=== PATIENT | female | born 1945 | race Caucasian/White ===

== ENCOUNTER → 2017-09-16 09:38 | Outpatient (CLI) | payer MEDICARE, SELFPAY ==
--- NOTE | 2017-09-16 09:40 | NM_ITS ---
CLINICAL: 72-year-old female with reported history of early satiety. SEMI-SOLID PHASE 99m Tc SULFUR COLLOID GASTRIC EMPTYING STUDY COMPARISON: None available FINDINGS: The patient was administered 1.1 mCi of 99m Tc sulfur colloid mixed with oatmeal and consumed per os. Image acquisitions in the anterior-posterior projections for a total of 60 minutes. There is prompt visualization of the stomach. There is no gastroesophageal reflux identified. The T1/2 linear fit was calculated to be 43.71 minutes, (Normal: 12-56 minutes). NM/Gastric Emptying Study IMPRESSION: 1. NORMAL 99m Tc sulfur colloid semi-solid phase (oatmeal) gastric emptying imaging examination. A. There is normal and preserved semi-solid phase gastric emptying compared to normal controls with maintained first order kinetics throughout all components of the examination. (Oscar et al, J Nucl Med Tech 38: 186, 2010). Electronically Signed: Will Patel DO at 10:19 EST Tel , Service support ,
== END ==
PROVIDERS: Family Provider Family Medicine; PCP Family Medicine; Visit Provider Family Medicine
DX: R68.81 Early satiety (principal)
CPT/HCPCS: 78264; A9541

== ENCOUNTER → 2017-10-07 08:56 | Outpatient (CLI) | payer MEDICARE, SELFPAY ==
--- NOTE | 2017-10-07 08:59 | RAD_ITS ---
STUDY: X-RAY - LUMBAR SPINE REASON FOR EXAM: Female, 72 years old. Chronic low back pain. TECHNIQUE: 5 view(s) of the lumbar spine were obtained including oblique views. COMPARISON: None FINDINGS: Normal lumbar lordosis. There is no substantial scoliosis. Minimal degree of anterior listhesis of L4 on L5 most likely secondary to facet joint osteoarthritis and hypertrophy. There is mild degree of endplate spondylosis of the lumbar vertebrae. There is multi-level degenerative disc disease with multi-level disc space narrowing. There is atherosclerotic calcification of the abdominal aorta without a demonstrated aneurysm. Dilatation of the aorta in the AP diameter. RAD/L/S Spine Min 4 Views IMPRESSION: Degenerative changes of the spine, as detailed above. Electronically Signed: Ugo Shearer MD at 20:00 EST Tel [phone], Service support ,
--- NOTE | 2017-10-07 09:02 | HPBD_ITS ---
STUDY: DUAL ENERGY X-RAY ABSORPTIOMETRY / DXA REASON FOR EXAM: Female, 72 years old. The patient is postmenopausal. Loss of height. TECHNIQUE: Bone Mineral Density (BMD) measurements of lumbar spine and bilateral hips were obtained. COMPARISON: None. FINDINGS: Lumbar Spine (L1-L4): g/cm2 (0.819) / T-score (-3.0) / Z-score (-1.3) Findings are suggestive of osteoporosis with a high fracture risk. Left Femur Total: g/cm2 (0.602) / T-score (-3.2) / Z-score (-1.8) Left Femoral Neck: g/cm2 (0.636) / T-score (-2.9) / Z-score (-1.2) Right Femur Total: g/cm2 (0.595) / T-score (-3.3) / Z-score (-1.8) Right Femoral Neck: g/cm2 (0.635) / T-score (-2.9) / Z-score (-1.2) HPBD/Dexa Bone Density Study (HP) IMPRESSION: The patient is considered osteoporotic as outlined below according to World Bart Organization (WHO) criteria with a high fracture risk. Reference Information: The T-score is the number of standard deviations above or below the standard which is normal for young adults at their peak bone mineral density. The World Health Organization (WHO) interprets the T-scores as follows: Above -1 Normal bone density Between -1 and -2.5 Osteopenia Equal to / or below -2.5 Osteoporosis As a practical clinical guideline, osteopenia may be graded as follows: Mild -1 through -1.5 Moderate -1.6 through -2.0 Severe -2.1 through -2.4 The Z-score is the number of standard deviations above or below age-matched controls. A Z-score of less than -1.5 would be considered abnormal. References: 1. NIH Osteoporosis and Related Bone Diseases http://www.osteo.org 2. International Society for Clinical Densitometry http://www.iscd.org 3. National Osteoporosis Foundation http://www.nof.org Electronically Signed: Ugo Shearer MD at 11:12 EST Tel [phone], Service support ,
== END ==
PROVIDERS: Family Provider Family Medicine; PCP Family Medicine; Visit Provider Family Medicine
DX: M81.0 Age-related osteoporosis without current pathological fracture (principal); M47.896 Other spondylosis, lumbar region; M51.36 Other intervertebral disc degeneration, lumbar region; M48.061 Spinal stenosis, lumbar region without neurogenic claudication
CPT/HCPCS: 72110; 77080

== ENCOUNTER → 2017-10-15 11:53 | Outpatient (CLI) | payer MEDICARE, SELFPAY ==
[2017-10-15 14:24] LABS: Anion Gap 10 (5-15); BUN 22 mg/dL (7-18); BUN/Creat Ratio 17.6 RATIO (10-20); Calcium,Total 9.3 mg/dL (8.5-10.1); Chloride 106 mmol/L (98-107); Creatinine, Serum 1.25 mg/dL (0.55-1.02); EST Glomerular Filtration Rate 45 mL/min (>60); Est Glom Filt Rate - Afr Amer 55 mL/min (>60); Glucose 136 mg/dL (74-106); Potassium 4.5 mmol/L (3.5-5.1); Sodium Level 141 mmol/L (136-145)
== END ==
PROVIDERS: Family Provider Family Medicine; PCP Family Medicine; Visit Provider Family Medicine
DX: N18.3 Chronic kidney disease, stage 3 (moderate) (principal)
CPT/HCPCS: 36415; 80048

== ENCOUNTER → 2017-10-17 10:53 | Outpatient (CLI) | payer MEDICARE, SELFPAY ==
--- NOTE | 2017-10-17 10:57 | RAD_ITS ---
STUDY: X-RAY - LEFT HAND REASON FOR EXAM: Female, 72 years old. Hand pain. TECHNIQUE: 3 view(s) of the hand. COMPARISON: None. FINDINGS: There is diffuse mineralization. There is no acute abnormality seen. Normal radiocarpal articulation. Normal distal radioulnar joint. Normal visualized carpal bones. Normal carpal articulations Normal carpometacarpal articulation of the thumb. Normal second through fifth carpometacarpal joints. Normal metacarpi. Normal metacarpophalangeal joint of the thumb. Normal interphalangeal joint of the thumb. Normal proximal and distal phalanges of the thumb. Normal metacarpophalangeal joints of the second through fifth fingers. Normal proximal and distal interphalangeal joints of the second through fifth fingers. Normal phalanges of the second through fifth fingers. The soft tissue structures are unremarkable. RAD/Hand Min 3 Views IMPRESSION: No acute fracture or dislocation. Electronically Signed: Adama Nicholson MD at 22:46 EST , Service support ,
--- NOTE | 2017-10-17 10:57 | RAD_ITS ---
STUDY: X-RAY - RIGHT HAND REASON FOR EXAM: Female, 72 years old. Hand pain. TECHNIQUE: 3 view(s) of the hand. COMPARISON: None. FINDINGS: There is diffuse demineralization. No acute fracture or dislocation is seen. Normal radiocarpal articulation. Normal distal radioulnar joint. Normal visualized carpal bones. Normal carpal articulations Normal carpometacarpal articulation of the thumb. Normal second through fifth carpometacarpal joints. Normal metacarpi. Normal metacarpophalangeal joint of the thumb. Normal interphalangeal joint of the thumb. Normal proximal and distal phalanges of the thumb. Normal metacarpophalangeal joints of the second through fifth fingers. Normal proximal and distal interphalangeal joints of the second through fifth fingers. Normal phalanges of the second through fifth fingers. The soft tissue structures are unremarkable. RAD/Hand Min 3 Views IMPRESSION: No acute fracture or dislocation. Electronically Signed: Adama Nicholson MD at 22:25 EST , Service support ,
== END ==
PROVIDERS: Family Provider Family Medicine; PCP Family Medicine; Visit Provider Family Medicine
DX: M79.642 Pain in left hand (principal); M79.641 Pain in right hand
CPT/HCPCS: 73130

== ENCOUNTER → 2017-11-19 10:26 | Outpatient (CLI) | payer MEDICARE, SELFPAY ==
[2017-11-19 10:41] LABS: Mucous, Urine 0 SEEN /hpf (<or=2+); Red Blood Cells-Urine 0 SEEN /hpf (0-5); Squamous Epithelial Cells - UA 0 SEEN /hpf (5-10)
[2017-11-19 12:00] LABS: Color, Urine Yellow (Yellow); Glucose, Dipstick Normal (Normal); Ketone-Dipstick Negative (Negative); Leukocyte Esterase-Dipstick Negative /ul (Negative); Nitrite-Dipstick Negative (Negative); Occult Blood-Urine Negative /ul (Negative); Protein-Dipstick Negative (Negative); Urine Bilirubin Dipstick Negative (Negative); Urine Clarity Clear (Clear); Urine Urobilinogen Normal (Normal)
[2017-11-19 12:17] LABS: Absolute Lymphocyte Count 2.95 X10^3/ul (0.83-4.51); Absolute Neutrophil Count 5.2 X10^3/uL (2.0-7.7); Basophil# 0.03 X10^3/uL; Basophil% 0.3 % (0-1); Eosinophil# 0.17 X10^3/uL; Eosinophils% 1.9 % (0-5); Hematocrit 38.7 % (37-47); Hemoglobin 12.6 g/dl (12.0-15.0); Lymphocyte # 2.95 X10^3/ul (4.0); Lymphocyte % 33.2 % (19-41); Mean Corp Hgb Conc 32.6 g/gl (32-36); Mean Corpuscular Hgb 30.7 pg (27.0-32.0); Mean Corpuscular Volume 94.2 fL (81-99); Mean Platelet Vol. 9.5 fl (6.2-12.0); Monocyte% 5.6 % (0-10); Neutrophil # 5.22 X10^3/uL (2.7-7.7); Neutrophil % 58.8 % (47-70); Platelet Count 237 K/mm3 (150-450); RBC Distribution Width CV 13.1 % (11.6-14.6); RBC Distribution Width SD 44.9 fl (35.1-43.9); Red Blood Count 4.11 M/mm3 (4.2-5.4); White Blood Count 8.9 K/mm3 (4.4-11.0)
[2017-11-19 12:18] LABS: Bacteria RARE /hpf (None Seen); White Blood Cells 0-5 SEEN /hpf (0-5)
[2017-11-19 12:19] LABS: POSITIVE COUNT NO; POSITIVE DIFFERENTIAL NO; POSITIVE MORPHOLOGY NO
[2017-11-19 12:23] LABS: Microalbumin,Random Urine 22.1 mg/L (NO RANGE EST.); Microalbumin:Creatinine Ratio 41.4 mg/g CRE (<30 mg/g CRE)
[2017-11-19 12:45] LABS: ALB/GLOB Ratio 1.1 RATIO (0.9-2.4); AST(SGOT) 14 U/L (15-37); Alanine Aminotransfer ALT/SGPT 33 U/L (13-56); Albumin, Serum 3.7 g/dL (3.2-5.0); Alkaline Phosphatase 107 U/L (45-117); Anion Gap 10 (5-15); BUN 39 mg/dL (7-18); Calcium,Total 8.3 mg/dL (8.5-10.1); Chloride 109 mmol/L (98-107); Cholesterol 220 mg/dL (200); Creatinine, Serum 1.22 mg/dL (0.55-1.02); EST Glomerular Filtration Rate 46 mL/min (>60); Est Glom Filt Rate - Afr Amer 56 mL/min (>60); Globulin 3.3 g/dL (2.2-4.2); Glucose 134 mg/dL (74-106); High Density Lipoprotein 38 mg/dL; Potassium 4.1 mmol/L (3.5-5.1); Sodium Level 142 mmol/L (136-145); Triglycerides 322 mg/dL; Very Low Density Lipoprotein 64 mg/dL (5-40)
[2017-11-19 12:46] LABS: Hemoglobin A1c 7.7 % (4.2-6.3)
[2017-11-19 12:51] LABS: Vitamin D,25 Hydroxy 46.1 ng/mL (29.95-100.01)
== END ==
PROVIDERS: Family Provider Family Medicine; PCP Family Medicine; Visit Provider Family Medicine
DX: E11.9 Type 2 diabetes mellitus without complications (principal)
CPT/HCPCS: 36415; 80053; 80061; 81001; 82043; 82306; 82570; 83036; 84100; 85025

== ENCOUNTER → 2017-12-31 13:48 | Outpatient (CLI) | payer MEDICARE, SELFPAY ==
--- NOTE | 2017-12-31 14:15 | RAD_ITS ---
STUDY: X-RAY - LEFT KNEE REASON FOR EXAM: Knee pain, rheumatoid arthritis, no specific injury. TECHNIQUE: 4 view(s) of the knee. COMPARISON: None. FINDINGS: Normal visualized distal femur. Normal visualized proximal tibia and fibula. Normal proximal tibiofibular articulation. There is mild deformity of the patella on the lateral view suggesting a chronic healed fracture. There is joint space narrowing of the medial femorotibial compartment. Normal lateral femorotibial compartment. There is mild joint space narrowing of the medial aspect of the patellofemoral articulation. There are surgical clips at the medial posterior aspect of the knee. RAD/Knee 4 or More Views IMPRESSION: Arthrosis of the medial femorotibial and patellofemoral compartments. Mild chronic healed fracture deformity of the patella. Electronically Signed: Regan Clemens MD at 9:02 EDT Tel , Service support ,
--- NOTE | 2017-12-31 14:15 | RAD_ITS ---
STUDY: X-RAY - RIGHT KNEE REASON FOR EXAM: Knee pain, no specific injury, rheumatoid arthritis. TECHNIQUE: 4 view(s) of the knee. COMPARISON: None. FINDINGS: Normal visualized distal femur. Normal visualized proximal tibia and fibula. Normal proximal tibiofibular articulation. There is joint space narrowing of the medial femorotibial compartment. Normal lateral femorotibial compartment. Normal patellofemoral articulation. The soft tissue structures are unremarkable. RAD/Knee 4 or More Views IMPRESSION: Arthrosis of the medial femorotibial compartment. Electronically Signed: Regan Clemens MD at 16:30 EDT Tel , Service support ,
--- NOTE | 2017-12-31 14:15 | RAD_ITS ---
STUDY: X-RAY - LEFT SHOULDER REASON FOR EXAM: Shoulder pain, no specific injury, rheumatoid arthritis. TECHNIQUE: 4 view(s) of the shoulder. COMPARISON: None. FINDINGS: Normal glenohumeral articulation. Normal acromioclavicular joint. Normal acromion. Normal humeral head and visualized proximal humerus. The soft tissue structures are unremarkable. Status post median sternotomy. RAD/Shoulder min 2 Views IMPRESSION: Unremarkable x-ray examination of the left shoulder. Electronically Signed: Regan Clemens MD at 16:16 EDT Tel , Service support ,
--- NOTE | 2017-12-31 14:15 | RAD_ITS ---
STUDY: X-RAY - RIGHT SHOULDER REASON FOR EXAM: Female, 72 years old. Shoulder pain. No known injury. History of rheumatoid arthritis. TECHNIQUE: 4 view(s) of the shoulder. COMPARISON: None. FINDINGS: Normal glenohumeral articulation. There is degenerative arthrosis of the acromioclavicular joint without inferior osseous spur formation. Normal acromion. There is no acute fracture, dislocation or destructive osseous pathology. There is demineralization of the humerus and visualized osseous structures. The soft tissue structures are unremarkable. There is evidence of median sternotomy. Normal visualized pulmonary apex. RAD/Shoulder min 2 Views IMPRESSION: Mild degenerative changes of the acromioclavicular joint. Electronically Signed: Santana Lambert DO at 15:28 EDT Tel [phone], Service support ,
[2017-12-31 16:53] LABS: Erythrocyte Sedimentation Rate 15 mm/hr (0-30)
[2017-12-31 16:55] LABS: CRP < 2.90 mg/L (0.0-3.0); Rheumatoid Factor < 10.0 IU/mL (<15); Uric Acid 7.9 mg/dL (2.6-6.0)
[2018-01-03 10:46] LABS: ANTINUCLEAR ANTIBODIES DIRECT Negative (Negative)
[2018-01-03 10:56] LABS: CCP IgG Antibodies 4 units (0-19)
== END ==
LOC: MFPLAB 13:48 → MTRAD 13:56
PROVIDERS: Family Provider Family Medicine; PCP Family Medicine; Visit Provider Family Medicine
DX: M19.011 Primary osteoarthritis, right shoulder (principal); M17.0 Bilateral primary osteoarthritis of knee; M06.00 Rheumatoid arthritis without rheumatoid factor, unspecified site
CPT/HCPCS: 36415; 73030; 73564; 84550; 85652; 86038; 86140; 86200; 86431

== ENCOUNTER → 2018-02-04 10:49 | Outpatient (CLI) | payer MEDICARE, SELFPAY ==
[2018-02-04 12:23] LABS: Uric Acid 7.2 mg/dL (2.6-6.0)
== END ==
PROVIDERS: Family Provider Family Medicine; PCP Family Medicine; Visit Provider Family Medicine
DX: E79.0 Hyperuricemia without signs of inflammatory arthritis and tophaceous disease (principal)
CPT/HCPCS: 36415; 84550

== ENCOUNTER → 2018-03-03 12:09 | Outpatient (CLI) | payer MEDICARE, SELFPAY ==
--- NOTE | 2018-03-03 12:27 | VDLE_ITS ---
Reason For Study: LEG SWELLING RIGHT LEFT CFV is compressible, spontaneous, phasic, GSV is normal. competent and demonstrates normal CFV is compressible, spontaneous, phasic, augmentation. competent, and demonstrates normal Procedure augmentation. Exam performed in department. FV is compressible, spontaneous, phasic, A preliminary report was called and/or faxed competent and demonstrates normal to Dr. Rahman. augmentation. POP V is compressible, spontaneous, phasic, competent and demonstrates normal augmentation. T/P Trunk is compressible. PTV is compressible. LT PerV is compressible. Interpretation Summary Deep veins of the left lower extremity are patent and compressible segmentally. There is no evidence of left lower extremity deep vein thrombosis. Valvular competence appears intact within the proximal deep venous system on the left . The left greater saphenous vein appears patent and compressible segmentally. Ordering Physician: Ben Rahman Referring Physician: Ben Rahman Performed By: Teena Sharp RVT
== END ==
PROVIDERS: Family Provider Family Medicine; PCP Family Medicine; Visit Provider Family Medicine
DX: M79.89 Other specified soft tissue disorders (principal)
CPT/HCPCS: 93971

== ENCOUNTER → 2018-03-06 11:09 | Outpatient (CLI) | payer MEDICARE, SELFPAY ==
[2018-03-06 11:13] LABS: Mucous, Urine 0 SEEN /hpf (<or=2+)
[2018-03-06 14:09] LABS: Absolute Lymphocyte Count 2.42 X10^3/ul (0.83-4.51); Absolute Neutrophil Count 8.8 X10^3/uL (2.0-7.7); Basophil# 0.05 X10^3/uL; Basophil% 0.4 % (0-1); Eosinophil# 0.22 X10^3/uL; Eosinophils% 1.8 % (0-5); Hematocrit 38.9 % (37-47); Hemoglobin 12.8 g/dl (12.0-15.0); Lymphocyte # 2.42 X10^3/ul (4.0); Lymphocyte % 19.3 % (19-41); Mean Corp Hgb Conc 32.9 g/gl (32-36); Mean Corpuscular Hgb 31.3 pg (27.0-32.0); Mean Corpuscular Volume 95.1 fL (81-99); Monocyte# 1.05 X10^3/uL; Monocyte% 8.4 % (0-10); Neutrophil # 8.77 X10^3/uL (2.7-7.7); Neutrophil % 69.6 % (47-70); Platelet Count 395 K/mm3 (150-450); RBC Distribution Width CV 14.9 % (11.6-14.6); RBC Distribution Width SD 49.3 fl (35.1-43.9); Red Blood Count 4.09 M/mm3 (4.2-5.4); White Blood Count 12.6 K/mm3 (4.4-11.0)
[2018-03-06 14:10] LABS: POSITIVE COUNT NO; POSITIVE DIFFERENTIAL NO; POSITIVE MORPHOLOGY NO
[2018-03-06 14:20] LABS: Color, Urine Yellow (Yellow); Glucose, Dipstick Normal (Normal); Ketone-Dipstick Negative (Negative); Leukocyte Esterase-Dipstick 25 /ul (Negative); Nitrite-Dipstick Negative (Negative); Occult Blood-Urine Negative /ul (Negative); Protein-Dipstick 15 mg/dl (Negative); Specific Gravity, Urine 1.015 (1.002-1.030); Urine Bilirubin Dipstick Negative (Negative); Urine Clarity Clear (Clear); Urine Urobilinogen Normal (Normal)
[2018-03-06 14:24] LABS: AST(SGOT) 19 U/L (15-37); Alanine Aminotransfer ALT/SGPT 27 U/L (13-56); Albumin, Serum 3.8 g/dL (3.2-5.0); Alkaline Phosphatase 87 U/L (45-117); Anion Gap 9 (5-15); BUN 20 mg/dL (7-18); BUN/Creat Ratio 16.1 RATIO (10-20); Calcium,Total 8.8 mg/dL (8.5-10.1); Chloride 103 mmol/L (98-107); Cholesterol 282 mg/dL (200); Creatinine, Serum 1.24 mg/dL (0.55-1.02); EST Glomerular Filtration Rate 45 mL/min (>60); Est Glom Filt Rate - Afr Amer 55 mL/min (>60); Globulin 3.8 g/dL (2.2-4.2); Glucose 219 mg/dL (74-106); High Density Lipoprotein 31 mg/dL; Potassium 4.4 mmol/L (3.5-5.1); Protein, Total 7.6 g/dL (6.4-8.2); Sodium Level 136 mmol/L (136-145); Thyroid Stim Hormone (TSH) 1.28 uIU/mL (0.358-3.74); Triglycerides 828 mg/dL
[2018-03-06 14:26] LABS: Hemoglobin A1c 9.5 % (4.2-6.3)
[2018-03-06 14:35] LABS: Bacteria RARE /hpf (None Seen); Red Blood Cells-Urine 0-5 SEEN /hpf (0-5); Squamous Epithelial Cells - UA 0-5 SEEN /hpf (5-10); White Blood Cells 0-5 SEEN /hpf (0-5)
[2018-03-06 14:42] LABS: Vitamin D,25 Hydroxy 11.2 ng/mL (29.95-100.01)
[2018-03-06 14:43] LABS: Microalbumin,Random Urine 47.8 mg/L (NO RANGE EST.)
== END ==
PROVIDERS: Family Provider Family Medicine; PCP Family Medicine; Visit Provider Family Medicine
DX: I10 Essential (primary) hypertension (principal); E11.9 Type 2 diabetes mellitus without complications; E55.9 Vitamin D deficiency, unspecified
CPT/HCPCS: 36415; 80053; 80061; 81001; 82043; 82306; 82570; 83036; 84443; 85025

== ENCOUNTER → 2018-04-03 15:35 | Outpatient (CLI) | payer MEDICARE, SELFPAY | PROVIDERS: Family Provider Family Medicine; PCP Family Medicine; Visit Provider Family Medicine | DX: M79.89 Other specified soft tissue disorders (principal) | CPT/HCPCS: 74177; Q9967 ==

== ENCOUNTER → 2018-04-14 11:33 | Outpatient (CLI) | payer MEDICARE, SELFPAY | PROVIDERS: Family Provider Family Medicine; PCP Family Medicine; Visit Provider Family Medicine | DX: M25.511 Pain in right shoulder (principal) | CPT/HCPCS: 73030 ==

== ENCOUNTER → 2018-06-16 10:18 | Outpatient (CLI) | payer MEDICARE, SELFPAY ==
[2018-06-16 11:50] LABS: Erythrocyte Sedimentation Rate 34 mm/hr (0-30)
[2018-06-16 11:55] LABS: Absolute Lymphocyte Count 2.91 X10^3/ul (0.83-4.51); Absolute Neutrophil Count 10.4 X10^3/uL (2.0-7.7); Basophil# 0.07 X10^3/uL; Basophil% 0.5 % (0-1); Eosinophil# 0.22 X10^3/uL; Eosinophils% 1.5 % (0-5); Hematocrit 38.2 % (37-47); Hemoglobin 12.5 g/dl (12.0-15.0); Lymphocyte # 2.91 X10^3/ul (4.0); Lymphocyte % 19.6 % (19-41); Mean Corp Hgb Conc 32.7 g/gl (32-36); Mean Corpuscular Volume 94.8 fL (81-99); Mean Platelet Vol. 10.1 fl (6.2-12.0); Monocyte# 1.04 X10^3/uL; Neutrophil # 10.42 X10^3/uL (2.7-7.7); Neutrophil % 70.4 % (47-70); POSITIVE COUNT NO; POSITIVE DIFFERENTIAL NO; POSITIVE MORPHOLOGY NO; Platelet Count 310 K/mm3 (150-450); RBC Distribution Width CV 13.9 % (11.6-14.6); RBC Distribution Width SD 46.3 fl (35.1-43.9); Red Blood Count 4.03 M/mm3 (4.2-5.4); White Blood Count 14.8 K/mm3 (4.4-11.0)
[2018-06-16 12:13] LABS: ALB/GLOB Ratio 0.9 RATIO (0.9-2.4); AST(SGOT) 11 U/L (15-37); Alanine Aminotransfer ALT/SGPT 33 U/L (13-56); Albumin, Serum 3.7 g/dL (3.2-5.0); Alkaline Phosphatase 81 U/L (45-117); Anion Gap 13 (5-15); BUN 32 mg/dL (7-18); BUN/Creat Ratio 23.4 RATIO (10-20); CRP 4.26 mg/L (0.0-3.0); Calcium,Total 8.2 mg/dL (8.5-10.1); Chloride 110 mmol/L (98-107); Creatinine, Serum 1.37 mg/dL (0.55-1.02); EST Glomerular Filtration Rate 40 mL/min (>60); Est Glom Filt Rate - Afr Amer 49 mL/min (>60); Globulin 3.9 g/dL (2.2-4.2); Glucose 230 mg/dL (74-106); Potassium 4.5 mmol/L (3.5-5.1); Protein, Total 7.6 g/dL (6.4-8.2); Rheumatoid Factor < 10.0 IU/mL (<15); Sodium Level 139 mmol/L (136-145); Uric Acid 6.9 mg/dL (2.6-6.0)
[2018-06-19 11:32] LABS: CCP IgG Antibodies 5 units (0-19)
== END ==
PROVIDERS: Family Provider Family Medicine; PCP Family Medicine; Visit Provider Internal Medicine Rheumatology
DX: M06.4 Inflammatory polyarthropathy (principal); M10.9 Gout, unspecified
CPT/HCPCS: 36415; 80053; 84550; 85025; 85652; 86140; 86200; 86431

== ENCOUNTER → 2018-07-08 10:42 | Outpatient (CLI) | payer MEDICARE, SELFPAY ==
[2018-07-08 12:29] LABS: Absolute Lymphocyte Count 3.58 X10^3/ul (0.83-4.51); Absolute Neutrophil Count 11.4 X10^3/uL (2.0-7.7); Basophil# 0.05 X10^3/uL; Basophil% 0.3 % (0-1); Eosinophil# 0.13 X10^3/uL; Eosinophils% 0.7 % (0-5); Hematocrit 40.3 % (37-47); Hemoglobin 13.2 g/dl (12.0-15.0); Lymphocyte # 3.58 X10^3/ul (4.0); Lymphocyte % 20.6 % (19-41); Mean Corp Hgb Conc 32.8 g/gl (32-36); Mean Corpuscular Hgb 31.4 pg (27.0-32.0); Mean Platelet Vol. 10.1 fl (6.2-12.0); Monocyte# 2.08 X10^3/uL; Neutrophil # 11.38 X10^3/uL (2.7-7.7); Neutrophil % 65.4 % (47-70); Platelet Count 311 K/mm3 (150-450); RBC Distribution Width CV 13.7 % (11.6-14.6); RBC Distribution Width SD 46.9 fl (35.1-43.9); White Blood Count 17.4 K/mm3 (4.4-11.0)
[2018-07-08 12:37] LABS: ALB/GLOB Ratio 0.9 RATIO (0.9-2.4); AST(SGOT) 33 U/L (15-37); Alanine Aminotransfer ALT/SGPT 40 U/L (13-56); Albumin, Serum 3.7 g/dL (3.2-5.0); Alkaline Phosphatase 77 U/L (45-117); Anion Gap 8 (5-15); BUN 37 mg/dL (7-18); BUN/Creat Ratio 26.8 RATIO (10-20); Calcium,Total 8.8 mg/dL (8.5-10.1); Chloride 104 mmol/L (98-107); Cholesterol 258 mg/dL (200); Creatinine, Serum 1.38 mg/dL (0.55-1.02); EST Glomerular Filtration Rate 40 mL/min (>60); Est Glom Filt Rate - Afr Amer 49 mL/min (>60); Globulin 4.2 g/dL (2.2-4.2); Glucose 51 mg/dL (74-106); High Density Lipoprotein 47 mg/dL; Potassium 3.9 mmol/L (3.5-5.1); Protein, Total 7.9 g/dL (6.4-8.2); Sodium Level 135 mmol/L (136-145); Triglycerides 430 mg/dL
[2018-07-08 12:40] LABS: Differential Indicated SCAN CRITERIA MET; POSITIVE COUNT NO; POSITIVE DIFFERENTIAL YES; POSITIVE MORPHOLOGY NO; Vitamin D,25 Hydroxy 14.2 ng/mL (29.95-100.01)
[2018-07-08 12:53] LABS: Hemoglobin A1c 8.8 % (4.2-6.3)
[2018-07-10 10:27] LABS: Pathologist Review Reviewed
== END ==
PROVIDERS: Family Provider Family Medicine; PCP Family Medicine; Visit Provider Family Medicine
DX: I10 Essential (primary) hypertension (principal); E55.9 Vitamin D deficiency, unspecified; E11.9 Type 2 diabetes mellitus without complications
CPT/HCPCS: 36415; 80053; 80061; 82043; 82306; 82570; 83036; 85025

== ENCOUNTER → 2018-07-10 09:55 | Outpatient (CLI) | payer MEDICARE, SELFPAY ==
[2018-07-10 12:16] LABS: Microalbumin,Random Urine 45.5 mg/L (NO RANGE EST.); Microalbumin:Creatinine Ratio 65.3 mg/g CRE (<30 mg/g CRE)
== END ==
LOC: LAB.FUTURE 09:55 → LABSPEC 09:57
PROVIDERS: Family Provider Family Medicine; PCP Family Medicine; Visit Provider Family Medicine
DX: I10 Essential (primary) hypertension (principal)
CPT/HCPCS: 82043; 82570

== ENCOUNTER → 2018-11-11 12:53 | Outpatient (CLI) | payer MEDICARE, SELFPAY | PROVIDERS: Family Provider Family Medicine; PCP Family Medicine; Referring Provider Family Medicine; Visit Provider Family Medicine | DX: N39.0 Urinary tract infection, site not specified (principal) | CPT/HCPCS: 87086 ==

== ENCOUNTER 2018-11-12 00:58 | Inpatient (IN) | payer MEDICARE, SELFPAY ==
[2018-11-12] VITALS (36 sets, daily range): BP systolic 84–142; BP diastolic 38–119; PULSE 51–90; RESP 13–28; TEMP 30.3–37.6; O2SAT 88–100; BMI 23.2; BMI 24.0; BMI 24.1
--- NOTE | 2018-11-12 01:05 | RAD_ITS ---
STUDY: X-RAY CHEST REASON FOR EXAM: Female, 73 years old. Shortness of breath TECHNIQUE: 1 view COMPARISON: None. FINDINGS: The lungs are clear and expanded. There is no demonstrated pleural abnormality. Normal size heart. Normal mediastinum and anita. Normal visualized pulmonary arteries. Normal visualized aortic arch and descending thoracic aorta. Median sternotomy wires are in place. Normal visualized thoracic spine. Normal visualized ribs, clavicles, and shoulders. There is no demonstrated abnormality of the visualized soft tissue structures of the upper abdomen. RAD/Chest 1 View (Portable) IMPRESSION: Normal x-ray examination of the chest. No acute findings in the lungs Electronically Signed: Garry Call MD at 3:10 EDT Tel , Service support ,
--- NOTE | 2018-11-12 01:05 | EKG12_ITS ---
Test Reason : GENERAL ILLNESS Blood Pressure : / mmHG Vent. Rate : 058 BPM Atrial Rate : 058 BPM P-R Int : 188 ms QRS Dur : 102 ms QT Int : 504 ms P-R-T Axes : -88 -20 127 degrees QTc Int : 494 ms Possible ectopic atrial bradycardia ST & T wave abnormality, consider anterolateral ischemia Prolonged QT Abnormal ECG Confirmed by DONATO CLEMENTS, ONEAL ([id number]), state editor NASIR WILD ([id number]) on 11/12/2018 1:16:20 PM Referred By: Ben Rahman Confirmed By:ONEAL SEWELL MD
--- NOTE | 2018-11-12 01:05 | ED.RN ---
UNABLE TO OBTAIN QUALITY PULSE OX
[2018-11-12 01:30] LABS: Absolute Neutrophil Count 23.8 X10^3/uL (2.0-7.7); Basophil# 0.03 X10^3/uL; Basophil% 0.1 % (0-1); Differential Indicated SCAN CRITERIA MET; Eosinophil# 0.03 X10^3/uL; Eosinophils% 0.1 % (0-5); Lymphocyte % 10.8 % (19-41); Mean Corp Hgb Conc 28.6 g/gl (32-36); Mean Corpuscular Hgb 30.3 pg (27.0-32.0); Mean Corpuscular Volume 106.1 fL (81-99); Mean Platelet Vol. 10.4 fl (6.2-12.0); Monocyte# 0.67 X10^3/uL; Monocyte% 2.4 % (0-10); Neutrophil % 85.7 % (47-70); POSITIVE COUNT NO; POSITIVE DIFFERENTIAL YES; POSITIVE MORPHOLOGY YES; Platelet Count 558 K/mm3 (150-450); RBC Distribution Width CV 14.2 % (11.6-14.6); RBC Distribution Width SD 55.2 fl (35.1-43.9); Red Blood Count 3.96 M/mm3 (4.2-5.4); White Blood Count 27.8 K/mm3 (4.4-11.0)
[2018-11-12 01:33] LABS: International Normalized Ratio 1.5; Partial Thromboplast Time 28.1 Seconds (24.1-36.2)
[2018-11-12 01:40] LABS: Bacteria 0 SEEN /hpf (None Seen); Mucous, Urine 0 SEEN /hpf (<or=2+); Red Blood Cells-Urine 0 SEEN /hpf (0-5); Squamous Epithelial Cells - UA 0 SEEN /hpf (5-10)
[2018-11-12 01:41] LABS: Color, Urine Yellow (Yellow); Glucose, Dipstick 1000 mg/dl (Normal); Ketone-Dipstick Negative (Negative); Leukocyte Esterase-Dipstick 500 /ul (Negative); Nitrite-Dipstick Negative (Negative); Occult Blood-Urine 50 /ul (Negative); Protein-Dipstick 30 mg/dl (Negative); Urine Bilirubin Dipstick Negative (Negative); Urine Clarity Cloudy (Clear); Urine Urobilinogen Normal (Normal)
[2018-11-12] MEDS: 0.9% Normal Saline 1,000 ML 999 ML IV ×2 (01:41→02:36)
[2018-11-12] MEDS: 0.9% Normal Saline 1,000 ML 250 ML IV ×2 (01:41→04:15)
--- NOTE | 2018-11-12 01:46 | CPS ---
Critical Results of ABG given to
[2018-11-12 01:58] LABS: White Blood Cells 10-25 SEEN /hpf (0-5)
[2018-11-12 01:59] LABS: Yeast-Urine 3+ /hpf (None Seen)
[2018-11-12 02:02] LABS: ALB/GLOB Ratio 0.9 RATIO (0.9-2.4); AST(SGOT) 40 U/L (15-37); Alanine Aminotransfer ALT/SGPT 31 U/L (13-56); Albumin, Serum 3.5 g/dL (3.2-5.0); Alkaline Phosphatase 164 U/L (45-117); Anion Gap 24 (5-15); BUN 66 mg/dL (7-18); BUN/Creat Ratio 24.8 RATIO (10-20); Calcium,Total 9.7 mg/dL (8.5-10.1); Chloride 73 mmol/L (98-107); Creatinine, Serum 2.66 mg/dL (0.55-1.02); EST Glomerular Filtration Rate 19 mL/min (>60); Est Glom Filt Rate - Afr Amer 23 mL/min (>60); Estimated Creatinine Clearance 16.05 ml/min; Globulin 3.7 g/dL (2.2-4.2); Glucose 1626 mg/dL (74-106); Protein, Total 7.2 g/dL (6.4-8.2); Sodium Level 105 mmol/L (136-145)
[2018-11-12 02:05] LABS: Lactic Acid 13.1 mmol/L (0.4-2.0)
--- NOTE | 2018-11-12 03:11 | RAD_ITS ---
STUDY: X-RAY CHEST REASON FOR EXAM: Female, 73 years old. PICC line placement TECHNIQUE: 1 view COMPARISON: November 12, 2018 at 1:57 AM FINDINGS: There is interval introduction of a central line through the right internal jugular vein with the tip at the cavoatrial junction. The lungs remain clear. The heart is normal in size. Median sternotomy wires are in place. Normal visualized thoracic spine. Normal visualized ribs, clavicles, and shoulders. There is no demonstrated abnormality of the visualized soft tissue structures of the upper abdomen. RAD/Chest 1 View (Portable) IMPRESSION: Interval introduction of a central line through the right internal jugular vein with the tip at the caval atrial junction. No acute findings in the lungs Electronically Signed: Garry Call MD at 3:51 EDT Tel , Service support ,
--- NOTE | 2018-11-12 03:16 | ED.RN ---
pt will not keep blankets on even after education about temperature. IG central line placed right. Pending bed assignment.
--- NOTE | 2018-11-12 03:23 | ED.DCSUM_ITS ---
- ER Visit Summary Date of Service: 11/12/18 Chief Complaint: Weakness History of Present Illness: The patient is a 73 F who family brings her in tonight with a chief complaint that she is weak and unable to walk. They tell me that 10 days ago she was started on antibiotic for urinary tract infection. From online resources I see that this was probably Bactrim. She was not getting any better still complaining of urinary frequency and went to primary care today. She was started on ciprofloxacin and Zofran. Family states that about a week ago she had nausea vomiting is been unable to keep much fluids or food in her. states that she complains of being hot and goes outside with very little clothing on. Family and patient poor historians. They note a history of type 2 diabetes on insulin coronary artery disease having had a CABG. Patient denies chest pain Physical Examination: Temperature 92.8. Heart rate of 51 respirations are 24 pulse ox is 94% on room air blood pressure 121/68 Gen: Well-nourished well-developed patient is ill-appearing Head: Normocephalic atraumatic Eyes: Perrl EOMI ENT: TMs clear no rhinorrhea moist mucous membranes Neck: Supple no lymphadenopathy no JVD nontender CVS: Regular rate and cardiac rhythm no murmurs normal S1-S2 Respiratory: It is tachypneic no distress clear to auscultation bilaterally chest nontender Abdomen: Soft mild diffuse tenderness without guarding or rebound nondistended normal bowel sounds no masses Back: Nontender Extremity: Nontender no edema Skin: Normal color no rash Neuro: Lethargic but orientated ?3 CN II-XII intact normal strength sensation Psych: Blunted Test Results: EKG demonstrates a sinus rhythm with deep inverted T waves anteriorly and laterally. 1 box of elevation in V2 and V3 patient has had inverted T waves on prior EKG from the year 1999.. White count is 27.8. Glucose 1626. BUN is 66 creatinine 2.66. ABG with pH of 7.05 bicarb 3.9 PCO2 13.8 PaO2 172. Lactic acid 13.1. Troponin V 0.39. Chest x-ray shows no acute findings and repeat chest x-ray shows adequate placement of a central line. Ketones are negative. Urinalysis 10-25 white cells negative nitrates no bacteria positive yeast Emergency Department Course and Treatment: She is not complaining of chest pain I suspect that the changes we see on the EKG are most likely due to the severe metabolic derangements. IV was established and the patient received 2 L of IV fluids. An insulin drip was started. Patient also received 2 g of meropenem. The patient does not want warm blankets or bear hugger. She pushes this type of warming away. The patient had a couple hypotensive readings. The decision was made given the above lab findings to place a central line. Informed consent was provided by family. A right internal jugular central line was placed under ultrasound guidance using the modified Seldinger technique. This was obtained on the first attempt. Dark nonpulsatile blood obtained. It was sutured in place flushed and chest x-ray confirmed placement. Patient was admitted to the intensive care unit. At this time family wishes the patient to be a full code. Impression: 1. Hyperosmolar hyperglycemic nonketotic syndrome 2. NSTEMI 3. Metabolic acidosis 4. Hypothermia 5. Central line by physician 6. Critical care time 35 minutes This note was generated with [employer] dictation software. It may contain incorrect words, spelling, and punctuation that were not noted in review of the chart prior to signing ED Disposition - Plan for ED Patient: Disposition: Acute Care Hospital [facility]
--- NOTE | 2018-11-12 03:31 | ED.RN ---
Report given to Viviane in ICU.
[2018-11-12 03:40] LABS: Blood Gas Specimen Type ART
[2018-11-12 03:41] LABS: Allen Test POS; O2 Delivery Device RA; SITE R Radial
[2018-11-12 03:42] LABS: Time Given 132
[2018-11-12 03:43] LABS: PO2 172 mmHG (75-100); pCO2 13.8 mmHg (35-45); pH 7.06 (7.35-7.45)
[2018-11-12 03:44] LABS: Base Excess -26 mmol/L (-2 to +2); Bicarbonate 3.9 mmol/L (22-26); SO2 99 % (95-99); Total Carbon Dioxide < 5 mmol/L
--- NOTE | 2018-11-12 03:52 | PCM.HP.STD ---
Problem List (1) Generalized weakness Status: Acute (2) Confusion Status: Acute History of Present Illness Date of Admission: 11/12/18 Chief Complaint: Generalized weakness, confusion The patient is a 73 year old F who was seen in the emergency room at [facility] after being brought in with complaints of severe weakness and confusion. Patient's family was present in the emergency room and were able to give information-an adequate review of systems was unable to be obtained from the patient due to severe weakness and confusion. Patient did answer some questions appropriately however. Patient has no complaints of any chest pain or shortness of breath, she does complain of some nausea. Patient's family states that the patient had a urinary tract infection approximately a week to 10 days ago and was treated with antibiotic, she continued to feel unwell and weak and went to her family physician's office on 11/11/18, she was given a prescription for Cipro, Mycelex troches, and Zofran but no lab was obtained. Patient's and son state that the patient is noncompliant with her type 2 diabetes. Workup in the emergency room included labs which were abnormal for the following results: White blood cell count was elevated at 27.8, sodium was 105 (corrected for the patient's hyperglycemia-approximately 140), potassium was elevated at 7, chloride was low at 73, bicarb was 8, glucose was 1626, lactic acid was 13.1, troponin was elevated at 5.39, AST was elevated at 40, and alkaline phosphatase was elevated at 164. Patient's urinalysis was positive for protein, urine glucose was high at 1000, urine WBCs were 15-25, 0 bacteria were seen however +3 yeast was noted to be present. Patient's acetone level was negative. EKG showed a normal sinus rhythm with T wave inversions across the anterior wall leads which appear to be chronic in nature, in leads V2 and V3, there was a slight ST elevation of 1 mm noted-this examiner did not feel the patient had a STEMI. Arterial blood gas was drawn on 3 L nasal cannula: PH 7.06, PCO2 of 13.8, PO2 of 172. Patient was given IV fluid in the emergency room, she was given 1 dose of meropenem 2 g, patient was started on an insulin drip, patient also had a central line inserted. Patient will be admitted to ICU for septic shock, hyperosmolar nonketotic hyperglycemia, and non-STEMI. Past Medical History Allergies metformin Allergy (Verified 11/12/18 01:07) Itching Home Medications: Ambulatory Orders Medication Instructions Recorded Ciprofloxacin [Cipro] 500 mg PO BID 11/12/18 Clotrimazole [Mycelex] 10 mg MUCOUS MEM 5X/DAY 11/12/18 Insulin Lispro [Humalog KwikPen] 11/12/18 Lisinopril [Zestril] 10 mg PO DAILY 11/12/18 Sulfamethoxazole/Trimethoprim 1 tab PO BID 11/12/18 [Sulfamethoxazole-Tmp Ds Tablet] Surgical History: cholecystectomy, coronary bypass surgery, hysterectomy, - - Knee surgery Psychiatric History: No pertinent psych hx [employer] History: No pertinent [employer] history Lives: Spouse/ Significant Other Smoking Status: Current every day smoker Tobacco Use: Cigarettes Alcohol: None Drugs: None - *Family History Maternal History Items: Unknown Paternal History Items: Unknown Review of Systems Comment: Review of systems was unable to be obtained from the patient due to her critical medical condition and mild confusion, medical information was obtained from the patient's family who were in the room during my examination VTE Information - Inpt Only VTE Present on Admission: No VTE Mechan Device Prophylaxis: None VTE Pharm Prophylaxis ordered?: Yes Patient Problems: Active and Suspected Problems Generalized weakness (Acute) Confusion (Acute) - Physical Exam General: Alert, Cooperative, No apparent distress, Well developed, Confused - Patient has mild confusion, she answers some questions appropriately HEENT: Atraumatic, PERRLA, EOMI, Normocephalic Oral: Dry Mucosa Neck: Supple, No JVD, Negative Carotid Bruits, No Nuchal Rigidity, Trachea Midline, Thyroid Normal Size and Texture Lungs: Clear to auscultation, Normal air movement, No rhonchi, No wheeze, No rales Cardiovascular: Regular rate, Regular Rhythm, Normal S1, Normal S2, No murmurs, No Ectopic Activity, PMI Normal, No rub noted, No Gallop Abdomen: Bowel Sounds Present, Soft, Non Tender, Non-Distended, No hernias noted Extremities: No clubbing, No cyanosis, No edema, Capillary Refill Less than 3 Seconds, - - Extremities are cool to the touch Skin: No rashes, No breakdown Musculoskeletal: No Tenderness to Palpation of Joints or Extremities Neurological: Cranial nerves II-XII grossly intact, Neuro grossly intact, Sensory exam intact to light touch and pain Psych/Mental Status: Flat Affect, - - Patient is mildly confused, she answers some questions appropriately, she is alert Vital Signs Temp Pulse Resp BP Pulse Ox 92.9 F L 60 28 H 104/77 99 11/12/18 03:18 11/12/18 03:18 11/12/18 03:18 11/12/18 03:18 11/12/18 03:18 Oxygen Flow Rate (L/min) 3 Oxygen Delivery Method Room Air Weight: 59.5 kg Body Mass Index (BMI) 23.2 Laboratory Tests Past 24 Hrs 11/12/18 11/12/18 11/12/18 01:17 01:17 01:17 WBC 27.8 H RBC 3.96 L Hgb 12.0 Hct 42.0 MCV 106.1 H MCH 30.3 MCHC 28.6 L RDW 14.2 RDW Differential 55.2 H Plt Count 558 H MPV 10.4 Immature Gran % (Auto) 0.900 Neut % (Auto) 85.7 H Lymph % (Auto) 10.8 L [place] % (Auto) 2.4 Eos % (Auto) 0.1 Baso % (Auto) 0.1 Absolute Neuts (auto) 23.8 H Absolute Lymphs (auto) 3.00 Total Counted Not Reportable PT 18.0 H INR 1.5 APTT 28.1 Specimen Type Sample Site pH Bicarbonate Actual POC Total CO2 Base Excess O2 Saturation ABG pCO2 ABG pO2 Jose Test O2 Delivery Device Blood Gas Notified Whom Blood Gas Notified Time Sodium 105 L* Potassium 7.0 H* Chloride 73 L* Carbon Dioxide 8.0 L* Anion Gap 24 H BUN 66 H Creatinine 2.66 H Estim Creat Clear Calc 16.05 Est GFR (MDRD) Af Amer 23 L Est GFR (MDRD) Non-Af 19 L BUN/Creatinine Ratio 24.8 H Glucose 1626 H* Lactic Acid Calcium 9.7 Total Bilirubin 0.50 AST 40 H ALT 31 Alkaline Phosphatase 164 H Troponin I 5.390 H* Total Protein 7.2 Albumin 3.5 Globulin 3.7 Albumin/Globulin Ratio 0.9 Urine Color Urine Clarity Urine pH Ur Specific Forrest Urine Protein Urine Glucose (UA) Urine Ketones Urine Occult Blood Urine Nitrite Urine Bilirubin Urine Urobilinogen Ur Leukocyte Esterase Urine RBC Urine WBC Ur Squamous Epith Cells Urine Bacteria Urine Mucus Urine Yeast Acetone Level 11/12/18 11/12/18 11/12/18 01:17 01:17 01:32 WBC RBC Hgb Hct MCV MCH MCHC RDW RDW Differential Plt Count MPV Immature Gran % (Auto) Neut % (Auto) Lymph % (Auto) [place] % (Auto) Eos % (Auto) Baso % (Auto) Absolute Neuts (auto) Absolute Lymphs (auto) Total Counted PT INR APTT Specimen Type ART Sample Site R Radial pH 7.06 L* Bicarbonate Actual 3.9 L POC Total CO2 < 5 Base Excess -26 L O2 Saturation 99 ABG pCO2 13.8 L* ABG pO2 172 H Jose Test POS O2 Delivery Device RA Blood Gas Notified Whom ED Blood Gas Notified Time 132 Sodium Potassium Chloride Carbon Dioxide Anion Gap BUN Creatinine Estim Creat Clear Calc Est GFR (MDRD) Af Amer Est GFR (MDRD) Non-Af BUN/Creatinine Ratio Glucose Lactic Acid 13.1 H* Calcium Total Bilirubin AST ALT Alkaline Phosphatase Troponin I Total Protein Albumin Globulin Albumin/Globulin Ratio Urine Color Urine Clarity Urine pH Ur Specific Forrest Urine Protein Urine Glucose (UA) Urine Ketones Urine Occult Blood Urine Nitrite Urine Bilirubin Urine Urobilinogen Ur Leukocyte Esterase Urine RBC Urine WBC Ur Squamous Epith Cells Urine Bacteria Urine Mucus Urine Yeast Acetone Level NEGATIVE 11/12/18 01:35 WBC RBC Hgb Hct MCV MCH MCHC RDW RDW Differential Plt Count MPV Immature Gran % (Auto) Neut % (Auto) Lymph % (Auto) [place] % (Auto) Eos % (Auto) Baso % (Auto) Absolute Neuts (auto) Absolute Lymphs (auto) Total Counted PT INR APTT Specimen Type Sample Site pH Bicarbonate Actual POC Total CO2 Base Excess O2 Saturation ABG pCO2 ABG pO2 Jose Test O2 Delivery Device Blood Gas Notified Whom Blood Gas Notified Time Sodium Potassium Chloride Carbon Dioxide Anion Gap BUN Creatinine Estim Creat Clear Calc Est GFR (MDRD) Af Amer Est GFR (MDRD) Non-Af BUN/Creatinine Ratio Glucose Lactic Acid Calcium Total Bilirubin AST ALT Alkaline Phosphatase Troponin I Total Protein Albumin Globulin Albumin/Globulin Ratio Urine Color Yellow Urine Clarity Cloudy Urine pH 6.0 Ur Specific Forrest 1.010 Urine Protein 30 H Urine Glucose (UA) 1000 H Urine Ketones Negative Urine Occult Blood 50 H Urine Nitrite Negative Urine Bilirubin Negative Urine Urobilinogen Normal Ur Leukocyte Esterase 500 H Urine RBC 0 SEEN Urine WBC 10-25 SEEN Ur Squamous Epith Cells 0 SEEN Urine Bacteria 0 SEEN Urine Mucus 0 SEEN Urine Yeast 3+ Acetone Level Assessment/Plan All Active Problems Generalized weakness (Acute) Confusion (Acute) #1 hyperosmolar nonketotic hyperglycemia in a patient with uncontrolled type 2 diabetes due to noncompliance-patient will be admitted to ICU, insulin drip will be continued, blood sugars and BMPs will be monitored, patient will receive aggressive IV fluid resuscitation. Critical care will participate in the patient's care. #2 septic shock-patient has an elevated lactic acid at 13.1 and she is suspected to have cystitis-patient will remain on meropenem and I have added Diflucan due to yeast in her urine. Blood cultures were obtained in the emergency room #3 non-STEMI in a patient with a history of coronary artery disease-I believe patient has a type II non-STEMI, she will have an echocardiogram performed, she will need to be seen by cardiology during her hospital stay, again I do not feel the patient had a STEMI #4 probable cystitis-again patient will continue on meropenem, I gave the patient 1 dose of Diflucan #5 hyperkalemia-repeat labs will be drawn #6 acute kidney injury secondary to #1-aggressive fluid resuscitation will be carried out #7 metabolic encephalopathy #8 metabolic acidosis-ABG will be repeated I discussed CODE STATUS with the patient's and her son who was in the room, patient is a full code Code Visit Inpatient E&M: 54191 Init Hosp L3
--- NOTE | 2018-11-12 04:04 | ECHOCS_ITS ---
Reason For Study: CAD/ASHD Procedure This was a 2D Doppler, Color Flow transthoracic echocardiogram. Contrast injection was performed. Exam performed portable in ICU/CCU. Left Ventricle Normal LV size. Mild concentric left ventricular hypertrophy. The estimated ejection fraction is 30 %. Moderately severe segmental systolic dysfunction (see wall motion). Stage 2 diastolic dysfunction. [place] : Akinetic. Infero-Basal: Akinetic. Basal inferoseptal: Akinetic. Mid- anteroseptal : Akinetic. Lateral-Basal: Normal. Anterio-Basal: Normal. Mid-Lateral : Normal. The rest of the wall segments are hypokinetic. Right Ventricle Normal RV size. Normal systolic function. Atria Normal left atrium. Normal right atrium. Mitral Valve Normal mitral valve. Mild (1+) eccentric mitral valve insufficiency. Tricuspid Valve Normal tricuspid valve. Mild (1+) tricuspid valve insufficiency. Pulmonary artery systolic pressure is 27 mmHg. Aortic Valve Trisinus/trileaflet aortic valve. Mild (1+) aortic valve insufficiency. Pulmonic Valve Normal pulmonic valve. Great Vessels Normal aortic root. The pulmonary artery is normal size. Normal inferior vena cava. Pericardium/Pleural No pericardial effusion. Medication Diluted definity 5ml given slow IV push to enhance endocardial definition. MMode/2D Measurements & Calculations LVIDd: 4.5 cm IVSd: 1.3 cm Ao root diam: 2.8 cm LVIDs: 3.3 cm LVPWd: 1.2 cm LA dimension: 3.5 cm RVDd: 2.9 cm FS: 25.8 % LAV(MOD-bp): 37.3 ml LVAd ap4: 29.0 cm2 SV(MOD-sp4): 18.6 ml LAV(MOD-bp) Indexed: 23.4 ml/m2 EDV(MOD-sp4): 100.8 ml LAV(MOD-sp2): 41.4 ml EDV(sp4-el): 101.5 ml LAV(MOD-sp4): 30.5 ml LVAs ap4: 25.0 cm2 ESV(MOD-sp4): 82.2 ml ESV(sp4-el): 82.4 ml EF(MOD-sp4): 18.5 % EF(sp4-el): 18.8 % SV(sp4-el): 19.1 ml LA A4 area: 13.9 cm2 RA A4 area: 10.4 cm2 Time Measurements MV dec time: 0.24 sec Doppler Measurements & Calculations MV E max brannon: 83.0 cm/sec Lat Peak E' Brannon: 6.1 cm/sec Med Peak E' Brannon: 3.9 cm/sec MV A max brannon: 114.9 cm/sec E/E' lat: 13.7 E/E' med: 21.1 MV E/A: 0.72 MV V2 max: 121.3 cm/sec MV P1/2t max brannon: 79.9 cm/sec Ao V2 max: 110.0 cm/sec MV max P.9 mmHg MV P1/2t: 104.0 msec Ao max P.8 mmHg MV V2 mean: 54.7 cm/sec Ao V2 mean: 64.4 cm/sec MV mean P.5 mmHg MV dec slope: 225.2 cm/sec2 Ao mean P.0 mmHg MV V2 VTI: 33.4 cm MVA(P1/2t): 2.1 cm2 Ao V2 VTI: 18.8 cm AI max brannon: 256.7 cm/sec LV V1 max: 101.1 cm/sec MR max brannon: 466.7 cm/sec AI max P.4 mmHg LV V1 max P.1 mmHg MR max P.1 mmHg LV V1 mean P.5 mmHg MR mean brannon: 352.6 cm/sec AI dec slope: 92.4 cm/sec2 LV V1 mean: 54.9 cm/sec MR mean P.3 mmHg AI P1/2t: 813.3 msec LV V1 VTI: 16.6 cm MR VTI: 172.7 cm PA V2 max: 83.8 cm/sec TR max brannon: 239.0 cm/sec TR max P.9 mmHg Interpretation Summary Normal LV size. Mild concentric left ventricular hypertrophy. The estimated ejection fraction is 30 %. Moderately severe segmental systolic dysfunction (see wall motion). Stage 2 diastolic dysfunction. Mild (1+) eccentric mitral valve insufficiency. Ordering Physician: Romario Cervantes Referring Physician: Ben Rahman Performed By: Ramy Hancock RCS
[2018-11-12 04:25] LABS: Bedside Glucose > 500 mg/dL (70-110)
[2018-11-12 05:01] LABS: Anion Gap 21 (5-15); BUN 60 mg/dL (7-18); BUN/Creat Ratio 27.5 RATIO (10-20); Calcium,Total 8.5 mg/dL (8.5-10.1); Chloride 87 mmol/L (98-107); Creatinine, Serum 2.18 mg/dL (0.55-1.02); EST Glomerular Filtration Rate 24 mL/min (>60); Est Glom Filt Rate - Afr Amer 29 mL/min (>60); Estimated Creatinine Clearance 17.86 ml/min; Glucose 1361 mg/dL (74-106); Potassium 6.1 mmol/L (3.5-5.1); Sodium Level 118 mmol/L (136-145)
[2018-11-12 05:03] LABS: Lactic Acid 6.4 mmol/L (0.4-2.0)
[2018-11-12 05:23] LABS: Reflex Lactate? Y
[2018-11-12] MEDS: Heparin Injection (Vial) 5,000 UNIT/ML VIAL 5000 UNIT SC ×2 (05:58→21:49)
--- NOTE | 2018-11-12 06:15 | NURSING ---
Pt. removed all rings and placed in a cup. Locked cup in bottom med clinical support manager pt. room.
[2018-11-12 06:21] LABS: Allen Test POS; Base Excess -21 mmol/L (-2 to +2); Bicarbonate 7.8 mmol/L (22-26); Blood Gas Specimen Type ART; O2 Delivery Device Room Air; PO2 84 mmHG (75-100); SITE R Radial; SO2 93 % (95-99); Time Given 600; Total Carbon Dioxide 9 mmol/L; pH 7.14 (7.35-7.45)
--- NOTE | 2018-11-12 06:32 | CPS ---
Critical results read to Dr. Cervantes
[2018-11-12 06:39] LABS: Anion Gap 16 (5-15); BUN 58 mg/dL (7-18); BUN/Creat Ratio 28.7 RATIO (10-20); Calcium,Total 8.2 mg/dL (8.5-10.1); Chloride 92 mmol/L (98-107); Creatinine, Serum 2.02 mg/dL (0.55-1.02); EST Glomerular Filtration Rate 26 mL/min (>60); Est Glom Filt Rate - Afr Amer 31 mL/min (>60); Estimated Creatinine Clearance 19.28 ml/min; Glucose 1232 mg/dL (74-106); Potassium 5.8 mmol/L (3.5-5.1); Sodium Level 120 mmol/L (136-145)
--- NOTE | 2018-11-12 06:52 | PCM.CON.CC ---
Reason for Consult Date of Consultation: 11/12/18 Reason for Consultation: Hyperosmolar nonketotic hyperglycemia History of Present Illness: The patient is a 73-year-old female, with a history as outlined below, who presented to the emergency department on November 12 with complaints of generalized weakness, dizziness and lightheadedness. The patient is a relatively poor historian. She reports that she lives with her . She is an insulin-dependent diabetic, but reports that she has been noncompliant with her insulin regimen recently due to being sick. She denies any abdominal discomfort, nausea or vomiting. She additionally denies the presence of chest pain or shortness of breath. On presentation to the emergency department, the patient was noted to be hypothermic and bradycardic with heart rates in the 50s. She was, nevertheless, hemodynamically stable. Initial laboratory evaluation revealed elevated white blood cell count to 28,000. Coagulation profile was within normal limits. Chemistry profile was notable for a sodium of 105, potassium of 7.0, chloride of 73, bicarbonate of 8.0 and evidence of acute on chronic kidney disease with a creatinine of 2.6. The patient's blood glucose was significantly elevated to 1626. Serum lactate was increased to 13. Troponin was also increased to 5.4. Serum acetone level was negative. Plain film chest x-ray revealed no acute cardiopulmonary process. EKG revealed T wave inversions in the precordial leads. A right-sided central venous catheter was placed in the emergency department. Supplemental IV fluids were administered. The patient was placed on an insulin drip and did receive antibiotics as well. She was subsequently admitted to the medical intensive care unit for ongoing management. The patient is currently on a Natalie hugger due to her hypothermia. She also did have a questionable bloody bowel movement this morning, reported by nursing staff. Past Medical History Allergies metformin Allergy (Verified 11/12/18 01:07) Itching Home Medications: Ambulatory Orders Medication Instructions Recorded Alendronate Sodium [Fosamax] 70 mg PO Q7D@0700 11/12/18 Aspirin [Aspirin, Baby] 81 mg PO DAILY@0800 11/12/18 Ciprofloxacin [Cipro] 500 mg PO BID 11/12/18 Clotrimazole [Mycelex] 10 mg MUCOUS MEM 5X/DAY 11/12/18 Ergocalciferol [Vitamin D] 50,000 unit PO Q7D 11/12/18 Fluticasone 0.05% [Flonase Nasal 1 spray NASAL DAILY 11/12/18 Imperial] Insulin Detemir [Levemir Flextouch] 75 unit SQ DAILY 11/12/18 Insulin Lispro [Humalog KwikPen] 25 units SQ TIDCM 11/12/18 Lisinopril [Zestril] 10 mg PO DAILY 11/12/18 [place]-3 Fatty Acids/Fish Oil [Fish 2 each PO BID 11/12/18 Oil 1,000 mg Capsule] Ondansetron [Zofran Odt] 4 mg PO Q8H PRN PRN 11/12/18 Pantoprazole Sodium [Protonix] 20 mg PO DAILY 11/12/18 Rosuvastatin Calcium [Crestor] 10 mg PO Q7D 11/12/18 Sertraline HCl [Zoloft] 50 mg PO DAILY 11/12/18 Surgical History: cholecystectomy, coronary bypass surgery, hysterectomy, - - Knee surgery Psychiatric History: No pertinent psych hx FOLD SKIVER History: No pertinent FOLD SKIVER history Lives: Spouse/ Significant Other Smoking Status: Current every day smoker Tobacco Use: Cigarettes Alcohol: None Drugs: None - *Family History Maternal History Items: Unknown Paternal History Items: Unknown Review of Systems Constitutional: Reports: Malaise, Weakness, Fatigue Eyes: Denies: Blurred vision, Double vision HEENT: Denies: Head Aches, Sinus Congestion, Sinus Drainage Cardiovascular: Reports: Light Headedness Respiratory: Denies: Shortness of Breath Gastrointestinal: Denies: Abdominal Pain, Diarrhea, Nausea Genitourinary: Denies: Dysuria Musculoskeletal: Denies: Joint Pain, Joint Tenderness Skin: Denies: Rash, Wounds Neurological: Reports: Balance problems Psychiatric: Denies: Anxiety, Depression, Homicidal Ideations, Suicidal Ideations Hematologic/ Lymphatic: Reports: Anemia Patient Problems: Active and Suspected Problems Generalized weakness (Acute) Confusion (Acute) Objective: The patient's most recent lab work, culture data and imaging studies have all been personally reviewed. Blood and urine cultures are pending. - Physical Exam General: Alert, Cooperative, No apparent distress, - - Currently sitting upright in bed. HEENT: Atraumatic, PERRLA, Normocephalic Oral: Dry Mucosa Neck: Supple, No Nodes, Trachea Midline Lungs: - - Relatively diminished air movement secondary to poor inspiratory effort. No appreciable wheezes, rales or rhonchi. Cardiovascular: Regular rate, Regular Rhythm, Normal S1, Normal S2, No murmurs Abdomen: Bowel Sounds Present, Soft, Non Tender Extremities: No clubbing, No cyanosis, No edema Skin: No breakdown Musculoskeletal: No Tenderness to Palpation of Joints or Extremities Lymphatic: No Cervical, Supraclavicular, or Inguinal Adenopathy Neurological: Neuro grossly intact Psych/Mental Status: Flat Affect Vital Signs Temp Pulse Resp BP Pulse Ox 34.6 C L 64 15 112/90 H 98 11/12/18 06:00 11/12/18 06:30 11/12/18 06:30 11/12/18 06:30 11/12/18 06:30 Oxygen Flow Rate (L/min) 3 Oxygen Delivery Method Room Air Weight: 127 lb 6.835 oz Body Mass Index (BMI) 24.0 Finger Stick Blood Glucose 1,232 Intake and Output for Last 24 Hours 11/10/18 11/11/18 11/12/18 23:59 23:59 23:59 Intake Total 2859.7 / 2859.7 Output Total 600 / 600 Balance 2259.7 / 2259.7 Laboratory Tests Past 24 Hrs 11/12/18 11/12/18 11/12/18 01:17 01:17 01:17 WBC 27.8 H RBC 3.96 L Hgb 12.0 Hct 42.0 MCV 106.1 H MCH 30.3 MCHC 28.6 L RDW 14.2 RDW Differential 55.2 H Plt Count 558 H MPV 10.4 Immature Gran % (Auto) 0.900 Neut % (Auto) 85.7 H Lymph % (Auto) 10.8 L [place] % (Auto) 2.4 Eos % (Auto) 0.1 Baso % (Auto) 0.1 Absolute Neuts (auto) 23.8 H Absolute Lymphs (auto) 3.00 Total Counted Not Reportable PT 18.0 H INR 1.5 APTT 28.1 Specimen Type Sample Site pH Bicarbonate Actual POC Total CO2 Base Excess O2 Saturation ABG pCO2 ABG pO2 Jose Test O2 Delivery Device Blood Gas Notified Whom Blood Gas Notified Time Sodium 105 L* Potassium 7.0 H* Chloride 73 L* Carbon Dioxide 8.0 L* Anion Gap 24 H BUN 66 H Creatinine 2.66 H Estim Creat Clear Calc 16.05 Est GFR (MDRD) Af Amer 23 L Est GFR (MDRD) Non-Af 19 L BUN/Creatinine Ratio 24.8 H Glucose 1626 H* Lactic Acid Calcium 9.7 Total Bilirubin 0.50 AST 40 H ALT 31 Alkaline Phosphatase 164 H Troponin I 5.390 H* Total Protein 7.2 Albumin 3.5 Globulin 3.7 Albumin/Globulin Ratio 0.9 Urine Color Urine Clarity Urine pH Ur Specific Starke Urine Protein Urine Glucose (UA) Urine Ketones Urine Occult Blood Urine Nitrite Urine Bilirubin Urine Urobilinogen Ur Leukocyte Esterase Urine RBC Urine WBC Ur Squamous Epith Cells Urine Bacteria Urine Mucus Urine Yeast Acetone Level 11/12/18 11/12/18 11/12/18 01:17 01:17 01:32 WBC RBC Hgb Hct MCV MCH MCHC RDW RDW Differential Plt Count MPV Immature Gran % (Auto) Neut % (Auto) Lymph % (Auto) [place] % (Auto) Eos % (Auto) Baso % (Auto) Absolute Neuts (auto) Absolute Lymphs (auto) Total Counted PT INR APTT Specimen Type ART Sample Site R Radial pH 7.06 L* Bicarbonate Actual 3.9 L POC Total CO2 < 5 Base Excess -26 L O2 Saturation 99 ABG pCO2 13.8 L* ABG pO2 172 H Jose Test POS O2 Delivery Device RA Blood Gas Notified Whom ED Blood Gas Notified Time 132 Sodium Potassium Chloride Carbon Dioxide Anion Gap BUN Creatinine Estim Creat Clear Calc Est GFR (MDRD) Af Amer Est GFR (MDRD) Non-Af BUN/Creatinine Ratio Glucose Lactic Acid 13.1 H* Calcium Total Bilirubin AST ALT Alkaline Phosphatase Troponin I Total Protein Albumin Globulin Albumin/Globulin Ratio Urine Color Urine Clarity Urine pH Ur Specific Starke Urine Protein Urine Glucose (UA) Urine Ketones Urine Occult Blood Urine Nitrite Urine Bilirubin Urine Urobilinogen Ur Leukocyte Esterase Urine RBC Urine WBC Ur Squamous Epith Cells Urine Bacteria Urine Mucus Urine Yeast Acetone Level NEGATIVE 11/12/18 11/12/18 11/12/18 01:35 04:05 04:05 WBC RBC Hgb Hct MCV MCH MCHC RDW RDW Differential Plt Count MPV Immature Gran % (Auto) Neut % (Auto) Lymph % (Auto) [place] % (Auto) Eos % (Auto) Baso % (Auto) Absolute Neuts (auto) Absolute Lymphs (auto) Total Counted PT INR APTT Specimen Type Sample Site pH Bicarbonate Actual POC Total CO2 Base Excess O2 Saturation ABG pCO2 ABG pO2 Jose Test O2 Delivery Device Blood Gas Notified Whom Blood Gas Notified Time Sodium 118 L* Potassium 6.1 H* Chloride 87 L Carbon Dioxide 10.0 L Anion Gap 21 H BUN 60 H Creatinine 2.18 H Estim Creat Clear Calc 17.86 Est GFR (MDRD) Af Amer 29 L Est GFR (MDRD) Non-Af 24 L BUN/Creatinine Ratio 27.5 H Glucose 1361 H* Lactic Acid Calcium 8.5 Total Bilirubin AST ALT Alkaline Phosphatase Troponin I Cancelled 5.680 H* Total Protein Albumin Globulin Albumin/Globulin Ratio Urine Color Yellow Urine Clarity Cloudy Urine pH 6.0 Ur Specific Starke 1.010 Urine Protein 30 H Urine Glucose (UA) 1000 H Urine Ketones Negative Urine Occult Blood 50 H Urine Nitrite Negative Urine Bilirubin Negative Urine Urobilinogen Normal Ur Leukocyte Esterase 500 H Urine RBC 0 SEEN Urine WBC 10-25 SEEN Ur Squamous Epith Cells 0 SEEN Urine Bacteria 0 SEEN Urine Mucus 0 SEEN Urine Yeast 3+ Acetone Level 11/12/18 11/12/18 11/12/18 04:05 06:00 06:11 WBC RBC Hgb Hct MCV MCH MCHC RDW RDW Differential Plt Count MPV Immature Gran % (Auto) Neut % (Auto) Lymph % (Auto) [place] % (Auto) Eos % (Auto) Baso % (Auto) Absolute Neuts (auto) Absolute Lymphs (auto) Total Counted PT INR APTT Specimen Type ART Sample Site R Radial pH 7.14 L* Bicarbonate Actual 7.8 L POC Total CO2 9 Base Excess -21 L O2 Saturation 93 L ABG pCO2 23.0 L ABG pO2 84 Jose Test POS O2 Delivery Device Room Air Blood Gas Notified Whom [facility] Blood Gas Notified Time 600 Sodium 120 L Potassium 5.8 H Chloride 92 L Carbon Dioxide 12.0 L Anion Gap 16 H BUN 58 H Creatinine 2.02 H Estim Creat Clear Calc 19.28 Est GFR (MDRD) Af Amer 31 L Est GFR (MDRD) Non-Af 26 L BUN/Creatinine Ratio 28.7 H Glucose 1232 H* Lactic Acid 6.4 H* Calcium 8.2 L Total Bilirubin AST ALT Alkaline Phosphatase Troponin I Total Protein Albumin Globulin Albumin/Globulin Ratio Urine Color Urine Clarity Urine pH Ur Specific Starke Urine Protein Urine Glucose (UA) Urine Ketones Urine Occult Blood Urine Nitrite Urine Bilirubin Urine Urobilinogen Ur Leukocyte Esterase Urine RBC Urine WBC Ur Squamous Epith Cells Urine Bacteria Urine Mucus Urine Yeast Acetone Level POC Glucose 11/12/18 03:58 POC Glucose > 500 H* Clinical Impression(s) from Imaging Studies Chest X-Ray 11/12/18 01:05 IMPRESSION: Normal x-ray examination of the chest. No acute findings in the lungs Electronically Signed: Garry Call MD at 3:10 EDT Tel , Service support , Chest X-Ray 11/12/18 03:11 IMPRESSION: Interval introduction of a central line through the right internal jugular vein with the tip at the caval atrial junction. No acute findings in the lungs Electronically Signed: Garry Call MD at 3:51 EDT Tel , Service support , Assessment/Plan Active and Suspected Problems Generalized weakness (Acute) Confusion (Acute) RECOMMENDATIONS: 1. Change from normal saline continuous infusion to half-normal saline X 1 more liter. 2. Continue insulin infusion. 3. Continue serial monitoring of BMP/glucose levels 4. Obtain echocardiogram 5. Continue to trend troponins until they have plateaued and/or downtrending. 6. Obtain cardiology consultation. 7. Check TSH and hemoglobin A1c level. 8. Recheck CBC, prior to starting aspirin or Plavix, given stool for occult blood positive IMPRESSIONS: 1. Hyperosmolar nonketotic hyperglycemia While the patient does report recently being treated for a urinary tract infection, she did admit to me that she has been noncompliant with the use of her home insulin regimen recently. She will be continued on supplemental IV fluid hydration, given significant intravascular volume depletion. Given that the patient's corrected serum sodium level is rising, she is going to be transitioned to a half normal saline. A continuous insulin infusion will be continued for now, pending improvement in her hyperglycemia. 2. Pseudohyponatremia/hyperkalemia/anion gap metabolic acidosis secondary to lactic acidemia Continue supplemental IV fluid hydration as ordered. Sodium and potassium levels are improving. 3. Acute on chronic kidney disease Likely prerenal in etiology. Anticipate improvement with volume expansion. Continue to monitor urine output accordingly. There is no indication for renal replacement therapy at the current time. 4. Troponin elevation/NSTEMI/history of coronary artery disease The patient did presents with an elevated troponin level and evidence of T wave inversions on EKG. Given that she does have a history of coronary artery disease, will obtain echocardiogram and cardiology consultation. Continue to trend troponins until they have plateaued and/or downtrending. This note was generated with [employer] dictation software. It may contain incorrect words, spelling, and punctuation that were not noted in checking the note before signing. Code Visit Inpatient E&M: 47866 Init Hosp L3
--- NOTE | 2018-11-12 06:57 | CON.PCM_ITS ---
Reason for Consult Date of Consultation: 11/12/18 Reason for Consultation: Hyperosmolar nonketotic hyperglycemia History of Present Illness: The patient is a 73-year-old female, with a history as outlined below, who presented to the emergency department on November 12 with complaints of generalized weakness, dizziness and lightheadedness. The patient is a relatively poor historian. She reports that she lives with her . She is an insulin- dependent diabetic, but reports that she has been noncompliant with her insulin regimen recently due to being sick. She denies any abdominal discomfort, nausea or vomiting. She additionally denies the presence of chest pain or shortness of breath. On presentation to the emergency department, the patient was noted to be hypothermic and bradycardic with heart rates in the 50s. She was, nevertheless, hemodynamically stable. Initial laboratory evaluation revealed elevated white blood cell count to 28,000. Coagulation profile was within normal limits. Chemistry profile was notable for a sodium of 105, potassium of 7.0, chloride of 73, bicarbonate of 8.0 and evidence of acute on chronic kidney disease with a creatinine of 2.6. The patient's blood glucose was significantly elevated to 1626. Serum lactate was increased to 13. Troponin was also increased to 5.4. Serum acetone level was negative. Plain film chest x-ray revealed no acute cardiopulmonary process. EKG revealed T wave inversions in the precordial leads. A right-sided central venous catheter was placed in the emergency department. Supplemental IV fluids were administered. The patient was placed on an insulin drip and did receive antibiotics as well. She was subsequently admitted to the medical intensive care unit for ongoing management. The patient is currently on a Natalie hugger due to her hypothermia. She also did have a questionable bloody bowel movement this morning, reported by nursing staff. Past Medical History Allergies metformin Allergy (Verified 11/12/18 01:07) Itching Home Medications: Ambulatory Orders Medication Instructions Recorded Alendronate Sodium [Fosamax] 70 mg PO Q7D@0700 11/12/18 Aspirin [Aspirin, Baby] 81 mg PO DAILY@0800 11/12/18 Ciprofloxacin [Cipro] 500 mg PO BID 11/12/18 Clotrimazole [Mycelex] 10 mg MUCOUS MEM 5X/DAY 11/12/18 Ergocalciferol [Vitamin D] 50,000 unit PO Q7D 11/12/18 Fluticasone 0.05% [Flonase Nasal 1 spray NASAL DAILY 11/12/18 [place]] Insulin Detemir [Levemir Flextouch] 75 unit SQ DAILY 11/12/18 Insulin Lispro [Humalog KwikPen] 25 units SQ TIDCM 11/12/18 Lisinopril [Zestril] 10 mg PO DAILY 11/12/18 [place]-3 Fatty Acids/Fish Oil [Fish 2 each PO BID 11/12/18 Oil 1,000 mg Capsule] Ondansetron [Zofran Odt] 4 mg PO Q8H PRN PRN 11/12/18 Pantoprazole Sodium [Protonix] 20 mg PO DAILY 11/12/18 Rosuvastatin Calcium [Crestor] 10 mg PO Q7D 11/12/18 Sertraline HCl [Zoloft] 50 mg PO DAILY 11/12/18 Surgical History: cholecystectomy, coronary bypass surgery, hysterectomy, - - Knee surgery Psychiatric History: No pertinent psych hx [employer] History: No pertinent [employer] history Lives: Spouse/ Significant Other Smoking Status: Current every day smoker Tobacco Use: Cigarettes Alcohol: None Drugs: None - *Family History Maternal History Items: Unknown Paternal History Items: Unknown Review of Systems Constitutional: Reports: Malaise, Weakness, Fatigue Eyes: Denies: Blurred vision, Double vision HEENT: Denies: Head Aches, Sinus Congestion, Sinus Drainage Cardiovascular: Reports: Light Headedness Respiratory: Denies: Shortness of Breath Gastrointestinal: Denies: Abdominal Pain, Diarrhea, Nausea Genitourinary: Denies: Dysuria Musculoskeletal: Denies: Joint Pain, Joint Tenderness Skin: Denies: Rash, Wounds Neurological: Reports: Balance problems Psychiatric: Denies: Anxiety, Depression, Homicidal Ideations, Suicidal Ideations Hematologic/ Lymphatic: Reports: Anemia Patient Problems: Active and Suspected Problems Generalized weakness (Acute) Confusion (Acute) Objective: The patient's most recent lab work, culture data and imaging studies have all been personally reviewed. Blood and urine cultures are pending. - Physical Exam General: Alert, Cooperative, No apparent distress, - - Currently sitting upright in bed. HEENT: Atraumatic, PERRLA, Normocephalic Oral: Dry Mucosa Neck: Supple, No Nodes, Trachea Midline Lungs: - - Relatively diminished air movement secondary to poor inspiratory effort. No appreciable wheezes, rales or rhonchi. Cardiovascular: Regular rate, Regular Rhythm, Normal S1, Normal S2, No murmurs Abdomen: Bowel Sounds Present, Soft, Non Tender Extremities: No clubbing, No cyanosis, No edema Skin: No breakdown Musculoskeletal: No Tenderness to Palpation of Joints or Extremities Lymphatic: No Cervical, Supraclavicular, or Inguinal Adenopathy Neurological: Neuro grossly intact Psych/Mental Status: Flat Affect Vital Signs Temp Pulse Resp BP Pulse Ox 34.6 C L 64 15 112/90 H 98 11/12/18 06:00 11/12/18 06:30 11/12/18 06:30 11/12/18 06:30 11/12/18 06:30 Oxygen Flow Rate (L/min) 3 Oxygen Delivery Method Room Air Weight: 127 lb 6.835 oz Body Mass Index (BMI) 24.0 Finger Stick Blood Glucose 1,232 Intake and Output for Last 24 Hours 11/10/18 11/11/18 11/12/18 23:59 23:59 23:59 Intake Total 2859.7 / 2859.7 Output Total 600 / 600 Balance 2259.7 / 2259.7 Laboratory Tests Past 24 Hrs 11/12/18 11/12/18 11/12/18 01:17 01:17 01:17 WBC 27.8 H RBC 3.96 L Hgb 12.0 Hct 42.0 MCV 106.1 H MCH 30.3 MCHC 28.6 L RDW 14.2 RDW Differential 55.2 H Plt Count 558 H MPV 10.4 Immature Gran % (Auto) 0.900 Neut % (Auto) 85.7 H Lymph % (Auto) 10.8 L [place] % (Auto) 2.4 Eos % (Auto) 0.1 Baso % (Auto) 0.1 Absolute Neuts (auto) 23.8 H Absolute Lymphs (auto) 3.00 Total Counted Not Reportable PT 18.0 H INR 1.5 APTT 28.1 Specimen Type Sample Site pH Bicarbonate Actual POC Total CO2 Base Excess O2 Saturation ABG pCO2 ABG pO2 Jose Test O2 Delivery Device Blood Gas Notified Whom Blood Gas Notified Time Sodium 105 L* Potassium 7.0 H* Chloride 73 L* Carbon Dioxide 8.0 L* Anion Gap 24 H BUN 66 H Creatinine 2.66 H Estim Creat Clear Calc 16.05 Est GFR (MDRD) Af Amer 23 L Est GFR (MDRD) Non-Af 19 L BUN/Creatinine Ratio 24.8 H Glucose 1626 H* Lactic Acid Calcium 9.7 Total Bilirubin 0.50 AST 40 H ALT 31 Alkaline Phosphatase 164 H Troponin I 5.390 H* Total Protein 7.2 Albumin 3.5 Globulin 3.7 Albumin/Globulin Ratio 0.9 Urine Color Urine Clarity Urine pH Ur Specific [place] Urine Protein Urine Glucose (UA) Urine Ketones Urine Occult Blood Urine Nitrite Urine Bilirubin Urine Urobilinogen Ur Leukocyte Esterase Urine RBC Urine WBC Ur Squamous Epith Cells Urine Bacteria Urine Mucus Urine Yeast Acetone Level 11/12/18 11/12/18 11/12/18 01:17 01:17 01:32 WBC RBC Hgb Hct MCV MCH MCHC RDW RDW Differential Plt Count MPV Immature Gran % (Auto) Neut % (Auto) Lymph % (Auto) [place] % (Auto) Eos % (Auto) Baso % (Auto) Absolute Neuts (auto) Absolute Lymphs (auto) Total Counted PT INR APTT Specimen Type ART Sample Site R Radial pH 7.06 L* Bicarbonate Actual 3.9 L POC Total CO2 < 5 Base Excess -26 L O2 Saturation 99 ABG pCO2 13.8 L* ABG pO2 172 H Jose Test POS O2 Delivery Device RA Blood Gas Notified Whom ED Blood Gas Notified Time 132 Sodium Potassium Chloride Carbon Dioxide Anion Gap BUN Creatinine Estim Creat Clear Calc Est GFR (MDRD) Af Amer Est GFR (MDRD) Non-Af BUN/Creatinine Ratio Glucose Lactic Acid 13.1 H* Calcium Total Bilirubin AST ALT Alkaline Phosphatase Troponin I Total Protein Albumin Globulin Albumin/Globulin Ratio Urine Color Urine Clarity Urine pH Ur Specific [place] Urine Protein Urine Glucose (UA) Urine Ketones Urine Occult Blood Urine Nitrite Urine Bilirubin Urine Urobilinogen Ur Leukocyte Esterase Urine RBC Urine WBC Ur Squamous Epith Cells Urine Bacteria Urine Mucus Urine Yeast Acetone Level NEGATIVE 11/12/18 11/12/18 11/12/18 01:35 04:05 04:05 WBC RBC Hgb Hct MCV MCH MCHC RDW RDW Differential Plt Count MPV Immature Gran % (Auto) Neut % (Auto) Lymph % (Auto) [place] % (Auto) Eos % (Auto) Baso % (Auto) Absolute Neuts (auto) Absolute Lymphs (auto) Total Counted PT INR APTT Specimen Type Sample Site pH Bicarbonate Actual POC Total CO2 Base Excess O2 Saturation ABG pCO2 ABG pO2 Jose Test O2 Delivery Device Blood Gas Notified Whom Blood Gas Notified Time Sodium 118 L* Potassium 6.1 H* Chloride 87 L Carbon Dioxide 10.0 L Anion Gap 21 H BUN 60 H Creatinine 2.18 H Estim Creat Clear Calc 17.86 Est GFR (MDRD) Af Amer 29 L Est GFR (MDRD) Non-Af 24 L BUN/Creatinine Ratio 27.5 H Glucose 1361 H* Lactic Acid Calcium 8.5 Total Bilirubin AST ALT Alkaline Phosphatase Troponin I Cancelled 5.680 H* Total Protein Albumin Globulin Albumin/Globulin Ratio Urine Color Yellow Urine Clarity Cloudy Urine pH 6.0 Ur Specific [place] 1.010 Urine Protein 30 H Urine Glucose (UA) 1000 H Urine Ketones Negative Urine Occult Blood 50 H Urine Nitrite Negative Urine Bilirubin Negative Urine Urobilinogen Normal Ur Leukocyte Esterase 500 H Urine RBC 0 SEEN Urine WBC 10-25 SEEN Ur Squamous Epith Cells 0 SEEN Urine Bacteria 0 SEEN Urine Mucus 0 SEEN Urine Yeast 3+ Acetone Level 11/12/18 11/12/18 11/12/18 04:05 06:00 06:11 WBC RBC Hgb Hct MCV MCH MCHC RDW RDW Differential Plt Count MPV Immature Gran % (Auto) Neut % (Auto) Lymph % (Auto) [place] % (Auto) Eos % (Auto) Baso % (Auto) Absolute Neuts (auto) Absolute Lymphs (auto) Total Counted PT INR APTT Specimen Type ART Sample Site R Radial pH 7.14 L* Bicarbonate Actual 7.8 L POC Total CO2 9 Base Excess -21 L O2 Saturation 93 L ABG pCO2 23.0 L ABG pO2 84 Jose Test POS O2 Delivery Device Room Air Blood Gas Notified Whom [facility] Blood Gas Notified Time 600 Sodium 120 L Potassium 5.8 H Chloride 92 L Carbon Dioxide 12.0 L Anion Gap 16 H BUN 58 H Creatinine 2.02 H Estim Creat Clear Calc 19.28 Est GFR (MDRD) Af Amer 31 L Est GFR (MDRD) Non-Af 26 L BUN/Creatinine Ratio 28.7 H Glucose 1232 H* Lactic Acid 6.4 H* Calcium 8.2 L Total Bilirubin AST ALT Alkaline Phosphatase Troponin I Total Protein Albumin Globulin Albumin/Globulin Ratio Urine Color Urine Clarity Urine pH Ur Specific [place] Urine Protein Urine Glucose (UA) Urine Ketones Urine Occult Blood Urine Nitrite Urine Bilirubin Urine Urobilinogen Ur Leukocyte Esterase Urine RBC Urine WBC Ur Squamous Epith Cells Urine Bacteria Urine Mucus Urine Yeast Acetone Level POC Glucose 11/12/18 03:58 POC Glucose > 500 H* Clinical Impression(s) from Imaging Studies Chest X-Ray 11/12/18 01:05 IMPRESSION: Normal x-ray examination of the chest. No acute findings in the lungs Electronically Signed: Garry Call MD at 3:10 EDT Tel , Service support , Chest X-Ray 11/12/18 03:11 IMPRESSION: Interval introduction of a central line through the right internal jugular vein with the tip at the caval atrial junction. No acute findings in the lungs Electronically Signed: Garry Call MD at 3:51 EDT Tel , Service support , Assessment/Plan Active and Suspected Problems Generalized weakness (Acute) Confusion (Acute) RECOMMENDATIONS: 1. Change from normal saline continuous infusion to half-normal saline X 1 more liter. 2. Continue insulin infusion. 3. Continue serial monitoring of BMP/glucose levels 4. Obtain echocardiogram 5. Continue to trend troponins until they have plateaued and/or downtrending. 6. Obtain cardiology consultation. 7. Check TSH and hemoglobin A1c level. 8. Recheck CBC, prior to starting aspirin or Plavix, given stool for occult blood positive IMPRESSIONS: 1. Hyperosmolar nonketotic hyperglycemia While the patient does report recently being treated for a urinary tract infection, she did admit to me that she has been noncompliant with the use of her home insulin regimen recently. She will be continued on supplemental IV fluid hydration, given significant intravascular volume depletion. Given that the patient's corrected serum sodium level is rising, she is going to be transitioned to a half normal saline. A continuous insulin infusion will be continued for now, pending improvement in her hyperglycemia. 2. Pseudohyponatremia/hyperkalemia/anion gap metabolic acidosis secondary to lactic acidemia Continue supplemental IV fluid hydration as ordered. Sodium and potassium levels are improving. 3. Acute on chronic kidney disease Likely prerenal in etiology. Anticipate improvement with volume expansion. Continue to monitor urine output accordingly. There is no indication for renal replacement therapy at the current time. 4. Troponin elevation/NSTEMI/history of coronary artery disease The patient did presents with an elevated troponin level and evidence of T wave inversions on EKG. Given that she does have a history of coronary artery disease, will obtain echocardiogram and cardiology consultation. Continue to trend troponins until they have plateaued and/or downtrending. This note was generated with [employer] dictation software. It may contain incorrect words, spelling, and punctuation that were not noted in checking the note before signing. Code Visit Inpatient E&M: 26430 Init Hosp L3
--- NOTE | 2018-11-12 07:06 | PCM.PROGNOTE ---
Patient Problems: Active and Suspected Problems Generalized weakness (Acute) Confusion (Acute) Subjective: The patient is a 73-year-old female with a past medical history of coronary artery disease(S/P CABG), diabetes mellitus type 2, multiple bilateral renal cysts, osteoporosis, intra-abdominal aortic aneurysm measuring 3.5 cm in August 2017 and tobacco dependence who presented to the emergency department at [facility] on 11/12/2018 complaints of extreme weakness and confusion. The family stated the patient had a urinary tract infection approximately 7-10 days prior to presentation to the emergency room and she was treated with an antibiotic. Continued to deteriorate after the antibiotic was seen in her primary care doctor's office on 11/11/2018. She was given a prescription for Cipro, Mycelex atrocious and Zofran. No lab was ordered. Vital signs in the emergency department were temp of 86.5, pulse rate 51, blood pressure 121/68, respiratory rate 24 and she was 88% saturated on room air. White blood cell count was 27.8 with 86% neutrophils. Hemoglobin was 12 and the platelet count was 558,000. MCV was increased at 106.1 and the RDW was normal. An ABG on room air showed a pH of 7.06, PCO2 of 13.8 and a PO2 of 172. Sodium was 105, potassium was 7.0, chloride was 73 and the serum bicarb was 8. The sodium corrected for hyperglycemia is 129. The anion gap was increased at 24. BUN was 66 with a creatinine of 2.66 and the glucose was 1626. Lactic acid was elevated at 13.1. Troponin was elevated at 5.39. LFTs were unremarkable. UA showed 10-25 WBCs per high-power field and was nitrite negative. There were no ketones. Serum acetone was negative. Chest x-ray showed no pulmonary vascular congestion, pleural effusions or infiltrates. EKG showed normal sinus rhythm with T wave inversions and no ST elevation. She was given 2 g of meropenem in the emergency room and started on an insulin drip. A central line was inserted and the postprocedure chest x-ray showed no pneumothorax. she was admitted to the ICU with a diagnosis of Septic shock, ARF, hyponatremia, dehydration, UTI and NSTEMI. all events of the past 24 hours have been reviewed. Temp is now up to 94.3 ?F with warming. Pulse currently 61 and the blood pressure is 112/90. Respiratory rate is now 15 and she is 98% saturated on room air. All lab was personally reviewed. Repeat ABG shows pH of 7.14, PCO2 of 23 and a PO2 of 84. The sodium is now 120 and the sodium corrected for hyperglycemia is 138. Potassium is 5.8 and serum bicarb is up to 12 with an anion gap of 16. BUN is 58 and the creatinine is 2.02, down from 2.66 at admission. The second troponin is 5.68. She has been seen by Dr. Montilla and was started on ASA and was loaded with Plavix. Will need a cath when metabolic abnormalities have been corrected. ECHO is done but, not reported. She has no complaints. Denies abd pain, dysuria, nausea, sore throat, cough She tells me she feels sick - Physical Exam General: Cooperative, - - Drowsy but approriate when I awaken her. She appears very fatigued and keeps falling back to sleep. HEENT: Atraumatic, PERRLA, Normocephalic Oral: Dry Mucosa, - - tonguse is smooth, dry with falttened papillae Neck: Supple, No JVD, No Nodes, Trachea Midline Lungs: Clear to auscultation, Normal air movement, No rhonchi, No wheeze, No rales Cardiovascular: Regular rate, Regular Rhythm, Normal S1, Normal S2, No murmurs, No rub noted, No Gallop Abdomen: Bowel Sounds Present, Soft, Non Tender, Non-Distended, - - No guarding with palpation, no masses Extremities: No clubbing, No cyanosis, No edema, No Calf Tenderness Skin: No rashes, No breakdown Neurological: Cranial nerves II-XII grossly intact, Neuro grossly intact, - - Moving all extremities, no focal neurologic deficits Psych/Mental Status: Appropriate, Flat Affect Vital Signs Temp Pulse Resp BP Pulse Ox 94.3 F L 64 15 112/90 H 98 11/12/18 06:00 11/12/18 06:30 11/12/18 06:30 11/12/18 06:30 11/12/18 06:30 Oxygen Flow Rate (L/min) 3 Oxygen Delivery Method Room Air Weight: 127 lb 6.835 oz Body Mass Index (BMI) 24.0 Finger Stick Blood Glucose 1,232 Intake and Output for Last 24 Hours 11/10/18 11/11/18 11/12/18 23:59 23:59 23:59 Intake Total 2859.7 / 2859.7 Output Total 600 / 600 Balance 2259.7 / 2259.7 Laboratory Tests Past 24 Hrs 11/12/18 11/12/18 11/12/18 01:17 01:17 01:17 WBC 27.8 H RBC 3.96 L Hgb 12.0 Hct 42.0 MCV 106.1 H MCH 30.3 MCHC 28.6 L RDW 14.2 RDW Differential 55.2 H Plt Count 558 H MPV 10.4 Immature Gran % (Auto) 0.900 Neut % (Auto) 85.7 H Lymph % (Auto) 10.8 L [place] % (Auto) 2.4 Eos % (Auto) 0.1 Baso % (Auto) 0.1 Absolute Neuts (auto) 23.8 H Absolute Lymphs (auto) 3.00 Total Counted Not Reportable PT 18.0 H INR 1.5 APTT 28.1 Specimen Type Sample Site pH Bicarbonate Actual POC Total CO2 Base Excess O2 Saturation ABG pCO2 ABG pO2 Jose Test O2 Delivery Device Blood Gas Notified Whom Blood Gas Notified Time Sodium 105 L* Potassium 7.0 H* Chloride 73 L* Carbon Dioxide 8.0 L* Anion Gap 24 H BUN 66 H Creatinine 2.66 H Estim Creat Clear Calc 16.05 Est GFR (MDRD) Af Amer 23 L Est GFR (MDRD) Non-Af 19 L BUN/Creatinine Ratio 24.8 H Glucose 1626 H* Hemoglobin A1c Lactic Acid Calcium 9.7 Total Bilirubin 0.50 AST 40 H ALT 31 Alkaline Phosphatase 164 H Troponin I 5.390 H* Total Protein 7.2 Albumin 3.5 Globulin 3.7 Albumin/Globulin Ratio 0.9 TSH Urine Color Urine Clarity Urine pH Ur Specific [place] Urine Protein Urine Glucose (UA) Urine Ketones Urine Occult Blood Urine Nitrite Urine Bilirubin Urine Urobilinogen Ur Leukocyte Esterase Urine RBC Urine WBC Ur Squamous Epith Cells Urine Bacteria Urine Mucus Urine Yeast Acetone Level 11/12/18 11/12/18 11/12/18 01:17 01:17 01:32 WBC RBC Hgb Hct MCV MCH MCHC RDW RDW Differential Plt Count MPV Immature Gran % (Auto) Neut % (Auto) Lymph % (Auto) [place] % (Auto) Eos % (Auto) Baso % (Auto) Absolute Neuts (auto) Absolute Lymphs (auto) Total Counted PT INR APTT Specimen Type ART Sample Site R Radial pH 7.06 L* Bicarbonate Actual 3.9 L POC Total CO2 < 5 Base Excess -26 L O2 Saturation 99 ABG pCO2 13.8 L* ABG pO2 172 H Jose Test POS O2 Delivery Device RA Blood Gas Notified Whom ED Blood Gas Notified Time 132 Sodium Potassium Chloride Carbon Dioxide Anion Gap BUN Creatinine Estim Creat Clear Calc Est GFR (MDRD) Af Amer Est GFR (MDRD) Non-Af BUN/Creatinine Ratio Glucose Hemoglobin A1c Lactic Acid 13.1 H* Calcium Total Bilirubin AST ALT Alkaline Phosphatase Troponin I Total Protein Albumin Globulin Albumin/Globulin Ratio TSH Urine Color Urine Clarity Urine pH Ur Specific [place] Urine Protein Urine Glucose (UA) Urine Ketones Urine Occult Blood Urine Nitrite Urine Bilirubin Urine Urobilinogen Ur Leukocyte Esterase Urine RBC Urine WBC Ur Squamous Epith Cells Urine Bacteria Urine Mucus Urine Yeast Acetone Level NEGATIVE 11/12/18 11/12/18 11/12/18 01:35 04:05 04:05 WBC RBC Hgb Hct MCV MCH MCHC RDW RDW Differential Plt Count MPV Immature Gran % (Auto) Neut % (Auto) Lymph % (Auto) [place] % (Auto) Eos % (Auto) Baso % (Auto) Absolute Neuts (auto) Absolute Lymphs (auto) Total Counted PT INR APTT Specimen Type Sample Site pH Bicarbonate Actual POC Total CO2 Base Excess O2 Saturation ABG pCO2 ABG pO2 Jose Test O2 Delivery Device Blood Gas Notified Whom Blood Gas Notified Time Sodium 118 L* Potassium 6.1 H* Chloride 87 L Carbon Dioxide 10.0 L Anion Gap 21 H BUN 60 H Creatinine 2.18 H Estim Creat Clear Calc 17.86 Est GFR (MDRD) Af Amer 29 L Est GFR (MDRD) Non-Af 24 L BUN/Creatinine Ratio 27.5 H Glucose 1361 H* Hemoglobin A1c Lactic Acid Calcium 8.5 Total Bilirubin AST ALT Alkaline Phosphatase Troponin I Cancelled 5.680 H* Total Protein Albumin Globulin Albumin/Globulin Ratio TSH Urine Color Yellow Urine Clarity Cloudy Urine pH 6.0 Ur Specific [place] 1.010 Urine Protein 30 H Urine Glucose (UA) 1000 H Urine Ketones Negative Urine Occult Blood 50 H Urine Nitrite Negative Urine Bilirubin Negative Urine Urobilinogen Normal Ur Leukocyte Esterase 500 H Urine RBC 0 SEEN Urine WBC 10-25 SEEN Ur Squamous Epith Cells 0 SEEN Urine Bacteria 0 SEEN Urine Mucus 0 SEEN Urine Yeast 3+ Acetone Level 11/12/18 11/12/18 11/12/18 04:05 06:00 06:00 WBC RBC Hgb Hct MCV MCH MCHC RDW RDW Differential Plt Count MPV Immature Gran % (Auto) Neut % (Auto) Lymph % (Auto) [place] % (Auto) Eos % (Auto) Baso % (Auto) Absolute Neuts (auto) Absolute Lymphs (auto) Total Counted PT INR APTT Specimen Type Sample Site pH Bicarbonate Actual POC Total CO2 Base Excess O2 Saturation ABG pCO2 ABG pO2 Jose Test O2 Delivery Device Blood Gas Notified Whom Blood Gas Notified Time Sodium 120 L Potassium 5.8 H Chloride 92 L Carbon Dioxide 12.0 L Anion Gap 16 H BUN 58 H Creatinine 2.02 H Estim Creat Clear Calc 19.28 Est GFR (MDRD) Af Amer 31 L Est GFR (MDRD) Non-Af 26 L BUN/Creatinine Ratio 28.7 H Glucose 1232 H* Hemoglobin A1c Lactic Acid 6.4 H* Calcium 8.2 L Total Bilirubin AST ALT Alkaline Phosphatase Troponin I Total Protein Albumin Globulin Albumin/Globulin Ratio TSH Pending Urine Color Urine Clarity Urine pH Ur Specific [place] Urine Protein Urine Glucose (UA) Urine Ketones Urine Occult Blood Urine Nitrite Urine Bilirubin Urine Urobilinogen Ur Leukocyte Esterase Urine RBC Urine WBC Ur Squamous Epith Cells Urine Bacteria Urine Mucus Urine Yeast Acetone Level 11/12/18 11/12/18 06:00 06:11 WBC RBC Hgb Hct MCV MCH MCHC RDW RDW Differential Plt Count MPV Immature Gran % (Auto) Neut % (Auto) Lymph % (Auto) [place] % (Auto) Eos % (Auto) Baso % (Auto) Absolute Neuts (auto) Absolute Lymphs (auto) Total Counted PT INR APTT Specimen Type ART Sample Site R Radial pH 7.14 L* Bicarbonate Actual 7.8 L POC Total CO2 9 Base Excess -21 L O2 Saturation 93 L ABG pCO2 23.0 L ABG pO2 84 Jose Test POS O2 Delivery Device Room Air Blood Gas Notified Whom [facility] Blood Gas Notified Time 600 Sodium Potassium Chloride Carbon Dioxide Anion Gap BUN Creatinine Estim Creat Clear Calc Est GFR (MDRD) Af Amer Est GFR (MDRD) Non-Af BUN/Creatinine Ratio Glucose Hemoglobin A1c Pending Lactic Acid Calcium Total Bilirubin AST ALT Alkaline Phosphatase Troponin I Total Protein Albumin Globulin Albumin/Globulin Ratio TSH Urine Color Urine Clarity Urine pH Ur Specific [place] Urine Protein Urine Glucose (UA) Urine Ketones Urine Occult Blood Urine Nitrite Urine Bilirubin Urine Urobilinogen Ur Leukocyte Esterase Urine RBC Urine WBC Ur Squamous Epith Cells Urine Bacteria Urine Mucus Urine Yeast Acetone Level POC Glucose 11/12/18 03:58 POC Glucose > 500 H* Medical Necessity - Tobacco Use Smoking Status: Current every day smoker Tobacco Use: Cigarettes Assessment/Plan All Active Problems Generalized weakness (Acute) Confusion (Acute) Meropenem day #1 Impressions 1. Hyperosmolar non-ketotic state with encephalopathy 2. septic shock due to UTI? this is based on the acidosis/lactic acid and I feel that the acidosis is due to extreme dehydration and ARF and NOT due to sepsis 3. ARF 4. Dehydration 5. Hyperkalemia and severe metabolic acidosis 6. Hypothermia 7. NSTEMI 8. hx of CAD with CABG 9. DM II - uncontrolled. Hemoglobin A1c is 13.1 10. tobacco dependence 11. Pseudohyponatremia secondary to extreme hyperglycemia 12. 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 status Recheck lab at 1 PM Continue heparin for DVT prophylaxis along with SCDs and ALYSSA hose Continue aspirin, high intensity statin and Plavix..... Will need cardiac catheterization after medically stabilized P T/OT Enteric pathogen panel Continue meropenem pending the results of blood and urine culture Continue Protonix for ulcer prophylaxis Probably needs endoscopy after more stable especially if the hemoglobin drops significantly Recheck lab in the a.m. Prolonged Care Time: Additional care time for treatment, evaluation, stabilization, discussion with patient as well as family and consultants above initial 70 min progress note evaluation: 60 minutes Code Visit Procedures: 13824 Prolonged InPt Service; first hour - 60 minutes above initial evaluation 70 min progress evaluation.
[2018-11-12 07:23] LABS: Thyroid Stim Hormone (TSH) 0.82 uIU/mL (0.358-3.74)
[2018-11-12 07:34] LABS: Phosphorus 6.8 mg/dL (2.5-4.9)
[2018-11-12 07:40] LABS: T4 Free Direct 0.88 ng/dL (0.76-1.46)
[2018-11-12] MEDS: 0.45% Normal Saline 1,000 ML 200 ML IV (08:11)
--- NOTE | 2018-11-12 08:23 | PCM.CONS.C ---
Reason for Consult Date of Consultation: 11/12/18 Reason for Consultation: Abnormal cardiac enzymes History of Present Illness: The patient is a 73-year-old female, who presented to the emergency department on November 12 with complaints of generalized weakness, dizziness and lightheadedness. The patient is a relatively poor historian. She reports that she lives with her . She is an insulin-dependent diabetic, but reports that she has been noncompliant with her insulin regimen recently due to being sick. She denies any abdominal discomfort, nausea or vomiting. She additionally denies the presence of chest pain or shortness of breath. On presentation to the emergency department, the patient was noted to be hypothermic and bradycardic with heart rates in the 50s. She was, nevertheless, hemodynamically stable. Initial laboratory evaluation revealed elevated white blood cell count to 28,000. Coagulation profile was within normal limits. Chemistry profile was notable for a sodium of 105, potassium of 7.0, chloride of 73, bicarbonate of 8.0 and evidence of acute on chronic kidney disease with a creatinine of 2.6. The patient's blood glucose was significantly elevated to 1626. Serum lactate was increased to 13. Troponin was also increased to 5.4. Serum acetone level was negative. Plain film chest x-ray revealed no acute cardiopulmonary process. EKG revealed T wave inversions in the precordial leads. A right-sided central venous catheter was placed in the emergency department. Supplemental IV fluids were administered. The patient was placed on an insulin drip and did receive antibiotics as well. She was subsequently admitted to the medical intensive care unit for ongoing management. Cardiology was called for further evaluation and management. She has had a previous coronary bypass surgery remotely. 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 Objective: Vital Signs Temp Pulse Resp BP Pulse Ox 96.3 F L 68 20 H 84/74 L 96 11/12/18 08:00 11/12/18 08:00 11/12/18 08:00 11/12/18 08:00 11/12/18 08:00 Oxygen Flow Rate (L/min) 3 Oxygen Delivery Method Room Air Weight: 127 lb 6.835 oz Body Mass Index (BMI) 24.0 Finger Stick Blood Glucose 1,232 Intake and Output for Last 24 Hours 11/10/18 11/11/18 11/12/18 23:59 23:59 23:59 Intake Total 2859.7 / 2859.7 Output Total 600 / 600 Balance 2259.7 / 2259.7 General: Awake, Alert, Oriented x 3 HEENT: PERRL, EOMI, Sclera Non Icteric Neck: Supple, Good ROM, No Lymph Node Enlargement Lungs: Clear to auscultation Cardiovascular: Regular Rhythm, Normal S1, Normal S2, No Murmurs, No Rubs, No Gallops Vascular: No Carotid Bruits, Normal Femoral Pulses, Normal Radial Pulses, Normal Dorsalis Pedal Pulse, Normal Posterior Tibial Pulses Abdomen: Bowel Sounds Present, Soft, Non Tender, No HSM, No Organomegaly Extremities: No Cyanosis, No Clubbing, No edema Musculoskeletal: No Erythema Skin: No Rashes Lymphatic: No Lymph Node Enlargement Neurological: No Focal Motor or Sensory Deficit Psych/Mental Status: Appropriate 11/12/18 01:17: WBC 27.8 H, RBC 3.96 L, Hgb 12.0, Hct 42.0, MCV 106.1 H, MCH 30.3, MCHC 28.6 L, RDW 14.2, RDW Differential 55.2 H, Plt Count 558 H, MPV 10.4, Immature Gran % (Auto) 0.900, Neut % (Auto) 85.7 H, Lymph % (Auto) 10.8 L, [place] % (Auto) 2.4, Eos % (Auto) 0.1, Baso % (Auto) 0.1, Absolute Neuts (auto) 23.8 H, Total Counted Not Reportable 11/12/18 01:17: PT 18.0 H, INR 1.5, APTT 28.1 11/12/18 01:17: Sodium 105 L*, Potassium 7.0 H*, Chloride 73 L*, Carbon Dioxide 8.0 L*, Anion Gap 24 H, BUN 66 H, Creatinine 2.66 H, Est GFR (MDRD) Af Amer 23 L, Est GFR (MDRD) Non-Af 19 L, BUN/Creatinine Ratio 24.8 H, Glucose 1626 H*, Calcium 9.7, Total Bilirubin 0.50, Troponin I 5.390 H* 11/12/18 01:17: Lactic Acid 13.1 H* 11/12/18 01:32: pH 7.06 L*, Bicarbonate Actual 3.9 L, POC Total CO2 < 5, Base Excess -26 L, O2 Saturation 99, ABG pCO2 13.8 L*, ABG pO2 172 H, Jose Test POS 11/12/18 01:35: Urine Color Yellow, Urine Clarity Cloudy, Urine pH 6.0, Ur Specific [place] 1.010, Urine Protein 30 H, Urine Glucose (UA) 1000 H, Urine Ketones Negative, Urine Occult Blood 50 H, Urine Nitrite Negative, Urine Bilirubin Negative, Urine Urobilinogen Normal, Ur Leukocyte Esterase 500 H, Urine RBC 0 SEEN, Urine WBC 10-25 SEEN 11/12/18 04:05: Sodium 118 L*, Potassium 6.1 H*, Chloride 87 L, Carbon Dioxide 10.0 L, Anion Gap 21 H, BUN 60 H, Creatinine 2.18 H, Est GFR (MDRD) Af Amer 29 L, Est GFR (MDRD) Non-Af 24 L, BUN/Creatinine Ratio 27.5 H, Glucose 1361 H*, Calcium 8.5, Troponin I Cancelled 11/12/18 04:05: Troponin I 5.680 H* 11/12/18 04:05: Lactic Acid 6.4 H* 11/12/18 06:00: Sodium 120 L, Potassium 5.8 H, Chloride 92 L, Carbon Dioxide 12.0 L, Anion Gap 16 H, BUN 58 H, Creatinine 2.02 H, Est GFR (MDRD) Af Amer 31 L, Est GFR (MDRD) Non-Af 26 L, BUN/Creatinine Ratio 28.7 H, Glucose 1232 H*, Calcium 8.2 L 11/12/18 06:00: Hemoglobin A1c 13.0 H 11/12/18 06:00: Phosphorus 6.8 H, Magnesium 2.0 11/12/18 06:11: pH 7.14 L*, Bicarbonate Actual 7.8 L, POC Total CO2 9, Base Excess -21 L, O2 Saturation 93 L, ABG pCO2 23.0 L, ABG pO2 84, Jose Test POS Rhythm: EKG: Normal sinus rhythm with a rate of 58 bpm and T wave inversions noted in leads V2 through V4 ECHO:Pending Stress Test: Cardiac Cath: PCI: CT Surgery: Holter monitor: EPS: PPM: CXR: Chest CT Scan: Assessment/Plan 1. Non-ST elevation myocardial infarction Patient presents with diabetic ketoacidosis and is noted to have a non-ST elevation myocardial infarction. The plan at this particular time will be to correct her underlying diabetes metabolic perturbations and obtain her previous bypass reports. An echocardiogram should be performed to assess her left ventricular function She will eventually need to have her coronary anatomy reevaluated and further recommendations made after that. Was started in the meantime on aspirin Loaded with clopidogrel Further recommendations will depend on her clinical course. 2. Coronary artery disease Patient is status post coronary bypass surgery remotely. She cannot give me the exact dates of the bypass reports. We will attempt to obtain this and then make recommendations. Will reinstitute high intensity statins. Thank you for allowing me to participate in the care of your patient. Please don't hesitate to call if any issues arise
--- NOTE | 2018-11-12 08:28 | CON.PCM_ITS ---
Reason for Consult Date of Consultation: 11/12/18 Reason for Consultation: Abnormal cardiac enzymes History of Present Illness: The patient is a 73-year-old female, who presented to the emergency department on November 12 with complaints of generalized weakness, dizziness and lightheadedness. The patient is a relatively poor historian. She reports that she lives with her . She is an insulin-dependent diabetic, but reports that she has been noncompliant with her insulin regimen recently due to being sick. She denies any abdominal discomfort, nausea or vomiting. She additionally denies the presence of chest pain or shortness of breath. On presentation to the emergency department, the patient was noted to be hypothermic and bradycardic with heart rates in the 50s. She was, nevertheless, hemodynamically stable. Initial laboratory evaluation revealed elevated white blood cell count to 28,000. Coagulation profile was within normal limits. Chemistry profile was notable for a sodium of 105, potassium of 7.0, chloride of 73, bicarbonate of 8.0 and evidence of acute on chronic kidney disease with a creatinine of 2.6. The patient's blood glucose was significantly elevated to 1626. Serum lactate was increased to 13. Troponin was also increased to 5.4. Serum acetone level was negative. Plain film chest x-ray revealed no acute cardiopulmonary process. EKG revealed T wave inversions in the precordial leads. A right-sided central venous catheter was placed in the emergency department. Supplemental IV fluids were administered. The patient was placed on an insulin drip and did receive antibiotics as well. She was subsequently admitted to the medical intensive care unit for ongoing management. Cardiology was called for further evaluation and management. She has had a previous coronary bypass surgery remotely. Past Medical History Allergies/Adverse Reactions: Allergies metformin Allergy (Verified 11/12/18 01:07) Itching Home Medications: Ambulatory Orders Medication Instructions Recorded Ciprofloxacin [Cipro] 500 mg PO BID 11/12/18 Clotrimazole [Mycelex] 10 mg MUCOUS MEM 5X/DAY 11/12/18 Insulin Lispro [Humalog KwikPen] 11/12/18 Lisinopril [Zestril] 10 mg PO DAILY 11/12/18 Sulfamethoxazole/Trimethoprim 1 tab PO BID 11/12/18 [Sulfamethoxazole-Tmp Ds Tablet] Surgical History: cholecystectomy, coronary bypass surgery, hysterectomy, - - Knee surgery Psychiatric History: No pertinent psych hx POLITICAL ADVISOR History: No pertinent POLITICAL ADVISOR history - *Family History Maternal History Items: Unknown Paternal History Items: Unknown Lives: Spouse/ Significant Other Smoking Status: Current every day smoker Tobacco Use: Cigarettes Alcohol: None Drugs: None Subjectve: Elderly lady in no distress appears to be pleasantly confused. Objective: Vital Signs Temp Pulse Resp BP Pulse Ox 96.3 F L 68 20 H 84/74 L 96 11/12/18 08:00 11/12/18 08:00 11/12/18 08:00 11/12/18 08:00 11/12/18 08:00 Oxygen Flow Rate (L/min) 3 Oxygen Delivery Method Room Air Weight: 127 lb 6.835 oz Body Mass Index (BMI) 24.0 Finger Stick Blood Glucose 1,232 Intake and Output for Last 24 Hours 11/10/18 11/11/18 11/12/18 23:59 23:59 23:59 Intake Total 2859.7 / 2859.7 Output Total 600 / 600 Balance 2259.7 / 2259.7 General: Awake, Alert, Oriented x 3 HEENT: PERRL, EOMI, Sclera Non Icteric Neck: Supple, Good ROM, No Lymph Node Enlargement Lungs: Clear to auscultation Cardiovascular: Regular Rhythm, Normal S1, Normal S2, No Murmurs, No Rubs, No Gallops Vascular: No Carotid Bruits, Normal Femoral Pulses, Normal Radial Pulses, Normal Dorsalis Pedal Pulse, Normal Posterior Tibial Pulses Abdomen: Bowel Sounds Present, Soft, Non Tender, No HSM, No Organomegaly Extremities: No Cyanosis, No Clubbing, No edema Musculoskeletal: No Erythema Skin: No Rashes Lymphatic: No Lymph Node Enlargement Neurological: No Focal Motor or Sensory Deficit Psych/Mental Status: Appropriate 11/12/18 01:17: WBC 27.8 H, RBC 3.96 L, Hgb 12.0, Hct 42.0, MCV 106.1 H, MCH 30.3, MCHC 28.6 L, RDW 14.2, RDW Differential 55.2 H, Plt Count 558 H, MPV 10.4, Immature Gran % (Auto) 0.900, Neut % (Auto) 85.7 H, Lymph % (Auto) 10.8 L, [place] % (Auto) 2.4, Eos % (Auto) 0.1, Baso % (Auto) 0.1, Absolute Neuts (auto) 23.8 H, Total Counted Not Reportable 11/12/18 01:17: PT 18.0 H, INR 1.5, APTT 28.1 11/12/18 01:17: Sodium 105 L*, Potassium 7.0 H*, Chloride 73 L*, Carbon Dioxide 8.0 L*, Anion Gap 24 H, BUN 66 H, Creatinine 2.66 H, Est GFR (MDRD) Af Amer 23 L , Est GFR (MDRD) Non-Af 19 L, BUN/Creatinine Ratio 24.8 H, Glucose 1626 H*, Calcium 9.7, Total Bilirubin 0.50, Troponin I 5.390 H* 11/12/18 01:17: Lactic Acid 13.1 H* 11/12/18 01:32: pH 7.06 L*, Bicarbonate Actual 3.9 L, POC Total CO2 < 5, Base Excess -26 L, O2 Saturation 99, ABG pCO2 13.8 L*, ABG pO2 172 H, Jose Test POS 11/12/18 01:35: Urine Color Yellow, Urine Clarity Cloudy, Urine pH 6.0, Ur Specific [place] 1.010, Urine Protein 30 H, Urine Glucose (UA) 1000 H, Urine Ketones Negative, Urine Occult Blood 50 H, Urine Nitrite Negative, Urine Bilirubin Negative, Urine Urobilinogen Normal, Ur Leukocyte Esterase 500 H, Urine RBC 0 SEEN, Urine WBC 10-25 SEEN 11/12/18 04:05: Sodium 118 L*, Potassium 6.1 H*, Chloride 87 L, Carbon Dioxide 10.0 L, Anion Gap 21 H, BUN 60 H, Creatinine 2.18 H, Est GFR (MDRD) Af Amer 29 L , Est GFR (MDRD) Non-Af 24 L, BUN/Creatinine Ratio 27.5 H, Glucose 1361 H*, Calcium 8.5, Troponin I Cancelled 11/12/18 04:05: Troponin I 5.680 H* 11/12/18 04:05: Lactic Acid 6.4 H* 11/12/18 06:00: Sodium 120 L, Potassium 5.8 H, Chloride 92 L, Carbon Dioxide 12.0 L, Anion Gap 16 H, BUN 58 H, Creatinine 2.02 H, Est GFR (MDRD) Af Amer 31 L , Est GFR (MDRD) Non-Af 26 L, BUN/Creatinine Ratio 28.7 H, Glucose 1232 H*, Calcium 8.2 L 11/12/18 06:00: Hemoglobin A1c 13.0 H 11/12/18 06:00: Phosphorus 6.8 H, Magnesium 2.0 11/12/18 06:11: pH 7.14 L*, Bicarbonate Actual 7.8 L, POC Total CO2 9, Base Excess -21 L, O2 Saturation 93 L, ABG pCO2 23.0 L, ABG pO2 84, Jose Test POS Rhythm: EKG: Normal sinus rhythm with a rate of 58 bpm and T wave inversions noted in leads V2 through V4 ECHO:Pending Stress Test: Cardiac Cath: PCI: CT Surgery: Holter monitor: EPS: PPM: CXR: Chest CT Scan: Assessment/Plan 1. Non-ST elevation myocardial infarction * Patient presents with diabetic ketoacidosis and is noted to have a non-ST elevation myocardial infarction. * The plan at this particular time will be to correct her underlying diabetes metabolic perturbations and obtain her previous bypass reports. An echocardiogram should be performed to assess her left ventricular function * She will eventually need to have her coronary anatomy reevaluated and further recommendations made after that. * Was started in the meantime on aspirin * Loaded with clopidogrel * Further recommendations will depend on her clinical course. * 2. Coronary artery disease * Patient is status post coronary bypass surgery remotely. She cannot give me the exact dates of the bypass reports. * We will attempt to obtain this and then make recommendations. * Will reinstitute high intensity statins. * * Thank you for allowing me to participate in the care of your patient. Please don't hesitate to call if any issues arise
--- NOTE | 2018-11-12 08:35 | NURSING ---
Echo in progress
[2018-11-12 08:39] LABS: Anion Gap 16 (5-15); BUN 58 mg/dL (7-18); BUN/Creat Ratio 28.7 RATIO (10-20); Calcium,Total 8.2 mg/dL (8.5-10.1); Chloride 95 mmol/L (98-107); Creatinine, Serum 2.02 mg/dL (0.55-1.02); EST Glomerular Filtration Rate 26 mL/min (>60); Est Glom Filt Rate - Afr Amer 31 mL/min (>60); Estimated Creatinine Clearance 19.28 ml/min; Glucose 1124 mg/dL (74-106); Potassium 5.1 mmol/L (3.5-5.1); Sodium Level 124 mmol/L (136-145)
[2018-11-12 08:42] LABS: Reflex Lactate? Y
[2018-11-12 10:26] LABS: Absolute Lymphocyte Count 2.12 X10^3/ul (0.83-4.51); Absolute Neutrophil Count 22.8 X10^3/uL (2.0-7.7); Basophil# 0.01 X10^3/uL; Hematocrit 30.7 % (37-47); Hemoglobin 10.3 g/dl (12.0-15.0); Lymphocyte # 2.12 X10^3/ul (4.0); Lymphocyte % 7.9 % (19-41); Mean Corp Hgb Conc 33.6 g/gl (32-36); Mean Corpuscular Hgb 30.5 pg (27.0-32.0); Mean Corpuscular Volume 90.8 fL (81-99); Mean Platelet Vol. 9.7 fl (6.2-12.0); Monocyte# 1.79 X10^3/uL; Monocyte% 6.6 % (0-10); Neutrophil # 22.81 X10^3/uL (2.7-7.7); Neutrophil % 84.8 % (47-70); Platelet Count 345 K/mm3 (150-450); Red Blood Count 3.38 M/mm3 (4.2-5.4); White Blood Count 26.9 K/mm3 (4.4-11.0)
[2018-11-12 10:27] LABS: Differential Indicated SCAN CRITERIA MET; POSITIVE COUNT NO; POSITIVE DIFFERENTIAL YES; POSITIVE MORPHOLOGY NO
[2018-11-12 10:37] LABS: Anion Gap 14 (5-15); BUN 58 mg/dL (7-18); BUN/Creat Ratio 29.3 RATIO (10-20); Chloride 95 mmol/L (98-107); Creatinine, Serum 1.98 mg/dL (0.55-1.02); EST Glomerular Filtration Rate 26 mL/min (>60); Est Glom Filt Rate - Afr Amer 32 mL/min (>60); Estimated Creatinine Clearance 19.67 ml/min; Glucose 1061 mg/dL (74-106); Potassium 5.3 mmol/L (3.5-5.1); Sodium Level 122 mmol/L (136-145)
[2018-11-12] MEDS: Clopidogrel Bisulfate 300 MG Tablet PO (10:53)
[2018-11-12] MEDS: Aspirin 81 MG TAB.CHEW PO (10:53)
--- NOTE | 2018-11-12 12:25 | CASEMGMT ---
Addendum entered by Hector Lamb 11/12/18 13:59: and son to room. Intro role of CM to patient's family. RN CM assessment completed. very concerned with pt's condition. Conversation with and son. Was able to verbalize concerns and RN CM gave emotional support. Living arrangements: Lives in mobile home with . Ramp to front door. Per , until 4 days ago pt had been alert, oriented and independent in caring for self. DME: walker, cane available, but pt did not use. Blood glucose monitor, per family, pt checked BS once a day. (no oxygen, cpap, nebulizer). Home Health: none in recent past DC Goal: home DC PLAN: undetermined. Awaiting PT/OT evaluations. Original Note: RN CM Assessment Presentation: HHNS Generalized weakness, confusion. PH 7.06, CO2 13.8 Attempted to speak with patient, however she is unable to participate in RN CM Assessment due to confusion. Attempted call to , no answer and no family in room @ this time. Chart reviewed. PCP: Dr. Rahmna Preferred [facility]acy: [facility] Insurance: [employer] [facility] YesGraph Prescription Benefit: yes LNOK: Living arrangements: Lives with her , Raj. DC PLAN: undetermined. PT/OT evaluations pending. Josse COOK RN ACM
[2018-11-12 12:44] LABS: BUN 55 mg/dL (7-18); Creatinine, Serum 1.96 mg/dL (0.55-1.02); Estimated Creatinine Clearance 19.87 ml/min; Glucose 985 mg/dL (74-106)
[2018-11-12 12:45] LABS: Anion Gap 14 (5-15); BUN/Creat Ratio 28.1 RATIO (10-20); Calcium,Total 8.2 mg/dL (8.5-10.1); Chloride 97 mmol/L (98-107); EST Glomerular Filtration Rate 27 mL/min (>60); Est Glom Filt Rate - Afr Amer 32 mL/min (>60); Potassium 5.3 mmol/L (3.5-5.1); Sodium Level 125 mmol/L (136-145)
[2018-11-12] MEDS: 0.45% Normal Saline 1,000 ML 75 ML IV (14:09)
[2018-11-12 14:37] LABS: Anion Gap 12 (5-15); BUN 56 mg/dL (7-18); BUN/Creat Ratio 30.3 RATIO (10-20); Calcium,Total 8.2 mg/dL (8.5-10.1); Chloride 97 mmol/L (98-107); Creatinine, Serum 1.85 mg/dL (0.55-1.02); EST Glomerular Filtration Rate 29 mL/min (>60); Est Glom Filt Rate - Afr Amer 35 mL/min (>60); Estimated Creatinine Clearance 21.05 ml/min; Glucose 872 mg/dL (74-106); Potassium 4.9 mmol/L (3.5-5.1); Sodium Level 123 mmol/L (136-145)
[2018-11-12] MEDS: QUEtiapine 25 MG Tablet PO (15:36)
[2018-11-12 16:56] LABS: Anion Gap 10 (5-15); BUN 54 mg/dL (7-18); BUN/Creat Ratio 30.5 RATIO (10-20); Calcium,Total 8.1 mg/dL (8.5-10.1); Chloride 98 mmol/L (98-107); Creatinine, Serum 1.77 mg/dL (0.55-1.02); EST Glomerular Filtration Rate 30 mL/min (>60); Est Glom Filt Rate - Afr Amer 36 mL/min (>60); Glucose 755 mg/dL (74-106); Potassium 4.6 mmol/L (3.5-5.1); Sodium Level 123 mmol/L (136-145)
[2018-11-12 18:27] LABS: Hematocrit 28.8 % (37-47); Hemoglobin 10.1 g/dl (12.0-15.0)
[2018-11-12 18:36] LABS: Anion Gap 11 (5-15); BUN 54 mg/dL (7-18); BUN/Creat Ratio 30.5 RATIO (10-20); Chloride 100 mmol/L (98-107); Creatinine, Serum 1.77 mg/dL (0.55-1.02); EST Glomerular Filtration Rate 30 mL/min (>60); Est Glom Filt Rate - Afr Amer 36 mL/min (>60); Glucose 722 mg/dL (74-106); Potassium 4.4 mmol/L (3.5-5.1); Sodium Level 126 mmol/L (136-145)
[2018-11-12 20:27] LABS: Anion Gap 11 (5-15); BUN 52 mg/dL (7-18); BUN/Creat Ratio 29.4 RATIO (10-20); Chloride 101 mmol/L (98-107); Creatinine, Serum 1.77 mg/dL (0.55-1.02); EST Glomerular Filtration Rate 30 mL/min (>60); Est Glom Filt Rate - Afr Amer 36 mL/min (>60); Glucose 652 mg/dL (74-106); Potassium 4.4 mmol/L (3.5-5.1); Sodium Level 127 mmol/L (136-145)
[2018-11-12 22:28] LABS: Anion Gap 10 (5-15); BUN 51 mg/dL (7-18); BUN/Creat Ratio 29.3 RATIO (10-20); Calcium,Total 8.1 mg/dL (8.5-10.1); Chloride 101 mmol/L (98-107); Creatinine, Serum 1.74 mg/dL (0.55-1.02); EST Glomerular Filtration Rate 31 mL/min (>60); Est Glom Filt Rate - Afr Amer 37 mL/min (>60); Estimated Creatinine Clearance 22.38 ml/min; Glucose 588 mg/dL (74-106); Potassium 4.2 mmol/L (3.5-5.1); Sodium Level 127 mmol/L (136-145)
[2018-11-12 23:56] LABS: Bedside Glucose > 500 mg/dL (70-110)
[2018-11-13] VITALS (28 sets, daily range): BP systolic 88–158; BP diastolic 53–85; PULSE 77–92; RESP 12–99; TEMP 36.5–38; O2SAT 86–100
[2018-11-13 00:22] LABS: Anion Gap 10 (5-15); BUN 49 mg/dL (7-18); BUN/Creat Ratio 29.9 RATIO (10-20); Calcium,Total 8.1 mg/dL (8.5-10.1); Chloride 103 mmol/L (98-107); Creatinine, Serum 1.64 mg/dL (0.55-1.02); EST Glomerular Filtration Rate 33 mL/min (>60); Est Glom Filt Rate - Afr Amer 40 mL/min (>60); Estimated Creatinine Clearance 23.74 ml/min; Glucose 542 mg/dL (74-106); Potassium 4.1 mmol/L (3.5-5.1); Sodium Level 129 mmol/L (136-145)
[2018-11-13 02:11] LABS: Bedside Glucose 470 mg/dL (70-110)
[2018-11-13 02:22] LABS: Anion Gap 9 (5-15); BUN 48 mg/dL (7-18); BUN/Creat Ratio 28.9 RATIO (10-20); Chloride 105 mmol/L (98-107); Creatinine, Serum 1.66 mg/dL (0.55-1.02); EST Glomerular Filtration Rate 32 mL/min (>60); Est Glom Filt Rate - Afr Amer 39 mL/min (>60); Estimated Creatinine Clearance 23.46 ml/min; Glucose 511 mg/dL (74-106); Potassium 4.1 mmol/L (3.5-5.1); Sodium Level 130 mmol/L (136-145)
[2018-11-13] MEDS: 0.45% Normal Saline 1,000 ML 75 ML IV ×2 (03:26→18:39)
[2018-11-13] MEDS: CHLORHEXIDINE GLUC 2% CLOTH 1 EACH TOWELETTE TOPICAL (04:10)
[2018-11-13 04:21] LABS: Bedside Glucose 458 mg/dL (70-110)
[2018-11-13 04:42] LABS: Absolute Lymphocyte Count 1.58 X10^3/ul (0.83-4.51); Absolute Neutrophil Count 11.3 X10^3/uL (2.0-7.7); Basophil# 0.01 X10^3/uL; Basophil% 0.1 % (0-1); Eosinophil# 0.03 X10^3/uL; Eosinophils% 0.2 % (0-5); Hematocrit 27.1 % (37-47); Hemoglobin 9.6 g/dl (12.0-15.0); Lymphocyte # 1.58 X10^3/ul (4.0); Lymphocyte % 11.4 % (19-41); Mean Corp Hgb Conc 35.4 g/gl (32-36); Mean Corpuscular Hgb 30.7 pg (27.0-32.0); Mean Corpuscular Volume 86.6 fL (81-99); Mean Platelet Vol. 9.9 fl (6.2-12.0); Monocyte# 0.89 X10^3/uL; Monocyte% 6.4 % (0-10); Neutrophil # 11.27 X10^3/uL (2.7-7.7); Neutrophil % 81.5 % (47-70); Platelet Count 237 K/mm3 (150-450); RBC Distribution Width SD 39.8 fl (35.1-43.9); Red Blood Count 3.13 M/mm3 (4.2-5.4); White Blood Count 13.8 K/mm3 (4.4-11.0)
[2018-11-13 04:43] LABS: POSITIVE COUNT NO; POSITIVE DIFFERENTIAL NO; POSITIVE MORPHOLOGY NO
[2018-11-13 04:55] LABS: Anion Gap 9 (5-15); BUN 47 mg/dL (7-18); BUN/Creat Ratio 28.5 RATIO (10-20); Chloride 105 mmol/L (98-107); Creatinine, Serum 1.65 mg/dL (0.55-1.02); EST Glomerular Filtration Rate 33 mL/min (>60); Est Glom Filt Rate - Afr Amer 39 mL/min (>60); Glucose 475 mg/dL (74-106); Potassium 3.9 mmol/L (3.5-5.1); Sodium Level 132 mmol/L (136-145)
[2018-11-13 06:00] LABS: Bedside Glucose 426 mg/dL (70-110)
--- NOTE | 2018-11-13 06:22 | PCM.PN.INT ---
Subjective: The patient was seen and examined at the bedside this morning. Events from the last 24 hours have been reviewed. The patient has had some low-grade fevers overnight. She remains hemodynamically stable on room air. Blood sugars have improved. Nevertheless, the patient was continued on a insulin infusion overnight. She did receive a one-time dose of Seroquel last evening. She rested comfortably overnight. The patient is currently documented to be overall net +3 L for the admission. The patient remains confused this morning. Objective: The patient's most recent lab work, culture data and imaging studies have all been personally reviewed. Blood and urine cultures are pending. Fecal leukocytes were positive. C. difficile was negative and enteric bacterial panel was negative. Stool for occult blood was positive. Surface echocardiogram revealed mild concentric LVH with an ejection fraction of 30%. There was evidence of moderately severe segmental systolic dysfunction along with stage II diastolic dysfunction. Pulmonary artery systolic pressure was estimated to be 27 mmHg. General: Alert, Cooperative, Confused HEENT: Atraumatic, PERRLA, Normocephalic Oral: Moist Mucosa Neck: Supple, No Nodes, Trachea Midline Lungs: No rhonchi, No wheeze, No rales, Diminished Cardiovascular: Regular rate, Regular Rhythm, Normal S1, Normal S2, No murmurs Abdomen: Bowel Sounds Present, Soft, Non Tender Extremities: No clubbing, No cyanosis, No edema Skin: No breakdown Musculoskeletal: No Tenderness to Palpation of Joints or Extremities Lymphatic: No Cervical, Supraclavicular, or Inguinal Adenopathy Neurological: Neuro grossly intact Psych/Mental Status: Restless Vital Signs Temp Pulse Resp BP Pulse Ox 37.6 C H 89 18 134/79 H 98 11/13/18 06:00 11/13/18 06:00 11/13/18 06:00 11/13/18 06:00 11/13/18 06:00 Oxygen Flow Rate (L/min) 3 Oxygen Delivery Method Room Air Weight: 130 lb 1.164 oz Body Mass Index (BMI) 24.0 Finger Stick Blood Glucose 427 Intake and Output for Last 24 Hours 11/11/18 11/12/18 11/13/18 23:59 23:59 23:59 Intake Total 5376.8 / 5376.8 320.1 / 320.1 Output Total 2350 / 2350 300 / 300 Balance 3026.8 / 3026.8 20.1 / 20.1 Labs (Last 48 Hours) 11/12/18 11/12/18 11/12/18 01:17 01:17 01:17 WBC 27.8 H RBC 3.96 L Hgb 12.0 Hct 42.0 MCV 106.1 H MCH 30.3 MCHC 28.6 L RDW 14.2 RDW Differential 55.2 H Plt Count 558 H MPV 10.4 Immature Gran % (Auto) 0.900 Neut % (Auto) 85.7 H Lymph % (Auto) 10.8 L [place] % (Auto) 2.4 Eos % (Auto) 0.1 Baso % (Auto) 0.1 Absolute Neuts (auto) 23.8 H Absolute Lymphs (auto) 3.00 Total Counted Not Reportable Differential Comment Diff Path Review PT 18.0 H INR 1.5 APTT 28.1 Specimen Type Sample Site pH Bicarbonate Actual POC Total CO2 Base Excess O2 Saturation ABG pCO2 ABG pO2 Jose Test O2 Delivery Device Blood Gas Notified Whom Blood Gas Notified Time Sodium 105 L* Potassium 7.0 H* Chloride 73 L* Carbon Dioxide 8.0 L* Anion Gap 24 H BUN 66 H Creatinine 2.66 H Estim Creat Clear Calc 16.05 Est GFR (MDRD) Af Amer 23 L Est GFR (MDRD) Non-Af 19 L BUN/Creatinine Ratio 24.8 H Glucose 1626 H* Hemoglobin A1c Lactic Acid Calcium 9.7 Phosphorus Magnesium Total Bilirubin 0.50 AST 40 H ALT 31 Alkaline Phosphatase 164 H Troponin I 5.390 H* Total Protein 7.2 Albumin 3.5 Globulin 3.7 Albumin/Globulin Ratio 0.9 TSH Free T4 Urine Color Urine Clarity Urine pH Ur Specific [place] Urine Protein Urine Glucose (UA) Urine Ketones Urine Occult Blood Urine Nitrite Urine Bilirubin Urine Urobilinogen Ur Leukocyte Esterase Urine RBC Urine WBC Ur Squamous Epith Cells Urine Bacteria Urine Mucus Urine Yeast Acetone Level POC Glucose 11/12/18 11/12/18 11/12/18 01:17 01:17 01:32 WBC RBC Hgb Hct MCV MCH MCHC RDW RDW Differential Plt Count MPV Immature Gran % (Auto) Neut % (Auto) Lymph % (Auto) [place] % (Auto) Eos % (Auto) Baso % (Auto) Absolute Neuts (auto) Absolute Lymphs (auto) Total Counted Differential Comment Diff Path Review PT INR APTT Specimen Type ART Sample Site R Radial pH 7.06 L* Bicarbonate Actual 3.9 L POC Total CO2 < 5 Base Excess -26 L O2 Saturation 99 ABG pCO2 13.8 L* ABG pO2 172 H Jose Test POS O2 Delivery Device RA Blood Gas Notified Whom ED MD Blood Gas Notified Time 132 Sodium Potassium Chloride Carbon Dioxide Anion Gap BUN Creatinine Estim Creat Clear Calc Est GFR (MDRD) Af Amer Est GFR (MDRD) Non-Af BUN/Creatinine Ratio Glucose Hemoglobin A1c Lactic Acid 13.1 H* Calcium Phosphorus Magnesium Total Bilirubin AST ALT Alkaline Phosphatase Troponin I Total Protein Albumin Globulin Albumin/Globulin Ratio TSH Free T4 Urine Color Urine Clarity Urine pH Ur Specific [place] Urine Protein Urine Glucose (UA) Urine Ketones Urine Occult Blood Urine Nitrite Urine Bilirubin Urine Urobilinogen Ur Leukocyte Esterase Urine RBC Urine WBC Ur Squamous Epith Cells Urine Bacteria Urine Mucus Urine Yeast Acetone Level NEGATIVE POC Glucose 11/12/18 11/12/18 11/12/18 01:35 03:58 04:05 WBC RBC Hgb Hct MCV MCH MCHC RDW RDW Differential Plt Count MPV Immature Gran % (Auto) Neut % (Auto) Lymph % (Auto) [place] % (Auto) Eos % (Auto) Baso % (Auto) Absolute Neuts (auto) Absolute Lymphs (auto) Total Counted Differential Comment Diff Path Review PT INR APTT Specimen Type Sample Site pH Bicarbonate Actual POC Total CO2 Base Excess O2 Saturation ABG pCO2 ABG pO2 Jose Test O2 Delivery Device Blood Gas Notified Whom Blood Gas Notified Time Sodium 118 L* Potassium 6.1 H* Chloride 87 L Carbon Dioxide 10.0 L Anion Gap 21 H BUN 60 H Creatinine 2.18 H Estim Creat Clear Calc 17.86 Est GFR (MDRD) Af Amer 29 L Est GFR (MDRD) Non-Af 24 L BUN/Creatinine Ratio 27.5 H Glucose 1361 H* Hemoglobin A1c Lactic Acid Calcium 8.5 Phosphorus Magnesium Total Bilirubin AST ALT Alkaline Phosphatase Troponin I Cancelled Total Protein Albumin Globulin Albumin/Globulin Ratio TSH Free T4 Urine Color Yellow Urine Clarity Cloudy Urine pH 6.0 Ur Specific [place] 1.010 Urine Protein 30 H Urine Glucose (UA) 1000 H Urine Ketones Negative Urine Occult Blood 50 H Urine Nitrite Negative Urine Bilirubin Negative Urine Urobilinogen Normal Ur Leukocyte Esterase 500 H Urine RBC 0 SEEN Urine WBC 10-25 SEEN Ur Squamous Epith Cells 0 SEEN Urine Bacteria 0 SEEN Urine Mucus 0 SEEN Urine Yeast 3+ Acetone Level POC Glucose > 500 H* 11/12/18 11/12/18 11/12/18 04:05 04:05 06:00 WBC RBC Hgb Hct MCV MCH MCHC RDW RDW Differential Plt Count MPV Immature Gran % (Auto) Neut % (Auto) Lymph % (Auto) [place] % (Auto) Eos % (Auto) Baso % (Auto) Absolute Neuts (auto) Absolute Lymphs (auto) Total Counted Differential Comment Diff Path Review PT INR APTT Specimen Type Sample Site pH Bicarbonate Actual POC Total CO2 Base Excess O2 Saturation ABG pCO2 ABG pO2 Jose Test O2 Delivery Device Blood Gas Notified Whom Blood Gas Notified Time Sodium 120 L Potassium 5.8 H Chloride 92 L Carbon Dioxide 12.0 L Anion Gap 16 H BUN 58 H Creatinine 2.02 H Estim Creat Clear Calc 19.28 Est GFR (MDRD) Af Amer 31 L Est GFR (MDRD) Non-Af 26 L BUN/Creatinine Ratio 28.7 H Glucose 1232 H* Hemoglobin A1c Lactic Acid 6.4 H* Calcium 8.2 L Phosphorus Magnesium Total Bilirubin AST ALT Alkaline Phosphatase Troponin I 5.680 H* Total Protein Albumin Globulin Albumin/Globulin Ratio TSH Free T4 Urine Color Urine Clarity Urine pH Ur Specific [place] Urine Protein Urine Glucose (UA) Urine Ketones Urine Occult Blood Urine Nitrite Urine Bilirubin Urine Urobilinogen Ur Leukocyte Esterase Urine RBC Urine WBC Ur Squamous Epith Cells Urine Bacteria Urine Mucus Urine Yeast Acetone Level POC Glucose 11/12/18 11/12/18 11/12/18 06:00 06:00 06:00 WBC RBC Hgb Hct MCV MCH MCHC RDW RDW Differential Plt Count MPV Immature Gran % (Auto) Neut % (Auto) Lymph % (Auto) [place] % (Auto) Eos % (Auto) Baso % (Auto) Absolute Neuts (auto) Absolute Lymphs (auto) Total Counted Differential Comment Diff Path Review PT INR APTT Specimen Type Sample Site pH Bicarbonate Actual POC Total CO2 Base Excess O2 Saturation ABG pCO2 ABG pO2 Jose Test O2 Delivery Device Blood Gas Notified Whom Blood Gas Notified Time Sodium Potassium Chloride Carbon Dioxide Anion Gap BUN Creatinine Estim Creat Clear Calc Est GFR (MDRD) Af Amer Est GFR (MDRD) Non-Af BUN/Creatinine Ratio Glucose Hemoglobin A1c 13.0 H Lactic Acid Calcium Phosphorus Magnesium Total Bilirubin AST ALT Alkaline Phosphatase Troponin I Total Protein Albumin Globulin Albumin/Globulin Ratio TSH 0.82 Free T4 0.88 Urine Color Urine Clarity Urine pH Ur Specific [place] Urine Protein Urine Glucose (UA) Urine Ketones Urine Occult Blood Urine Nitrite Urine Bilirubin Urine Urobilinogen Ur Leukocyte Esterase Urine RBC Urine WBC Ur Squamous Epith Cells Urine Bacteria Urine Mucus Urine Yeast Acetone Level POC Glucose 11/12/18 11/12/18 11/12/18 06:00 06:11 08:05 WBC RBC Hgb Hct MCV MCH MCHC RDW RDW Differential Plt Count MPV Immature Gran % (Auto) Neut % (Auto) Lymph % (Auto) [place] % (Auto) Eos % (Auto) Baso % (Auto) Absolute Neuts (auto) Absolute Lymphs (auto) Total Counted Differential Comment Diff Path Review PT INR APTT Specimen Type ART Sample Site R Radial pH 7.14 L* Bicarbonate Actual 7.8 L POC Total CO2 9 Base Excess -21 L O2 Saturation 93 L ABG pCO2 23.0 L ABG pO2 84 Jose Test POS O2 Delivery Device Room Air Blood Gas Notified Whom HOSP Blood Gas Notified Time 600 Sodium 124 L Potassium 5.1 Chloride 95 L Carbon Dioxide 13.0 L Anion Gap 16 H BUN 58 H Creatinine 2.02 H Estim Creat Clear Calc 19.28 Est GFR (MDRD) Af Amer 31 L Est GFR (MDRD) Non-Af 26 L BUN/Creatinine Ratio 28.7 H Glucose 1124 H* Hemoglobin A1c Lactic Acid Calcium 8.2 L Phosphorus 6.8 H Magnesium 2.0 Total Bilirubin AST ALT Alkaline Phosphatase Troponin I Total Protein Albumin Globulin Albumin/Globulin Ratio TSH Free T4 Urine Color Urine Clarity Urine pH Ur Specific [place] Urine Protein Urine Glucose (UA) Urine Ketones Urine Occult Blood Urine Nitrite Urine Bilirubin Urine Urobilinogen Ur Leukocyte Esterase Urine RBC Urine WBC Ur Squamous Epith Cells Urine Bacteria Urine Mucus Urine Yeast Acetone Level POC Glucose 11/12/18 11/12/18 11/12/18 08:05 10:00 10:00 WBC 26.9 H RBC 3.38 L Hgb 10.3 L Hct 30.7 L MCV 90.8 MCH 30.5 MCHC 33.6 RDW 14.0 RDW Differential 46.0 H Plt Count 345 MPV 9.7 Immature Gran % (Auto) 0.700 Neut % (Auto) 84.8 H Lymph % (Auto) 7.9 L [place] % (Auto) 6.6 Eos % (Auto) 0.0 Baso % (Auto) 0.0 Absolute Neuts (auto) 22.8 H Absolute Lymphs (auto) 2.12 Total Counted Not Reportable Differential Comment COMMENT Diff Path Review May foll PT INR APTT Specimen Type Sample Site pH Bicarbonate Actual POC Total CO2 Base Excess O2 Saturation ABG pCO2 ABG pO2 Jose Test O2 Delivery Device Blood Gas Notified Whom Blood Gas Notified Time Sodium 122 L Potassium 5.3 H Chloride 95 L Carbon Dioxide 13.0 L Anion Gap 14 BUN 58 H Creatinine 1.98 H Estim Creat Clear Calc 19.67 Est GFR (MDRD) Af Amer 32 L Est GFR (MDRD) Non-Af 26 L BUN/Creatinine Ratio 29.3 H Glucose 1061 H* Hemoglobin A1c Lactic Acid Calcium 8.0 L Phosphorus Magnesium Total Bilirubin AST ALT Alkaline Phosphatase Troponin I 5.100 H* Total Protein Albumin Globulin Albumin/Globulin Ratio TSH Free T4 Urine Color Urine Clarity Urine pH Ur Specific [place] Urine Protein Urine Glucose (UA) Urine Ketones Urine Occult Blood Urine Nitrite Urine Bilirubin Urine Urobilinogen Ur Leukocyte Esterase Urine RBC Urine WBC Ur Squamous Epith Cells Urine Bacteria Urine Mucus Urine Yeast Acetone Level POC Glucose 11/12/18 11/12/18 11/12/18 12:10 14:10 16:05 WBC RBC Hgb Hct MCV MCH MCHC RDW RDW Differential Plt Count MPV Immature Gran % (Auto) Neut % (Auto) Lymph % (Auto) [place] % (Auto) Eos % (Auto) Baso % (Auto) Absolute Neuts (auto) Absolute Lymphs (auto) Total Counted Differential Comment Diff Path Review PT INR APTT Specimen Type Sample Site pH Bicarbonate Actual POC Total CO2 Base Excess O2 Saturation ABG pCO2 ABG pO2 Jose Test O2 Delivery Device Blood Gas Notified Whom Blood Gas Notified Time Sodium 125 L 123 L 123 L Potassium 5.3 H 4.9 4.6 Chloride 97 L 97 L 98 Carbon Dioxide 14.0 L 14.0 L 15.0 L Anion Gap 14 12 10 BUN 55 H 56 H 54 H Creatinine 1.96 H 1.85 H 1.77 H Estim Creat Clear Calc 19.87 21.05 22.00 Est GFR (MDRD) Af Amer 32 L 35 L 36 L Est GFR (MDRD) Non-Af 27 L 29 L 30 L BUN/Creatinine Ratio 28.1 H 30.3 H 30.5 H Glucose 985 H* 872 H* 755 H* Hemoglobin A1c Lactic Acid Calcium 8.2 L 8.2 L 8.1 L Phosphorus Magnesium Total Bilirubin AST ALT Alkaline Phosphatase Troponin I Total Protein Albumin Globulin Albumin/Globulin Ratio TSH Free T4 Urine Color Urine Clarity Urine pH Ur Specific [place] Urine Protein Urine Glucose (UA) Urine Ketones Urine Occult Blood Urine Nitrite Urine Bilirubin Urine Urobilinogen Ur Leukocyte Esterase Urine RBC Urine WBC Ur Squamous Epith Cells Urine Bacteria Urine Mucus Urine Yeast Acetone Level POC Glucose 11/12/18 11/12/18 11/12/18 18:10 18:10 20:00 WBC RBC Hgb 10.1 L Hct 28.8 L MCV MCH MCHC RDW RDW Differential Plt Count MPV Immature Gran % (Auto) Neut % (Auto) Lymph % (Auto) [place] % (Auto) Eos % (Auto) Baso % (Auto) Absolute Neuts (auto) Absolute Lymphs (auto) Total Counted Differential Comment Diff Path Review PT INR APTT Specimen Type Sample Site pH Bicarbonate Actual POC Total CO2 Base Excess O2 Saturation ABG pCO2 ABG pO2 Ojse Test O2 Delivery Device Blood Gas Notified Whom Blood Gas Notified Time Sodium 126 L 127 L Potassium 4.4 4.4 Chloride 100 101 Carbon Dioxide 15.0 L 15.0 L Anion Gap 11 11 BUN 54 H 52 H Creatinine 1.77 H 1.77 H Estim Creat Clear Calc 22.00 22.00 Est GFR (MDRD) Af Amer 36 L 36 L Est GFR (MDRD) Non-Af 30 L 30 L BUN/Creatinine Ratio 30.5 H 29.4 H Glucose 722 H* 652 H* Hemoglobin A1c Lactic Acid Calcium 8.0 L 8.0 L Phosphorus Magnesium Total Bilirubin AST ALT Alkaline Phosphatase Troponin I Total Protein Albumin Globulin Albumin/Globulin Ratio TSH Free T4 Urine Color Urine Clarity Urine pH Ur Specific [place] Urine Protein Urine Glucose (UA) Urine Ketones Urine Occult Blood Urine Nitrite Urine Bilirubin Urine Urobilinogen Ur Leukocyte Esterase Urine RBC Urine WBC Ur Squamous Epith Cells Urine Bacteria Urine Mucus Urine Yeast Acetone Level POC Glucose 11/12/18 11/12/18 11/12/18 21:55 23:47 23:50 WBC RBC Hgb Hct MCV MCH MCHC RDW RDW Differential Plt Count MPV Immature Gran % (Auto) Neut % (Auto) Lymph % (Auto) [place] % (Auto) Eos % (Auto) Baso % (Auto) Absolute Neuts (auto) Absolute Lymphs (auto) Total Counted Differential Comment Diff Path Review PT INR APTT Specimen Type Sample Site pH Bicarbonate Actual POC Total CO2 Base Excess O2 Saturation ABG pCO2 ABG pO2 Jose Test O2 Delivery Device Blood Gas Notified Whom Blood Gas Notified Time Sodium 127 L 129 L Potassium 4.2 4.1 Chloride 101 103 Carbon Dioxide 16.0 L 16.0 L Anion Gap 10 10 BUN 51 H 49 H Creatinine 1.74 H 1.64 H Estim Creat Clear Calc 22.38 23.74 Est GFR (MDRD) Af Amer 37 L 40 L Est GFR (MDRD) Non-Af 31 L 33 L BUN/Creatinine Ratio 29.3 H 29.9 H Glucose 588 H* 542 H* Hemoglobin A1c Lactic Acid Calcium 8.1 L 8.1 L Phosphorus Magnesium Total Bilirubin AST ALT Alkaline Phosphatase Troponin I Total Protein Albumin Globulin Albumin/Globulin Ratio TSH Free T4 Urine Color Urine Clarity Urine pH Ur Specific [place] Urine Protein Urine Glucose (UA) Urine Ketones Urine Occult Blood Urine Nitrite Urine Bilirubin Urine Urobilinogen Ur Leukocyte Esterase Urine RBC Urine WBC Ur Squamous Epith Cells Urine Bacteria Urine Mucus Urine Yeast Acetone Level POC Glucose > 500 H* 11/13/18 11/13/18 11/13/18 02:00 02:05 04:09 WBC RBC Hgb Hct MCV MCH MCHC RDW RDW Differential Plt Count MPV Immature Gran % (Auto) Neut % (Auto) Lymph % (Auto) [place] % (Auto) Eos % (Auto) Baso % (Auto) Absolute Neuts (auto) Absolute Lymphs (auto) Total Counted Differential Comment Diff Path Review PT INR APTT Specimen Type Sample Site pH Bicarbonate Actual POC Total CO2 Base Excess O2 Saturation ABG pCO2 ABG pO2 Jose Test O2 Delivery Device Blood Gas Notified Whom Blood Gas Notified Time Sodium 130 L Potassium 4.1 Chloride 105 Carbon Dioxide 16.0 L Anion Gap 9 BUN 48 H Creatinine 1.66 H Estim Creat Clear Calc 23.46 Est GFR (MDRD) Af Amer 39 L Est GFR (MDRD) Non-Af 32 L BUN/Creatinine Ratio 28.9 H Glucose 511 H* Hemoglobin A1c Lactic Acid Calcium 8.0 L Phosphorus Magnesium Total Bilirubin AST ALT Alkaline Phosphatase Troponin I Total Protein Albumin Globulin Albumin/Globulin Ratio TSH Free T4 Urine Color Urine Clarity Urine pH Ur Specific [place] Urine Protein Urine Glucose (UA) Urine Ketones Urine Occult Blood Urine Nitrite Urine Bilirubin Urine Urobilinogen Ur Leukocyte Esterase Urine RBC Urine WBC Ur Squamous Epith Cells Urine Bacteria Urine Mucus Urine Yeast Acetone Level POC Glucose 470 H* 458 H* 11/13/18 11/13/18 11/13/18 04:15 04:15 05:55 WBC 13.8 H RBC 3.13 L Hgb 9.6 L Hct 27.1 L MCV 86.6 MCH 30.7 MCHC 35.4 RDW 13.0 RDW Differential 39.8 Plt Count 237 MPV 9.9 Immature Gran % (Auto) 0.400 Neut % (Auto) 81.5 H Lymph % (Auto) 11.4 L [place] % (Auto) 6.4 Eos % (Auto) 0.2 Baso % (Auto) 0.1 Absolute Neuts (auto) 11.3 H Absolute Lymphs (auto) 1.58 Total Counted Not Reportable Differential Comment Diff Path Review PT INR APTT Specimen Type Sample Site pH Bicarbonate Actual POC Total CO2 Base Excess O2 Saturation ABG pCO2 ABG pO2 Jose Test O2 Delivery Device Blood Gas Notified Whom Blood Gas Notified Time Sodium 132 L Potassium 3.9 Chloride 105 Carbon Dioxide 18.0 L Anion Gap 9 BUN 47 H Creatinine 1.65 H Estim Creat Clear Calc 23.60 Est GFR (MDRD) Af Amer 39 L Est GFR (MDRD) Non-Af 33 L BUN/Creatinine Ratio 28.5 H Glucose 475 H* Hemoglobin A1c Lactic Acid Calcium 8.0 L Phosphorus Magnesium Total Bilirubin AST ALT Alkaline Phosphatase Troponin I Total Protein Albumin Globulin Albumin/Globulin Ratio TSH Free T4 Urine Color Urine Clarity Urine pH Ur Specific [place] Urine Protein Urine Glucose (UA) Urine Ketones Urine Occult Blood Urine Nitrite Urine Bilirubin Urine Urobilinogen Ur Leukocyte Esterase Urine RBC Urine WBC Ur Squamous Epith Cells Urine Bacteria Urine Mucus Urine Yeast Acetone Level POC Glucose 426 H Microbiology 11/12/18 07:30 Stool Enteric Bacteriology - Final 11/12/18 12:15 Stool C. difficile DNA Amplification - Final 11/12/18 07:30 Stool Stool Lactoferrin - Final 11/12/18 07:30 Stool Stool Occult Blood (LACHELLE) - Final Occult Blood Positive Clinical Impression(s) from Imaging Studies Chest X-Ray 11/12/18 01:05 IMPRESSION: Normal x-ray examination of the chest. No acute findings in the lungs Electronically Signed: Garry Call MD at 3:10 EDT Tel , Service support , Chest X-Ray 11/12/18 03:11 IMPRESSION: Interval introduction of a central line through the right internal jugular vein with the tip at the caval atrial junction. No acute findings in the lungs Electronically Signed: Garry Call MD at 3:51 EDT Tel , Service support , Medical Necessity - Tobacco Use Smoking Status: Current every day smoker Tobacco Use: Cigarettes Assessment/Plan All Active Problems Generalized weakness (Acute) Confusion (Acute) RECOMMENDATIONS: 1. Stop monitoring serial BMPs. 2. Continue to monitor Accu-Cheks every 4 hours. 3. Will initiate basal insulin regimen. Continue sliding scale coverage. 4. Tentative plans for cardiac catheterization next week. 5. Continue empiric antimicrobials IMPRESSIONS: 1. Hyperosmolar nonketotic hyperglycemia While the patient does report recently being treated for a urinary tract infection, she did admit to me that she has been noncompliant with the use of her home insulin regimen recently. Supplemental IV fluids will be continued until the patient's diet is able to be advanced. Will obtain speech therapy evaluation. Serial BMPs can be discontinued. Recommend continuing Accu-Cheks every 4 hours. We will plan to start basal insulin regimen. Continue sliding scale coverage as well. 2. Pseudohyponatremia/hyperkalemia/anion gap metabolic acidosis secondary to lactic acidemia Resolved. Continue supplemental IV fluid hydration until diet is able to be advanced. 3. Acute on chronic kidney disease Improving. Likely prerenal in etiology. Continue to monitor urine output accordingly. There is no indication for renal replacement therapy at the current time. 4. Troponin elevation/NSTEMI/history of coronary artery disease The patient did presents with an elevated troponin level and evidence of T wave inversions on EKG. cardiology is following with tentative plans for cardiac catheterization. This note was generated with [facility] software. It may contain incorrect words, spelling, and punctuation that were not noted in checking the note before signing. Code Visit Inpatient E&M: 74549 Subs Hosp L3
--- NOTE | 2018-11-13 07:40 | PCM.PN.CARD ---
Subjectve: Patient seen and evaluated. Appears to be doing better today. Objective: Vital Signs Temp Pulse Resp BP Pulse Ox 99.8 F H 88 22 H 114/68 99 11/13/18 07:00 11/13/18 07:00 11/13/18 07:00 11/13/18 07:00 11/13/18 07:00 Oxygen Flow Rate (L/min) 3 Oxygen Delivery Method Room Air Weight: 130 lb 1.164 oz Body Mass Index (BMI) 24.0 Finger Stick Blood Glucose 427 Intake and Output for Last 24 Hours 11/11/18 11/12/18 11/13/18 23:59 23:59 23:59 Intake Total 5376.8 / 5376.8 320.1 / 320.1 Output Total 2350 / 2350 300 / 300 Balance 3026.8 / 3026.8 20.1 / 20.1 General: Awake, Alert, Oriented x 3 HEENT: PERRL, EOMI, Sclera Non Icteric Neck: Supple, Good ROM, No Lymph Node Enlargement Lungs: Clear to auscultation Cardiovascular: Regular Rhythm, Normal S1, Normal S2, No Murmurs, No Rubs, No Gallops Vascular: No Carotid Bruits, Normal Femoral Pulses, Normal Radial Pulses, Normal Dorsalis Pedal Pulse, Normal Posterior Tibial Pulses Abdomen: Bowel Sounds Present, Soft, Non Tender, No HSM, No Organomegaly Extremities: No Cyanosis, No Clubbing, No edema Musculoskeletal: No Erythema Skin: No Rashes Lymphatic: No Lymph Node Enlargement Neurological: No Focal Motor or Sensory Deficit Psych/Mental Status: Appropriate 11/12/18 06:00: Hemoglobin A1c 13.0 H 11/12/18 08:05: Sodium 124 L, Potassium 5.1, Chloride 95 L, Carbon Dioxide 13.0 L, Anion Gap 16 H, BUN 58 H, Creatinine 2.02 H, Est GFR (MDRD) Af Amer 31 L, Est GFR (MDRD) Non-Af 26 L, BUN/Creatinine Ratio 28.7 H, Glucose 1124 H*, Calcium 8.2 L 11/12/18 08:05: Troponin I 5.100 H* 11/12/18 10:00: Sodium 122 L, Potassium 5.3 H, Chloride 95 L, Carbon Dioxide 13.0 L, Anion Gap 14, BUN 58 H, Creatinine 1.98 H, Est GFR (MDRD) Af Amer 32 L, Est GFR (MDRD) Non-Af 26 L, BUN/Creatinine Ratio 29.3 H, Glucose 1061 H*, Calcium 8.0 L 11/12/18 10:00: WBC 26.9 H, RBC 3.38 L, Hgb 10.3 L, Hct 30.7 L, MCV 90.8, MCH 30.5, MCHC 33.6, RDW 14.0, RDW Differential 46.0 H, Plt Count 345, MPV 9.7, Immature Gran % (Auto) 0.700, Neut % (Auto) 84.8 H, Lymph % (Auto) 7.9 L, Randolph % (Auto) 6.6, Eos % (Auto) 0.0, Baso % (Auto) 0.0, Absolute Neuts (auto) 22.8 H, Total Counted Not Reportable 11/12/18 12:10: Sodium 125 L, Potassium 5.3 H, Chloride 97 L, Carbon Dioxide 14.0 L, Anion Gap 14, BUN 55 H, Creatinine 1.96 H, Est GFR (MDRD) Af Amer 32 L, Est GFR (MDRD) Non-Af 27 L, BUN/Creatinine Ratio 28.1 H, Glucose 985 H*, Calcium 8.2 L 11/12/18 14:10: Sodium 123 L, Potassium 4.9, Chloride 97 L, Carbon Dioxide 14.0 L, Anion Gap 12, BUN 56 H, Creatinine 1.85 H, Est GFR (MDRD) Af Amer 35 L, Est GFR (MDRD) Non-Af 29 L, BUN/Creatinine Ratio 30.3 H, Glucose 872 H*, Calcium 8.2 L 11/12/18 16:05: Sodium 123 L, Potassium 4.6, Chloride 98, Carbon Dioxide 15.0 L, Anion Gap 10, BUN 54 H, Creatinine 1.77 H, Est GFR (MDRD) Af Amer 36 L, Est GFR (MDRD) Non-Af 30 L, BUN/Creatinine Ratio 30.5 H, Glucose 755 H*, Calcium 8.1 L 11/12/18 18:10: Sodium 126 L, Potassium 4.4, Chloride 100, Carbon Dioxide 15.0 L, Anion Gap 11, BUN 54 H, Creatinine 1.77 H, Est GFR (MDRD) Af Amer 36 L, Est GFR (MDRD) Non-Af 30 L, BUN/Creatinine Ratio 30.5 H, Glucose 722 H*, Calcium 8.0 L 11/12/18 18:10: Hgb 10.1 L, Hct 28.8 L 11/12/18 20:00: Sodium 127 L, Potassium 4.4, Chloride 101, Carbon Dioxide 15.0 L, Anion Gap 11, BUN 52 H, Creatinine 1.77 H, Est GFR (MDRD) Af Amer 36 L, Est GFR (MDRD) Non-Af 30 L, BUN/Creatinine Ratio 29.4 H, Glucose 652 H*, Calcium 8.0 L 11/12/18 21:55: Sodium 127 L, Potassium 4.2, Chloride 101, Carbon Dioxide 16.0 L, Anion Gap 10, BUN 51 H, Creatinine 1.74 H, Est GFR (MDRD) Af Amer 37 L, Est GFR (MDRD) Non-Af 31 L, BUN/Creatinine Ratio 29.3 H, Glucose 588 H*, Calcium 8.1 L 11/12/18 23:50: Sodium 129 L, Potassium 4.1, Chloride 103, Carbon Dioxide 16.0 L, Anion Gap 10, BUN 49 H, Creatinine 1.64 H, Est GFR (MDRD) Af Amer 40 L, Est GFR (MDRD) Non-Af 33 L, BUN/Creatinine Ratio 29.9 H, Glucose 542 H*, Calcium 8.1 L 11/13/18 02:00: Sodium 130 L, Potassium 4.1, Chloride 105, Carbon Dioxide 16.0 L, Anion Gap 9, BUN 48 H, Creatinine 1.66 H, Est GFR (MDRD) Af Amer 39 L, Est GFR (MDRD) Non-Af 32 L, BUN/Creatinine Ratio 28.9 H, Glucose 511 H*, Calcium 8.0 L 11/13/18 04:15: WBC 13.8 H, RBC 3.13 L, Hgb 9.6 L, Hct 27.1 L, MCV 86.6, MCH 30.7, MCHC 35.4, RDW 13.0, RDW Differential 39.8, Plt Count 237, MPV 9.9, Immature Gran % (Auto) 0.400, Neut % (Auto) 81.5 H, Lymph % (Auto) 11.4 L, Randolph % (Auto) 6.4, Eos % (Auto) 0.2, Baso % (Auto) 0.1, Absolute Neuts (auto) 11.3 H, Total Counted Not Reportable 11/13/18 04:15: Sodium 132 L, Potassium 3.9, Chloride 105, Carbon Dioxide 18.0 L, Anion Gap 9, BUN 47 H, Creatinine 1.65 H, Est GFR (MDRD) Af Amer 39 L, Est GFR (MDRD) Non-Af 33 L, BUN/Creatinine Ratio 28.5 H, Glucose 475 H*, Calcium 8.0 L Rhythm: EKG: ECHO: Stress Test: Cardiac Cath: PCI: CT Surgery: Holter monitor: EPS: PPM: CXR: Chest CT Scan: Medical Necessity - Tobacco Use Smoking Status: Current every day smoker Tobacco Use: Cigarettes Assessment/Plan 1. Non-ST elevation myocardial infarction Patient presents with diabetic ketoacidosis and is noted to have a non-ST elevation myocardial infarction. The plan at this particular time will be to correct her underlying diabetes metabolic perturbations and obtain her previous bypass reports. Her echocardiogram demonstrated severe left ventricular systolic dysfunction with segmental wall motion abnormalities noted. She will eventually need to have her coronary anatomy reevaluated and further recommendations made after that. Was started in the meantime on aspirin Loaded with clopidogrel Further recommendations will depend on her clinical course. Will consider and ready for cardiac catheterization on Friday 2. Coronary artery disease Patient is status post coronary bypass surgery remotely. She cannot give me the exact dates of the bypass reports. We will attempt to obtain this and then make recommendations. Will reinstitute high intensity statins. Thank you for allowing me to participate in the care of your patient. Please don't hesitate to call if any issues arise
--- NOTE | 2018-11-13 07:43 | PN.CARD_ITS ---
Subjectve: Patient seen and evaluated. Appears to be doing better today. Objective: Vital Signs Temp Pulse Resp BP Pulse Ox 99.8 F H 88 22 H 114/68 99 11/13/18 07:00 11/13/18 07:00 11/13/18 07:00 11/13/18 07:00 11/13/18 07:00 Oxygen Flow Rate (L/min) 3 Oxygen Delivery Method Room Air Weight: 130 lb 1.164 oz Body Mass Index (BMI) 24.0 Finger Stick Blood Glucose 427 Intake and Output for Last 24 Hours 11/11/18 11/12/18 11/13/18 23:59 23:59 23:59 Intake Total 5376.8 / 5376.8 320.1 / 320.1 Output Total 2350 / 2350 300 / 300 Balance 3026.8 / 3026.8 20.1 / 20.1 General: Awake, Alert, Oriented x 3 HEENT: PERRL, EOMI, Sclera Non Icteric Neck: Supple, Good ROM, No Lymph Node Enlargement Lungs: Clear to auscultation Cardiovascular: Regular Rhythm, Normal S1, Normal S2, No Murmurs, No Rubs, No Gallops Vascular: No Carotid Bruits, Normal Femoral Pulses, Normal Radial Pulses, Normal Dorsalis Pedal Pulse, Normal Posterior Tibial Pulses Abdomen: Bowel Sounds Present, Soft, Non Tender, No HSM, No Organomegaly Extremities: No Cyanosis, No Clubbing, No edema Musculoskeletal: No Erythema Skin: No Rashes Lymphatic: No Lymph Node Enlargement Neurological: No Focal Motor or Sensory Deficit Psych/Mental Status: Appropriate 11/12/18 06:00: Hemoglobin A1c 13.0 H 11/12/18 08:05: Sodium 124 L, Potassium 5.1, Chloride 95 L, Carbon Dioxide 13.0 L, Anion Gap 16 H, BUN 58 H, Creatinine 2.02 H, Est GFR (MDRD) Af Amer 31 L, Est GFR (MDRD) Non-Af 26 L, BUN/Creatinine Ratio 28.7 H, Glucose 1124 H*, Calcium 8.2 L 11/12/18 08:05: Troponin I 5.100 H* 11/12/18 10:00: Sodium 122 L, Potassium 5.3 H, Chloride 95 L, Carbon Dioxide 13.0 L, Anion Gap 14, BUN 58 H, Creatinine 1.98 H, Est GFR (MDRD) Af Amer 32 L, Est GFR (MDRD) Non-Af 26 L, BUN/Creatinine Ratio 29.3 H, Glucose 1061 H*, Calcium 8.0 L 11/12/18 10:00: WBC 26.9 H, RBC 3.38 L, Hgb 10.3 L, Hct 30.7 L, MCV 90.8, MCH 30.5, MCHC 33.6, RDW 14.0, RDW Differential 46.0 H, Plt Count 345, MPV 9.7, Immature Gran % (Auto) 0.700, Neut % (Auto) 84.8 H, Lymph % (Auto) 7.9 L, Noble % (Auto) 6.6, Eos % (Auto) 0.0, Baso % (Auto) 0.0, Absolute Neuts (auto) 22.8 H, Total Counted Not Reportable 11/12/18 12:10: Sodium 125 L, Potassium 5.3 H, Chloride 97 L, Carbon Dioxide 14.0 L, Anion Gap 14, BUN 55 H, Creatinine 1.96 H, Est GFR (MDRD) Af Amer 32 L, Est GFR (MDRD) Non-Af 27 L, BUN/Creatinine Ratio 28.1 H, Glucose 985 H*, Calcium 8.2 L 11/12/18 14:10: Sodium 123 L, Potassium 4.9, Chloride 97 L, Carbon Dioxide 14.0 L, Anion Gap 12, BUN 56 H, Creatinine 1.85 H, Est GFR (MDRD) Af Amer 35 L, Est GFR (MDRD) Non-Af 29 L, BUN/Creatinine Ratio 30.3 H, Glucose 872 H*, Calcium 8.2 L 11/12/18 16:05: Sodium 123 L, Potassium 4.6, Chloride 98, Carbon Dioxide 15.0 L, Anion Gap 10, BUN 54 H, Creatinine 1.77 H, Est GFR (MDRD) Af Amer 36 L, Est GFR (MDRD) Non-Af 30 L, BUN/Creatinine Ratio 30.5 H, Glucose 755 H*, Calcium 8.1 L 11/12/18 18:10: Sodium 126 L, Potassium 4.4, Chloride 100, Carbon Dioxide 15.0 L , Anion Gap 11, BUN 54 H, Creatinine 1.77 H, Est GFR (MDRD) Af Amer 36 L, Est GFR (MDRD) Non-Af 30 L, BUN/Creatinine Ratio 30.5 H, Glucose 722 H*, Calcium 8.0 L 11/12/18 18:10: Hgb 10.1 L, Hct 28.8 L 11/12/18 20:00: Sodium 127 L, Potassium 4.4, Chloride 101, Carbon Dioxide 15.0 L , Anion Gap 11, BUN 52 H, Creatinine 1.77 H, Est GFR (MDRD) Af Amer 36 L, Est GFR (MDRD) Non-Af 30 L, BUN/Creatinine Ratio 29.4 H, Glucose 652 H*, Calcium 8.0 L 11/12/18 21:55: Sodium 127 L, Potassium 4.2, Chloride 101, Carbon Dioxide 16.0 L , Anion Gap 10, BUN 51 H, Creatinine 1.74 H, Est GFR (MDRD) Af Amer 37 L, Est GFR (MDRD) Non-Af 31 L, BUN/Creatinine Ratio 29.3 H, Glucose 588 H*, Calcium 8.1 L 11/12/18 23:50: Sodium 129 L, Potassium 4.1, Chloride 103, Carbon Dioxide 16.0 L , Anion Gap 10, BUN 49 H, Creatinine 1.64 H, Est GFR (MDRD) Af Amer 40 L, Est GFR (MDRD) Non-Af 33 L, BUN/Creatinine Ratio 29.9 H, Glucose 542 H*, Calcium 8.1 L 11/13/18 02:00: Sodium 130 L, Potassium 4.1, Chloride 105, Carbon Dioxide 16.0 L , Anion Gap 9, BUN 48 H, Creatinine 1.66 H, Est GFR (MDRD) Af Amer 39 L, Est GFR (MDRD) Non-Af 32 L, BUN/Creatinine Ratio 28.9 H, Glucose 511 H*, Calcium 8.0 L 11/13/18 04:15: WBC 13.8 H, RBC 3.13 L, Hgb 9.6 L, Hct 27.1 L, MCV 86.6, MCH 30.7, MCHC 35.4, RDW 13.0, RDW Differential 39.8, Plt Count 237, MPV 9.9, Immature Gran % (Auto) 0.400, Neut % (Auto) 81.5 H, Lymph % (Auto) 11.4 L, Noble % (Auto) 6.4, Eos % (Auto) 0.2, Baso % (Auto) 0.1, Absolute Neuts (auto) 11.3 H, Total Counted Not Reportable 11/13/18 04:15: Sodium 132 L, Potassium 3.9, Chloride 105, Carbon Dioxide 18.0 L , Anion Gap 9, BUN 47 H, Creatinine 1.65 H, Est GFR (MDRD) Af Amer 39 L, Est GFR (MDRD) Non-Af 33 L, BUN/Creatinine Ratio 28.5 H, Glucose 475 H*, Calcium 8.0 L Rhythm: EKG: ECHO: Stress Test: Cardiac Cath: PCI: CT Surgery: Holter monitor: EPS: PPM: CXR: Chest CT Scan: Medical Necessity - Tobacco Use Smoking Status: Current every day smoker Tobacco Use: Cigarettes Assessment/Plan 1. Non-ST elevation myocardial infarction * Patient presents with diabetic ketoacidosis and is noted to have a non-ST elevation myocardial infarction. * The plan at this particular time will be to correct her underlying diabetes metabolic perturbations and obtain her previous bypass reports. * Her echocardiogram demonstrated severe left ventricular systolic dysfunction with segmental wall motion abnormalities noted. * She will eventually need to have her coronary anatomy reevaluated and further recommendations made after that. * Was started in the meantime on aspirin * Loaded with clopidogrel * Further recommendations will depend on her clinical course. * Will consider and ready for cardiac catheterization on Friday. Coronary artery disease * Patient is status post coronary bypass surgery remotely. She cannot give me the exact dates of the bypass reports. * We will attempt to obtain this and then make recommendations. * Will reinstitute high intensity statins. * * Thank you for allowing me to participate in the care of your patient. Please don't hesitate to call if any issues arise
[2018-11-13 08:56] LABS: Bedside Glucose 433 mg/dL (70-110)
[2018-11-13] MEDS: Insulin Lispro 100 UNIT/ML INSULN.PEN SC ×3 (10:01→16:42)
[2018-11-13] MEDS: Heparin Injection (Vial) 5,000 UNIT/ML VIAL 5000 UNIT SC ×2 (10:01→21:51)
[2018-11-13 10:11] LABS: Bedside Glucose 393 mg/dL (70-110)
[2018-11-13 11:00] LABS: Pathologist Review Reviewed
[2018-11-13 11:40] LABS: Bedside Glucose 335 mg/dL (70-110)
[2018-11-13 14:31] LABS: Bedside Glucose 249 mg/dL (70-110)
[2018-11-13 16:45] LABS: Bedside Glucose 174 mg/dL (70-110)
--- NOTE | 2018-11-13 17:57 | PCM.PROGNOTE ---
Patient Problems: Active and Suspected Problems Generalized weakness (Acute) Confusion (Acute) Subjective: All events of the past 24 hours have been reviewed. VSS, afebrile All lab was personally reviewed She has been transitioned to Lantus BID and SSI every 4 hours. The last BS was 174. The ECHO showed a 30% EF with segmental wall motion abnormalities and LVH. There is diastolic dysfunction. She denies CP, SOB, cough, nausea, abdominal pain. - Physical Exam General: Cooperative, No apparent distress, - - she awakens easily but drops back to sleep. She is oriented to person and place. Her and son-in-law are in the room. Looks older than her stated age. HEENT: Atraumatic, PERRLA, Normocephalic Oral: Moist Mucosa Neck: Supple, No JVD, No Nodes Lungs: Clear to auscultation, Rales Cardiovascular: Regular rate, Regular Rhythm, Normal S1, Normal S2, No murmurs, No rub noted, No Gallop Abdomen: Bowel Sounds Present, Soft, Non Tender, Non-Distended Extremities: No clubbing, No cyanosis, No edema, No Calf Tenderness, - Skin: No rashes, No breakdown Neurological: Cranial nerves II-XII grossly intact, Neuro grossly intact Vital Signs Temp Pulse Resp BP Pulse Ox 99.3 F H 83 17 158/77 H 98 11/13/18 13:00 11/13/18 15:18 11/13/18 15:00 11/13/18 15:00 11/13/18 15:00 Oxygen Flow Rate (L/min) 3 Oxygen Delivery Method Room Air Weight: 130 lb 1.164 oz Body Mass Index (BMI) 24.0 Finger Stick Blood Glucose 249 Intake and Output for Last 24 Hours 11/11/18 11/12/18 11/13/18 23:59 23:59 23:59 Intake Total 5376.8 / 5376.8 1782.1 / 1782.1 Output Total 2350 / 2350 750 / 750 Balance 3026.8 / 3026.8 1032.1 / 1032.1 Microbiology Past 72 Hours 11/12/18 01:35 Urine Culture - Final Urine Catheter - Mistry Presumptive C albicans 11/12/18 07:30 Enteric Bacteriology - Final Stool 11/12/18 12:15 C. difficile DNA Amplification - Final Stool 11/12/18 07:30 Stool Lactoferrin - Final Stool 11/12/18 07:30 Stool Occult Blood (LACHELLE) - Final Stool Occult Blood Positive Laboratory Tests Past 24 Hrs 11/12/18 11/12/18 11/12/18 10:00 18:10 18:10 WBC RBC Hgb 10.1 L Hct 28.8 L MCV MCH MCHC RDW RDW Differential Plt Count MPV Immature Gran % (Auto) Neut % (Auto) Lymph % (Auto) Stanton % (Auto) Eos % (Auto) Baso % (Auto) Absolute Neuts (auto) Absolute Lymphs (auto) Total Counted Diff Path Review Reviewed Sodium 126 L Potassium 4.4 Chloride 100 Carbon Dioxide 15.0 L Anion Gap 11 BUN 54 H Creatinine 1.77 H Estim Creat Clear Calc 22.00 Est GFR (MDRD) Af Amer 36 L Est GFR (MDRD) Non-Af 30 L BUN/Creatinine Ratio 30.5 H Glucose 722 H* Calcium 8.0 L 11/12/18 11/12/18 11/12/18 20:00 21:55 23:50 WBC RBC Hgb Hct MCV MCH MCHC RDW RDW Differential Plt Count MPV Immature Gran % (Auto) Neut % (Auto) Lymph % (Auto) Stanton % (Auto) Eos % (Auto) Baso % (Auto) Absolute Neuts (auto) Absolute Lymphs (auto) Total Counted Diff Path Review Sodium 127 L 127 L 129 L Potassium 4.4 4.2 4.1 Chloride 101 101 103 Carbon Dioxide 15.0 L 16.0 L 16.0 L Anion Gap 11 10 10 BUN 52 H 51 H 49 H Creatinine 1.77 H 1.74 H 1.64 H Estim Creat Clear Calc 22.00 22.38 23.74 Est GFR (MDRD) Af Amer 36 L 37 L 40 L Est GFR (MDRD) Non-Af 30 L 31 L 33 L BUN/Creatinine Ratio 29.4 H 29.3 H 29.9 H Glucose 652 H* 588 H* 542 H* Calcium 8.0 L 8.1 L 8.1 L 11/13/18 11/13/18 11/13/18 02:00 04:15 04:15 WBC 13.8 H RBC 3.13 L Hgb 9.6 L Hct 27.1 L MCV 86.6 MCH 30.7 MCHC 35.4 RDW 13.0 RDW Differential 39.8 Plt Count 237 MPV 9.9 Immature Gran % (Auto) 0.400 Neut % (Auto) 81.5 H Lymph % (Auto) 11.4 L Stanton % (Auto) 6.4 Eos % (Auto) 0.2 Baso % (Auto) 0.1 Absolute Neuts (auto) 11.3 H Absolute Lymphs (auto) 1.58 Total Counted Not Reportable Diff Path Review Sodium 130 L 132 L Potassium 4.1 3.9 Chloride 105 105 Carbon Dioxide 16.0 L 18.0 L Anion Gap 9 9 BUN 48 H 47 H Creatinine 1.66 H 1.65 H Estim Creat Clear Calc 23.46 23.60 Est GFR (MDRD) Af Amer 39 L 39 L Est GFR (MDRD) Non-Af 32 L 33 L BUN/Creatinine Ratio 28.9 H 28.5 H Glucose 511 H* 475 H* Calcium 8.0 L 8.0 L POC Glucose 11/13/18 11/13/18 11/13/18 16:39 14:23 11:35 POC Glucose 174 H 249 H 335 H 11/13/18 11/13/18 11/13/18 09:56 08:52 05:55 POC Glucose 393 H 433 H 426 H 11/13/18 11/13/18 11/12/18 04:09 02:05 23:47 POC Glucose 458 H* 470 H* > 500 H* Medical Necessity - Tobacco Use Smoking Status: Current every day smoker Tobacco Use: Cigarettes Assessment/Plan All Active Problems Generalized weakness (Acute) Confusion (Acute) Meropenem day #2 for UTI Impressions 1. Hyperosmolar non-ketotic state with encephalopathy 2. septic shock due to UTI? this is based on the acidosis/lactic acid and I feel that the acidosis is due to extreme dehydration and ARF and NOT due to sepsis 3. ARF 4. Dehydration 5. Hyperkalemia and severe metabolic acidosis 6. Hypothermia 7. NSTEMI 8. hx of CAD with CABG 9. DM II - uncontrolled. Hemoglobin A1c is 13.1 10. tobacco dependence 11. Pseudohyponatremia secondary to extreme hyperglycemia 12. 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 diastolic dysfunction Transition to Lantus BID and SSI every [address] eval to see if she is appropriate for a diet recheck the lab in the AM Will need a cardiac cath when she is more stable.....probably Friday Continue the Meropenem until the urine culture is resulted Needs diabetic education Met with her and son-in-law Petr and answered their questions. Discussed on Rounds with Dr. Ohara and the rest of the team. Code Visit Inpatient E&M: 47534 Subs Hosp L3
[2018-11-14] VITALS (20 sets, daily range): BP systolic 87–119; BP diastolic 51–71; PULSE 70–87; RESP 12–25; TEMP 36.5–37.7; O2SAT 97–100
[2018-11-14 02:06] LABS: Bedside Glucose 96 mg/dL (70-110)
[2018-11-14 02:16] LABS: Bedside Glucose 133 mg/dL (70-110)
[2018-11-14 04:43] LABS: Hematocrit 26.3 % (37-47); Mean Corp Hgb Conc 34.2 g/gl (32-36); Mean Corpuscular Hgb 29.6 pg (27.0-32.0); Mean Corpuscular Volume 86.5 fL (81-99); Mean Platelet Vol. 9.9 fl (6.2-12.0); Platelet Count 226 K/mm3 (150-450); RBC Distribution Width CV 13.3 % (11.6-14.6); RBC Distribution Width SD 40.9 fl (35.1-43.9); Red Blood Count 3.04 M/mm3 (4.2-5.4)
[2018-11-14 04:45] LABS: International Normalized Ratio 1.3; Scan Indicated on CBC? Y/N NO
[2018-11-14 04:55] LABS: ALB/GLOB Ratio 0.8 RATIO (0.9-2.4); AST(SGOT) 31 U/L (15-37); Alanine Aminotransfer ALT/SGPT 32 U/L (13-56); Albumin, Serum 2.2 g/dL (3.2-5.0); Alkaline Phosphatase 134 U/L (45-117); Anion Gap 9 (5-15); BUN 34 mg/dL (7-18); BUN/Creat Ratio 27.2 RATIO (10-20); Calcium,Total 7.6 mg/dL (8.5-10.1); Chloride 112 mmol/L (98-107); Creatinine, Serum 1.25 mg/dL (0.55-1.02); EST Glomerular Filtration Rate 45 mL/min (>60); Est Glom Filt Rate - Afr Amer 54 mL/min (>60); Estimated Creatinine Clearance 31.15 ml/min; Globulin 2.8 g/dL (2.2-4.2); Glucose 155 mg/dL (74-106); Magnesium 1.6 mg/dL (1.6-2.6); Phosphorus 1.9 mg/dL (2.5-4.9); Potassium 3.6 mmol/L (3.5-5.1); Sodium Level 138 mmol/L (136-145)
--- NOTE | 2018-11-14 06:09 | PCM.PN.INT ---
Subjective: The patient was seen and examined at the bedside this morning. Events from the last 24 hours have been reviewed. The patient did have a fever overnight with a T-max of 38 ?C. She remains hemodynamically stable on room air. Blood sugars are under much better control. All the patient does seem more alert this morning, she still is somewhat confused. She reports that she is anxious to be discharged home. The patient failed her speech therapy evaluation yesterday and is currently n.p.o Objective: The patient's most recent lab work, culture data and imaging studies have all been personally reviewed. Fecal leukocytes were positive. C. difficile was negative and enteric bacterial panel was negative. Stool for occult blood was positive. Surface echocardiogram revealed mild concentric LVH with an ejection fraction of 30%. There was evidence of moderately severe segmental systolic dysfunction along with stage II diastolic dysfunction. Pulmonary artery systolic pressure was estimated to be 27 mmHg. General: Alert, Cooperative, No apparent distress, Confused HEENT: Atraumatic, PERRLA, Normocephalic Oral: No Gingival or Mucosal Lesions/ Ulcerations Neck: Supple, No Nodes, Trachea Midline Lungs: No rhonchi, No wheeze, No rales, Diminished Cardiovascular: Regular rate, Regular Rhythm, Normal S1, Normal S2, No murmurs Abdomen: Bowel Sounds Present, Soft, Non Tender Extremities: No clubbing, No cyanosis, No edema Skin: - - No significant change from previous Musculoskeletal: No Tenderness to Palpation of Joints or Extremities Lymphatic: No Cervical, Supraclavicular, or Inguinal Adenopathy Neurological: Cranial nerves II-XII grossly intact, Neuro grossly intact Psych/Mental Status: Normal Affect, Appropriate Vital Signs Temp Pulse Resp BP Pulse Ox 37.6 C H 81 19 H 92/56 L 98 11/14/18 05:00 11/14/18 05:00 11/14/18 05:00 11/14/18 05:00 11/14/18 05:00 Oxygen Flow Rate (L/min) 3 Oxygen Delivery Method Room Air Weight: 132 lb 11.492 oz Body Mass Index (BMI) 24.0 Finger Stick Blood Glucose 249 Intake and Output for Last 24 Hours 11/12/18 11/13/18 11/14/18 23:59 23:59 23:59 Intake Total 5376.8 / 5376.8 3124.1 / 3124.1 618 / 618 Output Total 2350 / 2350 1150 / 1150 200 / 200 Balance 3026.8 / 3026.8 1974.1 / 1973.1 418 / 418 Labs (Last 48 Hours) 11/12/18 11/12/18 11/12/18 06:00 06:00 06:00 WBC RBC Hgb Hct MCV MCH MCHC RDW RDW Differential Plt Count MPV Immature Gran % (Auto) Neut % (Auto) Lymph % (Auto) Lawrence % (Auto) Eos % (Auto) Baso % (Auto) Absolute Neuts (auto) Absolute Lymphs (auto) Total Counted Differential Comment Diff Path Review PT INR Specimen Type Sample Site pH Bicarbonate Actual POC Total CO2 Base Excess O2 Saturation ABG pCO2 ABG pO2 Jose Test O2 Delivery Device Blood Gas Notified Whom Blood Gas Notified Time Sodium 120 L Potassium 5.8 H Chloride 92 L Carbon Dioxide 12.0 L Anion Gap 16 H BUN 58 H Creatinine 2.02 H Estim Creat Clear Calc 19.28 Est GFR (MDRD) Af Amer 31 L Est GFR (MDRD) Non-Af 26 L BUN/Creatinine Ratio 28.7 H Glucose 1232 H* Hemoglobin A1c 13.0 H Calcium 8.2 L Phosphorus Magnesium Total Bilirubin AST ALT Alkaline Phosphatase Troponin I Total Protein Albumin Globulin Albumin/Globulin Ratio TSH 0.82 Free T4 POC Glucose 11/12/18 11/12/18 11/12/18 06:00 06:00 06:11 WBC RBC Hgb Hct MCV MCH MCHC RDW RDW Differential Plt Count MPV Immature Gran % (Auto) Neut % (Auto) Lymph % (Auto) Lawrence % (Auto) Eos % (Auto) Baso % (Auto) Absolute Neuts (auto) Absolute Lymphs (auto) Total Counted Differential Comment Diff Path Review PT INR Specimen Type ART Sample Site R Radial pH 7.14 L* Bicarbonate Actual 7.8 L POC Total CO2 9 Base Excess -21 L O2 Saturation 93 L ABG pCO2 23.0 L ABG pO2 84 Jose Test POS O2 Delivery Device Room Air Blood Gas Notified Whom [facility] Blood Gas Notified Time 600 Sodium Potassium Chloride Carbon Dioxide Anion Gap BUN Creatinine Estim Creat Clear Calc Est GFR (MDRD) Af Amer Est GFR (MDRD) Non-Af BUN/Creatinine Ratio Glucose Hemoglobin A1c Calcium Phosphorus 6.8 H Magnesium 2.0 Total Bilirubin AST ALT Alkaline Phosphatase Troponin I Total Protein Albumin Globulin Albumin/Globulin Ratio TSH Free T4 0.88 POC Glucose 11/12/18 11/12/18 11/12/18 08:05 08:05 10:00 WBC RBC Hgb Hct MCV MCH MCHC RDW RDW Differential Plt Count MPV Immature Gran % (Auto) Neut % (Auto) Lymph % (Auto) Lawrence % (Auto) Eos % (Auto) Baso % (Auto) Absolute Neuts (auto) Absolute Lymphs (auto) Total Counted Differential Comment Diff Path Review PT INR Specimen Type Sample Site pH Bicarbonate Actual POC Total CO2 Base Excess O2 Saturation ABG pCO2 ABG pO2 Jose Test O2 Delivery Device Blood Gas Notified Whom Blood Gas Notified Time Sodium 124 L 122 L Potassium 5.1 5.3 H Chloride 95 L 95 L Carbon Dioxide 13.0 L 13.0 L Anion Gap 16 H 14 BUN 58 H 58 H Creatinine 2.02 H 1.98 H Estim Creat Clear Calc 19.28 19.67 Est GFR (MDRD) Af Amer 31 L 32 L Est GFR (MDRD) Non-Af 26 L 26 L BUN/Creatinine Ratio 28.7 H 29.3 H Glucose 1124 H* 1061 H* Hemoglobin A1c Calcium 8.2 L 8.0 L Phosphorus Magnesium Total Bilirubin AST ALT Alkaline Phosphatase Troponin I 5.100 H* Total Protein Albumin Globulin Albumin/Globulin Ratio TSH Free T4 POC Glucose 11/12/18 11/12/18 11/12/18 10:00 12:10 14:10 WBC 26.9 H RBC 3.38 L Hgb 10.3 L Hct 30.7 L MCV 90.8 MCH 30.5 MCHC 33.6 RDW 14.0 RDW Differential 46.0 H Plt Count 345 MPV 9.7 Immature Gran % (Auto) 0.700 Neut % (Auto) 84.8 H Lymph % (Auto) 7.9 L Lawrence % (Auto) 6.6 Eos % (Auto) 0.0 Baso % (Auto) 0.0 Absolute Neuts (auto) 22.8 H Absolute Lymphs (auto) 2.12 Total Counted Not Reportable Differential Comment COMMENT Diff Path Review Reviewed PT INR Specimen Type Sample Site pH Bicarbonate Actual POC Total CO2 Base Excess O2 Saturation ABG pCO2 ABG pO2 Jose Test O2 Delivery Device Blood Gas Notified Whom Blood Gas Notified Time Sodium 125 L 123 L Potassium 5.3 H 4.9 Chloride 97 L 97 L Carbon Dioxide 14.0 L 14.0 L Anion Gap 14 12 BUN 55 H 56 H Creatinine 1.96 H 1.85 H Estim Creat Clear Calc 19.87 21.05 Est GFR (MDRD) Af Amer 32 L 35 L Est GFR (MDRD) Non-Af 27 L 29 L BUN/Creatinine Ratio 28.1 H 30.3 H Glucose 985 H* 872 H* Hemoglobin A1c Calcium 8.2 L 8.2 L Phosphorus Magnesium Total Bilirubin AST ALT Alkaline Phosphatase Troponin I Total Protein Albumin Globulin Albumin/Globulin Ratio TSH Free T4 POC Glucose 11/12/18 11/12/18 11/12/18 16:05 18:10 18:10 WBC RBC Hgb 10.1 L Hct 28.8 L MCV MCH MCHC RDW RDW Differential Plt Count MPV Immature Gran % (Auto) Neut % (Auto) Lymph % (Auto) Lawrence % (Auto) Eos % (Auto) Baso % (Auto) Absolute Neuts (auto) Absolute Lymphs (auto) Total Counted Differential Comment Diff Path Review PT INR Specimen Type Sample Site pH Bicarbonate Actual POC Total CO2 Base Excess O2 Saturation ABG pCO2 ABG pO2 Jose Test O2 Delivery Device Blood Gas Notified Whom Blood Gas Notified Time Sodium 123 L 126 L Potassium 4.6 4.4 Chloride 98 100 Carbon Dioxide 15.0 L 15.0 L Anion Gap 10 11 BUN 54 H 54 H Creatinine 1.77 H 1.77 H Estim Creat Clear Calc 22.00 22.00 Est GFR (MDRD) Af Amer 36 L 36 L Est GFR (MDRD) Non-Af 30 L 30 L BUN/Creatinine Ratio 30.5 H 30.5 H Glucose 755 H* 722 H* Hemoglobin A1c Calcium 8.1 L 8.0 L Phosphorus Magnesium Total Bilirubin AST ALT Alkaline Phosphatase Troponin I Total Protein Albumin Globulin Albumin/Globulin Ratio TSH Free T4 POC Glucose 11/12/18 11/12/18 11/12/18 20:00 21:55 23:47 WBC RBC Hgb Hct MCV MCH MCHC RDW RDW Differential Plt Count MPV Immature Gran % (Auto) Neut % (Auto) Lymph % (Auto) Lawrence % (Auto) Eos % (Auto) Baso % (Auto) Absolute Neuts (auto) Absolute Lymphs (auto) Total Counted Differential Comment Diff Path Review PT INR Specimen Type Sample Site pH Bicarbonate Actual POC Total CO2 Base Excess O2 Saturation ABG pCO2 ABG pO2 Jose Test O2 Delivery Device Blood Gas Notified Whom Blood Gas Notified Time Sodium 127 L 127 L Potassium 4.4 4.2 Chloride 101 101 Carbon Dioxide 15.0 L 16.0 L Anion Gap 11 10 BUN 52 H 51 H Creatinine 1.77 H 1.74 H Estim Creat Clear Calc 22.00 22.38 Est GFR (MDRD) Af Amer 36 L 37 L Est GFR (MDRD) Non-Af 30 L 31 L BUN/Creatinine Ratio 29.4 H 29.3 H Glucose 652 H* 588 H* Hemoglobin A1c Calcium 8.0 L 8.1 L Phosphorus Magnesium Total Bilirubin AST ALT Alkaline Phosphatase Troponin I Total Protein Albumin Globulin Albumin/Globulin Ratio TSH Free T4 POC Glucose > 500 H* 11/12/18 11/13/18 11/13/18 23:50 02:00 02:05 WBC RBC Hgb Hct MCV MCH MCHC RDW RDW Differential Plt Count MPV Immature Gran % (Auto) Neut % (Auto) Lymph % (Auto) Lawrence % (Auto) Eos % (Auto) Baso % (Auto) Absolute Neuts (auto) Absolute Lymphs (auto) Total Counted Differential Comment Diff Path Review PT INR Specimen Type Sample Site pH Bicarbonate Actual POC Total CO2 Base Excess O2 Saturation ABG pCO2 ABG pO2 Jose Test O2 Delivery Device Blood Gas Notified Whom Blood Gas Notified Time Sodium 129 L 130 L Potassium 4.1 4.1 Chloride 103 105 Carbon Dioxide 16.0 L 16.0 L Anion Gap 10 9 BUN 49 H 48 H Creatinine 1.64 H 1.66 H Estim Creat Clear Calc 23.74 23.46 Est GFR (MDRD) Af Amer 40 L 39 L Est GFR (MDRD) Non-Af 33 L 32 L BUN/Creatinine Ratio 29.9 H 28.9 H Glucose 542 H* 511 H* Hemoglobin A1c Calcium 8.1 L 8.0 L Phosphorus Magnesium Total Bilirubin AST ALT Alkaline Phosphatase Troponin I Total Protein Albumin Globulin Albumin/Globulin Ratio TSH Free T4 POC Glucose 470 H* 11/13/18 11/13/18 11/13/18 04:09 04:15 04:15 WBC 13.8 H RBC 3.13 L Hgb 9.6 L Hct 27.1 L MCV 86.6 MCH 30.7 MCHC 35.4 RDW 13.0 RDW Differential 39.8 Plt Count 237 MPV 9.9 Immature Gran % (Auto) 0.400 Neut % (Auto) 81.5 H Lymph % (Auto) 11.4 L Lawrence % (Auto) 6.4 Eos % (Auto) 0.2 Baso % (Auto) 0.1 Absolute Neuts (auto) 11.3 H Absolute Lymphs (auto) 1.58 Total Counted Not Reportable Differential Comment Diff Path Review PT INR Specimen Type Sample Site pH Bicarbonate Actual POC Total CO2 Base Excess O2 Saturation ABG pCO2 ABG pO2 Jose Test O2 Delivery Device Blood Gas Notified Whom Blood Gas Notified Time Sodium 132 L Potassium 3.9 Chloride 105 Carbon Dioxide 18.0 L Anion Gap 9 BUN 47 H Creatinine 1.65 H Estim Creat Clear Calc 23.60 Est GFR (MDRD) Af Amer 39 L Est GFR (MDRD) Non-Af 33 L BUN/Creatinine Ratio 28.5 H Glucose 475 H* Hemoglobin A1c Calcium 8.0 L Phosphorus Magnesium Total Bilirubin AST ALT Alkaline Phosphatase Troponin I Total Protein Albumin Globulin Albumin/Globulin Ratio TSH Free T4 POC Glucose 458 H* 11/13/18 11/13/18 11/13/18 05:55 08:52 09:56 WBC RBC Hgb Hct MCV MCH MCHC RDW RDW Differential Plt Count MPV Immature Gran % (Auto) Neut % (Auto) Lymph % (Auto) Lawrence % (Auto) Eos % (Auto) Baso % (Auto) Absolute Neuts (auto) Absolute Lymphs (auto) Total Counted Differential Comment Diff Path Review PT INR Specimen Type Sample Site pH Bicarbonate Actual POC Total CO2 Base Excess O2 Saturation ABG pCO2 ABG pO2 Jose Test O2 Delivery Device Blood Gas Notified Whom Blood Gas Notified Time Sodium Potassium Chloride Carbon Dioxide Anion Gap BUN Creatinine Estim Creat Clear Calc Est GFR (MDRD) Af Amer Est GFR (MDRD) Non-Af BUN/Creatinine Ratio Glucose Hemoglobin A1c Calcium Phosphorus Magnesium Total Bilirubin AST ALT Alkaline Phosphatase Troponin I Total Protein Albumin Globulin Albumin/Globulin Ratio TSH Free T4 POC Glucose 426 H 433 H 393 H 11/13/18 11/13/18 11/13/18 11:35 14:23 16:39 WBC RBC Hgb Hct MCV MCH MCHC RDW RDW Differential Plt Count MPV Immature Gran % (Auto) Neut % (Auto) Lymph % (Auto) Lawrence % (Auto) Eos % (Auto) Baso % (Auto) Absolute Neuts (auto) Absolute Lymphs (auto) Total Counted Differential Comment Diff Path Review PT INR Specimen Type Sample Site pH Bicarbonate Actual POC Total CO2 Base Excess O2 Saturation ABG pCO2 ABG pO2 Jose Test O2 Delivery Device Blood Gas Notified Whom Blood Gas Notified Time Sodium Potassium Chloride Carbon Dioxide Anion Gap BUN Creatinine Estim Creat Clear Calc Est GFR (MDRD) Af Amer Est GFR (MDRD) Non-Af BUN/Creatinine Ratio Glucose Hemoglobin A1c Calcium Phosphorus Magnesium Total Bilirubin AST ALT Alkaline Phosphatase Troponin I Total Protein Albumin Globulin Albumin/Globulin Ratio TSH Free T4 POC Glucose 335 H 249 H 174 H 11/13/18 11/14/18 11/14/18 21:50 02:08 04:20 WBC 17.0 H RBC 3.04 L Hgb 9.0 L Hct 26.3 L MCV 86.5 MCH 29.6 MCHC 34.2 RDW 13.3 RDW Differential 40.9 Plt Count 226 MPV 9.9 Immature Gran % (Auto) Neut % (Auto) Lymph % (Auto) Lawrence % (Auto) Eos % (Auto) Baso % (Auto) Absolute Neuts (auto) Absolute Lymphs (auto) Total Counted Differential Comment Diff Path Review PT INR Specimen Type Sample Site pH Bicarbonate Actual POC Total CO2 Base Excess O2 Saturation ABG pCO2 ABG pO2 Jose Test O2 Delivery Device Blood Gas Notified Whom Blood Gas Notified Time Sodium Potassium Chloride Carbon Dioxide Anion Gap BUN Creatinine Estim Creat Clear Calc Est GFR (MDRD) Af Amer Est GFR (MDRD) Non-Af BUN/Creatinine Ratio Glucose Hemoglobin A1c Calcium Phosphorus Magnesium Total Bilirubin AST ALT Alkaline Phosphatase Troponin I Total Protein Albumin Globulin Albumin/Globulin Ratio TSH Free T4 POC Glucose 96 133 H 11/14/18 11/14/18 04:20 04:20 WBC RBC Hgb Hct MCV MCH MCHC RDW RDW Differential Plt Count MPV Immature Gran % (Auto) Neut % (Auto) Lymph % (Auto) Lawrence % (Auto) Eos % (Auto) Baso % (Auto) Absolute Neuts (auto) Absolute Lymphs (auto) Total Counted Differential Comment Diff Path Review PT 16.0 H INR 1.3 Specimen Type Sample Site pH Bicarbonate Actual POC Total CO2 Base Excess O2 Saturation ABG pCO2 ABG pO2 Jose Test O2 Delivery Device Blood Gas Notified Whom Blood Gas Notified Time Sodium 138 Potassium 3.6 Chloride 112 H Carbon Dioxide 17.0 L Anion Gap 9 BUN 34 H Creatinine 1.25 H Estim Creat Clear Calc 31.15 Est GFR (MDRD) Af Amer 54 L Est GFR (MDRD) Non-Af 45 L BUN/Creatinine Ratio 27.2 H Glucose 155 H Hemoglobin A1c Calcium 7.6 L Phosphorus 1.9 L Magnesium 1.6 Total Bilirubin 0.30 AST 31 ALT 32 Alkaline Phosphatase 134 H Troponin I Total Protein 5.0 L Albumin 2.2 L Globulin 2.8 Albumin/Globulin Ratio 0.8 L TSH Free T4 POC Glucose Microbiology 11/12/18 01:35 Urine Catheter - Mistry Urine Culture - Final Presumptive C albicans 11/12/18 07:30 Stool Enteric Bacteriology - Final 11/12/18 12:15 Stool C. difficile DNA Amplification - Final 11/12/18 07:30 Stool Stool Lactoferrin - Final 11/12/18 07:30 Stool Stool Occult Blood (LACHELLE) - Final Occult Blood Positive Clinical Impression(s) from Imaging Studies Chest X-Ray 11/12/18 01:05 IMPRESSION: Normal x-ray examination of the chest. No acute findings in the lungs Electronically Signed: Garry Call MD at 3:10 EDT Tel , Service support , Chest X-Ray 11/12/18 03:11 IMPRESSION: Interval introduction of a central line through the right internal jugular vein with the tip at the caval atrial junction. No acute findings in the lungs Electronically Signed: Garry Call MD at 3:51 EDT Tel , Service support , Medical Necessity - Tobacco Use Smoking Status: Current every day smoker Tobacco Use: Cigarettes Assessment/Plan All Active Problems Generalized weakness (Acute) Confusion (Acute) RECOMMENDATIONS: 1. Continue Lantus and sliding scale insulin coverage. 2. Continue daily PPI. 3. Speech therapy to reevaluate patient's swallow today. 4. Physical therapy to work with patient. 5. The patient is medically stable for transfer out of the intensive care unit. IMPRESSIONS: 1. Hyperosmolar nonketotic hyperglycemia While the patient does report recently being treated for a urinary tract infection, she did admit to me that she has been noncompliant with the use of her home insulin regimen recently. The patient responded appropriately to supplemental IV fluid hydration along with aggressive insulin infusion. She is now being maintained on Lantus and sliding scale insulin coverage. Blood sugars are under much better control. The patient is currently n.p.o. until she can be reevaluated by speech therapy today. 2. Pseudohyponatremia/hyperkalemia/anion gap metabolic acidosis secondary to lactic acidemia Resolved. Continue supplemental IV fluid hydration until diet is able to be advanced. 3. Acute on chronic kidney disease Improving. Likely prerenal in etiology. Continue to monitor urine output accordingly. There is no indication for renal replacement therapy at the current time. 4. Troponin elevation/NSTEMI/history of coronary artery disease The patient did presents with an elevated troponin level and evidence of T wave inversions on EKG. cardiology is following with tentative plans for cardiac catheterization. This note was generated with [employer] dictation software. It may contain incorrect words, spelling, and punctuation that were not noted in checking the note before signing. DISPOSITION: The patient is medically stable for transfer out of the intensive care unit. Given her lack of ongoing ICU or pulmonary needs, will sign off. Please call with any additional questions. Code Visit Inpatient E&M: 26475 Subs Hosp L2
[2018-11-14] MEDS: Insulin Lispro 100 UNIT/ML INSULN.PEN SC ×5 (06:20→16:47)
[2018-11-14] MEDS: CHLORHEXIDINE GLUC 2% CLOTH 1 EACH TOWELETTE TOPICAL (06:22)
[2018-11-14] MEDS: 0.45% Normal Saline 1,000 ML 75 ML IV (06:23)
[2018-11-14 06:30] LABS: Bedside Glucose 165 mg/dL (70-110)
--- NOTE | 2018-11-14 07:14 | RAD_ITS ---
STUDY: X-RAY CHEST REASON FOR EXAM: Female, 73 years old. Fever. TECHNIQUE: Single AP portable view of the chest. COMPARISON: 11/12/2018. FINDINGS: There is a right central venous catheter with its tip in the atriocaval junction region. The lungs are clear and expanded. There is no demonstrated pleural abnormality. Sternal cerclage wires and vascular clips are present from a prior sternotomy and coronary artery bypass graft procedure (CABG). Normal mediastinum and anita. Normal visualized pulmonary arteries. There are calcifications of the aortic arch. The bony structures are unchanged. There is no demonstrated abnormality of the visualized soft tissue structures of the upper abdomen. RAD/Chest 1 View (Portable) IMPRESSION: No significant change since the previous exam. No new infiltrate is seen. Electronically Signed: Aime Acuña MD at 12:38 EDT Tel , Service support ,
--- NOTE | 2018-11-14 07:15 | PN_ITS ---
Patient Problems: Active and Suspected Problems Generalized weakness (Acute) Confusion (Acute) Subjective: All events of the past 24 hours been reviewed. T-max was 100.4 ?F in the past 24H Blood pressure today is 87/65. Heart rate is within normal limits. Fluid balance on 11/13/2018 was +1974. Fluid balance since admission is +5642. The weight has increased from 127 pounds and 6.8 ounces to 132 and 11.5 ounces. All labs personally reviewed. The white blood cell count today is 17,000, up from 13.8 on 11/13/2018. PT is 16 today, down from 18 at admission. Serum bicarb remains low at 17 but the anion gap is 9. BUN is 34 with a creatinine of 1.25 which is down from 2.66 at admission. Phos is low at 1.9 and mag is 1.6. BS's are controlled Final on the urine culture is presumptive Misti albicans. Blood cultures have no growth to date. She was seen by speech therapy and kept NPO yesterday.....she is much more alert today and I expect we will be able to start her on a diet. She tells me that the UTI symptoms she had were dysuria, vaginal itching and DC. Denies CP, SOB, N/V. The pain she was having in the thighs has resolved with hydration. No neurologic complaints. Tells me that she is hungry - Physical Exam General: Alert, Oriented x3, Cooperative, No apparent distress, - - sitting up in bed and wide awake today. answering questions appropriately......memory is still off HEENT: Atraumatic, PERRLA, EOMI, Normocephalic Oral: Moist Mucosa, No Gingival or Mucosal Lesions/ Ulcerations Neck: Supple, No JVD Lungs: Normal air movement, No wheeze, Rales - minimal in the bases posteriorly......did not really clear after a few deep breaths Cardiovascular: Regular rate, Regular Rhythm, Normal S1, Normal S2, No murmurs, No rub noted, No Gallop, - - Telemetry with NSR and some PVC's Abdomen: Bowel Sounds Present, Soft, Non Tender, Non-Distended, No Hepato- splenomegaly, - - no guarding with palpation Extremities: No clubbing, No cyanosis, No edema, No Calf Tenderness, Peripheral Pulses Normal Skin: No rashes, No breakdown Musculoskeletal: No Muscle Wasting Neurological: Cranial nerves II-XII grossly intact, Neuro grossly intact Psych/Mental Status: Normal Affect, Appropriate Vital Signs Temp Pulse Resp BP Pulse Ox 99.8 F H 87 20 H 87/65 L 97 11/14/18 06:00 11/14/18 06:00 11/14/18 06:00 11/14/18 06:00 11/14/18 06:00 Oxygen Flow Rate (L/min) 3 Oxygen Delivery Method Room Air Weight: 132 lb 11.492 oz Body Mass Index (BMI) 24.0 Finger Stick Blood Glucose 249 Intake and Output for Last 24 Hours 11/12/18 11/13/18 11/14/18 23:59 23:59 23:59 Intake Total 5376.8 / 5376.8 3124.1 / 3124.1 1092 / 1092 Output Total 2350 / 2350 1150 / 1150 450 / 450 Balance 3026.8 / 3026.8 1974.1 / 1974.1 642 / 642 Microbiology Past 72 Hours 11/12/18 01:35 Urine Culture - Final Urine Catheter - Mistry Presumptive C albicans 11/12/18 07:30 Enteric Bacteriology - Final Stool 11/12/18 12:15 C. difficile DNA Amplification - Final Stool 11/12/18 07:30 Stool Lactoferrin - Final Stool 11/12/18 07:30 Stool Occult Blood (LACHELLE) - Final Stool Occult Blood Positive Laboratory Tests Past 24 Hrs 11/12/18 11/14/18 11/14/18 10:00 04:20 04:20 WBC 17.0 H RBC 3.04 L Hgb 9.0 L Hct 26.3 L MCV 86.5 MCH 29.6 MCHC 34.2 RDW 13.3 RDW Differential 40.9 Plt Count 226 MPV 9.9 Diff Path Review Reviewed PT 16.0 H INR 1.3 Sodium Potassium Chloride Carbon Dioxide Anion Gap BUN Creatinine Estim Creat Clear Calc Est GFR (MDRD) Af Amer Est GFR (MDRD) Non-Af BUN/Creatinine Ratio Glucose Calcium Phosphorus Magnesium Total Bilirubin AST ALT Alkaline Phosphatase Total Protein Albumin Globulin Albumin/Globulin Ratio 11/14/18 04:20 WBC RBC Hgb Hct MCV MCH MCHC RDW RDW Differential Plt Count MPV Diff Path Review PT INR Sodium 138 Potassium 3.6 Chloride 112 H Carbon Dioxide 17.0 L Anion Gap 9 BUN 34 H Creatinine 1.25 H Estim Creat Clear Calc 31.15 Est GFR (MDRD) Af Amer 54 L Est GFR (MDRD) Non-Af 45 L BUN/Creatinine Ratio 27.2 H Glucose 155 H Calcium 7.6 L Phosphorus 1.9 L Magnesium 1.6 Total Bilirubin 0.30 AST 31 ALT 32 Alkaline Phosphatase 134 H Total Protein 5.0 L Albumin 2.2 L Globulin 2.8 Albumin/Globulin Ratio 0.8 L POC Glucose 11/14/18 11/14/18 11/13/18 06:18 02:08 21:50 POC Glucose 165 H 133 H 96 11/13/18 11/13/18 11/13/18 16:39 14:23 11:35 POC Glucose 174 H 249 H 335 H 11/13/18 11/13/18 09:56 08:52 POC Glucose 393 H 433 H Medical Necessity - Tobacco Use Smoking Status: Current every day smoker Tobacco Use: Cigarettes Assessment/Plan All Active Problems Generalized weakness (Acute) Confusion (Acute) Impressions 1. Hyperosmolar non-ketotic state with encephalopathy 2. septic shock due to UTI? this is based on the acidosis/lactic acid and I feel that the acidosis is due to extreme dehydration and ARF and NOT due to sepsis 3. ARF 4. Dehydration 5. Hyperkalemia and severe metabolic acidosis 6. Hypothermia 7. NSTEMI 8. hx of CAD with CABG 9. DM II - uncontrolled. Hemoglobin A1c is 13.1 10. tobacco dependence 11. Pseudohyponatremia secondary to extreme hyperglycemia 12. 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 diastolic dysfunction 16. Hypophosphatemia Supplement phosphorus Change Accu-Cheks to before meals at bedtime called me for MR was looks like a normal amount of flow Sliding scale insulin coverage before meals 3 times daily Continue Lantus 20 units twice daily And 3 units of Humalog at each meal Chest x-ray today-hazy left base Start fluconazole 200 mg IV daily x3 Discontinue Merrem and continue to observe for leukocytosis and fever IS religiously Start a soft diet with thin liquids, 1600 anya, low salt, low-fat Probable cardiac cath Friday Transfer to PCU Code Visit Inpatient E&M: 74104 Subs Hosp L3
[2018-11-14] MEDS: Aspirin 81 MG TAB.CHEW PO (08:47)
[2018-11-14 08:55] LABS: Bedside Glucose 148 mg/dL (70-110)
--- NOTE | 2018-11-14 09:51 | NURSING ---
report called to Mary in [facility]
[2018-11-14] MEDS: Magnesium Oxide 400 MG Tablet PO (10:35)
[2018-11-14] MEDS: Heparin Injection (Vial) 5,000 UNIT/ML VIAL 5000 UNIT SC ×2 (10:35→22:35)
[2018-11-14] MEDS: Carvedilol 3.125 MG TABLET PO ×2 (10:35→23:30)
[2018-11-14 11:46] LABS: Bedside Glucose 231 mg/dL (70-110)
--- NOTE | 2018-11-14 12:09 | CASEMGMT ---
SOCIAL WORK: Referral received per corrosion engineer this date to assess discharge planning needs. Reviewed PT/OT evaluations which were completed yesterday, 11/13/18. Patient lethargic and unsteady, requiring min assist to CGA x 1 with ambulation of 12 feet and required complete assistance with ADLs. Recommendation made for additional therapy 5 days per week. This SW met with patient and in her room; additional family members present and patient voiced agreement with discussion in front of visitors. Broached topic of discharge planning needs in terms of therapy at discharge. Education provided regarding short-term SNF placement, including local facilities in [facility] where they reside and [facility]; skilled HHC and home therapies and outpatient therapy. Patient states desire to return home and have walk her everyday. and family members encouraging patient to consider short-term SNF prior to return home. SW encouraged patient and family to think about desired option and advised that primary social contact worker will follow up with them on Friday. They voiced understanding and agreement. No further needs or issues identified at this time. PLAN: Patient and are considering short-term SNF versus skilled HHC with home therapies. Primary SW to follow up with them on Friday for desired plan. JERE Garibay
--- NOTE | 2018-11-14 13:02 | NURSING ---
took rings home.
[2018-11-14 16:26] LABS: Bedside Glucose 197 mg/dL (70-110)
[2018-11-14] MEDS: Acetaminophen 325 MG Tablet 650 MG PO (16:50)
--- NOTE | 2018-11-14 16:58 | PCM.PN.CARD ---
Subjectve: The patient is now in the PCU. The patient appears to be resting comfortably at this time with no new acute complaints. Objective: Vital Signs Temp Pulse Resp BP Pulse Ox 98.0 F 74 12 91/65 100 11/14/18 16:30 11/14/18 16:30 11/14/18 16:30 11/14/18 16:30 11/14/18 16:30 Oxygen Flow Rate (L/min) 3 Oxygen Delivery Method Room Air Weight: 132 lb 11.492 oz Body Mass Index (BMI) 24.0 Finger Stick Blood Glucose 249 Intake and Output for Last 24 Hours 11/12/18 11/13/18 11/14/18 23:59 23:59 23:59 Intake Total 5376.8 / 5376.8 3124.1 / 3124.1 1306 / 1306 Output Total 2350 / 2350 1150 / 1150 800 / 800 Balance 3026.8 / 3026.8 1974.1 / 1974.1 506 / 506 General: No Acute Distress HEENT: Atraumatic, Normocephalic Neck: No JVD Lungs: Clear to auscultation Cardiovascular: Regular Rhythm, Normal S1, Normal S2 Abdomen: Bowel Sounds Present, Soft 11/14/18 04:20: WBC 17.0 H, RBC 3.04 L, Hgb 9.0 L, Hct 26.3 L, MCV 86.5, MCH 29.6, MCHC 34.2, RDW 13.3, RDW Differential 40.9, Plt Count 226, MPV 9.9 11/14/18 04:20: PT 16.0 H, INR 1.3 11/14/18 04:20: Sodium 138, Potassium 3.6, Chloride 112 H, Carbon Dioxide 17.0 L, Anion Gap 9, BUN 34 H, Creatinine 1.25 H, Est GFR (MDRD) Af Amer 54 L, Est GFR (MDRD) Non-Af 45 L, BUN/Creatinine Ratio 27.2 H, Glucose 155 H, Calcium 7.6 L, Phosphorus 1.9 L, Magnesium 1.6, Total Bilirubin 0.30 Rhythm: Sinus rhythm ECHO: ?? Interpretation Summary Normal LV size. Mild concentric left ventricular hypertrophy. The estimated ejection fraction is 30 %. Moderately severe segmental systolic dysfunction (see wall motion). Stage 2 diastolic dysfunction. Mild (1+) eccentric mitral valve insufficiency. CT Surgery: 07-26-13: [place], [place]: PATEL to the LAD with SVG to the PDA and the distal RCA Medical Necessity - Tobacco Use Smoking Status: Current every day smoker Tobacco Use: Cigarettes Assessment/Plan 1. Non-ST segment elevation [place] The patient did have a non-ST segment elevation [place] by cardiac enzymes. She has been evaluated noninvasively with a transthoracic echocardiogram. The results are as noted above. She is continuing medical management. The tentative plan, if she can continues to clinically improve, is to consider diagnostic cardiac catheterization on 11-16-18. In the meantime she will continue medical therapy. This will include the addition of antiplatelet therapy with clopidogrel/Plavix. She will continue her aspirin therapy, beta-gordo therapy, and lipid-lowering therapy. 2. CAD status post CABG She does have a history of CAD and CABG. According to an operative note from [facility] she underwent CABG on 07-26-13 with a report of a PATEL to the LAD and an SVG to the PDA and distal RCA. Again she will continue to be monitored. She will continue medical therapy. She is pending upcoming diagnostic cardiac catheterization based upon her clinical course. 3. Diabetes mellitus She will continue evaluation care per internal medicine. Comment: The patient's case has been discussed and reviewed with Dr. Luong. This note was generated using a voice recognition system and there may be incorrect words, spelling or punctuation that were not noted when reviewing the office note prior to saving.
--- NOTE | 2018-11-14 17:02 | PN.CARD_ITS ---
Subjectve: The patient is now in the PCU. The patient appears to be resting comfortably at this time with no new acute complaints. Objective: Vital Signs Temp Pulse Resp BP Pulse Ox 98.0 F 74 12 91/65 100 11/14/18 16:30 11/14/18 16:30 11/14/18 16:30 11/14/18 16:30 11/14/18 16:30 Oxygen Flow Rate (L/min) 3 Oxygen Delivery Method Room Air Weight: 132 lb 11.492 oz Body Mass Index (BMI) 24.0 Finger Stick Blood Glucose 249 Intake and Output for Last 24 Hours 11/12/18 11/13/18 11/14/18 23:59 23:59 23:59 Intake Total 5376.8 / 5376.8 3124.1 / 3124.1 1306 / 1306 Output Total 2350 / 2350 1150 / 1150 800 / 800 Balance 3026.8 / 3026.8 1974.1 / 1974.1 506 / 506 General: No Acute Distress HEENT: Atraumatic, Normocephalic Neck: No JVD Lungs: Clear to auscultation Cardiovascular: Regular Rhythm, Normal S1, Normal S2 Abdomen: Bowel Sounds Present, Soft 11/14/18 04:20: WBC 17.0 H, RBC 3.04 L, Hgb 9.0 L, Hct 26.3 L, MCV 86.5, MCH 29.6, MCHC 34.2, RDW 13.3, RDW Differential 40.9, Plt Count 226, MPV 9.9 11/14/18 04:20: PT 16.0 H, INR 1.3 11/14/18 04:20: Sodium 138, Potassium 3.6, Chloride 112 H, Carbon Dioxide 17.0 L , Anion Gap 9, BUN 34 H, Creatinine 1.25 H, Est GFR (MDRD) Af Amer 54 L, Est GFR (MDRD) Non-Af 45 L, BUN/Creatinine Ratio 27.2 H, Glucose 155 H, Calcium 7.6 L, Phosphorus 1.9 L, Magnesium 1.6, Total Bilirubin 0.30 Rhythm: Sinus rhythm ECHO: ?? Interpretation Summary Normal LV size. Mild concentric left ventricular hypertrophy. The estimated ejection fraction is 30 %. Moderately severe segmental systolic dysfunction (see wall motion). Stage 2 diastolic dysfunction. Mild (1+) eccentric mitral valve insufficiency. CT Surgery: 07-26-13: [place], [place]: PATEL to the LAD with SVG to the PDA and the distal RCA Medical Necessity - Tobacco Use Smoking Status: Current every day smoker Tobacco Use: Cigarettes Assessment/Plan 1. Non-ST segment elevation [place] The patient did have a non-ST segment elevation AR by cardiac enzymes. She has been evaluated noninvasively with a transthoracic echocardiogram. The results are as noted above. She is continuing medical management. The tentative plan, if she can continues to clinically improve, is to consider diagnostic cardiac catheterization on 11-16-18. In the meantime she will continue medical therapy. This will include the hailey tion of antiplatelet therapy with clopidogrel/Plavix. She will continue her aspirin therapy, beta-gordo therapy, and lipid-lowering therapy. 2. CAD status post CABG She does have a history of CAD and CABG. According to an operative note from [facility] she underwent CABG on 07-26-13 with a report of a PATEL to the LAD and an SVG to the PDA and distal RCA. Again she will continue to be monitored. She will continue medical therapy. She is pending upcoming diagnostic cardiac catheterization based upon her clinical course. 3. Diabetes mellitus She will continue evaluation care per internal medicine. Comment: The patient's case has been discussed and reviewed with Dr. Luong. This note was generated using a voice recognition system and there may be incorrect words, spelling or punctuation that were not noted when reviewing the office note prior to saving.
[2018-11-14] MEDS: Clopidogrel Bisulfate 75 MG Tablet PO (17:30)
[2018-11-14] MEDS: Atorvastatin Calcium 40 MG Tablet PO (22:35)
[2018-11-14 23:26] LABS: Bedside Glucose 132 mg/dL (70-110)
[2018-11-15] VITALS (11 sets, daily range): BP systolic 90–99; BP diastolic 46–57; PULSE 63–73; RESP 16–20; TEMP 36.6–36.9; O2SAT 98–99
[2018-11-15 06:21] LABS: Anion Gap 9 (5-15); BUN 30 mg/dL (7-18); BUN/Creat Ratio 22.7 RATIO (10-20); Calcium,Total 6.9 mg/dL (8.5-10.1); Chloride 112 mmol/L (98-107); Creatinine, Serum 1.32 mg/dL (0.55-1.02); EST Glomerular Filtration Rate 42 mL/min (>60); Est Glom Filt Rate - Afr Amer 51 mL/min (>60); Glucose 264 mg/dL (74-106); Magnesium 1.6 mg/dL (1.6-2.6); Phosphorus 4.1 mg/dL (2.5-4.9); Potassium 4.2 mmol/L (3.5-5.1); Sodium Level 136 mmol/L (136-145)
[2018-11-15 07:05] LABS: Bedside Glucose 248 mg/dL (70-110)
[2018-11-15] MEDS: Insulin Lispro 100 UNIT/ML INSULN.PEN SC ×6 (08:20→16:59)
[2018-11-15] MEDS: Magnesium Oxide 400 MG Tablet PO (08:22)
[2018-11-15] MEDS: Aspirin 81 MG TAB.CHEW PO (08:22)
[2018-11-15] MEDS: 0.45% Normal Saline 1,000 ML 75 ML IV (09:52)
[2018-11-15] MEDS: Carvedilol 3.125 MG TABLET PO ×2 (09:55→22:18)
[2018-11-15] MEDS: Clopidogrel Bisulfate 75 MG Tablet PO (09:57)
[2018-11-15] MEDS: Pantoprazole Sodium 40 MG Tablet PO (09:58)
[2018-11-15 11:41] LABS: Bedside Glucose 301 mg/dL (70-110)
--- NOTE | 2018-11-15 12:21 | PCM.PN.CARD ---
Subjectve: The patient is awake and alert. She denies any acute chest discomfort or worsening shortness of breath or dyspnea. There has been concern of possible gastrointestinal related bleeding. Objective: Vital Signs Temp Pulse Resp BP Pulse Ox 97.9 F 69 16 97/53 L 99 11/15/18 06:10 11/15/18 07:03 11/15/18 06:10 11/15/18 06:10 11/15/18 09:41 Oxygen Flow Rate (L/min) 3 Oxygen Delivery Method Room Air Weight: 132 lb 15.02 oz Body Mass Index (BMI) 24.0 Finger Stick Blood Glucose 249 Intake and Output for Last 24 Hours 11/13/18 11/14/18 11/15/18 23:59 23:59 23:59 Intake Total 3124.1 / 3124.1 2721 / 2721 1210 / 1210 Output Total 1150 / 1150 1400 / 1400 350 / 350 Balance 1974.1 / 1973.1 1321 / 1321 860 / 860 General: Awake, Alert, Oriented x 3, Cooperative, No Acute Distress HEENT: Atraumatic, Normocephalic, PERRL, EOMI, Sclera Non Icteric Oral: Moist Mucosa Neck: Supple, Good ROM, No JVD Lungs: Clear to auscultation Cardiovascular: Regular Rhythm, Normal S1, Normal S2 Abdomen: Bowel Sounds Present, Soft, Non Tender Extremities: No edema Psych/Mental Status: Appropriate 11/15/18 05:35: Sodium 136, Potassium 4.2, Chloride 112 H, Carbon Dioxide 15.0 L, Anion Gap 9, BUN 30 H, Creatinine 1.32 H, Est GFR (MDRD) Af Amer 51 L, Est GFR (MDRD) Non-Af 42 L, BUN/Creatinine Ratio 22.7 H, Glucose 264 H, Calcium 6.9 L, Phosphorus 4.1, Magnesium 1.6 Rhythm: Sinus rhythm Medical Necessity - Tobacco Use Smoking Status: Current every day smoker Tobacco Use: Cigarettes Assessment/Plan 1. Non-ST segment elevation [place] The patient did have a non-ST segment elevation [place] by cardiac enzymes. She has been evaluated noninvasively with a transthoracic echocardiogram. The results are as noted above. She is continuing medical management. The tentative plan, if she can continues to clinically improve, is to consider diagnostic cardiac catheterization on 11-16-18. However, this could change depending upon concerns of any underlying gastrointestinal bleeding related issues and declining hemoglobin issues. Thus she will be tentatively scheduled for her upcoming diagnostic cardiac catheterization on 11-16-18 status post review of her case by cardiology. In the meantime she will continue medical therapy. This will include the addition of antiplatelet therapy with clopidogrel/Plavix. However, if she does have concerns of underlying gastrointestinal bleeding and decreasing hemoglobin levels she may not be able to remain on these agents and thus may not be able to proceed with further evaluation with diagnostic cardiac catheterization. 2. CAD status post CABG She does have a history of CAD and CABG. According to an operative note from [facility] she underwent CABG on 07-26-13 with a report of a PATEL to the LAD and an SVG to the PDA and distal RCA. Again she will continue to be monitored. She will continue medical therapy. She is pending upcoming diagnostic cardiac catheterization based upon her clinical course. 3. Diabetes mellitus She will continue evaluation care per internal medicine. Comment: The patient's case has been discussed and family members present. This note was generated using a voice recognition system and there may be incorrect words, spelling or punctuation that were not noted when reviewing the office note prior to saving.
--- NOTE | 2018-11-15 12:24 | PN.CARD_ITS ---
Subjectve: The patient is awake and alert. She denies any acute chest discomfort or worsening shortness of breath or dyspnea. There has been concern of possible gastrointestinal related bleeding. Objective: Vital Signs Temp Pulse Resp BP Pulse Ox 97.9 F 69 16 97/53 L 99 11/15/18 06:10 11/15/18 07:03 11/15/18 06:10 11/15/18 06:10 11/15/18 09:41 Oxygen Flow Rate (L/min) 3 Oxygen Delivery Method Room Air Weight: 132 lb 15.02 oz Body Mass Index (BMI) 24.0 Finger Stick Blood Glucose 249 Intake and Output for Last 24 Hours 11/13/18 11/14/18 11/15/18 23:59 23:59 23:59 Intake Total 3124.1 / 3124.1 2721 / 2721 1210 / 1210 Output Total 1150 / 1150 1400 / 1400 350 / 350 Balance 1974.1 / 1973.1 1321 / 1321 860 / 860 General: Awake, Alert, Oriented x 3, Cooperative, No Acute Distress HEENT: Atraumatic, Normocephalic, PERRL, EOMI, Sclera Non Icteric Oral: Moist Mucosa Neck: Supple, Good ROM, No JVD Lungs: Clear to auscultation Cardiovascular: Regular Rhythm, Normal S1, Normal S2 Abdomen: Bowel Sounds Present, Soft, Non Tender Extremities: No edema Psych/Mental Status: Appropriate 11/15/18 05:35: Sodium 136, Potassium 4.2, Chloride 112 H, Carbon Dioxide 15.0 L , Anion Gap 9, BUN 30 H, Creatinine 1.32 H, Est GFR (MDRD) Af Amer 51 L, Est GFR (MDRD) Non-Af 42 L, BUN/Creatinine Ratio 22.7 H, Glucose 264 H, Calcium 6.9 L, Phosphorus 4.1, Magnesium 1.6 Rhythm: Sinus rhythm Medical Necessity - Tobacco Use Smoking Status: Current every day smoker Tobacco Use: Cigarettes Assessment/Plan 1. Non-ST segment elevation [place] The patient did have a non-ST segment elevation AK by cardiac enzymes. She has been evaluated noninvasively with a transthoracic echocardiogram. The results are as noted above. She is continuing medical management. The tentative plan, if she can continues to clinically improve, is to consider diagnostic cardiac catheterization on 11-16-18. However, this could change depending upon concerns of any underlying gastrointestinal bleeding related issues and declining hemoglobin issues. Thus she will be tentatively scheduled for her upcoming diagnostic cardiac catheterization on 11-16-18 status post review of her case by cardiology. In the meantime she will continue medical therapy. This will include the addition of antiplatelet therapy with clopidogrel/Plavix. However, if she does have concerns of underlying gastrointestinal bleeding and decreasing hemoglobin levels she may not be able to remain on these agents and thus may not be able to proceed with further evaluation with diagnostic cardiac catheterization. 2. CAD status post CABG She does have a history of CAD and CABG. According to an operative note from [facility] she underwent CABG on 07-26-13 with a report of a PATEL to the LAD and an SVG to the PDA and distal RCA. Again she will continue to be monitored. She will continue medical therapy. She is pending upcoming diagnostic cardiac catheterization based upon her clinical course. 3. Diabetes mellitus She will continue evaluation care per internal medicine. Comment: The patient's case has been discussed and family members present. This note was generated using a voice recognition system and there may be incorrect words, spelling or punctuation that were not noted when reviewing the office note prior to saving.
--- NOTE | 2018-11-15 12:35 | NURSING ---
Family requests [facility] for [facility] home.
--- NOTE | 2018-11-15 15:17 | PN_ITS ---
Patient Problems: Active and Suspected Problems Generalized weakness (Acute) Confusion (Acute) Subjective: Day #2 fluconazole The patient is a 73-year-old female who appears older than her stated age. She was admitted to the ICU on 11/12/2018 with diabetic non-ketotic hyperosmolar state and pseudohyponatremia. The glucose was 1626 and she had ARF. Lab was positive for NSTEMI. EKG showed no significant ST or T wave changes. She has been seen by Dr. Montilla. She is tentatively scheduled for cardiac cath on 11/16/2018. Workup for urinary tract infection is negative and her symptoms and urine culture are consistent with vulvovaginitis secondary to Misti. All events of the past 24 hours of been reviewed. She is afebrile. Blood pressure is on the low side but stable. She is asymptomatic. Pulse ox is 99% on room air with a respiratory rate of 16. Blood sugars were reviewed: At bedtime blood sugar was 132 and the fasting blood sugar was 248. Blood sugar at lunch is 301. All labs personally reviewed. Serum bicarb remains decreased at 15 with an anion gap of 9. BUN is 30 with a creatinine of 1.32, down from 2.66 at admission. Creatinine in 2018 ranged from 1.2-2 1.37. Phosphorus and magnesium are within normal limits today. Calcium is 6.9 and when corrected for hypoalbuminemia is still low at 8.3. Fluid balance since admission is +7 L Hemoglobin has dropped from 12 at admission to 9.0 today. Stool is heme + . HGB in June 2018 was 13.2. WBC is up to 17.0 from 13.8 yesterday...... Merrem was discontinued on 11/14/2018 due to urine culture being positive only for Misti albicans. Blood cultures had no growth after 48 hours, enteric pathogen panel was negative and C. difficile was also negative. CXR on 11/14 was reported as no acute findings by radiology but, I reviewed again today and per my review there is possible new infiltrate in the RLL. She denies cough and denies SOB. She is felling fatigued. she is c/o painful swallowing but, the soreness in her mouth has improved since the Fluconazole was started and the vaginal itching has also improved. Objective: - Physical Exam General: Alert, Oriented x3, Cooperative, No apparent distress, looks more tired than yesterday HEENT: Atraumatic, PERRLA, EOMI, Normocephalic Oral: Moist Mucosa, No Gingival or Mucosal Lesions/ Ulcerations Neck: Supple, No JVD Lungs: Normal air movement, No wheeze, Rales - in the R base posteriorly......did not really clear after a few deep breaths Cardiovascular: Regular rate, Regular Rhythm, Normal S1, Normal S2, No murmurs, No rub noted, No Gallop, - - Telemetry with NSR and some PVC's Abdomen: Bowel Sounds Present, Soft, Non Tender, Non-Distended, No Hepato- splenomegaly, - - no guarding with palpation Extremities: No clubbing, No cyanosis, No edema, No Calf Tenderness, Peripheral Pulses Normal Skin: No rashes, No breakdown Musculoskeletal: No Muscle Wasting Neurological: Cranial nerves II-XII grossly intact, Neuro grossly intact Psych/Mental Status: Normal Affect, Appropriate, flat today - Physical Exam Vital Signs Temp Pulse Resp BP Pulse Ox 98.2 F 64 16 97/46 L 99 11/15/18 12:10 11/15/18 13:19 11/15/18 12:10 11/15/18 12:10 11/15/18 12:10 Oxygen Flow Rate (L/min) 3 Oxygen Delivery Method Room Air Weight: 132 lb 15.02 oz Body Mass Index (BMI) 24.0 Finger Stick Blood Glucose 249 Intake and Output for Last 24 Hours 11/13/18 11/14/18 11/15/18 23:59 23:59 23:59 Intake Total 3124.1 / 3124.1 2721 / 2721 1210 / 1210 Output Total 1150 / 1150 1400 / 1400 650 / 650 Balance 1974.1973.1 1321 / 1321 560 / 560 Microbiology Past 72 Hours 11/12/18 01:45 Blood Culture - Preliminary Blood Culture (Wb) - Left Wrist No growth in 48 hours. 11/12/18 01:17 Blood Culture - Preliminary Blood Culture (Wb) - Anticubital Left No growth in 48 hours. 11/12/18 01:35 Urine Culture - Final Urine Catheter - Mistry Presumptive C albicans 11/12/18 07:30 Enteric Bacteriology - Final Stool 11/12/18 12:15 C. difficile DNA Amplification - Final Stool Laboratory Tests Past 24 Hrs 11/15/18 05:35 Sodium 136 Potassium 4.2 Chloride 112 H Carbon Dioxide 15.0 L Anion Gap 9 BUN 30 H Creatinine 1.32 H Estim Creat Clear Calc 29.50 Est GFR (MDRD) Af Amer 51 L Est GFR (MDRD) Non-Af 42 L BUN/Creatinine Ratio 22.7 H Glucose 264 H Calcium 6.9 L Phosphorus 4.1 Magnesium 1.6 POC Glucose 11/15/18 11/15/18 11/14/18 11:29 06:40 22:33 POC Glucose 301 H 248 H 132 H 11/14/18 16:22 POC Glucose 197 H Medical Necessity - Tobacco Use Smoking Status: Current every day smoker Tobacco Use: Cigarettes Assessment/Plan All Active Problems Generalized weakness (Acute) Confusion (Acute) Impressions 1. Hyperosmolar non-ketotic state with encephalopathy at admission BS 1,626 2. septic shock due to UTI? this is based on the acidosis/lactic acid and I feel that the acidosis is due to extreme dehydration and ARF and NOT due to sepsis 3. ARF -improved 4. Dehydration-improved however the patient has poor oral intakes will continue some IV fluids 5. Hyperkalemia has resolved but the metabolic acidosis continues - likely has RTA 6. Hypothermia 7. NSTEMI 8. hx of CAD with CABG 9. DM II - uncontrolled. Hemoglobin A1c is 13.1 10. tobacco dependence 11. Pseudohyponatremia secondary to extreme hyperglycemia 12. 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 diastolic dysfunction 16. Hypophosphatemia 17. Anemia with heme + stools......HGB in June was WNL...only a small amount of blood in the stool and it is red. She denies constipation 18. Odynophagia-suspect Misti esophagitis 19. RLL HAP - possibly due to ASP Recheck lab in the AM Decrease the IV rate to 60 cc/h Repeat PA lateral chest x-ray today shows infiltrate and small effusion in the right base-suspect she may have aspirated while in the ICU when she had nausea/emesis and drooling -started on Unasyn today If the hemoglobin is stable in the a.m. we will likely proceed with cardiac catheterization but if her hemoglobin is dropping and especially if she requires transfusion we will hold on the cardiac cath and evaluate for upper and lower GI bleed. Continue pantoprazole continue fluconazole 200 mg I V or p.o. for 2 weeks to treat suspected Misti esophagitis UTI ruled out-had Misti vaginitis with dysuria, vaginal discharge and vaginal itching. Continue DVT prophylaxis with heparin Continue Plavix and aspirin in light of recent NSTEMI Increase mealtime insulin to 6 units 3 times daily before meals Check a 2 AM blood sugar tonight Increase the AM Lantus to 30 units Start Unasyn for suspected aspiration pneumonia Code Visit Inpatient E&M: 69329 Subs Hosp L3
--- NOTE | 2018-11-15 15:40 | RAD_ITS ---
STUDY: X-RAY CHEST REASON FOR EXAM: Female, 73 years old. Right lower lobe pneumonia follow-up TECHNIQUE: PA and lateral views of the chest. COMPARISON: 11/14/2018 FINDINGS: Right jugular central venous catheter is stable. No airspace consolidation demonstrated. Minimal parenchymal and pleural opacity in the posterior right lower lobe is best seen on the lateral view. Normal size heart. Sternal wires and mediastinal surgical clips compatible with prior CABG. Normal visualized pulmonary arteries. Normal visualized aortic arch and descending thoracic aorta. Normal visualized thoracic spine. Normal visualized ribs, clavicles, and shoulders. There is no demonstrated abnormality of the visualized soft tissue structures of the upper abdomen. RAD/Chest PA and Lateral IMPRESSION: 1. Slight right lower lobe opacity and trace pleural effusion likely stable but best seen on lateral view. Electronically Signed: Esequiel Sotelo MD at 15:58 EDT , Service support ,
[2018-11-15 16:11] LABS: Bedside Glucose 314 mg/dL (70-110)
[2018-11-15] MEDS: Atorvastatin Calcium 40 MG Tablet PO (22:18)
[2018-11-15] MEDS: Heparin Injection (Vial) 5,000 UNIT/ML VIAL 5000 UNIT SC (22:18)
[2018-11-15 22:31] LABS: Bedside Glucose 182 mg/dL (70-110)
[2018-11-15] MEDS: 0.45% Normal Saline 1,000 ML 60 ML IV (23:47)
[2018-11-16] VITALS (27 sets, daily range): BP systolic 82–128; BP diastolic 27–72; PULSE 61–76; RESP 16–20; TEMP 36.3–37; O2SAT 94–100
[2018-11-16 03:06] LABS: Bedside Glucose 112 mg/dL (70-110)
[2018-11-16 05:54] LABS: Anion Gap 9 (5-15); BUN 25 mg/dL (7-18); BUN/Creat Ratio 21.4 RATIO (10-20); Calcium,Total 6.8 mg/dL (8.5-10.1); Chloride 115 mmol/L (98-107); Creatinine, Serum 1.17 mg/dL (0.55-1.02); EST Glomerular Filtration Rate 48 mL/min (>60); Est Glom Filt Rate - Afr Amer 59 mL/min (>60); Estimated Creatinine Clearance 33.28 ml/min; Glucose 96 mg/dL (74-106); Magnesium 1.6 mg/dL (1.6-2.6); Sodium Level 140 mmol/L (136-145)
--- NOTE | 2018-11-16 05:55 | EKG12_ITS ---
Test Reason : AM Blood Pressure : / mmHG Vent. Rate : 067 BPM Atrial Rate : 067 BPM P-R Int : 124 ms QRS Dur : 084 ms QT Int : 470 ms P-R-T Axes : 072 001 187 degrees QTc Int : 496 ms Sinus rhythm with occasional Premature ventricular complexes Low voltage QRS Septal infarct , age undetermined ST & T wave abnormality, consider anterolateral ischemia Abnormal ECG Confirmed by NOBLE CLEMENTS, SERA ([id number]), design editor NASIR WILD ([id number]) on 11/23/2018 12:23:31 PM Referred By: Ben Rahman Confirmed By:SERA DICKEY MD
[2018-11-16 05:57] LABS: International Normalized Ratio 1.2; Prothrombin Time (Protime)PT. 14.8 SECONDS (11.7-14.9)
[2018-11-16 06:11] LABS: Absolute Lymphocyte Count 2.35 X10^3/ul (0.83-4.51); Absolute Neutrophil Count 7.4 X10^3/uL (2.0-7.7); Basophil# 0.01 X10^3/uL; Basophil% 0.1 % (0-1); Eosinophil# 0.08 X10^3/uL; Eosinophils% 0.7 % (0-5); Hematocrit 25.9 % (37-47); Hemoglobin 8.6 g/dl (12.0-15.0); Lymphocyte # 2.35 X10^3/ul (4.0); Lymphocyte % 21.7 % (19-41); Mean Corp Hgb Conc 33.2 g/gl (32-36); Mean Corpuscular Hgb 30.2 pg (27.0-32.0); Mean Corpuscular Volume 90.9 fL (81-99); Mean Platelet Vol. 10.1 fl (6.2-12.0); Monocyte# 0.86 X10^3/uL; Neutrophil # 7.43 X10^3/uL (2.7-7.7); Neutrophil % 68.8 % (47-70); Platelet Count 178 K/mm3 (150-450); RBC Distribution Width CV 14.2 % (11.6-14.6); RBC Distribution Width SD 47.3 fl (35.1-43.9); Red Blood Count 2.85 M/mm3 (4.2-5.4); White Blood Count 10.8 K/mm3 (4.4-11.0)
[2018-11-16 06:27] LABS: POSITIVE COUNT NO; POSITIVE DIFFERENTIAL NO; POSITIVE MORPHOLOGY NO
[2018-11-16] MEDS: 0.9% NaCl Peripheral Flush Adult/Peds IV ×3 (06:37→20:02)
[2018-11-16] MEDS: Clopidogrel Bisulfate 75 MG Tablet PO (06:37)
[2018-11-16] MEDS: Aspirin 81 MG TAB.CHEW PO (06:38)
--- NOTE | 2018-11-16 07:31 | NURSING ---
report called to Reggie in entry level lab technician.
[2018-11-16 07:35] LABS: Bedside Glucose 90 mg/dL (70-110)
[2018-11-16] MEDS: Carvedilol 3.125 MG TABLET PO ×2 (07:39→22:55)
--- NOTE | 2018-11-16 08:45 | PCM.PN.CARD ---
Subjectve: Patient seen and evaluated. Underwent cardiac catheterization today Objective: Vital Signs Temp Pulse Resp BP Pulse Ox 98.1 F 63 16 94/42 L 96 11/16/18 07:34 11/16/18 07:34 11/16/18 07:34 11/16/18 07:34 11/16/18 08:13 Oxygen Flow Rate (L/min) 3 Oxygen Delivery Method Room Air Weight: 139 lb 1.787 oz Body Mass Index (BMI) 24.0 Finger Stick Blood Glucose 249 Intake and Output for Last 24 Hours 11/14/18 11/15/18 11/16/18 23:59 23:59 23:59 Intake Total 2721 / 2721 1450 / 1450 1235 / 1235 Output Total 1400 / 1400 850 / 850 600 / 600 Balance 1321 / 1321 600 / 600 635 / 635 General: Awake, Alert, Oriented x 3 HEENT: PERRL, EOMI, Sclera Non Icteric, Pallor Neck: Supple, Good ROM, No Lymph Node Enlargement Lungs: Clear to auscultation Cardiovascular: Regular Rhythm, Normal S1, Normal S2, No Murmurs, No Rubs, No Gallops Vascular: No Carotid Bruits, Normal Femoral Pulses, Normal Radial Pulses, Normal Dorsalis Pedal Pulse, Normal Posterior Tibial Pulses Abdomen: Bowel Sounds Present, Soft, Non Tender, No HSM, No Organomegaly Extremities: No Cyanosis, No Clubbing, No edema Musculoskeletal: No Erythema Skin: No Rashes Lymphatic: No Lymph Node Enlargement Neurological: No Focal Motor or Sensory Deficit Psych/Mental Status: Appropriate 11/16/18 05:10: WBC 10.8, RBC 2.85 L, Hgb 8.6 L, Hct 25.9 L, MCV 90.9, MCH 30.2, MCHC 33.2, RDW 14.2, RDW Differential 47.3 H, Plt Count 178, MPV 10.1, Immature Gran % (Auto) 0.700, Neut % (Auto) 68.8, Lymph % (Auto) 21.7, [place] % (Auto) 8.0, Eos % (Auto) 0.7, Baso % (Auto) 0.1, Absolute Neuts (auto) 7.4, Total Counted Not Reportable 11/16/18 05:10: Sodium 140, Potassium 4.0, Chloride 115 H, Carbon Dioxide 16.0 L, Anion Gap 9, BUN 25 H, Creatinine 1.17 H, Est GFR (MDRD) Af Amer 59 L, Est GFR (MDRD) Non-Af 48 L, BUN/Creatinine Ratio 21.4 H, Glucose 96, Calcium 6.8 L, Magnesium 1.6 11/16/18 05:10: PT 14.8, INR 1.2, APTT 27.0 Rhythm: EKG: ECHO: Stress Test: Cardiac Cath: PCI: CT Surgery: Holter monitor: EPS: PPM: CXR: Chest CT Scan: Medical Necessity - Tobacco Use Smoking Status: Current every day smoker Tobacco Use: Cigarettes Assessment/Plan 1. Non-ST elevation myocardial infarction Patient presents with diabetic ketoacidosis and is noted to have a non-ST elevation myocardial infarction. The plan at this particular time will be to correct her underlying diabetes metabolic perturbations and obtain her previous bypass reports. Her echocardiogram demonstrated severe left ventricular systolic dysfunction with segmental wall motion abnormalities noted. 2. Coronary artery disease Patient is status post coronary bypass surgery remotely. She cannot give me the exact dates of the bypass reports. Cardiac catheterization demonstrated the following Normal left main coronary artery Left anterior descending artery which is totally occluded First diagonal vessel which is patent with no high-grade stenosis Left circumflex artery with first obtuse marginal branch with 70% mid segment stenosis Right coronary artery which is totally occluded Saphenous vein graft to the right coronary artery which is totally occluded Left internal mammary artery to left anterior descending artery which is patent with small distal vessel Aortogram demonstrating no other grafts and tortuous aorta with aneurysmal segments in the descending thoracic aorta Calcified and tortuous distal aorta Based on the above angiographic findings would prefer to continue medical therapy for now and see whether she tolerates the Plavix and aspirin. If she does at a later date she can be brought back for angioplasty of the obtuse marginal branch. Would recommend transfusion of 1 unit of packed red blood cells Thank you for allowing me to participate in the care of your patient. Please don't hesitate to call if any issues arise
--- NOTE | 2018-11-16 08:48 | PN.CARD_ITS ---
Subjectve: Patient seen and evaluated. Underwent cardiac catheterization today Objective: Vital Signs Temp Pulse Resp BP Pulse Ox 98.1 F 63 16 94/42 L 96 11/16/18 07:34 11/16/18 07:34 11/16/18 07:34 11/16/18 07:34 11/16/18 08:13 Oxygen Flow Rate (L/min) 3 Oxygen Delivery Method Room Air Weight: 139 lb 1.787 oz Body Mass Index (BMI) 24.0 Finger Stick Blood Glucose 249 Intake and Output for Last 24 Hours 11/14/18 11/15/18 11/16/18 23:59 23:59 23:59 Intake Total 2721 / 2721 1450 / 1450 1235 / 1235 Output Total 1400 / 1400 850 / 850 600 / 600 Balance 1321 / 1321 600 / 600 635 / 635 General: Awake, Alert, Oriented x 3 HEENT: PERRL, EOMI, Sclera Non Icteric, Pallor Neck: Supple, Good ROM, No Lymph Node Enlargement Lungs: Clear to auscultation Cardiovascular: Regular Rhythm, Normal S1, Normal S2, No Murmurs, No Rubs, No Gallops Vascular: No Carotid Bruits, Normal Femoral Pulses, Normal Radial Pulses, Normal Dorsalis Pedal Pulse, Normal Posterior Tibial Pulses Abdomen: Bowel Sounds Present, Soft, Non Tender, No HSM, No Organomegaly Extremities: No Cyanosis, No Clubbing, No edema Musculoskeletal: No Erythema Skin: No Rashes Lymphatic: No Lymph Node Enlargement Neurological: No Focal Motor or Sensory Deficit Psych/Mental Status: Appropriate 11/16/18 05:10: WBC 10.8, RBC 2.85 L, Hgb 8.6 L, Hct 25.9 L, MCV 90.9, MCH 30.2, MCHC 33.2, RDW 14.2, RDW Differential 47.3 H, Plt Count 178, MPV 10.1, Immature Gran % (Auto) 0.700, Neut % (Auto) 68.8, Lymph % (Auto) 21.7, [place] % (Auto) 8.0, Eos % (Auto) 0.7, Baso % (Auto) 0.1, Absolute Neuts (auto) 7.4, Total Counted Not Reportable 11/16/18 05:10: Sodium 140, Potassium 4.0, Chloride 115 H, Carbon Dioxide 16.0 L , Anion Gap 9, BUN 25 H, Creatinine 1.17 H, Est GFR (MDRD) Af Amer 59 L, Est GFR (MDRD) Non-Af 48 L, BUN/Creatinine Ratio 21.4 H, Glucose 96, Calcium 6.8 L, Magnesium 1.6 11/16/18 05:10: PT 14.8, INR 1.2, APTT 27.0 Rhythm: EKG: ECHO: Stress Test: Cardiac Cath: PCI: CT Surgery: Holter monitor: EPS: PPM: CXR: Chest CT Scan: Medical Necessity - Tobacco Use Smoking Status: Current every day smoker Tobacco Use: Cigarettes Assessment/Plan 1. Non-ST elevation myocardial infarction * Patient presents with diabetic ketoacidosis and is noted to have a non-ST elevation myocardial infarction. * The plan at this particular time will be to correct her underlying diabetes metabolic perturbations and obtain her previous bypass reports. * Her echocardiogram demonstrated severe left ventricular systolic dysfunction with segmental wall motion abnormalities noted. * 2. Coronary artery disease * Patient is status post coronary bypass surgery remotely. She cannot give me the exact dates of the bypass reports. * Cardiac catheterization demonstrated the following * Normal left main coronary artery * Left anterior descending artery which is totally occluded * First diagonal vessel which is patent with no high-grade stenosis * Left circumflex artery with first obtuse marginal branch with 70% mid segment stenosis * Right coronary artery which is totally occluded * Saphenous vein graft to the right coronary artery which is totally occluded * Left internal mammary artery to left anterior descending artery which is patent with small distal vessel * Aortogram demonstrating no other grafts and tortuous aorta with 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 If she does at a later date she can be brought back for angioplasty of the obtuse marginal branch. * Would recommend transfusion of 1 unit of packed red blood cells * Thank you for allowing me to participate in the care of your patient. Please don't hesitate to call if any issues arise
--- NOTE | 2018-11-16 08:57 | CL.D_ITS ---
Patient Name: JEWEL KAM Study Date: 11/16/2018 Performing: Nigel Montilla MD Ht: 61.02 inches 155 cm : 1945 Wt: 138.89 lbs 63 kg Age: 73 Gender: female BSA: 1.62 PROCEDURE(S) PERFORMED UA52-CSC/COR/LV/CABG DC11-AO ROOT ANGIO WITH HEART CATH CLINICAL PROFILE AND INDICATIONS Indications: Suspected CAD Heart Failure: None Stress/Imaging Stress/Image Study Performed: No CONCLUSIONS Severe [place] vessel disease with a totally occluded right coronary artery and left anterior descendi ng artery, patent diagonal vessel and moderate disease of the first obtuse marginal branch of the cir cumflex artery. PATEL to the LAD patent, saphenous vein graft to right coronary artery system occlude d. RECOMMENDATIONS Medical therapy to see whether patient will tolerate long-term Plavix and aspirin in view of recent G I bleeding. If the above is tolerated would consider elective angioplasty to the first obtuse margin al branch. DESCRIPTION OF PROCEDURE The patient arrived to the procedure lab. The risks and benefits of the procedure as well as a full d escription of our services here and current unavailability of surgical backup were fully explained to the patient and/or their significant other prior to the catheterization. The Timeout was completed, verifying the correct patient and procedure. The patient's procedural site was prepped and draped in the usual fashion. Local anesthetic was given subcutaneously to right groin region with Lidocaine 2%. Using a modified Seldinger technique, arterial access was obtained via the right femoral artery, a 5 Fr sheath was inserted. Right Coronary Artery selective angiography was then performed in multiple v iews using a 5 Fr. 3DRC (Jasen) catheter. Left internal mammary artery graft to the LAD selective angiography was performed in multiple views using a 5 Fr. 3DRC (Jasen) catheter.The arterial sheat h was pulled and manual compression applied until hemostasis is achieved. CORONARY ANGIOGRAPHY DOMINANCE: Right Dominant LEFT HEART ASSESSMENT Left Ventricular Ejection Fraction: by Echo 30 % Anterior Akinesis LEFT MAIN: Angiographically normal, Mild calcification LEFT ANTERIOR DECENDING ARTERY: is occluded DIAGONAL 1: Proximal - Mild luminal irregularities CIRCUMFLEX ARTERY: DISTAL CIRC: Mild luminal irregularities OM 1: Mid - 70 % Stenosis RIGHT CORONARY ARTERY: PROX RCA: is occluded GRAFTS: Saphenous Vein graft to the RPDA is totally occluded PATEL graft to the Distal LAD is patent PATEL graft to the Distal LAD Distal LAD has diffuse disease AORTIC ROOT: Atherosclerotic Aneurysm No other grafts identified COMPLICATIONS No Complications PROCEDURE MEDICATIONS Oxygen: 2 L/min via nasal cannula SUMMARY OF HEMODYNAMIC DATA Time AIR REST ECG 07:56:30 AO 98/45 (63) SA 08:14:42 AO 74/45 (59) 08:23:21 AO 83/40 (55) 08:33:15 AO 82/41 (55) 08:33:24 Signed By Nigel Montilla MD On 11/16/2018 08:56:42 Nigel Montilla MD
--- NOTE | 2018-11-16 09:37 | PN_ITS ---
Patient Problems: Active and Suspected Problems Generalized weakness (Acute) Confusion (Acute) Subjective: Patient was seen and examined. Status post cardiac cath today. Noted cardiology notes. Patient will be transfused 1 unit of packed RBC. Complains of dysphagia, being followed by speech therapist, on a modified diet No reported bleeding per rectum today Vitals/I&O's: Vital Signs Temp Pulse Resp BP Pulse Ox 97.9 F 64 18 92/57 L 96 11/16/18 09:30 11/16/18 09:30 11/16/18 09:30 11/16/18 09:30 11/16/18 09:30 Oxygen Flow Rate (L/min) 3 Oxygen Delivery Method Room Air Weight: 63.1 kg Body Mass Index (BMI) 24.0 Finger Stick Blood Glucose 249 Intake and Output for Last 24 Hours 11/14/18 11/15/18 11/16/18 23:59 23:59 23:59 Intake Total 2721 / 2721 1450 / 1450 1235 / 1235 Output Total 1400 / 1400 850 / 850 600 / 600 Balance 1321 / 1321 600 / 600 635 / 635 General: Alert, Oriented x3, Cooperative, No apparent distress HEENT: Atraumatic, PERRLA, EOMI, Normocephalic Oral: Moist Mucosa Neck: Supple Lungs: Clear to auscultation, Normal air movement Cardiovascular: Regular rate, Regular Rhythm, Normal S1, Normal S2, No murmurs Abdomen: Bowel Sounds Present, Soft, Non Tender, Non-Distended, No Hepato- splenomegaly Extremities: Edema - +1 bipedal Skin: No rashes, No breakdown Musculoskeletal: No Tenderness to Palpation of Joints or Extremities Lymphatic: No Cervical, Supraclavicular, or Inguinal Adenopathy Neurological: Cranial nerves II-XII grossly intact, Neuro grossly intact Psych/Mental Status: Normal Affect, Appropriate Microbiology Past 72 Hours 11/12/18 01:45 Blood Culture (Wb) - Left Wrist Blood Culture - Preliminary No growth in 48 hours. 11/12/18 01:17 Blood Culture (Wb) - Anticubital Left Blood Culture - Preliminary No growth in 48 hours. 11/12/18 01:35 Urine Catheter - [place] Urine Culture - Final Presumptive C albicans Laboratory Results 11/15/18 11:29: POC Glucose 301 H 11/15/18 16:05: POC Glucose 314 H 11/15/18 22:22: POC Glucose 182 H 11/16/18 02:56: POC Glucose 112 H 11/16/18 05:10: WBC 10.8, RBC 2.85 L, Hgb 8.6 L, Hct 25.9 L, MCV 90.9, MCH 30.2, MCHC 33.2, RDW 14.2, RDW Differential 47.3 H, Plt Count 178, MPV 10.1, Immature Gran % (Auto) 0.700, Neut % (Auto) 68.8, Lymph % (Auto) 21.7, [place] % (Auto) 8.0, Eos % (Auto) 0.7, Baso % (Auto) 0.1, Absolute Neuts (auto) 7.4, Absolute Lymphs (auto) 2.35, Total Counted Not Reportable 11/16/18 05:10: Sodium 140, Potassium 4.0, Chloride 115 H, Carbon Dioxide 16.0 L , Anion Gap 9, BUN 25 H, Creatinine 1.17 H, Estim Creat Clear Calc 33.28, Est GFR (MDRD) Af Amer 59 L, Est GFR (MDRD) Non-Af 48 L, BUN/Creatinine Ratio 21.4 H , Glucose 96, Calcium 6.8 L, Magnesium 1.6 11/16/18 05:10: PT 14.8, INR 1.2, APTT 27.0 11/16/18 05:44: POC Glucose 90 Current Medications Acetaminophen (Tylenol) 650 mg PO Q6H PRN PRN PRN Reason: Mild Pain (1-3)/Temp > 100.7 F Last Admin: 11/14/18 16:50 Dose: 650 mg Aspirin (Aspirin, Baby) 81 mg PO DAILY@0800 [facility] Last Admin: 11/16/18 06:38 Dose: 81 mg Atorvastatin Calcium (Lipitor) 40 mg PO QHS [facility] Last Admin: 11/15/18 22:18 Dose: 40 mg Carvedilol (Coreg) 3.125 mg PO BID [facility] Last Admin: 11/16/18 07:39 Dose: 3.125 mg Chlorhexidine Gluconate () 1 each TOPICAL DAILY [facility] Last Admin: 11/16/18 07:42 Dose: Not Given Clopidogrel Bisulfate (Plavix) 75 mg PO DAILY [facility] Last Admin: 11/16/18 06:37 Dose: 75 mg Dextrose (D50w Syringe) 0 gm IV X1 PRN; Protocol PRN Reason: Hypoglycemia Glucagon () 1 mg IM .X1 PRN PRN Reason: Hypoglycemia Heparin Sodium (Porcine) (Heparin Na) 5,000 unit SC Q12 [facility] Last Admin: 11/16/18 07:42 Dose: Not Given Fluconazole (Diflucan) 200 mg in 100 mls @ 100 mls/hr IV Q24 [facility] Stop: 11/27/18 10:59 Last Admin: 11/15/18 09:54 Dose: 100 mls/hr Sodium Chloride () 1,000 mls @ 0 mls/hr IV .Q0M FARNAZ Ampicillin Sodium/Sulbactam (Sodium 3 gm/ Sodium Chloride) 112 mls @ 150 mls/hr IV Q6 [facility] Last Admin: 11/16/18 06:37 Dose: 150 mls/hr Sodium Chloride () 1,000 mls @ 60 mls/hr IV .[id number] [facility] Last Admin: 11/15/18 23:47 Dose: 60 mls/hr Insulin Glargine (Lantus (Bkc)) 0 units SC 18 [facility] Last Admin: 11/16/18 05:59 Dose: Not Given Insulin Human Lispro (Humalog Kwikpen (Bkc)) 0 unit SC TIDAC [facility]; Protocol Last Admin: 11/16/18 07:39 Dose: Not Given Insulin Human Lispro (Humalog Kwikpen (Bkc)) 6 unit SC TIDAC [facility] Last Admin: 11/16/18 07:40 Dose: Not Given [facility]esium [facility] ([facility]-Ox 400) [facility] Last Admin: 11/15/18 08:22 Dose: 400 mg Pantoprazole Sodium (Protonix) 40 mg PO DAILY [facility] Last Admin: 11/15/18 09:58 Dose: 40 mg Sodium Chloride () 5 - 15 ml IV UD PRN PRN Reason: SALINE FLUSH Last Admin: 11/16/18 06:37 Dose: 10 ml Sodium Chloride () 10 - 40 ml IV UD PRN PRN Reason: MULTILUMEN/HICMAN CATH FLUSH Last Admin: 11/15/18 05:37 Dose: 20 ml Medical Necessity - Tobacco Use Smoking Status: Current every day smoker Tobacco Use: Cigarettes Assessment/Plan All Active Problems Generalized weakness (Acute) Confusion (Acute) 1. Acute iron deficiency anemia secondary to acute GI bleed, drop in hemoglobin from 10.3-8.6, not on IV fluids, stool occult blood is positive Will transfuse 1 unit of blood, trend H&H 2. Acute GI bleed, unclear etiology, on PPI, general surgery consulted On aspirin and Plavix, continue to monitor for GI bleed 3. Dysphagia, h/o esophageal stricture, being followed by speech therapy, on modified diet 4. NSTEMI status post cardiac cath, 3 of CAD status post CABG, findings show LAD total occlusion, first diagonal vessel is patent, left circumflex artery with first obtuse marginal branch with 70% mid segment stenosis, RCA is totally occluded, saphenous vein graft to RCA is occluded, left internal mammary artery to LAD is patent, on aspirin and Plavix 5. Acute metabolic encephalopathy, resolved 6. HHS, resolved 7. Hyperkalemia, resolved 8. Type II DM, HbA1c 13.1, sugars are controlled, continue with Accu-Cheks with insulin sliding scale Lantus insulin pre-meal insulin on hold for now 9. DVT PPx- SCDs Code Visit Inpatient E&M: 24415 Subs Hosp L3
[2018-11-16] MEDS: Magnesium Oxide 400 MG Tablet PO (09:58)
[2018-11-16] MEDS: Pantoprazole Sodium 40 MG Tablet PO (09:58)
[2018-11-16] MEDS: Acetaminophen 325 MG Tablet 650 MG PO (09:58)
[2018-11-16 11:25] LABS: Bedside Glucose 95 mg/dL (70-110)
--- NOTE | 2018-11-16 14:58 | PCM.CONS.GEN ---
Reason for Consult Date of Consultation: 11/16/18 History of Present Illness: The patient is a 73 year old F who initially presented to the ER complaining of lower abdominal burning/UTI, somnolence. Upon ER workup patient was found to have hyperosmolar non-ketotic state BS 1600, non-STEMI. Patient was initially admitted to the ICU. Patient did undergo a cardiac cath and is currently on aspirin Plavix to see if she tolerates as patient did have bloody bowel movements on admit. Plan is to watch patient see how she tolerates aspirin and Plavix and she does well would do a stent in a later date. Patient hemoglobin on admit was 12/10.3 after hydration, currently is 8.6. Patient has not really had bowel movements as she is been here. Patient denies any blood in the stool prior to hospitalization. She states she had a colonoscopy 8 years ago along with an EGD with dilation done at [facility]. Patient states her colonoscopy was negative. Patient states she has bowel movements daily which are usually loose denies any abdominal pain or nausea and vomiting however does complain of odynophagia and some dysphagia for about a year she will feel that would make it stuck but usually just causing some pain and she will waited out and will pass. Patient does state that her blood sugars are not controlled at home and can range from 4-500 and patient states they have never been controlled. Past Medical History Allergies metformin Allergy (Verified 11/12/18 01:07) Itching Home Medications: Ambulatory Orders Medication Instructions Recorded Alendronate Sodium [Fosamax] 70 mg PO Q7D@0700 11/12/18 Aspirin [Aspirin, Baby] 81 mg PO DAILY@0800 11/12/18 Ciprofloxacin [Cipro] 500 mg PO BID 11/12/18 Clotrimazole [Mycelex] 10 mg MUCOUS MEM 5X/DAY 11/12/18 Ergocalciferol [Vitamin D] 50,000 unit PO Q7D 11/12/18 Fluticasone 0.05% [Flonase Nasal 1 spray NASAL DAILY 11/12/18 [place]] Insulin Detemir [Levemir Flextouch] 75 unit SQ DAILY 11/12/18 Insulin Lispro [Humalog KwikPen] 25 units SQ TIDCM 11/12/18 Lisinopril [Zestril] 10 mg PO DAILY 11/12/18 [place]-3 Fatty Acids/Fish Oil [Fish 2 each PO BID 11/12/18 Oil 1,000 mg Capsule] Ondansetron [Zofran Odt] 4 mg PO Q8H PRN PRN 11/12/18 Pantoprazole Sodium [Protonix] 20 mg PO DAILY 11/12/18 Rosuvastatin Calcium [Crestor] 10 mg PO Q7D 11/12/18 Sertraline HCl [Zoloft] 50 mg PO DAILY 11/12/18 Surgical History: cholecystectomy, coronary bypass surgery, hysterectomy, - - Knee surgery Psychiatric History: No pertinent psych hx ROVER TENDER History: No pertinent ROVER TENDER history Lives: Spouse/ Significant Other Smoking Status: Current every day smoker Tobacco Use: Cigarettes Alcohol: None Drugs: None - *Family History Maternal History Items: Unknown Paternal History Items: Unknown Review of Systems Constitutional: Denies: Chills Eyes: Denies: Blurred vision HEENT: Reports: Dysphasia Cardiovascular: Denies: Chest Pain Respiratory: Denies: Cough Gastrointestinal: Reports: Hematochezia - on admit. Denies: Abdominal Pain, Nausea, Vomiting Genitourinary: Denies: Dysuria - arceo in place Skin: Denies: Rash Neurological: Denies: Balance problems Hematologic/ Lymphatic: Reports: Anemia Patient Problems: Active and Suspected Problems Generalized weakness (Acute) Confusion (Acute) - Physical Exam General: Alert, Oriented x3, Cooperative, No apparent distress HEENT: Atraumatic Neck: - - RIJ TLC in place Lungs: Normal air movement Cardiovascular: Regular rate Abdomen: Soft, Non Tender, Non-Distended Extremities: No clubbing, No cyanosis, No edema Neurological: Cranial nerves II-XII grossly intact Psych/Mental Status: Normal Affect Vital Signs Temp Pulse Resp BP Pulse Ox 97.7 F L 65 18 113/50 L 100 11/16/18 14:40 11/16/18 14:40 11/16/18 14:40 11/16/18 14:40 11/16/18 14:40 Oxygen Flow Rate (L/min) 3 Oxygen Delivery Method Room Air Weight: 139 lb 1.787 oz Body Mass Index (BMI) 24.0 Finger Stick Blood Glucose 249 Intake and Output for Last 24 Hours 11/14/18 11/15/18 11/16/18 23:59 23:59 23:59 Intake Total 2721 / 2721 1450 / 1450 2007 Output Total 1400 / 1400 850 / 850 800 / 800 Balance 1321 / 1321 600 / 600 1208 / 1208 Microbiology Past 72 Hours 11/12/18 01:45 Blood Culture - Preliminary Blood Culture (Wb) - Left Wrist No growth in 48 hours. 11/12/18 01:17 Blood Culture - Preliminary Blood Culture (Wb) - Anticubital Left No growth in 48 hours. 11/12/18 01:35 Urine Culture - Final Urine Catheter - Arceo Presumptive C albicans Laboratory Tests Past 24 Hrs 11/16/18 11/16/18 11/16/18 05:10 05:10 05:10 WBC 10.8 RBC 2.85 L Hgb 8.6 L Hct 25.9 L MCV 90.9 MCH 30.2 MCHC 33.2 RDW 14.2 RDW Differential 47.3 H Plt Count 178 MPV 10.1 Immature Gran % (Auto) 0.700 Neut % (Auto) 68.8 Lymph % (Auto) 21.7 [place] % (Auto) 8.0 Eos % (Auto) 0.7 Baso % (Auto) 0.1 Absolute Neuts (auto) 7.4 Absolute Lymphs (auto) 2.35 Total Counted Not Reportable PT 14.8 INR 1.2 APTT 27.0 Sodium 140 Potassium 4.0 Chloride 115 H Carbon Dioxide 16.0 L Anion Gap 9 BUN 25 H Creatinine 1.17 H Estim Creat Clear Calc 33.28 Est GFR (MDRD) Af Amer 59 L Est GFR (MDRD) Non-Af 48 L BUN/Creatinine Ratio 21.4 H Glucose 96 Calcium 6.8 L Magnesium 1.6 Blood Type Antibody Screen Crossmatch 11/16/18 11/16/18 11/16/18 05:10 10:00 12:00 WBC RBC Hgb Cancelled Hct Cancelled MCV MCH MCHC RDW RDW Differential Plt Count MPV Immature Gran % (Auto) Neut % (Auto) Lymph % (Auto) [place] % (Auto) Eos % (Auto) Baso % (Auto) Absolute Neuts (auto) Absolute Lymphs (auto) Total Counted PT INR APTT Sodium Potassium Chloride Carbon Dioxide Anion Gap BUN Creatinine Estim Creat Clear Calc Est GFR (MDRD) Af Amer Est GFR (MDRD) Non-Af BUN/Creatinine Ratio Glucose Calcium Magnesium Blood Type Cancelled O POSITIVE Antibody Screen Cancelled NEGATIVE Crossmatch See Detail See Detail POC Glucose 11/16/18 11/16/18 11/16/18 11:02 05:44 02:56 POC Glucose 95 90 112 H 11/15/18 11/15/18 22:22 16:05 POC Glucose 182 H 314 H Assessment/Plan All Active Problems Generalized weakness (Acute) Confusion (Acute) 73-year-old female with Hyperosmolar non-ketotic state?resolved, non-STEMI, coronary artery disease, anemia/positive fecal occult blood 1. Patient current hemoglobin is 8.6 down from initial admit of 12, 10.3 may be more appropriate initial Hb after hydration on admit. Patient is currently getting 1 unit of packed red blood cells. Patient did undergo a cardiac cath this morning. Due to the GI bleed plan is to keep her on aspirin and Plavix see if she would tolerate this prior to placing any stent. Patient did state that she had bright red blood per rectum on admit really has not had much for bowel movement since. We will continue to monitor and if patient's hemoglobin continues to drop with plan to do a colonoscopy plus or minus an EGD but patient would still be on her aspirin and Plavix thus would not plan to do any types of biopsies at that time. 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 Will continue to follow. Lynsey Sheaerr M.D. Pager: [phone] [facility] [address] [place] [address], Outpatient [place], [address] [place] [address] Office: [phone] Code Visit Inpatient E&M: 07493 Init Hosp L2
--- NOTE | 2018-11-16 15:03 | CON.PCM_ITS ---
Reason for Consult Date of Consultation: 11/16/18 History of Present Illness: The patient is a 73 year old F who initially presented to the ER complaining of lower abdominal burning/UTI, somnolence. Upon ER workup patient was found to have hyperosmolar non-ketotic state BS 1600, non-STEMI. Patient was initially admitted to the ICU. Patient did undergo a cardiac cath and is currently on aspirin Plavix to see if she tolerates as patient did have bloody bowel movements on admit. Plan is to watch patient see how she tolerates aspirin and Plavix and she does well would do a stent in a later date. Patient hemoglobin on admit was 12/10.3 after hydration, currently is 8.6. Patient has not really had bowel movements as she is been here. Patient denies any blood in the stool prior to hospitalization. She states she had a colonoscopy 8 years ago along with an EGD with dilation done at [facility]. Patient states her colonoscopy was negative. Patient states she has bowel movements daily which are usually loose denies any abdominal pain or nausea and vomiting however does complain of odynophagia and some dysphagia for about a year she will feel that would make it stuck but usually just causing some pain and she will waited out and will pass. Patient does state that her blood sugars are not controlled at home and can range from 4-500 and patient states they have never been controlled. Past Medical History Allergies metformin Allergy (Verified 11/12/18 01:07) Itching Home Medications: Ambulatory Orders Medication Instructions Recorded Alendronate Sodium [Fosamax] 70 mg PO Q7D@0700 11/12/18 Aspirin [Aspirin, Baby] 81 mg PO DAILY@0800 11/12/18 Ciprofloxacin [Cipro] 500 mg PO BID 11/12/18 Clotrimazole [Mycelex] 10 mg MUCOUS MEM 5X/DAY 11/12/18 Ergocalciferol [Vitamin D] 50,000 unit PO Q7D 11/12/18 Fluticasone 0.05% [Flonase Nasal 1 spray NASAL DAILY 11/12/18 [place]] Insulin Detemir [Levemir Flextouch] 75 unit SQ DAILY 11/12/18 Insulin Lispro [Humalog KwikPen] 25 units SQ TIDCM 11/12/18 Lisinopril [Zestril] 10 mg PO DAILY 11/12/18 [place]-3 Fatty Acids/Fish Oil [Fish 2 each PO BID 11/12/18 Oil 1,000 mg Capsule] Ondansetron [Zofran Odt] 4 mg PO Q8H PRN PRN 11/12/18 Pantoprazole Sodium [Protonix] 20 mg PO DAILY 11/12/18 Rosuvastatin Calcium [Crestor] 10 mg PO Q7D 11/12/18 Sertraline HCl [Zoloft] 50 mg PO DAILY 11/12/18 Surgical History: cholecystectomy, coronary bypass surgery, hysterectomy, - - Knee surgery Psychiatric History: No pertinent psych hx CORSET FITTER History: No pertinent CORSET FITTER history Lives: Spouse/ Significant Other Smoking Status: Current every day smoker Tobacco Use: Cigarettes Alcohol: None Drugs: None - *Family History Maternal History Items: Unknown Paternal History Items: Unknown Review of Systems Constitutional: Denies: Chills Eyes: Denies: Blurred vision HEENT: Reports: Dysphasia Cardiovascular: Denies: Chest Pain Respiratory: Denies: Cough Gastrointestinal: Reports: Hematochezia - on admit. Denies: Abdominal Pain, Nausea, Vomiting Genitourinary: Denies: Dysuria - arceo in place Skin: Denies: Rash Neurological: Denies: Balance problems Hematologic/ Lymphatic: Reports: Anemia Patient Problems: Active and Suspected Problems Generalized weakness (Acute) Confusion (Acute) - Physical Exam General: Alert, Oriented x3, Cooperative, No apparent distress HEENT: Atraumatic Neck: - - RIJ TLC in place Lungs: Normal air movement Cardiovascular: Regular rate Abdomen: Soft, Non Tender, Non-Distended Extremities: No clubbing, No cyanosis, No edema Neurological: Cranial nerves II-XII grossly intact Psych/Mental Status: Normal Affect Vital Signs Temp Pulse Resp BP Pulse Ox 97.7 F L 65 18 113/50 L 100 11/16/18 14:40 11/16/18 14:40 11/16/18 14:40 11/16/18 14:40 11/16/18 14:40 Oxygen Flow Rate (L/min) 3 Oxygen Delivery Method Room Air Weight: 139 lb 1.787 oz Body Mass Index (BMI) 24.0 Finger Stick Blood Glucose 249 Intake and Output for Last 24 Hours 11/14/18 11/15/18 11/16/18 23:59 23:59 23:59 Intake Total 2721 / 2721 1450 / 1450 2007 Output Total 1400 / 1400 850 / 850 800 / 800 Balance 1321 / 1321 600 / 600 1208 / 1208 Microbiology Past 72 Hours 11/12/18 01:45 Blood Culture - Preliminary Blood Culture (Wb) - Left Wrist No growth in 48 hours. 11/12/18 01:17 Blood Culture - Preliminary Blood Culture (Wb) - Anticubital Left No growth in 48 hours. 11/12/18 01:35 Urine Culture - Final Urine Catheter - Arceo Presumptive C albicans Laboratory Tests Past 24 Hrs 11/16/18 11/16/18 11/16/18 05:10 05:10 05:10 WBC 10.8 RBC 2.85 L Hgb 8.6 L Hct 25.9 L MCV 90.9 MCH 30.2 MCHC 33.2 RDW 14.2 RDW Differential 47.3 H Plt Count 178 MPV 10.1 Immature Gran % (Auto) 0.700 Neut % (Auto) 68.8 Lymph % (Auto) 21.7 [place] % (Auto) 8.0 Eos % (Auto) 0.7 Baso % (Auto) 0.1 Absolute Neuts (auto) 7.4 Absolute Lymphs (auto) 2.35 Total Counted Not Reportable PT 14.8 INR 1.2 APTT 27.0 Sodium 140 Potassium 4.0 Chloride 115 H Carbon Dioxide 16.0 L Anion Gap 9 BUN 25 H Creatinine 1.17 H Estim Creat Clear Calc 33.28 Est GFR (MDRD) Af Amer 59 L Est GFR (MDRD) Non-Af 48 L BUN/Creatinine Ratio 21.4 H Glucose 96 Calcium 6.8 L Magnesium 1.6 Blood Type Antibody Screen Crossmatch 11/16/18 11/16/18 11/16/18 05:10 10:00 12:00 WBC RBC Hgb Cancelled Hct Cancelled MCV MCH MCHC RDW RDW Differential Plt Count MPV Immature Gran % (Auto) Neut % (Auto) Lymph % (Auto) [place] % (Auto) Eos % (Auto) Baso % (Auto) Absolute Neuts (auto) Absolute Lymphs (auto) Total Counted PT INR APTT Sodium Potassium Chloride Carbon Dioxide Anion Gap BUN Creatinine Estim Creat Clear Calc Est GFR (MDRD) Af Amer Est GFR (MDRD) Non-Af BUN/Creatinine Ratio Glucose Calcium Magnesium Blood Type Cancelled O POSITIVE Antibody Screen Cancelled NEGATIVE Crossmatch See Detail See Detail POC Glucose 11/16/18 11/16/18 11/16/18 11:02 05:44 02:56 POC Glucose 95 90 112 H 11/15/18 11/15/18 22:22 16:05 POC Glucose 182 H 314 H Assessment/Plan All Active Problems Generalized weakness (Acute) Confusion (Acute) 73-year-old female with Hyperosmolar non-ketotic state?resolved, non-STEMI, coronary artery disease, anemia/positive fecal occult blood 1. Patient current hemoglobin is 8.6 down from initial admit of 12, 10.3 may be more appropriate initial Hb after hydration on admit. Patient is currently getting 1 unit of packed red blood cells. Patient did undergo a cardiac cath this morning. Due to the GI bleed plan is to keep her on aspirin and Plavix see if she would tolerate this prior to placing any stent. Patient did state that she had bright red blood per rectum on admit really has not had much for bowel movement since. We will continue to monitor and if patient's hemoglobin continues to drop with plan to do a colonoscopy plus or minus an EGD but patient would still be on her aspirin and Plavix thus would not plan to do any types of biopsies at that time. 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 Will continue to follow. Lynsey Shearer M.D. Pager: [phone] [facility] [address] [place] [address], Outpatient [place], [address] [place] [address] Office: [phone] Code Visit Inpatient E&M: 13099 Init Hosp L2
--- NOTE | 2018-11-16 15:27 | NURSING ---
Pt ambulated in room after post heart cath bed rest completed. No signs of complications. Drsg to right groin dry, clean, and intact.
[2018-11-16 17:30] LABS: Bedside Glucose 149 mg/dL (70-110)
[2018-11-16] MEDS: Furosemide 20 MG/2 ML VIAL IV (18:17)
[2018-11-16 20:15] LABS: Hematocrit 31.8 % (37-47); Hemoglobin 10.6 g/dl (12.0-15.0)
[2018-11-16] MEDS: Atorvastatin Calcium 40 MG Tablet PO (22:55)
[2018-11-16] MEDS: Heparin Injection (Vial) 5,000 UNIT/ML VIAL 5000 UNIT SC (22:55)
[2018-11-16 23:00] LABS: Bedside Glucose 221 mg/dL (70-110)
[2018-11-17] VITALS (12 sets, daily range): BP systolic 82–126; BP diastolic 43–88; PULSE 62–74; RESP 16–18; TEMP 36.6–36.8; O2SAT 97–100
[2018-11-17 03:05] LABS: Bedside Glucose 186 mg/dL (70-110)
[2018-11-17] MEDS: 0.9% NaCl Peripheral Flush Adult/Peds IV ×3 (05:14→11:43)
[2018-11-17 05:28] LABS: Absolute Lymphocyte Count 2.05 X10^3/ul (0.83-4.51); Absolute Neutrophil Count 6.4 X10^3/uL (2.0-7.7); Basophil# 0.02 X10^3/uL; Basophil% 0.2 % (0-1); Eosinophil# 0.07 X10^3/uL; Eosinophils% 0.7 % (0-5); Hematocrit 28.2 % (37-47); Hemoglobin 9.5 g/dl (12.0-15.0); Lymphocyte # 2.05 X10^3/ul (4.0); Lymphocyte % 20.9 % (19-41); Mean Corp Hgb Conc 33.7 g/gl (32-36); Mean Corpuscular Hgb 30.1 pg (27.0-32.0); Mean Corpuscular Volume 89.2 fL (81-99); Monocyte# 1.02 X10^3/uL; Monocyte% 10.4 % (0-10); Neutrophil # 6.41 X10^3/uL (2.7-7.7); Neutrophil % 65.6 % (47-70); Platelet Count 177 K/mm3 (150-450); RBC Distribution Width CV 15.1 % (11.6-14.6); RBC Distribution Width SD 47.5 fl (35.1-43.9); Red Blood Count 3.16 M/mm3 (4.2-5.4); White Blood Count 9.8 K/mm3 (4.4-11.0)
[2018-11-17 05:35] LABS: POSITIVE COUNT YES; POSITIVE DIFFERENTIAL NO; POSITIVE MORPHOLOGY YES
[2018-11-17 05:36] LABS: Differential Indicated SCAN CRITERIA MET
[2018-11-17 05:44] LABS: Anion Gap 10 (5-15); BUN 22 mg/dL (7-18); BUN/Creat Ratio 16.9 RATIO (10-20); Calcium,Total 6.5 mg/dL (8.5-10.1); Chloride 113 mmol/L (98-107); EST Glomerular Filtration Rate 43 mL/min (>60); Est Glom Filt Rate - Afr Amer 52 mL/min (>60); Estimated Creatinine Clearance 29.95 ml/min; Glucose 182 mg/dL (74-106); Potassium 3.9 mmol/L (3.5-5.1); Sodium Level 140 mmol/L (136-145)
[2018-11-17 07:16] LABS: ALB/GLOB Ratio 0.7 RATIO (0.9-2.4); AST(SGOT) 56 U/L (15-37); Alanine Aminotransfer ALT/SGPT 54 U/L (13-56); Albumin, Serum 2.1 g/dL (3.2-5.0); Alkaline Phosphatase 331 U/L (45-117); Globulin 2.9 g/dL (2.2-4.2)
[2018-11-17 07:20] LABS: Bedside Glucose 178 mg/dL (70-110)
--- NOTE | 2018-11-17 07:55 | PN.CARD_ITS ---
Subjectve: Patient seen and evaluated. She said his skin feels puffy in her legs also puffed up. Objective: Vital Signs Temp Pulse Resp BP Pulse Ox 98.1 F 65 16 99/51 L 97 11/17/18 07:33 11/17/18 07:33 11/17/18 07:33 11/17/18 07:33 11/17/18 07:33 Oxygen Flow Rate (L/min) 3 Oxygen Delivery Method Room Air Weight: 135 lb 12.876 oz Body Mass Index (BMI) 24.0 Finger Stick Blood Glucose 249 Intake and Output for Last 24 Hours 11/15/18 11/16/18 11/17/18 23:59 23:59 23:59 Intake Total 1450 / 1450 3448 / 3448 297 / 297 Output Total 850 / 850 1350 / 1350 350 / 350 Balance 600 / 600 8 / 2097 -53 / -53 General: Awake, Alert, Oriented x 3 HEENT: PERRL, EOMI, Sclera Non Icteric Neck: Supple, Good ROM, No Lymph Node Enlargement Lungs: Clear to auscultation Cardiovascular: Regular Rhythm, Normal S1, Normal S2, No Murmurs, No Rubs, No Gallops Vascular: No Carotid Bruits, Normal Femoral Pulses, Normal Radial Pulses, Normal Dorsalis Pedal Pulse, Normal Posterior Tibial Pulses Abdomen: Bowel Sounds Present, Soft, Non Tender, No HSM, No Organomegaly Extremities: No Cyanosis, No Clubbing, Bilateral Edema +1 Neurological: No Focal Motor or Sensory Deficit Psych/Mental Status: Appropriate 11/16/18 05:10: Hgb Cancelled, Hct Cancelled 11/16/18 19:55: Hgb 10.6 L, Hct 31.8 L 11/17/18 05:12: WBC 9.8, RBC 3.16 L, Hgb 9.5 L, Hct 28.2 L, MCV 89.2, MCH 30.1, MCHC 33.7, RDW 15.1 H, RDW Differential 47.5 H, Plt Count 177, MPV 10.0, Immature Gran % (Auto) 2.200 H, Neut % (Auto) 65.6, Lymph % (Auto) 20.9, [place] % (Auto) 10.4 H, Eos % (Auto) 0.7, Baso % (Auto) 0.2, Absolute Neuts (auto) 6.4, Total Counted Not Reportable 11/17/18 05:12: Sodium 140, Potassium 3.9, Chloride 113 H, Carbon Dioxide 17.0 L , Anion Gap 10, BUN 22 H, Creatinine 1.30 H, Est GFR (MDRD) Af Amer 52 L, Est GF R (MDRD) Non-Af 43 L, BUN/Creatinine Ratio 16.9, Glucose 182 H, Calcium 6.5 L*, Total Bilirubin 0.40 Rhythm: EKG: ECHO: Stress Test: Cardiac Cath: PCI: CT Surgery: Holter monitor: EPS: PPM: CXR: Chest CT Scan: Medical Necessity - Tobacco Use Smoking Status: Current every day smoker Tobacco Use: Cigarettes Assessment/Plan 1. Non-ST elevation myocardial infarction * Patient presents with diabetic ketoacidosis and is noted to have a non-ST elevation myocardial infarction. * The plan at this particular time will be to correct her underlying diabetes metabolic perturbations and obtain her previous bypass reports. * Her echocardiogram demonstrated severe left ventricular systolic dysfunction with segmental wall motion abnormalities noted. * 2. Coronary artery disease * Patient is status post coronary bypass surgery remotely. She cannot give me the exact dates of the bypass reports. * Cardiac catheterization demonstrated the following * Normal left main coronary artery * Left anterior descending artery which is totally occluded * First diagonal vessel which is patent with no high-grade stenosis * Left circumflex artery with first obtuse marginal branch with 70% mid segment stenosis * Right coronary artery which is totally occluded * Saphenous vein graft to the right coronary artery which is totally occluded * Left internal mammary artery to left anterior descending artery which is patent with small distal vessel * Aortogram demonstrating no other grafts and tortuous aorta with 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 If she does at a later date she can be brought back for angioplasty of the obtuse marginal branch. * She was transfused 1 unit packed red blood cells. She still has some pedal edema and I would recommend Lasix 40 mg x1. * * Thank you for allowing me to participate in the care of your patient. Please don't hesitate to call if any issues arise
--- NOTE | 2018-11-17 09:22 | PCM.PN.SRG ---
Patient Problems: Active and Suspected Problems Generalized weakness (Acute) Confusion (Acute) Subjective: pt c/o swelling of hands/feet, denies BM over night, Hb 9.5 from 8.6 after 1 unit PRBC - Physical Exam General: Alert, Oriented x3, Cooperative, No apparent distress Abdomen: Soft, Non Tender, Non-Distended Vital Signs Temp Pulse Resp BP Pulse Ox 98.1 F 65 16 99/51 L 97 11/17/18 07:33 11/17/18 07:33 11/17/18 07:33 11/17/18 07:33 11/17/18 07:33 Oxygen Flow Rate (L/min) 3 Oxygen Delivery Method Room Air Weight: 135 lb 12.876 oz Body Mass Index (BMI) 24.0 Finger Stick Blood Glucose 249 Intake and Output for Last 24 Hours 11/15/18 11/16/18 11/17/18 23:59 23:59 23:59 Intake Total 1450 / 1450 3448 / 3448 297 / 297 Output Total 850 / 850 1350 / 1350 350 / 350 Balance 600 / 600 2098 / 2098 -53 / -53 Microbiology Past 72 Hours 11/12/18 01:17 Blood Culture - Final Blood Culture (Wb) - Anticubital Left No growth in 5 days. 11/12/18 01:45 Blood Culture - Final Blood Culture (Wb) - Left Wrist No growth in 5 days. Laboratory Tests Past 24 Hrs 11/16/18 11/16/18 11/16/18 05:10 10:00 12:00 WBC RBC Hgb Cancelled Hct Cancelled MCV MCH MCHC RDW RDW Differential Plt Count MPV Immature Gran % (Auto) Neut % (Auto) Lymph % (Auto) [place] % (Auto) Eos % (Auto) Baso % (Auto) Absolute Neuts (auto) Absolute Lymphs (auto) Total Counted Differential Comment Diff Path Review Sodium Potassium Chloride Carbon Dioxide Anion Gap BUN Creatinine Estim Creat Clear Calc Est GFR (MDRD) Af Amer Est GFR (MDRD) Non-Af BUN/Creatinine Ratio Glucose Calcium Total Bilirubin AST ALT Alkaline Phosphatase Total Protein Albumin Globulin Albumin/Globulin Ratio Blood Type Cancelled O POSITIVE Antibody Screen Cancelled NEGATIVE Crossmatch See Detail See Detail 11/16/18 11/17/18 11/17/18 19:55 05:12 05:12 WBC 9.8 RBC 3.16 L Hgb 10.6 L 9.5 L Hct 31.8 L 28.2 L MCV 89.2 MCH 30.1 MCHC 33.7 RDW 15.1 H RDW Differential 47.5 H Plt Count 177 MPV 10.0 Immature Gran % (Auto) 2.200 H Neut % (Auto) 65.6 Lymph % (Auto) 20.9 [place] % (Auto) 10.4 H Eos % (Auto) 0.7 Baso % (Auto) 0.2 Absolute Neuts (auto) 6.4 Absolute Lymphs (auto) 2.05 Total Counted Not Reportable Differential Comment Diff Path Review May foll Sodium 140 Potassium 3.9 Chloride 113 H Carbon Dioxide 17.0 L Anion Gap 10 BUN 22 H Creatinine 1.30 H Estim Creat Clear Calc 29.95 Est GFR (MDRD) Af Amer 52 L Est GFR (MDRD) Non-Af 43 L BUN/Creatinine Ratio 16.9 Glucose 182 H Calcium 6.5 L* Total Bilirubin 0.40 AST 56 H ALT 54 Alkaline Phosphatase 331 H Total Protein 5.0 L Albumin 2.1 L Globulin 2.9 Albumin/Globulin Ratio 0.7 L Blood Type Antibody Screen Crossmatch POC Glucose 11/17/18 11/17/18 11/16/18 06:36 02:54 22:40 POC Glucose 178 H 186 H 221 H 11/16/18 11/16/18 16:45 11:02 POC Glucose 149 H 95 Medical Necessity - Tobacco Use Smoking Status: Current every day smoker Tobacco Use: Cigarettes Assessment/Plan All Active Problems Generalized weakness (Acute) Confusion (Acute) 73-year-old female with Hyperosmolar non-ketotic state?resolved, non-STEMI, coronary artery disease, anemia/positive fecal occult blood 1. Hb 9.5 from 8.6 after 1 unit PRBC, denies BM over night. Will continue to monitor, if patient remains stable. Lynsey Shearer M.D. Pager: [phone] [facility] [address] [place] [address], [facility], [address] [place] [address] Office: [phone]
--- NOTE | 2018-11-17 09:26 | PN.SURG_ITS ---
Patient Problems: Active and Suspected Problems Generalized weakness (Acute) Confusion (Acute) Subjective: pt c/o swelling of hands/feet, denies BM over night, Hb 9.5 from 8.6 after 1 unit PRBC - Physical Exam General: Alert, Oriented x3, Cooperative, No apparent distress Abdomen: Soft, Non Tender, Non-Distended Vital Signs Temp Pulse Resp BP Pulse Ox 98.1 F 65 16 99/51 L 97 11/17/18 07:33 11/17/18 07:33 11/17/18 07:33 11/17/18 07:33 11/17/18 07:33 Oxygen Flow Rate (L/min) 3 Oxygen Delivery Method Room Air Weight: 135 lb 12.876 oz Body Mass Index (BMI) 24.0 Finger Stick Blood Glucose 249 Intake and Output for Last 24 Hours 11/15/18 11/16/18 11/17/18 23:59 23:59 23:59 Intake Total 1450 / 1450 3448 / 3448 297 / 297 Output Total 850 / 850 1350 / 1350 350 / 350 Balance 600 / 600 2098 / 2098 -53 / -53 Microbiology Past 72 Hours 11/12/18 01:17 Blood Culture - Final Blood Culture (Wb) - Anticubital Left No growth in 5 days. 11/12/18 01:45 Blood Culture - Final Blood Culture (Wb) - Left Wrist No growth in 5 days. Laboratory Tests Past 24 Hrs 11/16/18 11/16/18 11/16/18 05:10 10:00 12:00 WBC RBC Hgb Cancelled Hct Cancelled MCV MCH MCHC RDW RDW Differential Plt Count MPV Immature Gran % (Auto) Neut % (Auto) Lymph % (Auto) [place] % (Auto) Eos % (Auto) Baso % (Auto) Absolute Neuts (auto) Absolute Lymphs (auto) Total Counted Differential Comment Diff Path Review Sodium Potassium Chloride Carbon Dioxide Anion Gap BUN Creatinine Estim Creat Clear Calc Est GFR (MDRD) Af Amer Est GFR (MDRD) Non-Af BUN/Creatinine Ratio Glucose Calcium Total Bilirubin AST ALT Alkaline Phosphatase Total Protein Albumin Globulin Albumin/Globulin Ratio Blood Type Cancelled O POSITIVE Antibody Screen Cancelled NEGATIVE Crossmatch See Detail See Detail 11/16/18 11/17/18 11/17/18 19:55 05:12 05:12 WBC 9.8 RBC 3.16 L Hgb 10.6 L 9.5 L Hct 31.8 L 28.2 L MCV 89.2 MCH 30.1 MCHC 33.7 RDW 15.1 H RDW Differential 47.5 H Plt Count 177 MPV 10.0 Immature Gran % (Auto) 2.200 H Neut % (Auto) 65.6 Lymph % (Auto) 20.9 [place] % (Auto) 10.4 H Eos % (Auto) 0.7 Baso % (Auto) 0.2 Absolute Neuts (auto) 6.4 Absolute Lymphs (auto) 2.05 Total Counted Not Reportable Differential Comment Diff Path Review May foll Sodium 140 Potassium 3.9 Chloride 113 H Carbon Dioxide 17.0 L Anion Gap 10 BUN 22 H Creatinine 1.30 H Estim Creat Clear Calc 29.95 Est GFR (MDRD) Af Amer 52 L Est GFR (MDRD) Non-Af 43 L BUN/Creatinine Ratio 16.9 Glucose 182 H Calcium 6.5 L* Total Bilirubin 0.40 AST 56 H ALT 54 Alkaline Phosphatase 331 H Total Protein 5.0 L Albumin 2.1 L Globulin 2.9 Albumin/Globulin Ratio 0.7 L Blood Type Antibody Screen Crossmatch POC Glucose 11/17/18 11/17/18 11/16/18 06:36 02:54 22:40 POC Glucose 178 H 186 H 221 H 11/16/18 11/16/18 16:45 11:02 POC Glucose 149 H 95 Medical Necessity - Tobacco Use Smoking Status: Current every day smoker Tobacco Use: Cigarettes Assessment/Plan All Active Problems Generalized weakness (Acute) Confusion (Acute) 73-year-old female with Hyperosmolar non-ketotic state?resolved, non-STEMI, coronary artery disease, anemia/positive fecal occult blood 1. Hb 9.5 from 8.6 after 1 unit PRBC, denies BM over night. Will continue to monitor, if patient remains stable. Lynsey Shearer M.D. Pager: [phone] [facility] [address] [place] [address], [facility], [facility], [address] [place] [address] Office: [phone]
[2018-11-17] MEDS: Furosemide 40 MG/4 ML Vial IV (10:21)
[2018-11-17] MEDS: Magnesium Oxide 400 MG Tablet PO (10:23)
[2018-11-17] MEDS: Aspirin 81 MG TAB.CHEW PO (10:23)
[2018-11-17] MEDS: Heparin Injection (Vial) 5,000 UNIT/ML VIAL 5000 UNIT SC ×2 (10:23→22:28)
[2018-11-17] MEDS: Clopidogrel Bisulfate 75 MG Tablet PO (10:23)
[2018-11-17] MEDS: Pantoprazole Sodium 40 MG Tablet PO (10:23)
[2018-11-17 11:16] LABS: Bedside Glucose 243 mg/dL (70-110)
[2018-11-17] MEDS: Insulin Lispro 100 UNIT/ML INSULN.PEN SC ×2 (11:48→16:50)
[2018-11-17 12:27] LABS: Pathologist Review Reviewed
--- NOTE | 2018-11-17 13:02 | CASEMGMT ---
KAYY spoke with patient about discharge plan. She said originally they were thinking [facility]. However, her son asked if she could go to TCU. KAYY called [facility] in TCU and they will have a bed for patient. KAYY let patient and her family know they will have a bed for her, but we have to wait on her insurance to approve her. Plan: [facility] TCU under skilled level of care pending insurance approval. Anh KELLER MSW
--- NOTE | 2018-11-17 14:30 | PCM.PN.HOSP ---
Patient Problems: Active and Suspected Problems Generalized weakness (Acute) Confusion (Acute) Subjective: Patient was seen and examined. No more bleeding seen. Complains of generalized edema. Given Lasix IV this morning. Patient is interested in having her diet advanced. Denies chest pain or dizziness or palpitation or worsening shortness of breath. Objective: Physical exam: General: Alert, Oriented x3, Cooperative, No apparent distress HEENT: Atraumatic, PERRLA, EOMI, Normocephalic Oral: Moist Mucosa Neck: Supple Lungs: Clear to auscultation, Normal air movement Cardiovascular: Regular rate, Regular Rhythm, Normal S1, Normal S2, No murmurs Abdomen: Bowel Sounds Present, Soft, Non Tender, Non-Distended, No Hepato-splenomegaly Extremities: Edema - +1 bipedal Skin: No rashes, No breakdown Musculoskeletal: No Tenderness to Palpation of Joints or Extremities Lymphatic: No Cervical, Supraclavicular, or Inguinal Adenopathy Neurological: Cranial nerves II-XII grossly intact, Neuro grossly intact Psych/Mental Status: Normal Affect, Appropriate Vitals/I&O's: Vital Signs Temp Pulse Resp BP Pulse Ox 98 F 65 16 101/68 100 11/17/18 11:42 11/17/18 11:42 11/17/18 11:42 11/17/18 11:42 11/17/18 11:42 Oxygen Flow Rate (L/min) 3 Oxygen Delivery Method Room Air Weight: 61.6 kg Body Mass Index (BMI) 24.0 Finger Stick Blood Glucose 249 Intake and Output for Last 24 Hours 11/15/18 11/16/18 11/17/18 23:59 23:59 23:59 Intake Total 1450 / 1450 3448 / 3448 537 / 537 Output Total 850 / 850 1350 / 1350 750 / 750 Balance 600 / 600 2098 / 2098 -213 / -213 Microbiology Past 72 Hours 11/12/18 01:17 Blood Culture (Wb) - Anticubital Left Blood Culture - Final No growth in 5 days. 11/12/18 01:45 Blood Culture (Wb) - Left Wrist Blood Culture - Final No growth in 5 days. Laboratory Results 11/16/18 12:00: Crossmatch See Detail 11/16/18 16:45: POC Glucose 149 H 11/16/18 19:55: Hgb 10.6 L, Hct 31.8 L 11/16/18 22:40: POC Glucose 221 H 11/17/18 02:54: POC Glucose 186 H 11/17/18 05:12: WBC 9.8, RBC 3.16 L, Hgb 9.5 L, Hct 28.2 L, MCV 89.2, MCH 30.1, MCHC 33.7, RDW 15.1 H, RDW Differential 47.5 H, Plt Count 177, MPV 10.0, Immature Gran % (Auto) 2.200 H, Neut % (Auto) 65.6, Lymph % (Auto) 20.9, [place] % (Auto) 10.4 H, Eos % (Auto) 0.7, Baso % (Auto) 0.2, Absolute Neuts (auto) 6.4, Absolute Lymphs (auto) 2.05, Total Counted Not Reportable, Differential Comment , Diff Path Review Reviewed 11/17/18 05:12: Sodium 140, Potassium 3.9, Chloride 113 H, Carbon Dioxide 17.0 L, Anion Gap 10, BUN 22 H, Creatinine 1.30 H, Estim Creat Clear Calc 29.95, Est GFR (MDRD) Af Amer 52 L, Est GFR (MDRD) Non-Af 43 L, BUN/Creatinine Ratio 16.9, Glucose 182 H, Calcium 6.5 L*, Total Bilirubin 0.40, AST 56 H, ALT 54, Alkaline Phosphatase 331 H, Total Protein 5.0 L, Albumin 2.1 L, Globulin 2.9, Albumin/Globulin Ratio 0.7 L 11/17/18 06:36: POC Glucose 178 H 11/17/18 11:08: POC Glucose 243 H Current Medications Acetaminophen (Tylenol) 650 mg PO Q6H PRN PRN PRN Reason: Mild Pain (1-3)/Temp > 100.7 F Last Admin: 11/16/18 09:58 Dose: 650 mg Aspirin (Aspirin, Baby) 81 mg PO DAILY@0800 [facility] Last Admin: 11/17/18 10:23 Dose: 81 mg Atorvastatin Calcium (Lipitor) 40 mg PO QHS [facility] Last Admin: 11/16/18 22:55 Dose: 40 mg Carvedilol (Coreg) 3.125 mg PO BID [facility] Last Admin: 11/17/18 09:00 Dose: Not Given Chlorhexidine Gluconate () 1 each TOPICAL DAILY [facility] Last Admin: 11/17/18 10:23 Dose: Not Given Clopidogrel Bisulfate (Plavix) 75 mg PO DAILY [facility] Last Admin: 11/17/18 10:23 Dose: 75 mg Dextrose (D50w Syringe) 0 gm IV X1 PRN; Protocol PRN Reason: Hypoglycemia Glucagon () 1 mg IM .X1 PRN PRN Reason: Hypoglycemia Heparin Sodium (Porcine) (Heparin Na) 5,000 unit SC Q12 [facility] Last Admin: 11/17/18 10:23 Dose: 5,000 unit Fluconazole (Diflucan) 200 mg in 100 mls @ 100 mls/hr IV Q24 [facility] Stop: 11/27/18 10:59 Last Admin: 11/17/18 10:34 Dose: 100 mls/hr Sodium Chloride () 1,000 mls @ 0 mls/hr IV .Q0M [facility] Ampicillin Sodium/Sulbactam (Sodium 3 gm/ Sodium Chloride) 112 mls @ 150 mls/hr IV Q6 [facility] Last Admin: 11/17/18 13:32 Dose: 150 mls/hr Insulin Glargine (Lantus (Bkc)) 0 units SC 06,18 [facility] Last Admin: 11/16/18 16:53 Dose: Not Given Insulin Human Lispro (Humalog Kwikpen (Bkc)) 0 unit SC TIDAC [facility]; Protocol Last Admin: 11/17/18 11:48 Dose: 3 units Insulin Human Lispro (Humalog Kwikpen (Bkc)) 6 unit SC TIDAC [facility] Last Admin: 11/16/18 16:52 Dose: Not Given [facility] ([facility] 400[facility] Last Admin: 11/17/18 10:23 Dose: 400 mg Pantoprazole Sodium (Protonix) 40 mg PO DAILY [facility] Last Admin: 11/17/18 10:23 Dose: 40 mg Sodium Chloride () 5 - 15 ml IV UD PRN PRN Reason: SALINE FLUSH Last Admin: 11/17/18 11:43 Dose: 15 ml Sodium Chloride () 10 - 40 ml IV UD PRN PRN Reason: MULTILUMEN/HICMAN CATH FLUSH Last Admin: 11/16/18 18:17 Dose: 10 ml Medical Necessity - Tobacco Use Smoking Status: Current every day smoker Tobacco Use: Cigarettes Assessment/Plan All Active Problems Generalized weakness (Acute) Confusion (Acute) 1. Acute iron deficiency anemia secondary to acute GI bleed, status post 1 unit packed RBC General surgery consulted, drop in hemoglobin yesterday from 10.6-9.5, continue to monitor with HH 2. Acute GI bleed, unclear etiology, on PPI, general surgery consulted On aspirin and Plavix, continue to monitor for GI bleed 3. Dysphagia, h/o esophageal stricture, being followed by speech therapy, currently on full liquid diet 4. NSTEMI status post cardiac cath, 3 of CAD status post CABG, findings show LAD total occlusion, first diagonal vessel is patent, left circumflex artery with first obtuse marginal branch with 70% mid segment stenosis, RCA is totally occluded, saphenous vein graft to RCA is occluded, left internal mammary artery to LAD is patent, on aspirin and Plavix, cardiology is following 5. Acute metabolic encephalopathy, resolved 6. HHS, resolved 7. Hyperkalemia, resolved 8. Type II DM, HbA1c 13.1, sugars are controlled, continue with Accu-Cheks with insulin sliding scale Lantus insulin pre-meal insulin on hold for now 9. DVT PPx- SCDs Code Visit Inpatient E&M: 50899 Subs Hosp L2
--- NOTE | 2018-11-17 14:34 | PN_ITS ---
Patient Problems: Active and Suspected Problems Generalized weakness (Acute) Confusion (Acute) Subjective: Patient was seen and examined. No more bleeding seen. Complains of generalized edema. Given Lasix IV this morning. Patient is interested in having her diet advanced. Denies chest pain or dizziness or palpitation or worsening shortness of breath. Objective: Physical exam: General: Alert, Oriented x3, Cooperative, No apparent distress HEENT: Atraumatic, PERRLA, EOMI, Normocephalic Oral: Moist Mucosa Neck: Supple Lungs: Clear to auscultation, Normal air movement Cardiovascular: Regular rate, Regular Rhythm, Normal S1, Normal S2, No murmurs Abdomen: Bowel Sounds Present, Soft, Non Tender, Non-Distended, No Hepato- splenomegaly Extremities: Edema - +1 bipedal Skin: No rashes, No breakdown Musculoskeletal: No Tenderness to Palpation of Joints or Extremities Lymphatic: No Cervical, Supraclavicular, or Inguinal Adenopathy Neurological: Cranial nerves II-XII grossly intact, Neuro grossly intact Psych/Mental Status: Normal Affect, Appropriate Vitals/I&O's: Vital Signs Temp Pulse Resp BP Pulse Ox 98 F 65 16 101/68 100 11/17/18 11:42 11/17/18 11:42 11/17/18 11:42 11/17/18 11:42 11/17/18 11:42 Oxygen Flow Rate (L/min) 3 Oxygen Delivery Method Room Air Weight: 61.6 kg Body Mass Index (BMI) 24.0 Finger Stick Blood Glucose 249 Intake and Output for Last 24 Hours 11/15/18 11/16/18 11/17/18 23:59 23:59 23:59 Intake Total 1450 / 1450 3448 / 3448 537 / 537 Output Total 850 / 850 1350 / 1350 750 / 750 Balance 600 / 600 2098 / 2098 -213 / -213 Microbiology Past 72 Hours 11/12/18 01:17 Blood Culture (Wb) - Anticubital Left Blood Culture - Final No growth in 5 days. 11/12/18 01:45 Blood Culture (Wb) - Left Wrist Blood Culture - Final No growth in 5 days. Laboratory Results 11/16/18 12:00: Crossmatch See Detail 11/16/18 16:45: POC Glucose 149 H 11/16/18 19:55: Hgb 10.6 L, Hct 31.8 L 11/16/18 22:40: POC Glucose 221 H 11/17/18 02:54: POC Glucose 186 H 11/17/18 05:12: WBC 9.8, RBC 3.16 L, Hgb 9.5 L, Hct 28.2 L, MCV 89.2, MCH 30.1, MCHC 33.7, RDW 15.1 H, RDW Differential 47.5 H, Plt Count 177, MPV 10.0, Immature Gran % (Auto) 2.200 H, Neut % (Auto) 65.6, Lymph % (Auto) 20.9, [place] % (Auto) 10.4 H, Eos % (Auto) 0.7, Baso % (Auto) 0.2, Absolute Neuts (auto) 6.4, Absolute Lymphs (auto) 2.05, Total Counted Not Reportable, Differential Comment , Diff Path Review Reviewed 11/17/18 05:12: Sodium 140, Potassium 3.9, Chloride 113 H, Carbon Dioxide 17.0 L , Anion Gap 10, BUN 22 H, Creatinine 1.30 H, Estim Creat Clear Calc 29.95, Est GFR (MDRD) Af Amer 52 L, Est GFR (MDRD) Non-Af 43 L, BUN/Creatinine Ratio 16.9, Glucose 182 H, Calcium 6.5 L*, Total Bilirubin 0.40, AST 56 H, ALT 54, Alkaline Phosphatase 331 H, Total Protein 5.0 L, Albumin 2.1 L, Globulin 2.9, Albumin/Globulin Ratio 0.7 L 11/17/18 06:36: POC Glucose 178 H 11/17/18 11:08: POC Glucose 243 H Current Medications Acetaminophen (Tylenol) 650 mg PO Q6H PRN PRN PRN Reason: Mild Pain (1-3)/Temp > 100.7 F Last Admin: 11/16/18 09:58 Dose: 650 mg Aspirin (Aspirin, Baby) 81 mg PO DAILY@0800 [facility] Last Admin: 11/17/18 10:23 Dose: 81 mg Atorvastatin Calcium (Lipitor) 40 mg PO QHS [facility] Last Admin: 11/16/18 22:55 Dose: 40 mg Carvedilol (Coreg) 3.125 mg PO BID [facility] Last Admin: 11/17/18 09:00 Dose: Not Given Chlorhexidine Gluconate () 1 each TOPICAL DAILY [facility] Last Admin: 11/17/18 10:23 Dose: Not Given Clopidogrel Bisulfate (Plavix) 75 mg PO DAILY [facility] Last Admin: 11/17/18 10:23 Dose: 75 mg Dextrose (D50w Syringe) 0 gm IV X1 PRN; Protocol PRN Reason: Hypoglycemia Glucagon () 1 mg IM .X1 PRN PRN Reason: Hypoglycemia Heparin Sodium (Porcine) (Heparin Na) 5,000 unit SC Q12 [facility] Last Admin: 11/17/18 10:23 Dose: 5,000 unit Fluconazole (Diflucan) 200 mg in 100 mls @ 100 mls/hr IV Q24 [facility] Stop: 11/27/18 10:59 Last Admin: 11/17/18 10:34 Dose: 100 mls/hr Sodium Chloride () 1,000 mls @ 0 mls/hr IV .Q0M [facility] Ampicillin Sodium/Sulbactam (Sodium 3 gm/ Sodium Chloride) 112 mls @ 150 mls/hr IV Q6 [facility] Last Admin: 11/17/18 13:32 Dose: 150 mls/hr Insulin Glargine (Lantus (Bkc)) 0 units SC 06,18 [facility] Last Admin: 11/16/18 16:53 Dose: Not Given Insulin Human Lispro (Humalog Kwikpen (Bkc)) 0 unit SC TIDAC [facility]; Protocol Last Admin: 11/17/18 11:48 Dose: 3 units Insulin Human Lispro (Humalog Kwikpen (Bkc)) 6 unit SC TIDAC [facility] Last Admin: 11/16/18 16:52 Dose: Not Given [facility] ([facility] 400[facility] Admin: 11/17/18 10:23 Dose: 400 mg Pantoprazole Sodium (Protonix) 40 mg PO DAILY [facility] Last Admin: 11/17/18 10:23 Dose: 40 mg Sodium Chloride () 5 - 15 ml IV UD PRN PRN Reason: SALINE FLUSH Last Admin: 11/17/18 11:43 Dose: 15 ml Sodium Chloride () 10 - 40 ml IV UD PRN PRN Reason: MULTILUMEN/HICMAN CATH FLUSH Last Admin: 11/16/18 18:17 Dose: 10 ml Medical Necessity - Tobacco Use Smoking Status: Current every day smoker Tobacco Use: Cigarettes Assessment/Plan All Active Problems Generalized weakness (Acute) Confusion (Acute) 1. Acute iron deficiency anemia secondary to acute GI bleed, status post 1 unit packed RBC General surgery consulted, drop in hemoglobin yesterday from 10.6-9.5, continue to monitor with HH 2. Acute GI bleed, unclear etiology, on PPI, general surgery consulted On aspirin and Plavix, continue to monitor for GI bleed 3. Dysphagia, h/o esophageal stricture, being followed by speech therapy, currently on full liquid diet 4. NSTEMI status post cardiac cath, 3 of CAD status post CABG, findings show LAD total occlusion, first diagonal vessel is patent, left circumflex artery with first obtuse marginal branch with 70% mid segment stenosis, RCA is totally occluded, saphenous vein graft to RCA is occluded, left internal mammary artery to LAD is patent, on aspirin and Plavix, cardiology is following 5. Acute metabolic encephalopathy, resolved 6. HHS, resolved 7. Hyperkalemia, resolved 8. Type II DM, HbA1c 13.1, sugars are controlled, continue with Accu-Cheks with insulin sliding scale Lantus insulin pre-meal insulin on hold for now 9. DVT PPx- SCDs Code Visit Inpatient E&M: 31920 Subs Hosp L2
[2018-11-17 15:52] LABS: Hematocrit 29.5 % (37-47); Hemoglobin 9.8 g/dl (12.0-15.0)
[2018-11-17] MEDS: Insulin Lispro 100 UNIT/ML INSULN.PEN 6 UNIT SC (16:50)
[2018-11-17 16:55] LABS: Bedside Glucose 225 mg/dL (70-110)
[2018-11-17 21:36] LABS: Hematocrit 29.4 % (37-47); Hemoglobin 9.6 g/dl (12.0-15.0)
[2018-11-17] MEDS: Atorvastatin Calcium 40 MG Tablet PO (22:28)
[2018-11-17] MEDS: Carvedilol 3.125 MG TABLET PO (22:28)
[2018-11-17 23:10] LABS: Bedside Glucose 185 mg/dL (70-110)
[2018-11-18] VITALS (11 sets, daily range): BP systolic 97–117; BP diastolic 48–60; PULSE 60–103; RESP 16–18; TEMP 36.5–36.8; O2SAT 96–100
[2018-11-18 02:26] LABS: Bedside Glucose 167 mg/dL (70-110)
[2018-11-18 06:32] LABS: Anion Gap 10 (5-15); BUN 19 mg/dL (7-18); BUN/Creat Ratio 14.4 RATIO (10-20); Calcium,Total 6.8 mg/dL (8.5-10.1); Chloride 110 mmol/L (98-107); Creatinine, Serum 1.32 mg/dL (0.55-1.02); EST Glomerular Filtration Rate 42 mL/min (>60); Est Glom Filt Rate - Afr Amer 51 mL/min (>60); Glucose 153 mg/dL (74-106); Potassium 3.7 mmol/L (3.5-5.1); Sodium Level 140 mmol/L (136-145)
[2018-11-18 07:10] LABS: Absolute Lymphocyte Count 2.44 X10^3/ul (0.83-4.51); Absolute Neutrophil Count 6.5 X10^3/uL (2.0-7.7); Basophil# 0.02 X10^3/uL; Basophil% 0.2 % (0-1); Hematocrit 28.6 % (37-47); Hemoglobin 9.4 g/dl (12.0-15.0); Lymphocyte # 2.44 X10^3/ul (4.0); Lymphocyte % 23.5 % (19-41); Mean Corp Hgb Conc 32.9 g/gl (32-36); Mean Corpuscular Hgb 29.7 pg (27.0-32.0); Mean Corpuscular Volume 90.2 fL (81-99); Mean Platelet Vol. 9.9 fl (6.2-12.0); Monocyte# 1.06 X10^3/uL; Monocyte% 10.2 % (0-10); Neutrophil # 6.53 X10^3/uL (2.7-7.7); Neutrophil % 62.9 % (47-70); POSITIVE COUNT YES; POSITIVE DIFFERENTIAL NO; POSITIVE MORPHOLOGY YES; Platelet Count 210 K/mm3 (150-450); RBC Distribution Width CV 15.6 % (11.6-14.6); RBC Distribution Width SD 50.5 fl (35.1-43.9); Red Blood Count 3.17 M/mm3 (4.2-5.4); White Blood Count 10.4 K/mm3 (4.4-11.0)
--- NOTE | 2018-11-18 07:36 | PN.CARD_ITS ---
Subjectve: Patient seen and evaluated. Appears to be stable. Objective: Vital Signs Temp Pulse Resp BP Pulse Ox 98.1 F 61 18 99/49 L 96 11/18/18 04:11 11/18/18 07:02 11/18/18 04:11 11/18/18 04:11 11/18/18 04:11 Oxygen Flow Rate (L/min) 3 Oxygen Delivery Method Room Air Weight: 138 lb 0.15 oz Body Mass Index (BMI) 24.0 Finger Stick Blood Glucose 249 Intake and Output for Last 24 Hours 11/16/18 11/17/18 11/18/18 23:59 23:59 23:59 Intake Total 3448 / 3448 1779 / 1779 386 / 386 Output Total 1350 / 1350 1600 / 1600 Balance 2097 / 2097 179 / 179 386 / 386 General: Awake, Alert, Oriented x 3 HEENT: PERRL, EOMI, Sclera Non Icteric Neck: Supple, Good ROM, No Lymph Node Enlargement Lungs: Clear to auscultation Cardiovascular: Regular Rhythm, Normal S1, Normal S2, No Murmurs, No Rubs, No Gallops Vascular: No Carotid Bruits, Normal Femoral Pulses, Normal Radial Pulses, Normal Dorsalis Pedal Pulse, Normal Posterior Tibial Pulses Abdomen: Bowel Sounds Present, Soft, Non Tender, No HSM, No Organomegaly Extremities: No Cyanosis, No Clubbing, No edema Skin: No Rashes Lymphatic: No Lymph Node Enlargement Neurological: No Focal Motor or Sensory Deficit Psych/Mental Status: Appropriate 11/17/18 15:35: Hgb 9.8 L, Hct 29.5 L 11/17/18 21:10: Hgb 9.6 L, Hct 29.4 L 11/18/18 05:15: WBC 10.4, RBC 3.17 L, Hgb 9.4 L, Hct 28.6 L, MCV 90.2, MCH 29.7, MCHC 32.9, RDW 15.6 H, RDW Differential 50.5 H, Plt Count 210, MPV 9.9, Immature Gran % (Auto) 2.200 H, Neut % (Auto) 62.9, Lymph % (Auto) 23.5, [place] % (Auto) 10.2 H, Eos % (Auto) 1.0, Baso % (Auto) 0.2, Absolute Neuts (auto) 6.5 04/03/19 05:15: Sodium 140, Potassium 3.7, Chloride 110 H, Carbon Dioxide 20.0 L , Anion Gap 10, BUN 19 H, Creatinine 1.32 H, Est GFR (MDRD) Af Amer 51 L, Est GFR (MDRD) Non-Af 42 L, BUN/Creatinine Ratio 14.4, Glucose 153 H, Calcium 6.8 L Rhythm: EKG: ECHO: Stress Test: Cardiac Cath: PCI: CT Surgery: Holter monitor: EPS: PPM: CXR: Chest CT Scan: Medical Necessity - Tobacco Use Smoking Status: Current every day smoker Tobacco Use: Cigarettes Assessment/Plan 1. Non-ST elevation myocardial infarction * Patient presents with diabetic ketoacidosis and is noted to have a non-ST elevation myocardial infarction. * The plan at this particular time will be to correct her underlying diabetes metabolic perturbations and obtain her previous bypass reports. * Her echocardiogram demonstrated severe left ventricular systolic dysfunction with segmental wall motion abnormalities noted. * 2. Coronary artery disease * Patient is status post coronary bypass surgery remotely. She cannot give me the exact dates of the bypass reports. * Cardiac catheterization demonstrated the following * Normal left main coronary artery * Left anterior descending artery which is totally occluded * First diagonal vessel which is patent with no high-grade stenosis * Left circumflex artery with first obtuse marginal branch with 70% mid segment stenosis * Right coronary artery which is totally occluded * Saphenous vein graft to the right coronary artery which is totally occluded * Left internal mammary artery to left anterior descending artery which is patent with small distal vessel * Aortogram demonstrating no other grafts and tortuous aorta with 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 If she does at a later date she can be brought back for angioplasty of the obtuse marginal branch. * She was transfused 1 unit packed red blood cells. * After discussion with the general surgeon it appears that she will be more comfortable performing colonoscopy as an outpatient. * Thank you for allowing me to participate in the care of your patient. Please don't hesitate to call if any issues arise
[2018-11-18 07:45] LABS: Bedside Glucose 158 mg/dL (70-110)
--- NOTE | 2018-11-18 08:31 | PCM.PN.SRG ---
Patient Problems: Active and Suspected Problems Generalized weakness (Acute) Confusion (Acute) Subjective: Patient denies any chest pain states she has had some small bowel movements which have been brown. Patient's hemoglobin remains stable at 9.4. - Physical Exam General: Alert, Oriented x3, Cooperative, No apparent distress Cardiovascular: Regular rate Abdomen: Soft, Non Tender, Non-Distended Vital Signs Temp Pulse Resp BP Pulse Ox 98.1 F 61 18 99/49 L 96 11/18/18 04:11 11/18/18 07:02 11/18/18 04:11 11/18/18 04:11 11/18/18 04:11 Oxygen Flow Rate (L/min) 3 Oxygen Delivery Method Room Air Weight: 138 lb 0.15 oz Body Mass Index (BMI) 24.0 Finger Stick Blood Glucose 249 Intake and Output for Last 24 Hours 11/16/18 11/17/18 11/18/18 23:59 23:59 23:59 Intake Total 3448 / 3448 1779 / 1779 386 / 386 Output Total 1350 / 1350 1600 / 1600 Balance 2098 / 2098 179 / 179 386 / 386 Microbiology Past 72 Hours 11/12/18 01:17 Blood Culture - Final Blood Culture (Wb) - Anticubital Left No growth in 5 days. 11/12/18 01:45 Blood Culture - Final Blood Culture (Wb) - Left Wrist No growth in 5 days. Laboratory Tests Past 24 Hrs 11/17/18 11/17/18 11/17/18 05:12 15:35 21:10 WBC RBC Hgb 9.8 L 9.6 L Hct 29.5 L 29.4 L MCV MCH MCHC RDW RDW Differential Plt Count MPV Immature Gran % (Auto) Neut % (Auto) Lymph % (Auto) [place] % (Auto) Eos % (Auto) Baso % (Auto) Absolute Neuts (auto) Absolute Lymphs (auto) Total Counted Diff Path Review Reviewed Sodium Potassium Chloride Carbon Dioxide Anion Gap BUN Creatinine Estim Creat Clear Calc Est GFR (MDRD) Af Amer Est GFR (MDRD) Non-Af BUN/Creatinine Ratio Glucose Calcium 11/18/18 11/18/18 05:15 05:15 WBC 10.4 RBC 3.17 L Hgb 9.4 L Hct 28.6 L MCV 90.2 MCH 29.7 MCHC 32.9 RDW 15.6 H RDW Differential 50.5 H Plt Count 210 MPV 9.9 Immature Gran % (Auto) 2.200 H Neut % (Auto) 62.9 Lymph % (Auto) 23.5 [place] % (Auto) 10.2 H Eos % (Auto) 1.0 Baso % (Auto) 0.2 Absolute Neuts (auto) 6.5 Absolute Lymphs (auto) 2.44 Total Counted Not Reportable Diff Path Review May foll Sodium 140 Potassium 3.7 Chloride 110 H Carbon Dioxide 20.0 L Anion Gap 10 BUN 19 H Creatinine 1.32 H Estim Creat Clear Calc 29.50 Est GFR (MDRD) Af Amer 51 L Est GFR (MDRD) Non-Af 42 L BUN/Creatinine Ratio 14.4 Glucose 153 H Calcium 6.8 L POC Glucose 11/18/18 11/18/18 11/17/18 06:56 02:11 23:07 POC Glucose 158 H 167 H 185 H 11/17/18 11/17/18 16:43 11:08 POC Glucose 225 H 243 H Medical Necessity - Tobacco Use Smoking Status: Current every day smoker Tobacco Use: Cigarettes Assessment/Plan All Active Problems Generalized weakness (Acute) Confusion (Acute) 73-year-old female with Hyperosmolar non-ketotic state?resolved, non-STEMI, coronary artery disease, anemia/positive fecal occult blood 1. Patient was agreeable to an EGD and colonoscopy to make sure there is no obvious source of GI bleeding prior to her getting her cardiac stent in the future. Patient will continue to be on her aspirin and Plavix. Patient understands that her stricture in her esophagus will not be dilated on aspirin and Plavix that would simply be looking for other sources of bleeding small biopsies may be done but that would be it. I have discussed the above with the patient. I have offered the patient colonoscopy for evaluation. I have explained the risks/benefits of the procedure and described the procedure. I have discussed the risks with the patient, including but not limited to: infection, bleeding, perforation of the GI tract requiring emergency surgery, inability to complete the procedure due to a tortuous colon or poor prep, injury to any internal organs, complications of anesthesia, etc. - the patient understands and agrees to proceed. I have answered all the patient's questions to the patient's satisfaction and the patient has no further questions. The patient has been given instructions for the colon cleansing preparation- golytely starting today. EGD and colonoscopy scheduled for 10:15am tomorrow. Lynsey Shearer M.D. Pager: [phone] [facility] [address] [place] [address], [address] [place] [address] Office: [phone]
--- NOTE | 2018-11-18 08:36 | PN.SURG_ITS ---
Patient Problems: Active and Suspected Problems Generalized weakness (Acute) Confusion (Acute) Subjective: Patient denies any chest pain states she has had some small bowel movements which have been brown. Patient's hemoglobin remains stable at 9.4. - Physical Exam General: Alert, Oriented x3, Cooperative, No apparent distress Cardiovascular: Regular rate Abdomen: Soft, Non Tender, Non-Distended Vital Signs Temp Pulse Resp BP Pulse Ox 98.1 F 61 18 99/49 L 96 11/18/18 04:11 11/18/18 07:02 11/18/18 04:11 11/18/18 04:11 11/18/18 04:11 Oxygen Flow Rate (L/min) 3 Oxygen Delivery Method Room Air Weight: 138 lb 0.15 oz Body Mass Index (BMI) 24.0 Finger Stick Blood Glucose 249 Intake and Output for Last 24 Hours 11/16/18 11/17/18 11/18/18 23:59 23:59 23:59 Intake Total 3448 / 3448 1779 / 1779 386 / 386 Output Total 1350 / 1350 1600 / 1600 Balance 2098 / 2098 179 / 179 386 / 386 Microbiology Past 72 Hours 11/12/18 01:17 Blood Culture - Final Blood Culture (Wb) - Anticubital Left No growth in 5 days. 11/12/18 01:45 Blood Culture - Final Blood Culture (Wb) - Left Wrist No growth in 5 days. Laboratory Tests Past 24 Hrs 11/17/18 11/17/18 11/17/18 05:12 15:35 21:10 WBC RBC Hgb 9.8 L 9.6 L Hct 29.5 L 29.4 L MCV MCH MCHC RDW RDW Differential Plt Count MPV Immature Gran % (Auto) Neut % (Auto) Lymph % (Auto) [place] % (Auto) Eos % (Auto) Baso % (Auto) Absolute Neuts (auto) Absolute Lymphs (auto) Total Counted Diff Path Review Reviewed Sodium Potassium Chloride Carbon Dioxide Anion Gap BUN Creatinine Estim Creat Clear Calc Est GFR (MDRD) Af Amer Est GFR (MDRD) Non-Af BUN/Creatinine Ratio Glucose Calcium 11/18/18 11/18/18 05:15 05:15 WBC 10.4 RBC 3.17 L Hgb 9.4 L Hct 28.6 L MCV 90.2 MCH 29.7 MCHC 32.9 RDW 15.6 H RDW Differential 50.5 H Plt Count 210 MPV 9.9 Immature Gran % (Auto) 2.200 H Neut % (Auto) 62.9 Lymph % (Auto) 23.5 [place] % (Auto) 10.2 H Eos % (Auto) 1.0 Baso % (Auto) 0.2 Absolute Neuts (auto) 6.5 Absolute Lymphs (auto) 2.44 Total Counted Not Reportable Diff Path Review May foll Sodium 140 Potassium 3.7 Chloride 110 H Carbon Dioxide 20.0 L Anion Gap 10 BUN 19 H Creatinine 1.32 H Estim Creat Clear Calc 29.50 Est GFR (MDRD) Af Amer 51 L Est GFR (MDRD) Non-Af 42 L BUN/Creatinine Ratio 14.4 Glucose 153 H Calcium 6.8 L POC Glucose 11/18/18 11/18/18 11/17/18 06:56 02:11 23:07 POC Glucose 158 H 167 H 185 H 11/17/18 11/17/18 16:43 11:08 POC Glucose 225 H 243 H Medical Necessity - Tobacco Use Smoking Status: Current every day smoker Tobacco Use: Cigarettes Assessment/Plan All Active Problems Generalized weakness (Acute) Confusion (Acute) 73-year-old female with Hyperosmolar non-ketotic state?resolved, non-STEMI, coronary artery disease, anemia/positive fecal occult blood 1. Patient was agreeable to an EGD and colonoscopy to make sure there is no obvious source of GI bleeding prior to her getting her cardiac stent in the future. Patient will continue to be on her aspirin and Plavix. Patient understands that her stricture in her esophagus will not be dilated on aspirin and Plavix that would simply be looking for other sources of bleeding small biopsies may be done but that would be it. I have discussed the above with the patient. I have offered the patient colonoscopy for evaluation. I have explained the risks/benefits of the procedure and described the procedure. I have discussed the risks with the patient, including but not limited to: infection, bleeding, perforation of the GI tract requiring emergency surgery, inability to complete the procedure due to a tortuous colon or poor prep, injury to any internal organs, complications of anesthesia, etc. - the patient understands and agrees to proceed. I have answered all the patient's questions to the patient's satisfaction and th e patient has no further questions. The patient has been given instructions for the colon cleansing preparation- golytely starting today. EGD and colonoscopy scheduled for 10:15am tomorrow. Lynsey Shearer M.D. Pager: [phone] [facility] [address] [place] [address], [address] [place] [address] Office: [phone]
[2018-11-18] MEDS: Magnesium Oxide 400 MG Tablet PO (08:43)
[2018-11-18] MEDS: Clopidogrel Bisulfate 75 MG Tablet PO (08:43)
[2018-11-18] MEDS: Pantoprazole Sodium 40 MG Tablet PO (08:43)
[2018-11-18] MEDS: Aspirin 81 MG TAB.CHEW PO (08:43)
[2018-11-18] MEDS: Electrolyte Solution/Peg's 4000 ML PO (10:13)
[2018-11-18 12:00] LABS: Bedside Glucose 130 mg/dL (70-110)
--- NOTE | 2018-11-18 12:26 | CASEMGMT ---
Patient was approved to go to TCU. KAYY spoke with physician and patient will get colonoscopy tomorrow and then she can go to TCU. KAYY left a message for Mojgan in TCU to let her know. KAYY will let patient know she was approved. Plan: TCU under skilled level of care. Anh KELLER MSW
[2018-11-18 13:50] LABS: Pathologist Review Reviewed
[2018-11-18 17:05] LABS: Bedside Glucose 136 mg/dL (70-110)
--- NOTE | 2018-11-18 17:44 | PCM.PN.HOSP ---
Patient Problems: Active and Suspected Problems Generalized weakness (Acute) Confusion (Acute) Subjective: Patient was seen and examined. Feels improved. Denies any new complaints. Discussed with general surgery, patient will be prepped for EGD/colonoscopy tomorrow. Objective: Physical exam: General: Alert, Oriented x3, Cooperative, No apparent distress HEENT: Atraumatic, PERRLA, EOMI, Normocephalic, central line access in right neck Oral: Moist Mucosa Neck: Supple Lungs: Clear to auscultation, Normal air movement Cardiovascular: Regular rate, Regular Rhythm, Normal S1, Normal S2, No murmurs Abdomen: Bowel Sounds Present, Soft, Non Tender, Non-Distended, No Hepato-splenomegaly Extremities: No edema of lower extremities, in ALYSSA hoses Skin: No rashes, No breakdown Musculoskeletal: No Tenderness to Palpation of Joints or Extremities Lymphatic: No Cervical, Supraclavicular, or Inguinal Adenopathy Neurological: Cranial nerves II-XII grossly intact, Neuro grossly intact Psych/Mental Status: Normal Affect, Appropriate Vitals/I&O's: Vital Signs Temp Pulse Resp BP Pulse Ox 98.3 F 63 16 104/60 97 11/18/18 14:28 11/18/18 14:58 11/18/18 14:28 11/18/18 14:28 11/18/18 14:28 Oxygen Flow Rate (L/min) 3 Oxygen Delivery Method Room Air Weight: 62.6 kg Body Mass Index (BMI) 24.0 Finger Stick Blood Glucose 249 Intake and Output for Last 24 Hours 11/16/18 11/17/18 11/18/18 23:59 23:59 23:59 Intake Total 3448 / 3448 1779 / 1779 866 / 866 Output Total 1350 / 1350 1600 / 1600 Balance 2098 / 2098 179 / 179 866 / 866 Microbiology Past 72 Hours 11/12/18 01:17 Blood Culture (Wb) - Anticubital Left Blood Culture - Final No growth in 5 days. 11/12/18 01:45 Blood Culture (Wb) - Left Wrist Blood Culture - Final No growth in 5 days. Laboratory Results 11/17/18 21:10: Hgb 9.6 L, Hct 29.4 L 11/17/18 23:07: POC Glucose 185 H 11/18/18 02:11: POC Glucose 167 H 11/18/18 05:15: WBC 10.4, RBC 3.17 L, Hgb 9.4 L, Hct 28.6 L, MCV 90.2, MCH 29.7, MCHC 32.9, RDW 15.6 H, RDW Differential 50.5 H, Plt Count 210, MPV 9.9, Immature Gran % (Auto) 2.200 H, Neut % (Auto) 62.9, Lymph % (Auto) 23.5, [place] % (Auto) 10.2 H, Eos % (Auto) 1.0, Baso % (Auto) 0.2, Absolute Neuts (auto) 6.5, Absolute Lymphs (auto) 2.44, Total Counted Not Reportable, Diff Path Review Reviewed 11/18/18 05:15: Sodium 140, Potassium 3.7, Chloride 110 H, Carbon Dioxide 20.0 L, Anion Gap 10, BUN 19 H, Creatinine 1.32 H, Estim Creat Clear Calc 29.50, Est GFR (MDRD) Af Amer 51 L, Est GFR (MDRD) Non-Af 42 L, BUN/Creatinine Ratio 14.4, Glucose 153 H, Calcium 6.8 L 11/18/18 06:56: POC Glucose 158 H 11/18/18 11:51: POC Glucose 130 H 11/18/18 17:02: POC Glucose 136 H Current Medications Acetaminophen (Tylenol) 650 mg PO Q6H PRN PRN PRN Reason: Mild Pain (1-3)/Temp > 100.7 F Last Admin: 11/16/18 09:58 Dose: 650 mg Amoxicillin/Clavulanate Potassium (Augmentin Tablet) 875 mg PO BID [facility] Stop: 11/20/18 10:01 Aspirin (Aspirin, Baby) 81 mg PO DAILY@0800 [facility] Last Admin: 11/18/18 08:43 Dose: 81 mg Atorvastatin Calcium (Lipitor) 40 mg PO QHS [facility] Last Admin: 11/17/18 22:28 Dose: 40 mg Carvedilol (Coreg) 3.125 mg PO BID [facility] Last Admin: 11/18/18 09:47 Dose: Not Given Chlorhexidine Gluconate () 1 each TOPICAL DAILY [facility] Last Admin: 11/18/18 08:28 Dose: Not Given Clopidogrel Bisulfate (Plavix) 75 mg PO DAILY [facility] Last Admin: 11/18/18 08:43 Dose: 75 mg Dextrose (D50w Syringe) 0 gm IV X1 PRN; Protocol PRN Reason: Hypoglycemia Fluconazole (Diflucan) 200 mg PO DAILY [facility] Glucagon () 1 mg IM .X1 PRN PRN Reason: Hypoglycemia Heparin Sodium (Porcine) (Heparin Na) 5,000 unit SC Q12 [facility] Last Admin: 11/18/18 09:47 Dose: Not Given Sodium Chloride () 1,000 mls @ 0 mls/hr IV .Q0M [facility] Insulin Glargine (Lantus (Bkc)) 0 units SC ,18 [facility] Last Admin: 11/18/18 17:06 Dose: Not Given Insulin Human Lispro (Humalog Kwikpen (Bkc)) 0 unit SC TIDAC [facility]; Protocol Last Admin: 11/18/18 17:05 Dose: Not Given Insulin Human Lispro (Humalog Kwikpen (Bkc)) 6 unit SC TIDAC [facility] Last Admin: 11/18/18 17:05 Dose: Not Given [facility] 400[facility] Last Admin: 11/18/18 08:43 Dose: 400 mg Pantoprazole Sodium (Protonix) 40 mg PO DAILY [facility] Last Admin: 11/18/18 08:43 Dose: 40 mg Sodium Chloride () 5 - 15 ml IV UD PRN PRN Reason: SALINE FLUSH Last Admin: 11/17/18 11:43 Dose: 15 ml Sodium Chloride () 10 - 40 ml IV UD PRN PRN Reason: MULTILUMEN/HICMAN CATH FLUSH Last Admin: 11/18/18 05:17 Dose: 20 ml Medical Necessity - Tobacco Use Smoking Status: Current every day smoker Tobacco Use: Cigarettes Assessment/Plan All Active Problems Generalized weakness (Acute) Confusion (Acute) 1. Acute iron deficiency anemia secondary to acute GI bleed, status post 1 unit packed RBC, hemoglobin remained stable at 9.4, General surgery consulted, EGD/colonoscopy in a.m. 2. Acute GI bleed, unclear etiology, on PPI, general surgery consulted, on aspirin and Plavix, continue to monitor for GI bleed 3. Dysphagia, h/o esophageal stricture, being followed by speech therapy, currently on full liquid diet 4. NSTEMI status post cardiac cath/cardiomyopathy, history of CAD status post CABG, on aspirin and Plavix, cardiology is following 5. Acute metabolic encephalopathy, resolved 6. HHS, resolved 7. Hyperkalemia, resolved 8. Type II DM, HbA1c 13.1, sugars are controlled, continue with Accu-Cheks with insulin sliding scale Lantus insulin pre-meal insulin on hold for now 9. Suspected Misti esophagitis, Misti vulvovaginitis, on fluconazole(day4), will aim for 14 days total 10. CHAD secondary to dehydration, resolved 11. RLL HAP, possible aspiration pneumonia, on unasyn, will switch to augmentin oral 12. DVT PPx- SCDs Code Visit Inpatient E&M: 22586 Subs Hosp L2
--- NOTE | 2018-11-18 17:51 | PN_ITS ---
Patient Problems: Active and Suspected Problems Generalized weakness (Acute) Confusion (Acute) Subjective: Patient was seen and examined. Feels improved. Denies any new complaints. Discussed with general surgery, patient will be prepped for EGD/colonoscopy tomorrow. Objective: Physical exam: General: Alert, Oriented x3, Cooperative, No apparent distress HEENT: Atraumatic, PERRLA, EOMI, Normocephalic, central line access in right neck Oral: Moist Mucosa Neck: Supple Lungs: Clear to auscultation, Normal air movement Cardiovascular: Regular rate, Regular Rhythm, Normal S1, Normal S2, No murmurs Abdomen: Bowel Sounds Present, Soft, Non Tender, Non-Distended, No Hepato- splenomegaly Extremities: No edema of lower extremities, in ALYSSA hoses Skin: No rashes, No breakdown Musculoskeletal: No Tenderness to Palpation of Joints or Extremities Lymphatic: No Cervical, Supraclavicular, or Inguinal Adenopathy Neurological: Cranial nerves II-XII grossly intact, Neuro grossly intact Psych/Mental Status: Normal Affect, Appropriate Vitals/I&O's: Vital Signs Temp Pulse Resp BP Pulse Ox 98.3 F 63 16 104/60 97 11/18/18 14:28 11/18/18 14:58 11/18/18 14:28 11/18/18 14:28 11/18/18 14:28 Oxygen Flow Rate (L/min) 3 Oxygen Delivery Method Room Air Weight: 62.6 kg Body Mass Index (BMI) 24.0 Finger Stick Blood Glucose 249 Intake and Output for Last 24 Hours 11/16/18 11/17/18 11/18/18 23:59 23:59 23:59 Intake Total 3448 / 3448 1779 / 1779 866 / 866 Output Total 1350 / 1350 1600 / 1600 Balance 2098 / 2098 179 / 179 866 / 866 Microbiology Past 72 Hours 11/12/18 01:17 Blood Culture (Wb) - Anticubital Left Blood Culture - Final No growth in 5 days. 11/12/18 01:45 Blood Culture (Wb) - Left Wrist Blood Culture - Final No growth in 5 days. Laboratory Results 11/17/18 21:10: Hgb 9.6 L, Hct 29.4 L 11/17/18 23:07: POC Glucose 185 H 11/18/18 02:11: POC Glucose 167 H 11/18/18 05:15: WBC 10.4, RBC 3.17 L, Hgb 9.4 L, Hct 28.6 L, MCV 90.2, MCH 29.7, MCHC 32.9, RDW 15.6 H, RDW Differential 50.5 H, Plt Count 210, MPV 9.9, Immature Gran % (Auto) 2.200 H, Neut % (Auto) 62.9, Lymph % (Auto) 23.5, [place] % (Auto) 10.2 H, Eos % (Auto) 1.0, Baso % (Auto) 0.2, Absolute Neuts (auto) 6.5, Absolute Lymphs (auto) 2.44, Total Counted Not Reportable, Diff Path Review Reviewed 11/18/18 05:15: Sodium 140, Potassium 3.7, Chloride 110 H, Carbon Dioxide 20.0 L , Anion Gap 10, BUN 19 H, Creatinine 1.32 H, Estim Creat Clear Calc 29.50, Est GFR (MDRD) Af Amer 51 L, Est GFR (MDRD) Non-Af 42 L, BUN/Creatinine Ratio 14.4, Glucose 153 H, Calcium 6.8 L 11/18/18 06:56: POC Glucose 158 H 11/18/18 11:51: POC Glucose 130 H 11/18/18 17:02: POC Glucose 136 H Current Medications Acetaminophen (Tylenol) 650 mg PO Q6H PRN PRN PRN Reason: Mild Pain (1-3)/Temp > 100.7 F Last Admin: 11/16/18 09:58 Dose: 650 mg Amoxicillin/Clavulanate Potassium (Augmentin Tablet) 875 mg PO BID [facility] Stop: 11/20/18 10:01 Aspirin (Aspirin, Baby) 81 mg PO DAILY@0800 [facility] Last Admin: 11/18/18 08:43 Dose: 81 mg Atorvastatin Calcium (Lipitor) 40 mg PO QHS [facility] Last Admin: 11/17/18 22:28 Dose: 40 mg Carvedilol (Coreg) 3.125 mg PO BID [facility] Last Admin: 11/18/18 09:47 Dose: Not Given Chlorhexidine Gluconate () 1 each TOPICAL DAILY [facility] Last Admin: 11/18/18 08:28 Dose: Not Given Clopidogrel Bisulfate (Plavix) 75 mg PO DAILY [facility] Last Admin: 11/18/18 08:43 Dose: 75 mg Dextrose (D50w Syringe) 0 gm IV X1 PRN; Protocol PRN Reason: Hypoglycemia Fluconazole (Diflucan) 200 mg PO DAILY [facility] Glucagon () 1 mg IM .X1 PRN PRN Reason: Hypoglycemia Heparin Sodium (Porcine) (Heparin Na) 5,000 unit SC Q12 [facility] Last Admin: 11/18/18 09:47 Dose: Not Given Sodium Chloride () 1,000 mls @ 0 mls/hr IV .Q0M [facility] Insulin Glargine (Lantus (Bkc)) 0 units SC ,18 [facility] Last Admin: 11/18/18 17:06 Dose: Not Given Insulin Human Lispro (Humalog Kwikpen (Bkc)) 0 unit SC TIDAC [facility]; Protocol Last Admin: 11/18/18 17:05 Dose: Not Given Insulin Human Lispro (Humalog Kwikpen (Bkc)) 6 unit SC TIDAC [facility] Last Admin: 11/18/18 17:05 Dose: Not Given [facility] ([facility]Ox 400) [facility] Last Admin: 11/18/18 08:43 Dose: 400 mg Pantoprazole Sodium (Protonix) 40 mg PO DAILY [facility] Last Admin: 11/18/18 08:43 Dose: 40 mg Sodium Chloride () 5 - 15 ml IV UD PRN PRN Reason: SALINE FLUSH Last Admin: 11/17/18 11:43 Dose: 15 ml Sodium Chloride () 10 - 40 ml IV UD PRN PRN Reason: MULTILUMEN/HICMAN CATH FLUSH Last Admin: 11/18/18 05:17 Dose: 20 ml Medical Necessity - Tobacco Use Smoking Status: Current every day smoker Tobacco Use: Cigarettes Assessment/Plan All Active Problems Generalized weakness (Acute) Confusion (Acute) 1. Acute iron deficiency anemia secondary to acute GI bleed, status post 1 unit packed RBC, hemoglobin remained stable at 9.4, General surgery consulted, EGD/colonoscopy in a.m. 2. Acute GI bleed, unclear etiology, on PPI, general surgery consulted, on aspirin and Plavix, continue to monitor for GI bleed 3. Dysphagia, h/o esophageal stricture, being followed by speech therapy, currently on full liquid diet 4. NSTEMI status post cardiac cath/cardiomyopathy, history of CAD status post CABG, on aspirin and Plavix, cardiology is following 5. Acute metabolic encephalopathy, resolved 6. HHS, resolved 7. Hyperkalemia, resolved 8. Type II DM, HbA1c 13.1, sugars are controlled, continue with Accu-Cheks with insulin sliding scale Lantus insulin pre-meal insulin on hold for now 9. Suspected Misti esophagitis, Misti vulvovaginitis, on fluconazole(day4), will aim for 14 days total 10. CHAD secondary to dehydration, resolved 11. RLL HAP, possible aspiration pneumonia, on unasyn, will switch to augmentin oral 12. DVT PPx- SCDs Code Visit Inpatient E&M: 94316 Subs Hosp L2
[2018-11-18] MEDS: Atorvastatin Calcium 40 MG Tablet PO (22:37)
[2018-11-18] MEDS: Amox/Clavulanate 875 MG Tablet PO (22:37)
[2018-11-18] MEDS: Heparin Injection (Vial) 5,000 UNIT/ML VIAL 5000 UNIT SC (22:37)
[2018-11-18] MEDS: Carvedilol 3.125 MG TABLET PO (22:51)
[2018-11-18 23:00] LABS: Bedside Glucose 104 mg/dL (70-110)
[2018-11-19] VITALS (14 sets, daily range): BP systolic 96–110; BP diastolic 47–81; PULSE 56–87; RESP 13–16; TEMP 36.1–36.6; O2SAT 96–100; BMI 27.8
[2018-11-19] MEDS: Acetaminophen 325 MG Tablet 650 MG PO (00:22)
--- NOTE | 2018-11-19 03:01 | NURSING ---
Pt again encouraged to drink bowel prep at this time. Explained that if stool isn't clear by AM, we may not be able to do the procedure.
[2018-11-19 03:06] LABS: Bedside Glucose 118 mg/dL (70-110)
[2018-11-19] MEDS: 0.9% NaCl Peripheral Flush Adult/Peds IV ×2 (04:34→04:36)
[2018-11-19 04:50] LABS: Absolute Lymphocyte Count 2.11 X10^3/ul (0.83-4.51); Absolute Neutrophil Count 5.7 X10^3/uL (2.0-7.7); Basophil# 0.02 X10^3/uL; Basophil% 0.2 % (0-1); Eosinophil# 0.09 X10^3/uL; Hematocrit 28.4 % (37-47); Hemoglobin 9.4 g/dl (12.0-15.0); Lymphocyte # 2.11 X10^3/ul (4.0); Lymphocyte % 23.7 % (19-41); Mean Corp Hgb Conc 33.1 g/gl (32-36); Mean Corpuscular Hgb 29.9 pg (27.0-32.0); Mean Corpuscular Volume 90.4 fL (81-99); Mean Platelet Vol. 9.6 fl (6.2-12.0); Monocyte# 0.79 X10^3/uL; Monocyte% 8.9 % (0-10); Neutrophil # 5.68 X10^3/uL (2.7-7.7); Platelet Count 185 K/mm3 (150-450); RBC Distribution Width CV 15.6 % (11.6-14.6); RBC Distribution Width SD 50.9 fl (35.1-43.9); Red Blood Count 3.14 M/mm3 (4.2-5.4); White Blood Count 8.9 K/mm3 (4.4-11.0)
[2018-11-19 04:51] LABS: Differential Indicated SCAN CRITERIA MET; POSITIVE COUNT YES; POSITIVE DIFFERENTIAL NO; POSITIVE MORPHOLOGY YES
[2018-11-19 04:54] LABS: International Normalized Ratio 1.2; Prothrombin Time (Protime)PT. 14.8 SECONDS (11.7-14.9)
[2018-11-19 04:55] LABS: Partial Thromboplast Time 30.9 Seconds (24.1-36.2)
[2018-11-19 05:22] LABS: AST(SGOT) 48 U/L (15-37); Alanine Aminotransfer ALT/SGPT 48 U/L (13-56); Alkaline Phosphatase 381 U/L (45-117); Anion Gap 9 (5-15); BUN 15 mg/dL (7-18); BUN/Creat Ratio 13.2 RATIO (10-20); Bilirubin, Direct 0.14 mg/dL (0.00-0.30); Calcium,Total 6.5 mg/dL (8.5-10.1); Chloride 111 mmol/L (98-107); Creatinine, Serum 1.14 mg/dL (0.55-1.02); EST Glomerular Filtration Rate 50 mL/min (>60); Est Glom Filt Rate - Afr Amer 60 mL/min (>60); Estimated Creatinine Clearance 34.16 ml/min; Globulin 2.7 g/dL (2.2-4.2); Glucose 107 mg/dL (74-106); Potassium 3.4 mmol/L (3.5-5.1); Protein, Total 4.7 g/dL (6.4-8.2); Sodium Level 140 mmol/L (136-145)
--- NOTE | 2018-11-19 05:55 | EKG12_ITS ---
Test Reason : PRE-PROCEDURE Blood Pressure : / mmHG Vent. Rate : 060 BPM Atrial Rate : 060 BPM P-R Int : 134 ms QRS Dur : 094 ms QT Int : 540 ms P-R-T Axes : 050 036 186 degrees QTc Int : 540 ms Normal sinus rhythm Low voltage QRS ST & Marked T wave abnormality, consider anterolateral ischemia Prolonged QT Confirmed by DONATO CLEMENTS, ONEAL ([id number]), online content editor NASIR WILD ([id number]) on 11/23/2018 1:17:[address] PM Referred By: DR THOMPSON Confirmed By:ONEAL SEWELL MD
[2018-11-19 07:10] LABS: Bedside Glucose 90 mg/dL (70-110)
--- NOTE | 2018-11-19 07:27 | PCM.PN.HOSP ---
Patient Problems: Active and Suspected Problems (Last Updated 11/18/18 @ 17:53 by Sharonda Junior) Generalized weakness (Acute) Confusion (Acute) Vitals/I&O's: Vital Signs Temp Pulse Resp BP Pulse Ox 97.6 F L 59 L 13 99/49 L 99 11/19/18 05:38 11/19/18 05:38 11/19/18 05:38 11/19/18 05:38 11/19/18 05:38 Oxygen Flow Rate (L/min) 3 Oxygen Delivery Method Room Air Weight: 66.8 kg Body Mass Index (BMI) 27.8 Finger Stick Blood Glucose 249 Intake and Output for Last 24 Hours 11/17/18 11/18/18 11/19/18 23:59 23:59 23:59 Intake Total 1779 / 1779 1216 / 1216 360 / 360 Output Total 1600 / 1600 Balance 179 / 179 1216 / 1216 360 / 360 Microbiology Past 72 Hours 11/12/18 01:17 Blood Culture (Wb) - Anticubital Left Blood Culture - Final No growth in 5 days. 11/12/18 01:45 Blood Culture (Wb) - Left Wrist Blood Culture - Final No growth in 5 days. Laboratory Results 11/18/18 05:15: Total Counted Not Reportable, Diff Path Review Reviewed 11/18/18 06:56: POC Glucose 158 H 11/18/18 11:51: POC Glucose 130 H 11/18/18 17:02: POC Glucose 136 H 11/18/18 22:36: POC Glucose 104 11/19/18 02:53: POC Glucose 118 H 11/19/18 04:30: WBC 8.9, RBC 3.14 L, Hgb 9.4 L, Hct 28.4 L, MCV 90.4, MCH 29.9, MCHC 33.1, RDW 15.6 H, RDW Differential 50.9 H, Plt Count 185, MPV 9.6, Immature Gran % (Auto) 2.200 H, Neut % (Auto) 64.0, Lymph % (Auto) 23.7, [place] % (Auto) 8.9, Eos % (Auto) 1.0, Baso % (Auto) 0.2, Absolute Neuts (auto) 5.7, Absolute Lymphs (auto) 2.11, Total Counted Not Reportable, Differential Comment , Diff Path Review May foll 11/19/18 04:30: PT 14.8, INR 1.2, APTT 30.9 11/19/18 04:30: Sodium 140, Potassium 3.4 L, Chloride 111 H, Carbon Dioxide 20.0 L, Anion Gap 9, BUN 15, Creatinine 1.14 H, Estim Creat Clear Calc 34.16, Est GFR (MDRD) Af Amer 60, Est GFR (MDRD) Non-Af 50 L, BUN/Creatinine Ratio 13.2, Glucose 107 H, Calcium 6.5 L*, Total Bilirubin 0.30, Direct Bilirubin 0.14, AST 48 H, ALT 48, Alkaline Phosphatase 381 H, Total Protein 4.7 L, Albumin 2.0 L, Globulin 2.7 11/19/18 06:56: POC Glucose 90 Current Medications Acetaminophen (Tylenol) 650 mg PO Q6H PRN PRN PRN Reason: Mild Pain (1-3)/Temp > 100.7 F Last Admin: 11/19/18 00:22 Dose: 650 mg Amoxicillin/Clavulanate Potassium (Augmentin Tablet) 875 mg PO BID [facility] Stop: 11/20/18 10:01 Last Admin: 11/18/18 22:37 Dose: 875 mg Aspirin (Aspirin, Baby) 81 mg PO DAILY@0800 [facility] Last Admin: 11/18/18 08:43 Dose: 81 mg Atorvastatin Calcium (Lipitor) 40 mg PO QHS [facility] Last Admin: 11/18/18 22:37 Dose: 40 mg Carvedilol (Coreg) 3.125 mg PO BID [facility] Last Admin: 11/18/18 22:51 Dose: 3.125 mg Chlorhexidine Gluconate () 1 each TOPICAL DAILY [facility] Last Admin: 11/18/18 08:28 Dose: Not Given Clopidogrel Bisulfate (Plavix) 75 mg PO DAILY [facility] Last Admin: 11/18/18 08:43 Dose: 75 mg Dextrose (D50w Syringe) 0 gm IV X1 PRN; Protocol PRN Reason: Hypoglycemia Fluconazole (Diflucan) 200 mg PO DAILY [facility] Glucagon () 1 mg IM .X1 PRN PRN Reason: Hypoglycemia Heparin Sodium (Porcine) (Heparin Na) 5,000 unit SC Q12 [facility] Last Admin: 11/18/18 22:37 Dose: 5,000 unit Sodium Chloride () 1,000 mls @ 0 mls/hr IV .Q0M [facility] Insulin Glargine (Lantus (Bk)) 0 units SC 06,18 [facility] Last Admin: 11/18/18 17:06 Dose: Not Given Insulin Human Lispro (Humalog Kwikpen (Bk)) 0 unit SC TIDAC FARNAZ; Protocol Last Admin: 11/18/18 17:05 Dose: Not Given Insulin Human Lispro (Humalog Kwikpen (Bk)) 6 unit SC TIDAC [facility] Last Admin: 11/18/18 17:05 Dose: Not Given [facility] 400[facility] Last Admin: 11/18/18 08:43 Dose: 400 mg Pantoprazole Sodium (Protonix) 40 mg PO DAILY [facility] Last Admin: 11/18/18 08:43 Dose: 40 mg Sodium Chloride () 5 - 15 ml IV UD PRN PRN Reason: SALINE FLUSH Last Admin: 11/19/18 04:36 Dose: 10 ml Sodium Chloride () 10 - 40 ml IV UD PRN PRN Reason: MULTILUMEN/HICMAN CATH FLUSH Last Admin: 11/19/18 05:45 Dose: 10 ml Medical Necessity - Tobacco Use Smoking Status: Current every day smoker Tobacco Use: Cigarettes Assessment/Plan All Active Problems (Last Updated 11/18/18 @ 17:53 by Sharonda Junior) H/O coronary artery bypass surgery (Resolved) Generalized weakness (Acute) Confusion (Acute)
[2018-11-19] MEDS: Potassium Chloride 10mEq/100mL 10 MEQ/100 ML IV.SOLN. 100 MEQ IV BOLUS ×2 (08:10→12:04)
[2018-11-19] MEDS: Polyethylene Glycol 3350 17 GM PACKET PO ×2 (08:32→08:33)
--- NOTE | 2018-11-19 10:00 | PCM.PN.SRG ---
Patient Problems: Active and Suspected Problems (Last Updated 11/18/18 @ 17:53 by Sharonda Junior) Generalized weakness (Acute) Confusion (Acute) Subjective: Patient was only able to take about half the prep, still had some olea stools this morning did get additional tap water enemas as well as some MiraLAX, patient states her odynophagia is improved since she has been getting the PPIs - Physical Exam General: Alert, Oriented x3, Cooperative, No apparent distress Abdomen: Soft, Non Tender, Non-Distended Vital Signs Temp Pulse Resp BP Pulse Ox 97.6 F L 59 L 14 103/56 L 100 11/19/18 08:19 11/19/18 08:19 11/19/18 08:19 11/19/18 08:19 11/19/18 08:19 Oxygen Flow Rate (L/min) 3 Oxygen Delivery Method Room Air Weight: 147 lb 4.301 oz Body Mass Index (BMI) 27.8 Finger Stick Blood Glucose 249 Intake and Output for Last 24 Hours 11/17/18 11/18/18 11/19/18 23:59 23:59 23:59 Intake Total 1779 / 1779 1216 / 1216 360 / 360 Output Total 1600 / 1600 Balance 179 / 179 1216 / 1216 360 / 360 Microbiology Past 72 Hours 11/12/18 01:17 Blood Culture - Final Blood Culture (Wb) - Anticubital Left No growth in 5 days. 11/12/18 01:45 Blood Culture - Final Blood Culture (Wb) - Left Wrist No growth in 5 days. Laboratory Tests Past 24 Hrs 11/18/18 11/19/18 11/19/18 05:15 04:30 04:30 WBC 8.9 RBC 3.14 L Hgb 9.4 L Hct 28.4 L MCV 90.4 MCH 29.9 MCHC 33.1 RDW 15.6 H RDW Differential 50.9 H Plt Count 185 MPV 9.6 Immature Gran % (Auto) 2.200 H Neut % (Auto) 64.0 Lymph % (Auto) 23.7 [place] % (Auto) 8.9 Eos % (Auto) 1.0 Baso % (Auto) 0.2 Absolute Neuts (auto) 5.7 Absolute Lymphs (auto) 2.11 Total Counted Not Reportable Differential Comment Diff Path Review Reviewed December foll PT 14.8 INR 1.2 APTT 30.9 Sodium Potassium Chloride Carbon Dioxide Anion Gap BUN Creatinine Estim Creat Clear Calc Est GFR (MDRD) Af Amer Est GFR (MDRD) Non-Af BUN/Creatinine Ratio Glucose Calcium Total Bilirubin Direct Bilirubin AST ALT Alkaline Phosphatase Total Protein Albumin Globulin 11/19/18 04:30 WBC RBC Hgb Hct MCV MCH MCHC RDW RDW Differential Plt Count MPV Immature Gran % (Auto) Neut % (Auto) Lymph % (Auto) [place] % (Auto) Eos % (Auto) Baso % (Auto) Absolute Neuts (auto) Absolute Lymphs (auto) Total Counted Differential Comment Diff Path Review PT INR APTT Sodium 140 Potassium 3.4 L Chloride 111 H Carbon Dioxide 20.0 L Anion Gap 9 BUN 15 Creatinine 1.14 H Estim Creat Clear Calc 34.16 Est GFR (MDRD) Af Amer 60 Est GFR (MDRD) Non-Af 50 L BUN/Creatinine Ratio 13.2 Glucose 107 H Calcium 6.5 L* Total Bilirubin 0.30 Direct Bilirubin 0.14 AST 48 H ALT 48 Alkaline Phosphatase 381 H Total Protein 4.7 L Albumin 2.0 L Globulin 2.7 POC Glucose 11/19/18 11/19/18 11/18/18 06:56 02:53 22:36 POC Glucose 90 118 H 104 11/18/18 11/18/18 17:02 11:51 POC Glucose 136 H 130 H Medical Necessity - Tobacco Use Smoking Status: Current every day smoker Tobacco Use: Cigarettes Assessment/Plan All Active Problems (Last Updated 11/18/18 @ 17:53 by Sharonda Junior) H/O coronary artery bypass surgery (Resolved) Generalized weakness (Acute) Confusion (Acute) 73-year-old female with Hyperosmolar non-ketotic state?resolved, non-STEMI, coronary artery disease, anemia/positive fecal occult blood 1. We will complete EGD and colonoscopy today to look for any source of possible GI bleed prior to patient needing long-term anticoagulation status post stent. Lynsey Shearer M.D. Pager: [phone] [facility] [address] [place] [address], [facility], [address] [place] [address] Office: [phone]
--- NOTE | 2018-11-19 10:09 | PN.SURG_ITS ---
Patient Problems: Active and Suspected Problems (Last Updated 11/18/18 @ 17:53 by Sharonda Junior) Generalized weakness (Acute) Confusion (Acute) Subjective: Patient was only able to take about half the prep, still had some olea stools this morning did get additional tap water enemas as well as some MiraLAX, patient states her odynophagia is improved since she has been getting the PPIs - Physical Exam General: Alert, Oriented x3, Cooperative, No apparent distress Abdomen: Soft, Non Tender, Non-Distended Vital Signs Temp Pulse Resp BP Pulse Ox 97.6 F L 59 L 14 103/56 L 100 11/19/18 08:19 11/19/18 08:19 11/19/18 08:19 11/19/18 08:19 11/19/18 08:19 Oxygen Flow Rate (L/min) 3 Oxygen Delivery Method Room Air Weight: 147 lb 4.301 oz Body Mass Index (BMI) 27.8 Finger Stick Blood Glucose 249 Intake and Output for Last 24 Hours 11/17/18 11/18/18 11/19/18 23:59 23:59 23:59 Intake Total 1779 / 1779 1216 / 1216 360 / 360 Output Total 1600 / 1600 Balance 179 / 179 1216 / 1216 360 / 360 Microbiology Past 72 Hours 11/12/18 01:17 Blood Culture - Final Blood Culture (Wb) - Anticubital Left No growth in 5 days. 11/12/18 01:45 Blood Culture - Final Blood Culture (Wb) - Left Wrist No growth in 5 days. Laboratory Tests Past 24 Hrs 11/18/18 11/19/18 11/19/18 05:15 04:30 04:30 WBC 8.9 RBC 3.14 L Hgb 9.4 L Hct 28.4 L MCV 90.4 MCH 29.9 MCHC 33.1 RDW 15.6 H RDW Differential 50.9 H Plt Count 185 MPV 9.6 Immature Gran % (Auto) 2.200 H Neut % (Auto) 64.0 Lymph % (Auto) 23.7 [place] % (Auto) 8.9 Eos % (Auto) 1.0 Baso % (Auto) 0.2 Absolute Neuts (auto) 5.7 Absolute Lymphs (auto) 2.11 Total Counted Not Reportable Differential Comment Diff Path Review Reviewed December foll PT 14.8 INR 1.2 APTT 30.9 Sodium Potassium Chloride Carbon Dioxide Anion Gap BUN Creatinine Estim Creat Clear Calc Est GFR (MDRD) Af Amer Est GFR (MDRD) Non-Af BUN/Creatinine Ratio Glucose Calcium Total Bilirubin Direct Bilirubin AST ALT Alkaline Phosphatase Total Protein Albumin Globulin 11/19/18 04:30 WBC RBC Hgb Hct MCV MCH MCHC RDW RDW Differential Plt Count MPV Immature Gran % (Auto) Neut % (Auto) Lymph % (Auto) [place] % (Auto) Eos % (Auto) Baso % (Auto) Absolute Neuts (auto) Absolute Lymphs (auto) Total Counted Differential Comment Diff Path Review PT INR APTT Sodium 140 Potassium 3.4 L Chloride 111 H Carbon Dioxide 20.0 L Anion Gap 9 BUN 15 Creatinine 1.14 H Estim Creat Clear Calc 34.16 Est GFR (MDRD) Af Amer 60 Est GFR (MDRD) Non-Af 50 L BUN/Creatinine Ratio 13.2 Glucose 107 H Calcium 6.5 L* Total Bilirubin 0.30 Direct Bilirubin 0.14 AST 48 H ALT 48 Alkaline Phosphatase 381 H Total Protein 4.7 L Albumin 2.0 L Globulin 2.7 POC Glucose 11/19/18 11/19/18 11/18/18 06:56 02:53 22:36 POC Glucose 90 118 H 104 11/18/18 11/18/18 17:02 11:51 POC Glucose 136 H 130 H Medical Necessity - Tobacco Use Smoking Status: Current every day smoker Tobacco Use: Cigarettes Assessment/Plan All Active Problems (Last Updated 11/18/18 @ 17:53 by Sharonda Junior) H/O coronary artery bypass surgery (Resolved) Generalized weakness (Acute) Confusion (Acute) 73-year-old female with Hyperosmolar non-ketotic state?resolved, non-STEMI, coronary artery disease, anemia/positive fecal occult blood 1. We will complete EGD and colonoscopy today to look for any source of possible GI bleed prior to patient needing long-term anticoagulation status post stent. Lynsey Shearer M.D. Pager: [phone] [facility] [address] [place] [address], [facility], [address] [place] [address] Office: [phone]
--- NOTE | 2018-11-19 10:15 | EGD_PTH ---
PATIENT: JEWEL KAM LOC: [facility] U#:[id number] AGE/SX: 73/F ROOM: [facility] RE11/12/[address]: Dr. Leticia Rawls MD : 1945 BED: 1 DIS: 11/19/2018 SPEC #: [id number] RECD: 11/19/18 11:48 STATUS: SALMA REQ #: [id number] TALIA: 11/19/18 10:[address]: Lynsey Shearer DEPT: SURGICAL PATHOLOGY RECD BY: Ovidio Davis ENTERED: 11/19/18 13:05 SP TYPE: EGD BIOPSY OT DR: MD Dr. Nigel Koroma MD Dr. Derek Brown, DO Dr. John E Schinner, MD Dr. Mark Tereletsky, Tissues: A - Gastric mucous membrane B - Rectum, NOS Procedures: Surgery Specimen Level IV HEADER OPERATION: Colonoscopy, EGD ([facility]) PRE-OP DIAGNOSIS: Anemia TISSUE SUBMITTED: A - Antral biopsy for H. pylori and pathology, B - Proximal rectal biopsy MICROSCOPIC DIAGNOSIS A. Antral biopsy for H. pylori: Mild chronic gastritis. B. Proximal rectal biopsy: Focal active colitis with acute cryptitis and crypt microabscess formation. No granuloma identified. No glandular dysplasia found. CE:josh 11/20/18 COMMENT A. The results of immunohistochemistry for Helicobacter pylori will be reported separately ([id number]). MICROSCOPIC DESCRIPTION Slides are reviewed. GROSS DESCRIPTION A - Received in fixative is one container labeled with the patient's name and designated antral biopsy. The specimen consists of one irregular fragment of light olea soft tissue that measures 0.4 x 0.2 x 0.1 cm. The specimen is totally submitted in one cassette. B - Received in fixative is one container labeled with the patient's name and designated proximal rectal biopsy. The specimen consists of two irregular fragments of light olea soft tissue that in aggregate measure 0.5 x 0.3 x 0.1 cm. The specimen is totally submitted in one cassette. / SJ:josh 11/19/18 TC:2 CPT: 87600 x2
--- NOTE | 2018-11-19 10:15 | IMM_PTH ---
PATIENT: JEWEL KAM LOC: [facility] U#:[id number] AGE/SX: 73/F ROOM: [facility] RE11/12/[address]: Dr. Leticia Rawls MD : 1945 BED: 1 DIS: 11/19/2018 SPEC #: [id number] RECD: 11/19/18 13:23 STATUS: SALMA REQ #: [id number] TALIA: 11/19/18 10:[address]: Lynsey Shearer DEPT: IMMUNOHISTOCHEMISTRY RECD BY: Sommer Merida ENTERED: 11/19/18 13:23 SP TYPE: IMMUNO OTHR DR: MD Dr. Nigel Koroma MD Dr. Derek Brown, DO Dr. John E Schinner, MD Dr. Mark Tereletsky, DO Tissues: A - Stomach, NOS Procedures: H Pylori (initial) PHYSICIAN & INSTITUTION [place] [id number] SPECIMEN INFORMATION: Tissue Source: A - Antral biopsy Clinical Info: Anemia Specimen Number: [id number] CPT code: 94424 METHODOLOGY: Deparaffinized sections of prefer/formalin-fixed tissue or PAP/DQ stained slides are incubated with monoclonal/polyclonal antibodies/oligonucleotide probes. Localization is made via biotin free immunoperoxidase method. Appropriate controls are performed and reacted as expected. Results on target cell population are indicated in the following table: RESULTS: ANTIBODY / CLONE RESULT Block A H Pylori (polyclonal) negative These tests were developed and their performance characteristics determined by [facility]. They may not have been cleared or approved by the U.S. Food and Drug Administration. The FDA has determined that such clearance or approval is not necessary. INTERPRETATION: A. Antral biopsy: Immunohistochemical stain with appropriate control is negative for Helicobacter organisms. CE:josh 11/20/18
--- NOTE | 2018-11-19 11:13 | OP.ENDO_ITS ---
11/19/2018 Ben Rahman [address] [place] [address] Re : Upper GI endoscopy procedure for Danya Weston Dear Dr. Rahman This procedure was performed on November. My impressions and recommendations are as follows: Impressions : - Z-line regular, 35 cm from the incisors. - Small hiatal hernia. - Erythematous mucosa in the antrum. Biopsied. - Normal examined duodenum. - Normal esophagus. Recommendations : - Await pathology results. - [facility] patient to [facility]. - Cardiac diet. - Continue present medications. - Use sucralfate tablets 1 gram PO QID for 3 weeks. My findings are described in the full procedure note, which is enclosed. If I can be of further assistance, please feel free to contact me at Doctor phone number(s): , Work: . Sincerely, MD Lynsey Cullen MD 11/19/2018 11:13:32 AM This report has been signed electronically.
[2018-11-19 11:27] LABS: Pathologist Review Reviewed
--- NOTE | 2018-11-19 11:28 | OP.ENDO_ITS ---
11/19/2018 Ben Rahman [address] [place] [address] Re : Colonoscopy procedure for Danya Weston Dear Dr. Rahman This procedure was performed on November. My impressions and recommendations are as follows: Impressions : - Hemorrhoids found on perianal exam. - Erythematous mucosa in the rectum. Biopsied. - The examination was otherwise normal. - One less than 5 mm polyp in the rectum. Not resected as pt is on asa/plavix Recommendations : - [facility] to [facility]. - Await pathology results. - Augmentin (amoxicillin/clavulanate) 875 mg PO BID for 7 days. - Repeat flexible sigmoidoscopy [day] for resection of rectal polyp, can be done after stent placed. - Continue present medications. My findings are described in the full procedure note, which is enclosed. If I can be of further assistance, please feel free to contact me at Doctor phone number(s): , Work: . Sincerely, MD Lynsey Cullen MD 11/19/2018 11:28:36 AM This report has been signed electronically.
--- NOTE | 2018-11-19 11:46 | PCM.TXEXTCAR ---
- Diet 11/19/18 05:45 Cardiac, calorie controlled diet Is pt able to select menu?: No Diet Comments: ok for meds w sip, continue ASA/plavix - Routine Orders/Code Status Routine Lab Work: CBC - within 3 days, BMP - within 3 days - Wound(s) R groin Wound Type: Puncture - Therapies Physical Therapy: Eval and Treat Occupational Therapy: Eval and Treat - Allergies/Procedures Done in Hospital Allergies/Adverse Reactions: Allergies metformin Allergy (Verified 11/12/18 01:07) Itching Procedures: 2-D Echocardiogram, Cardiac catheterization, Colonoscopy, EGD - Type of Care/Length of Stay Estimated LOS: Convalescent Care Less Than 30 days Type of Care Needed: Skilled Rehab Potential: Good Prognosis: Good - Additional Orders/Day of Discharge Additional Orders: Patient may need to go back on her previous insulin as she starts to eat. Her Lantus and premeal insulins were held because her blood sugars were running low. Her Lisinopril was also held for CHAD, may resume if needed. 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 - Follow Up Care Primary Care Physician: Ben Rahman MD [Primary Care Provider] - Please follow up with your Primary Care Physician in: within 1-2 weeks after discharge
--- NOTE | 2018-11-19 12:01 | TREXTCAR_ITS ---
- Diet 11/19/18 05:45 Cardiac, calorie controlled diet Is pt able to select menu?: No Diet Comments: ok for meds w sip, continue ASA/plavix - Routine Orders/Code Status Routine Lab Work: CBC - within 3 days, BMP - within 3 days - Wound(s) R groin Wound Type: Puncture - Therapies Physical Therapy: Eval and Treat Occupational Therapy: Eval and Treat - Allergies/Procedures Done in Hospital Allergies/Adverse Reactions: Allergies metformin Allergy (Verified 11/12/18 01:07) Itching Procedures: 2-D Echocardiogram, Cardiac catheterization, Colonoscopy, EGD - Type of Care/Length of Stay Estimated LOS: Convalescent Care Less Than 30 days Type of Care Needed: Skilled Rehab Potential: Good Prognosis: Good - Additional Orders/Day of Discharge Additional Orders: Patient may need to go back on her previous insulin as she starts to eat. Her Lantus and premeal insulins were held because her blood sugars were running low. Her Lisinopril was also held for CHAD, may resume if needed. 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 - Follow Up Care Primary Care Physician: Ben Rahman MD [Primary Care Provider] - Please follow up with your Primary Care Physician in: within 1-2 weeks after discharge
[2018-11-19] MEDS: Carvedilol 3.125 MG TABLET PO (12:04)
[2018-11-19] MEDS: Magnesium Oxide 400 MG Tablet PO (12:04)
[2018-11-19] MEDS: Pantoprazole Sodium 40 MG Tablet PO (12:05)
[2018-11-19] MEDS: Amox/Clavulanate 875 MG Tablet PO (12:05)
[2018-11-19] MEDS: Clopidogrel Bisulfate 75 MG Tablet PO (12:05)
--- NOTE | 2018-11-19 12:05 | PCM.DC.SUM ---
Discharge Date and Diagnosis - Problem List Patient Problems: Active and Suspected Problems (Last Updated 11/18/18 @ 17:53 by Sharonda Junior) Generalized weakness (Acute) Confusion (Acute) Date of Admission: 11/12/18 Date of Discharge: 11/19/18 - Primary Discharge Diagnosis Active and Suspected Problems (Last Updated 11/18/18 @ 17:53 by Sharonda Junior) Acute iron deficiency anemia/acute blood loss anemia Acute GI bleed Dysphagia Gastritis NSTEMI Acute metabolic encephalopathy HHS Hyperkalemia Candidal esophagitis Misti vulvovaginitis AK I Possible aspiration pneumonia Right lower lobe pneumonia, suspected gram-negative - Secondary Discharge Diagnosis Chronic Problems (Last Updated 11/18/18 @ 17:53 by Sharonda Junior) 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 No acute findings in the lungs Electronically Signed: Garry Call MD at 3:10 EDT Tel , Service support , Chest X-Ray 11/12/18 03:11 IMPRESSION: Interval introduction of a central line through the right internal jugular vein with the tip at the caval atrial junction. No acute findings in the lungs Electronically Signed: Garry Call MD at 3:51 EDT Tel , Service support , Chest X-Ray 11/14/18 07:14 IMPRESSION: No significant change since the previous exam. No new infiltrate is seen. Electronically Signed: Aime Acuña MD at 12:38 EDT Tel , Service support , Chest X-Ray 11/15/18 15:40 IMPRESSION: 1. Slight right lower lobe opacity and trace pleural effusion likely stable but best seen on lateral view. Electronically Signed: Esequiel Sotelo MD at 15:58 EDT , Service support , None Operations: None Procedures: 2-D Echocardiogram, Cardiac catheterization, Colonoscopy, EGD Summary of Care Provided: The patient is a 73 year old F past medical history of type II DM, who was brought in with generalized weakness and confusion. Patient had previously had UTI that was treated with antibiotics, she persisted to be weak and was given a prescription for ciprofloxacin by her primary care doctor. She then [facility]. She was found to have elevated blood sugar of 1626 in the emergency department and his blood pressures were also low. Her troponins were elevated at 5.39. Patient was admitted to the ICU and managed as acute hyper osmolar nonketotic hyperglycemia, with insulin drip and IV hydration. She was also found to have acute kidney injury on CKD. Cardiology was consulted. Patient continued to improve and was transferred out of the ICU. She was also found to have an infiltrate on chest x-ray and managed as possible aspiration pneumonia . She was started on IV Unasyn. Patient had complained of dysphagia, reported history of esophageal stricture, suspected Misti esophagitis, also complained of candidal vulvovaginitis. Started on IV fluconazole. Will complete a 14-day course. She was found to have drop in hemoglobin from 12 on admission to 9.0. Stool occult blood was heme positive. Cardiac cath was done on 11/16/18 and findings include LAD total occlusion, first diagonal vessel is patent, left circumflex artery with first obtuse marginal branch with 70% mid segment stenosis, RCA is totally occluded, saphenous vein graft to RCA is occluded, left internal mammary artery to LAD is patent. Patient was started on aspirin and Plavix. General surgery was consulted. She underwent EGD/colonoscopy on 11/19/2018, findings reportedly include gastritis, proctitis, colitis, right sided colonic polyp. Biopsies of gastric and colon were taken. Patient Problems: Active and Suspected Problems (Last Updated 11/18/18 @ 17:53 by Sharonda Junior) Generalized weakness (Acute) Confusion (Acute) Subjective: On the day of discharge, patient was seen and examined. Had EGD/colonoscopy and finding included gastritis, proctitis, right sided colonic polyp. Objective: Physical exam: General: Alert, Oriented x3, Cooperative, No apparent distress HEENT: Atraumatic, PERRLA, EOMI, Normocephalic, central line access in right neck Oral: Moist Mucosa Neck: Supple Lungs: Clear to auscultation, Normal air movement Cardiovascular: Regular rate, Regular Rhythm, Normal S1, Normal S2, No murmurs Abdomen: Bowel Sounds Present, Soft, Non Tender, Non-Distended, No Hepato-splenomegaly Extremities: No edema of lower extremities, in ALYSSA hoses Skin: No rashes, No breakdown Musculoskeletal: No Tenderness to Palpation of Joints or Extremities Lymphatic: No Cervical, Supraclavicular, or Inguinal Adenopathy Neurological: Cranial nerves II-XII grossly intact, Neuro grossly intact Psych/Mental Status: Normal Affect, Appropriate - Physical Exam Vital Signs Temp Pulse Resp BP Pulse Ox 98 F 57 L 16 100/81 H 99 11/19/18 11:29 11/19/18 11:29 11/19/18 11:29 11/19/18 11:29 11/19/18 11:29 Oxygen Flow Rate (L/min) 3 Oxygen Delivery Method Room Air Weight: 66.8 kg Body Mass Index (BMI) 27.8 Finger Stick Blood Glucose 249 Intake and Output for Last 24 Hours 11/17/18 11/18/18 11/19/18 23:59 23:59 23:59 Intake Total 1779 / 1779 1216 / 1216 810 / 810 Output Total 1600 / 1600 Balance 179 / 179 1216 / 1216 810 / 810 Microbiology Past 72 Hours 11/12/18 01:17 Blood Culture - Final Blood Culture (Wb) - Anticubital Left No growth in 5 days. 11/12/18 01:45 Blood Culture - Final Blood Culture (Wb) - Left Wrist No growth in 5 days. Laboratory Tests Past 24 Hrs 11/18/18 11/19/18 11/19/18 05:15 04:30 04:30 WBC 8.9 RBC 3.14 L Hgb 9.4 L Hct 28.4 L MCV 90.4 MCH 29.9 MCHC 33.1 RDW 15.6 H RDW Differential 50.9 H Plt Count 185 MPV 9.6 Immature Gran % (Auto) 2.200 H Neut % (Auto) 64.0 Lymph % (Auto) 23.7 Cannon % (Auto) 8.9 Eos % (Auto) 1.0 Baso % (Auto) 0.2 Absolute Neuts (auto) 5.7 Absolute Lymphs (auto) 2.11 Total Counted Not Reportable Differential Comment Diff Path Review Reviewed Reviewed PT 14.8 INR 1.2 APTT 30.9 Sodium Potassium Chloride Carbon Dioxide Anion Gap BUN Creatinine Estim Creat Clear Calc Est GFR (MDRD) Af Amer Est GFR (MDRD) Non-Af BUN/Creatinine Ratio Glucose Calcium Total Bilirubin Direct Bilirubin AST ALT Alkaline Phosphatase Total Protein Albumin Globulin 11/19/18 04:30 WBC RBC Hgb Hct MCV MCH MCHC RDW RDW Differential Plt Count MPV Immature Gran % (Auto) Neut % (Auto) Lymph % (Auto) Cannon % (Auto) Eos % (Auto) Baso % (Auto) Absolute Neuts (auto) Absolute Lymphs (auto) Total Counted Differential Comment Diff Path Review PT INR APTT Sodium 140 Potassium 3.4 L Chloride 111 H Carbon Dioxide 20.0 L Anion Gap 9 BUN 15 Creatinine 1.14 H Estim Creat Clear Calc 34.16 Est GFR (MDRD) Af Amer 60 Est GFR (MDRD) Non-Af 50 L BUN/Creatinine Ratio 13.2 Glucose 107 H Calcium 6.5 L* Total Bilirubin 0.30 Direct Bilirubin 0.14 AST 48 H ALT 48 Alkaline Phosphatase 381 H Total Protein 4.7 L Albumin 2.0 L Globulin 2.7 POC Glucose 11/19/18 11/19/18 11/18/18 06:56 02:53 22:36 POC Glucose 90 118 H 104 11/18/18 17:02 POC Glucose 136 H Discharge Diet: Low fat/ Low Cholesterol, 2000 mg Sodium Diet Discharge Activity: Return to Normal Activity Home Medications: Medications to take at Discharge Alendronate Sodium [Fosamax] 70 mg PO Q7D@0700 11/12/18 Aspirin [Aspirin, Baby] 81 mg PO DAILY@0800 11/12/18 Ergocalciferol [Vitamin D] 50,000 unit PO Q7D 11/12/18 Fluticasone 0.05% [Flonase Nasal [place]] 1 spray NASAL DAILY 11/12/18 [place]-3 Fatty Acids/Fish Oil [Fish Oil 1,000 mg Capsule] 2 each PO BID 11/12/18 Ondansetron [Zofran Odt] 4 mg PO Q8H PRN PRN 11/12/18 Acetaminophen [Tylenol Tablet] 650 mg PO Q6H PRN PRN tablet 11/19/18 Amox/Clavulanate Tablet [Augmentin Tablet] 875 mg PO BID #14 tablet 11/19/18 Atorvastatin Calcium [Lipitor] 40 mg PO QHS tablet 11/19/18 Carvedilol [Coreg (Beta Alexander)] 3.125 mg PO BID tablet 11/19/18 Clopidogrel Bisulfate [Plavix] 75 mg PO DAILY tablet 11/19/18 Fluconazole [Diflucan] 200 mg PO DAILY #9 tablet 11/19/18 Insulin Lispro [Humalog KwikPen] 6 unit SC TIDAC insuln.pen 11/19/18 Insulin Lispro [Humalog KwikPen] See Protocol SC TIDAC insuln.pen 11/19/18 Magnesium Oxide [Mag-Ox 400] 400 mg PO DAILYCM tablet 11/19/18 Pantoprazole Sodium [Protonix] 40 mg PO BID 14 Days #28 tablet 11/19/18 Sucralfate [Carafate] 1 gm PO ACHS #1 udc 11/19/18 Following Prescrptions Were Given to Patient: Sucralfate [Carafate] 1 gm PO ACHS #1 udc Primary Care Physician: Ben Rahman MD [Primary Care Provider] - Please follow up with your Primary Care Physician in: within 1-2 weeks after discharge Disposition: Retirement facility Minutes spent on discharge:: 45 Patient Condition:: Stable Medical Necessity - Tobacco Use Smoking Status: Current every day smoker Tobacco Use: Cigarettes Meaningful Use Info Meaningful Use Diagnoses (Choose all that apply): None applicable Code Visit Inpatient E&M: 66936 Subs Hosp L2
[2018-11-19] MEDS: Aspirin 81 MG TAB.CHEW PO (12:06)
[2018-11-19] MEDS: Fluconazole 100 MG Tablet 200 MG PO (12:06)
[2018-11-19 12:21] LABS: Bedside Glucose 85 mg/dL (70-110)
[2018-11-19 15:10] LABS: Anion Gap 9 (5-15); BUN 13 mg/dL (7-18); BUN/Creat Ratio 10.2 RATIO (10-20); Calcium,Total 7.2 mg/dL (8.5-10.1); Chloride 112 mmol/L (98-107); Creatinine, Serum 1.28 mg/dL (0.55-1.02); EST Glomerular Filtration Rate 44 mL/min (>60); Est Glom Filt Rate - Afr Amer 53 mL/min (>60); Estimated Creatinine Clearance 30.42 ml/min; Glucose 159 mg/dL (74-106); Potassium 5.2 mmol/L (3.5-5.1); Sodium Level 141 mmol/L (136-145)
[2018-11-19] MEDS: Sucralfate 1 GM Tablet PO (16:08)
[2018-11-19] MEDS: Insulin Lispro 100 UNIT/ML INSULN.PEN 6 UNIT SC (16:09)
[2018-11-19 16:10] LABS: Bedside Glucose 135 mg/dL (70-110)
== END 2018-11-19 17:54 | disposition skilled nursing facility (03) | DRG 280 ==
LOC: ED 02:35 → ICU 04:07 → PCU 11-16 07:26 → ICU 11-16 16:26 → PCU 11-17 10:13
PROVIDERS: Family Medicine; Internal Medicine; Internal Medicine Cardiovascular Disease; Internal Medicine Critical Care Medicine; Surgery; Admitting Provider Internal Medicine; Emergency Provider Emergency Medicine; Family Provider Family Medicine; PCP Family Medicine; Visit Provider Internal Medicine
PROC: 0DJD8ZZ Inspection of Lower Intestinal Tract, Via Natural or Artificial Opening Endoscopic (ICD-10-PCS; CPT 45378; principal; 2018-11-19 10:10)
DX: I21.4 Non-ST elevation (NSTEMI) myocardial infarction (principal); E11.00 Type 2 diabetes mellitus with hyperosmolarity without nonketotic hyperglycemic-hyperosmolar coma (NKHHC); G93.41 Metabolic encephalopathy; J69.0 Pneumonitis due to inhalation of food and vomit; J15.6 Pneumonia due to other Gram-negative bacteria; N17.9 Acute kidney failure, unspecified; E87.2 Acidosis; D62 Acute posthemorrhagic anemia; B37.81 Candidal esophagitis; K92.2 Gastrointestinal hemorrhage, unspecified; I25.810 Atherosclerosis of coronary artery bypass graft(s) without angina pectoris; E87.1 Hypo-osmolality and hyponatremia; N39.0 Urinary tract infection, site not specified; E87.5 Hyperkalemia; E11.65 Type 2 diabetes mellitus with hyperglycemia; I25.10 Atherosclerotic heart disease of native coronary artery without angina pectoris; Z95.1 Presence of aortocoronary bypass graft; K44.9 Diaphragmatic hernia without obstruction or gangrene; K64.9 Unspecified hemorrhoids; K62.1 Rectal polyp; B37.3 Candidiasis of vulva and vagina; F17.210 Nicotine dependence, cigarettes, uncomplicated; Z79.4 Long term (current) use of insulin; K29.70 Gastritis, unspecified, without bleeding; R13.10 Dysphagia, unspecified; E86.0 Dehydration; R68.0 Hypothermia, not associated with low environmental temperature; E11.22 Type 2 diabetes mellitus with diabetic chronic kidney disease; N18.9 Chronic kidney disease, unspecified
CPT/HCPCS: 36415; 36556; 36600; 51702; 71045; 71046; 80048; 80053; 80076; 81001; 82009; 82274; 82803; 82962; 83036; 83605; 83630; 83735; 84100; 84439; 84443; 84484; 85014; 85018; 85025; 85027; 85610; 85730; 86850; 86900; 86920; 86922; 87040; 87086; 87088; 87493; 87506; 88305; 88342; 92507; 92526; 92610; 93005; 93306; 93455; 93567; 97110; 97162; 97166; 97530; 97535; 97802; 99285; 99406; J2185; J7030; J7040; P9016; Q9957; A4216; C1751; C1769; C8929; J0295; J0610; J1940; Q9967

== ENCOUNTER 2018-11-19 18:02 | Inpatient (IN) | payer MEDICARE, SELFPAY ==
[2018-11-19 18:01] VITALS: BMI 24.0
[2018-11-19 18:07] VITALS: BP 90/56; PULSE 67; RESP 18; TEMP 36; O2SAT 100
--- NOTE | 2018-11-19 18:10 | NURSING ---
PT ARRIVED TO FLOOR AT 1802
--- NOTE | 2018-11-19 20:46 | PCM.HP.STD ---
Problem List (1) Encephalopathy Status: Acute (2) Urinary tract infection Status: Acute (3) Diabetes mellitus Status: Chronic (4) Coronary artery disease Status: Chronic (5) Hyperosmolar (nonketotic) coma Status: Acute (6) NSTEMI (non-ST elevated myocardial infarction) Status: Acute (7) Aspiration pneumonia Status: Acute (8) Candidal vulvovaginitis Status: Acute (9) Generalized weakness Status: Acute History of Present Illness Date of Admission: 11/19/18 Chief Complaint: Here for rehabilitation, strengthening, prior to discharge home. The patient is a 73 year old Female with below past medical history presented to [facility] Emergency Department 11/12/2018 with weakness. 11/12/2018 EKG Possible ectopic atrial bradycardia, ST&T wave abnormality, consider anterolateral ischemia, prolonged QT. Weak, unable to walk. On Bactrim, then Cipro, Zofran for recent UTI. Nausea, vomiting, unable to tolerate oral intake. WBC 27.8, Glucose 1626, BUN 66, Cr 2.66. Lactic acid 13.1, Troponin 0.39, Chest X-ray negative. Central line placed. IV fluids, insulin drip, Meropenem 2GM given. 11/12/2018 Admit to Hospital. Insulin drip, IV fluids for HONKS. Meropenem, Diflucan for urinary tract infection. 11/12/2018 Echo Normal LV size. Mild concentric LVH. EF 30%. Moderately severe segmental systolic dysfunction. Stage 2 diastolic dysfunction. 11/12/2018 Dr. Montilla recommended heart catheterization. Cardiac cath showed multiple blockages, recommended medical management. Patient had anemia, positive stool guaiac. 11/19/2018 Dr. Shearer performed EGD showing Gastritis. Colonoscopy showed erythema rectal mucosa, colitis, hemorrhoids. Chest X-ray showed aspiration pneumonia treated with IV Unasyn. IV fluconazole for presumed candidal esophagitis, candidal vulvovaginitis. 11/19/2018 Admit to TCU with debility, here for rehabilitation, strengthening, prior to discharge home with spouse. 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) I25.709 Allergies metformin Allergy (Verified 11/12/18 01:07) Itching Home Medications: Ambulatory Orders Medication Instructions Recorded Alendronate Sodium [Fosamax] 70 mg PO Q7D@0700 11/12/18 Aspirin [Aspirin, Baby] 81 mg PO DAILY@0800 11/12/18 Ergocalciferol [Vitamin D] 50,000 unit PO Q7D 11/12/18 Fluticasone 0.05% [Flonase Nasal 1 spray NASAL DAILY 11/12/18 [place]] [place]-3 Fatty Acids/Fish Oil [Fish 2 each PO BID 11/12/18 Oil 1,000 mg Capsule] Ondansetron [Zofran Odt] 4 mg PO Q8H PRN PRN 11/12/18 Acetaminophen [Tylenol Tablet] 650 mg PO Q6H PRN PRN tablet 11/19/18 Amox/Clavulanate Tablet [Augmentin 875 mg PO BID 11/19/18 Tablet] Atorvastatin Calcium [Lipitor] 40 mg PO QHS 11/19/18 Carvedilol [Coreg (Beta Alexander)] 3.125 mg PO BID 11/19/18 Clopidogrel Bisulfate [Plavix] 75 mg PO DAILY 11/19/18 Fluconazole [Diflucan] 200 mg PO DAILY 11/19/18 Insulin Lispro [Humalog KwikPen] 6 unit SC TIDAC 11/19/18 Insulin Lispro [Humalog KwikPen] See Protocol SC TIDAC 11/19/18 Magnesium Oxide [Mag-Ox 400] 400 mg PO DAILYCM 11/19/18 Pantoprazole Sodium [Protonix] 40 mg PO BID 11/19/18 Sucralfate [Carafate] 1 gm PO ACHS 11/19/18 Surgical History: Surgical History (Last Updated 11/18/18 @ 17:53 by Sharonda Junior) H/O coronary artery bypass surgery (Resolved) Z95.1 History of left heart catheterization Onset Date: 11/16/18 Z98.890 Surgical History: cholecystectomy, coronary bypass surgery, hysterectomy, - - Knee surgery Psychiatric History: No pertinent psych hx 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: No pertinent 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 history Lives: Spouse/ Significant Other Smoking Status: Current every day smoker Tobacco Use: Cigarettes Alcohol: None Drugs: None - *Family History Maternal History Items: Unknown Paternal History Items: Unknown Review of Systems Constitutional: Denies: Chills, Fever, Weight Change HEENT: Denies: Head Aches, Sinus Congestion, Sinus Drainage Cardiovascular: Denies: Chest Pain, Palpitations Respiratory: Denies: Cough, Shortness of breath at rest, Sputum production Gastrointestinal: Denies: Abdominal Pain, Nausea, Vomiting Genitourinary: Denies: Dysuria Musculoskeletal: Denies: Joint Pain, Joint Tenderness Skin: Denies: Rash, Wounds Neurological: Denies: Numbness, Tingling, Focal weakness Psychiatric: Denies: Anxiety, Depression, Homicidal Ideations, Suicidal Ideations Hematologic/ Lymphatic: Denies: Easy Bruising, Easy Bleeding VTE Information - Inpt Only VTE Present on Admission: No VTE Mechan Device Prophylaxis: Knee High ALYSSA Hose VTE Pharm Prophylaxis ordered?: No Reason prophylaxis not ordered:: Medical Contraindication Patient Problems: Active and Suspected Problems (Last Updated 11/18/18 @ 17:53 by Sharonda Junior) Encephalopathy (Acute) Urinary tract infection (Acute) Hyperosmolar (nonketotic) coma (Acute) NSTEMI (non-ST elevated myocardial infarction) (Acute) Aspiration pneumonia (Acute) Candidal vulvovaginitis (Acute) - Physical Exam General: Alert, Oriented x3, Cooperative HEENT: Atraumatic, PERRLA, EOMI, Normocephalic Neck: Supple, No JVD, Negative Carotid Bruits Lungs: Clear to auscultation, Normal air movement Cardiovascular: Regular rate, No murmurs Abdomen: Bowel Sounds Present, Soft, Non Tender Extremities: No edema, Capillary Refill Less than 3 Seconds Skin: No rashes, No breakdown Musculoskeletal: No Tenderness to Palpation of Joints or Extremities Neurological: Cranial nerves II-XII grossly intact Psych/Mental Status: Normal Affect, Appropriate Vital Signs Temp Pulse Resp BP Pulse Ox 96.8 F L 67 18 90/56 L 100 11/19/18 18:07 11/19/18 18:07 11/19/18 18:07 11/19/18 18:07 11/19/18 18:07 Oxygen Delivery Method Room Air Body Mass Index (BMI) 24.0 Finger Stick Blood Glucose 249 Assessment/Plan All Active Problems (Last Updated 11/18/18 @ 17:53 by Sharonda Junior) Encephalopathy (Acute) Urinary tract infection (Acute) Hyperosmolar (nonketotic) coma (Acute) NSTEMI (non-ST elevated myocardial infarction) (Acute) Aspiration pneumonia (Acute) Candidal vulvovaginitis (Acute) H/O coronary artery bypass surgery (Resolved) Generalized weakness (Acute) Confusion (Acute) 73 year old female with below past medical history hospitalized for encephalopathy secondary to hyperosmolar non-ketotic coma, complicated by NSTEMI, aspiration pneumonia, candidal esophagitis/vulvovaginitis, gastrointestinal bleeding, admitted to TCU with debility, here for rehabilitation, strengthening, prior to discharge home with spouse. Debility - PT/OT. Pain - Tylenol 1000MG Q6H PRN mild pain. Bowel - Miralax 17GM daily, Senna/colace 1 tablet BID, Dulcolax 10MG daily PRN. Pneumonia vaccination - Administer Prevnar 13 and/or Pneumovax 23 as necessary. DVT prophylaxis - Hold, recent GI bleed requiring transfusion, already on dual antiplatelet therapy. Osteoporosis - Alendronate 70MG per week. Aspiration pneumonia - Augmentin 875MG BID thru 11/26/2018. Coronary artery disease - Coreg 3.125MG BID, Plavix 75MG daily, Aspirin 81MG daily. Hyperlipidemia - Atorvastatin 40MG QHS. Vitamin D deficiency - D2 50,000 units per week. Candidal esophagitis/vulvovaginitis - Fluconazole 200MG daily thru 12/08/2018. Allergic Rhinitis - Flonase 1 spray daily. Diabetes Mellitus II - Humalog 6 units TIDAC. Hypomagnesemia - Magnesium Oxide 400MG daily. Nausea - Zofran 4MG Q8H PRN. Gastritis - Pantoprazole 40MG BID, Carafate 1GM QACHS.
--- NOTE | 2018-11-19 20:54 | HP.PCM_ITS ---
Problem List (1) Encephalopathy Status: Acute (2) Urinary tract infection Status: Acute (3) Diabetes mellitus Status: Chronic (4) Coronary artery disease Status: Chronic (5) Hyperosmolar (nonketotic) coma Status: Acute (6) NSTEMI (non-ST elevated myocardial infarction) Status: Acute (7) Aspiration pneumonia Status: Acute (8) Candidal vulvovaginitis Status: Acute (9) Generalized weakness Status: Acute History of Present Illness Date of Admission: 11/19/18 Chief Complaint: Here for rehabilitation, strengthening, prior to discharge home. The patient is a 73 year old Female with below past medical history presented to [facility] Emergency Department 11/12/2018 with weakness. 11/12/2018 EKG Possible ectopic atrial bradycardia, ST&T wave abnormality, consider anterolateral ischemia, prolonged QT. Weak, unable to walk. On Bactrim, then Cipro, Zofran for recent UTI. Nausea, vomiting, unable to tolerate oral intake. WBC 27.8, Glucose 1626, BUN 66, Cr 2.66. Lactic acid 13.1, Troponin 0.39, Chest X-ray negative. Central line placed. IV fluids, insulin drip, Meropenem 2GM given. 11/12/2018 Admit to Hospital. Insulin drip, IV fluids for HONKS. Meropenem, Diflucan for urinary tract infection. 11/12/2018 Echo Normal LV size. Mild concentric LVH. EF 30%. Moderately severe segmental systolic dysfunction. Stage 2 diastolic dysfunction. 11/12/2018 Dr. Montilla recommended heart catheterization. Cardiac cath showed multiple blockages, recommended medical management. Patient had anemia, positive stool guaiac. 11/19/2018 Dr. Shearer performed EGD showing Gastritis. Colonoscopy showed erythema rectal mucosa, colitis, hemorrhoids. Chest X-ray showed aspiration pneumonia treated with IV Unasyn. IV fluconazole for presumed candidal esophagitis, candidal vulvovaginitis. 11/19/2018 Admit to TCU with debility, here for rehabilitation, strengthening, prior to discharge home with spouse. 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) I25.709 Allergies metformin Allergy (Verified 11/12/18 01:07) Itching Home Medications: Ambulatory Orders Medication Instructions Recorded Alendronate Sodium [Fosamax] 70 mg PO Q7D@0700 11/12/18 Aspirin [Aspirin, Baby] 81 mg PO DAILY@0800 11/12/18 Ergocalciferol [Vitamin D] 50,000 unit PO Q7D 11/12/18 Fluticasone 0.05% [Flonase Nasal 1 spray NASAL DAILY 11/12/18 [place]] [place]-3 Fatty Acids/Fish Oil [Fish 2 each PO BID 11/12/18 Oil 1,000 mg Capsule] Ondansetron [Zofran Odt] 4 mg PO Q8H PRN PRN 11/12/18 Acetaminophen [Tylenol Tablet] 650 mg PO Q6H PRN PRN tablet 11/19/18 Amox/Clavulanate Tablet [Augmentin 875 mg PO BID 11/19/18 Tablet] Atorvastatin Calcium [Lipitor] 40 mg PO QHS 11/19/18 Carvedilol [Coreg (Beta Alexander)] 3.125 mg PO BID 11/19/18 Clopidogrel Bisulfate [Plavix] 75 mg PO DAILY 11/19/18 Fluconazole [Diflucan] 200 mg PO DAILY 11/19/18 Insulin Lispro [Humalog KwikPen] 6 unit SC TIDAC 11/19/18 Insulin Lispro [Humalog KwikPen] See Protocol SC TIDAC 11/19/18 Magnesium Oxide [Mag-Ox 400] 400 mg PO DAILYCM 11/19/18 Pantoprazole Sodium [Protonix] 40 mg PO BID 11/19/18 Sucralfate [Carafate] 1 gm PO ACHS 11/19/18 Surgical History: Surgical History (Last Updated 11/18/18 @ 17:53 by Sharonda Junior) H/O coronary artery bypass surgery (Resolved) Z95.1 History of left heart catheterization Onset Date: 11/16/18 Z98.890 Surgical History: cholecystectomy, coronary bypass surgery, hysterectomy, - - Knee surgery Psychiatric History: No pertinent psych hx [employer] History: No pertinent [employer] K[employer] M[employer]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[employer]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 history Lives: Spouse/ Significant Other Smoking Status: Current every day smoker Tobacco Use: Cigarettes Alcohol: None Drugs: None - *Family History Maternal History Items: Unknown Paternal History Items: Unknown Review of Systems Constitutional: Denies: Chills, Fever, Weight Change HEENT: Denies: Head Aches, Sinus Congestion, Sinus Drainage Cardiovascular: Denies: Chest Pain, Palpitations Respiratory: Denies: Cough, Shortness of breath at rest, Sputum production Gastrointestinal: Denies: Abdominal Pain, Nausea, Vomiting Genitourinary: Denies: Dysuria Musculoskeletal: Denies: Joint Pain, Joint Tenderness Skin: Denies: Rash, Wounds Neurological: Denies: Numbness, Tingling, Focal weakness Psychiatric: Denies: Anxiety, Depression, Homicidal Ideations, Suicidal Ideations Hematologic/ Lymphatic: Denies: Easy Bruising, Easy Bleeding VTE Information - Inpt Only VTE Present on Admission: No VTE Mechan Device Prophylaxis: Knee High ALYSSA Hose VTE Pharm Prophylaxis ordered?: No Reason prophylaxis not ordered:: Medical Contraindication Patient Problems: Active and Suspected Problems (Last Updated 11/18/18 @ 17:53 by Sharonda Junior) Encephalopathy (Acute) Urinary tract infection (Acute) Hyperosmolar (nonketotic) coma (Acute) NSTEMI (non-ST elevated myocardial infarction) (Acute) Aspiration pneumonia (Acute) Candidal vulvovaginitis (Acute) - Physical Exam General: Alert, Oriented x3, Cooperative HEENT: Atraumatic, PERRLA, EOMI, Normocephalic Neck: Supple, No JVD, Negative Carotid Bruits Lungs: Clear to auscultation, Normal air movement Cardiovascular: Regular rate, No murmurs Abdomen: Bowel Sounds Present, Soft, Non Tender Extremities: No edema, Capillary Refill Less than 3 Seconds Skin: No rashes, No breakdown Musculoskeletal: No Tenderness to Palpation of Joints or Extremities Neurological: Cranial nerves II-XII grossly intact Psych/Mental Status: Normal Affect, Appropriate Vital Signs Temp Pulse Resp BP Pulse Ox 96.8 F L 67 18 90/56 L 100 11/19/18 18:07 11/19/18 18:07 11/19/18 18:07 11/19/18 18:07 11/19/18 18:07 Oxygen Delivery Method Room Air Body Mass Index (BMI) 24.0 Finger Stick Blood Glucose 249 Assessment/Plan All Active Problems (Last Updated 11/18/18 @ 17:53 by Sharonda Junior) Encephalopathy (Acute) Urinary tract infection (Acute) Hyperosmolar (nonketotic) coma (Acute) NSTEMI (non-ST elevated myocardial infarction) (Acute) Aspiration pneumonia (Acute) Candidal vulvovaginitis (Acute) H/O coronary artery bypass surgery (Resolved) Generalized weakness (Acute) Confusion (Acute) 73 year old female with below past medical history hospitalized for encephalopathy secondary to hyperosmolar non-ketotic coma, complicated by NSTEMI, aspiration pneumonia, candidal esophagitis/vulvovaginitis, gastrointesti nal bleeding, admitted to TCU with debility, here for rehabilitation, strengthening, prior to discharge home with spouse. * Debility - PT/OT. * Pain - Tylenol 1000MG Q6H PRN mild pain. * Bowel - Miralax 17GM daily, Senna/colace 1 tablet BID, Dulcolax 10MG daily PRN. * Pneumonia vaccination - Administer Prevnar 13 and/or Pneumovax 23 as necessary. * DVT prophylaxis - Hold, recent GI bleed requiring transfusion, already on dual antiplatelet therapy. * Osteoporosis - Alendronate 70MG per week. * Aspiration pneumonia - Augmentin 875MG BID thru 11/26/2018. * Coronary artery disease - Coreg 3.125MG BID, Plavix 75MG daily, Aspirin 81MG daily. * Hyperlipidemia - Atorvastatin 40MG QHS. * Vitamin D deficiency - D2 50,000 units per week. * Candidal esophagitis/vulvovaginitis - Fluconazole 200MG daily thru 12/08/2018. * Allergic Rhinitis - Flonase 1 spray daily. * Diabetes Mellitus II - Humalog 6 units TIDAC. * Hypomagnesemia - Magnesium Oxide 400MG daily. * Nausea - Zofran 4MG Q8H PRN. * Gastritis - Pantoprazole 40MG BID, Carafate 1GM QACHS.
[2018-11-19] MEDS: Sucralfate 1 GM Tablet PO (21:03)
[2018-11-19] MEDS: Amox/Clavulanate 875 MG Tablet PO (21:03)
[2018-11-19] MEDS: Atorvastatin Calcium 40 MG Tablet PO (21:03)
[2018-11-19 21:20] LABS: Bedside Glucose 203 mg/dL (70-110)
[2018-11-19 22:18] VITALS: BMI 26.6
[2018-11-19 22:28] VITALS: BMI 24.0
[2018-11-19 22:33] VITALS: PULSE 66; O2SAT 98
[2018-11-20] MEDS: Menthol/Lanolin/Calamine/Znox 113 GM Tube 1 APPLIC TOPICAL ×2 (05:24→21:16)
[2018-11-20] MEDS: Amox/Clavulanate 875 MG Tablet PO ×2 (05:25→17:02)
[2018-11-20] MEDS: Carvedilol 3.125 MG TABLET PO ×2 (05:25→17:02)
[2018-11-20] MEDS: Fluconazole 100 MG Tablet 200 MG PO (05:25)
[2018-11-20] MEDS: Clopidogrel Bisulfate 75 MG Tablet PO (05:26)
[2018-11-20] MEDS: Pantoprazole Sodium 40 MG Tablet PO ×2 (05:26→17:02)
[2018-11-20] MEDS: Glucerna Shake 120 ML LIQUID PO ×4 (05:28→21:13)
[2018-11-20] MEDS: Fluticasone 0.05% 1 SPRAY NASAL.SRY NASAL (05:32)
[2018-11-20 06:05] LABS: Hematocrit 31.8 % (37-47); Mean Corp Hgb Conc 31.4 g/gl (32-36); Mean Corpuscular Hgb 28.8 pg (27.0-32.0); Mean Corpuscular Volume 91.6 fL (81-99); Mean Platelet Vol. 9.4 fl (6.2-12.0); Platelet Count 210 K/mm3 (150-450); RBC Distribution Width CV 15.6 % (11.6-14.6); RBC Distribution Width SD 49.6 fl (35.1-43.9); Red Blood Count 3.47 M/mm3 (4.2-5.4); White Blood Count 9.2 K/mm3 (4.4-11.0)
[2018-11-20 06:09] LABS: Differential Indicated MANUAL DIFF; POSITIVE COUNT YES; POSITIVE DIFFERENTIAL NO; POSITIVE MORPHOLOGY YES
[2018-11-20 06:14] LABS: Anion Gap 7 (5-15); BUN 12 mg/dL (7-18); BUN/Creat Ratio 8.8 RATIO (10-20); Calcium,Total 7.1 mg/dL (8.5-10.1); Chloride 113 mmol/L (98-107); Creatinine, Serum 1.36 mg/dL (0.55-1.02); EST Glomerular Filtration Rate 41 mL/min (>60); Est Glom Filt Rate - Afr Amer 49 mL/min (>60); Estimated Creatinine Clearance 28.63 ml/min; Glucose 192 mg/dL (74-106); Potassium 5.1 mmol/L (3.5-5.1); Sodium Level 141 mmol/L (136-145)
[2018-11-20 06:28] LABS: Eosinophil 2 % (0-5); Lymphocyte 30 % (19-41); Monocyte 5 % (0-10); Neutrophil-Segmented 63 % (47-70); Total Cells Counted 100 (MANUAL DIFF)
[2018-11-20 06:29] LABS: Absolute Lymphocyte Count 2.76 X10^3/ul (0.83-4.51); Absolute Neutrophil Count 5.8 X10^3/uL (2.0-7.7); Atypical Lymphocyte 1+ %; Lymphocyte # 2.76 X10^3/ul (4.0); Neutrophil # 5.79 X10^3/uL (2.7-7.7); Platelet Estimate ADEQUATE (ADEQ); Red Cell Morphology NORM C+C NORMAL (NORM C&C)
[2018-11-20 06:55] LABS: Bedside Glucose 211 mg/dL (70-110)
[2018-11-20] MEDS: Insulin Lispro 100 UNIT/ML INSULN.PEN 6 UNIT SC ×3 (08:47→17:57)
[2018-11-20] MEDS: Sucralfate 1 GM Tablet PO ×4 (08:47→22:06)
[2018-11-20] MEDS: Magnesium Oxide 400 MG Tablet PO (08:47)
[2018-11-20] MEDS: Aspirin 81 MG TAB.CHEW PO (08:47)
[2018-11-20 11:10] LABS: Bedside Glucose 288 mg/dL (70-110)
[2018-11-20] MEDS: Tuberculin,Purif.prot.deriv. 50 TU/ML Vial 5 ML ID (11:11)
[2018-11-20 13:42] LABS: Pathologist Review Reviewed
--- NOTE | 2018-11-20 14:48 | CASEMGMT ---
Student Social Work psychosocial assessment documentation reviewed. RICCO Kaur
--- NOTE | 2018-11-20 15:05 | PCM.PN.BLA ---
Progress Note Discussed patient's EGD and colonoscopy pathology report with the patient. Gastritis was seen on the EGD, colonoscopy showed focal active colitis. Patient states she still having some loose bowel movements however this may be also due to her prep from yesterday. Will have patient complete the Augmentin for 7 days. However if she still continues to have loose bowel movements at that time would consider placing her on Cipro/Flagyl for an additional 7 days. Patient's abdomen currently soft, nontender, nondistended. Patient was agreeable with plan. Also discussed with Dr. March.
[2018-11-20 15:58] VITALS: BP 103/62; PULSE 62; RESP 14; TEMP 35.9; O2SAT 99
[2018-11-20 17:20] LABS: Bedside Glucose 236 mg/dL (70-110)
[2018-11-20] MEDS: Atorvastatin Calcium 40 MG Tablet PO (21:13)
[2018-11-20 21:51] LABS: Bedside Glucose 213 mg/dL (70-110)
[2018-11-20] MEDS: Nystatin Powder 15gm Bottle 1 APPLIC TOPICAL (22:06)
[2018-11-21] MEDS: Fluconazole 100 MG Tablet 200 MG PO (05:47)
[2018-11-21] MEDS: Clopidogrel Bisulfate 75 MG Tablet PO (05:47)
[2018-11-21] MEDS: Carvedilol 3.125 MG TABLET PO ×2 (05:48→17:47)
[2018-11-21] MEDS: Pantoprazole Sodium 40 MG Tablet PO ×2 (05:48→17:47)
[2018-11-21] MEDS: Amox/Clavulanate 875 MG Tablet PO ×2 (05:48→17:47)
[2018-11-21] MEDS: Glucerna Shake 120 ML LIQUID PO ×3 (05:49→23:18)
[2018-11-21] MEDS: Fluticasone 0.05% 1 SPRAY NASAL.SRY NASAL (05:50)
[2018-11-21] MEDS: Menthol/Lanolin/Calamine/Znox 113 GM Tube 1 APPLIC TOPICAL ×2 (05:52→23:18)
[2018-11-21] MEDS: Nystatin Powder 15gm Bottle 1 APPLIC TOPICAL ×2 (05:53→23:19)
[2018-11-21 06:36] LABS: Bedside Glucose 249 mg/dL (70-110)
[2018-11-21] MEDS: Sucralfate 1 GM Tablet PO ×4 (06:51→23:18)
[2018-11-21] MEDS: Aspirin 81 MG TAB.CHEW PO (08:23)
[2018-11-21] MEDS: Magnesium Oxide 400 MG Tablet PO (08:23)
[2018-11-21] MEDS: Insulin Lispro 100 UNIT/ML INSULN.PEN 6 UNIT SC ×2 (08:35→11:39)
[2018-11-21 11:30] LABS: Bedside Glucose 351 mg/dL (70-110)
[2018-11-21 15:20] VITALS: BP 110/61; PULSE 69; RESP 18; TEMP 36.3; O2SAT 98
[2018-11-21 17:20] LABS: Bedside Glucose 345 mg/dL (70-110)
[2018-11-21] MEDS: Insulin Lispro 100 UNIT/ML INSULN.PEN 10 UNIT SC (17:48)
[2018-11-21 22:00] VITALS: PULSE 62
[2018-11-21 22:20] LABS: Bedside Glucose 347 mg/dL (70-110)
[2018-11-21] MEDS: Atorvastatin Calcium 40 MG Tablet PO (23:18)
[2018-11-22 06:35] LABS: Bedside Glucose 315 mg/dL (70-110)
[2018-11-22] MEDS: Amox/Clavulanate 875 MG Tablet PO ×2 (06:57→17:19)
[2018-11-22] MEDS: Carvedilol 3.125 MG TABLET PO ×2 (06:57→17:19)
[2018-11-22] MEDS: Fluconazole 100 MG Tablet 200 MG PO (06:57)
[2018-11-22] MEDS: Fluticasone 0.05% 1 SPRAY NASAL.SRY NASAL (06:57)
[2018-11-22] MEDS: Glucerna Shake 120 ML LIQUID PO ×2 (06:58→20:48)
[2018-11-22] MEDS: Sucralfate 1 GM Tablet PO ×4 (06:59→20:44)
[2018-11-22] MEDS: Pantoprazole Sodium 40 MG Tablet PO ×2 (06:59→17:20)
[2018-11-22] MEDS: Nystatin Powder 15gm Bottle 1 APPLIC TOPICAL ×2 (06:59→20:54)
[2018-11-22] MEDS: Clopidogrel Bisulfate 75 MG Tablet PO (06:59)
[2018-11-22] MEDS: Menthol/Lanolin/Calamine/Znox 113 GM Tube 1 APPLIC TOPICAL ×2 (07:00→20:47)
[2018-11-22] MEDS: Magnesium Oxide 400 MG Tablet PO (08:48)
[2018-11-22] MEDS: Aspirin 81 MG TAB.CHEW PO (08:48)
[2018-11-22] MEDS: Insulin Lispro 100 UNIT/ML INSULN.PEN 13 UNIT SC (08:48)
[2018-11-22 11:41] LABS: Bedside Glucose 351 mg/dL (70-110)
[2018-11-22] MEDS: Insulin Lispro 100 UNIT/ML INSULN.PEN 17 UNIT SC (12:03)
[2018-11-22 15:13] VITALS: BP 118/69; PULSE 66; RESP 18; TEMP 36.9; O2SAT 97
[2018-11-22 16:56] LABS: Bedside Glucose 301 mg/dL (70-110)
[2018-11-22] MEDS: Insulin Lispro 100 UNIT/ML INSULN.PEN 20 UNIT SC (17:18)
[2018-11-22 20:30] VITALS: PULSE 69; RESP 18; O2SAT 96
[2018-11-22] MEDS: Atorvastatin Calcium 40 MG Tablet PO (20:44)
[2018-11-22 22:21] LABS: Bedside Glucose 207 mg/dL (70-110)
[2018-11-23] MEDS: Acetaminophen 500 MG Tablet 1000 MG PO (03:35)
[2018-11-23] MEDS: Amox/Clavulanate 875 MG Tablet PO ×2 (04:23→18:37)
[2018-11-23] MEDS: Fluconazole 100 MG Tablet 200 MG PO (04:23)
[2018-11-23] MEDS: Clopidogrel Bisulfate 75 MG Tablet PO (04:24)
[2018-11-23] MEDS: Menthol/Lanolin/Calamine/Znox 113 GM Tube 1 APPLIC TOPICAL ×2 (04:25→20:52)
[2018-11-23] MEDS: Nystatin Powder 15gm Bottle 1 APPLIC TOPICAL ×2 (04:25→20:56)
[2018-11-23] MEDS: Fluticasone 0.05% 1 SPRAY NASAL.SRY NASAL (04:25)
[2018-11-23] MEDS: Glucerna Shake 120 ML LIQUID PO ×2 (04:29→20:51)
[2018-11-23] MEDS: Pantoprazole Sodium 40 MG Tablet PO ×2 (04:29→18:37)
[2018-11-23] MEDS: Carvedilol 3.125 MG TABLET PO ×2 (04:32→18:37)
[2018-11-23 06:30] LABS: Bedside Glucose 201 mg/dL (70-110)
[2018-11-23] MEDS: Insulin Lispro 100 UNIT/ML INSULN.PEN 20 UNIT SC ×2 (07:08→12:05)
[2018-11-23] MEDS: Sucralfate 1 GM Tablet PO ×4 (07:09→20:52)
[2018-11-23] MEDS: Magnesium Oxide 400 MG Tablet PO (08:17)
[2018-11-23] MEDS: Aspirin 81 MG TAB.CHEW PO (08:17)
[2018-11-23 11:30] LABS: Bedside Glucose 129 mg/dL (70-110)
--- NOTE | 2018-11-23 11:57 | CASEMGMT ---
Insurance Clinical update sent via secure email. Will await continued stay determination. Auth # [id number] RICCO Kaur
--- NOTE | 2018-11-23 13:44 | PCM.PN.RX ---
<AnivaldanielechanaJefferson D - Last Filed: 11/23/18 13:44> Progress Note - Pharmacy Subjective: TCU Admission Objective: Allergies metformin Allergy (Verified 11/12/18 01:07) Itching Current Medications Generic Name Dose Route Start Last Admin Trade Name Freq PRN Reason Stop Dose Admin Acetaminophen 1,000 mg 11/19/18 21:05 11/23/18 03:35 Tylenol PO 1,000 mg Q6H PRN PRN Administration MILD PAIN (1-10) Alendronate Sodium 70 mg 11/24/18 06:00 Fosamax PO Tu@0600 [facility] Amoxicillin/Clavulanate Potassium 875 mg 11/19/18 20:00 11/23/18 04:23 Augmentin Tablet PO 11/26/18 18:00 875 mg BID FARNAZ Administration Aspirin 81 mg 11/20/18 08:00 11/23/18 08:17 Aspirin, Baby PO 81 mg DAILY@0800 FARNAZ Administration Atorvastatin Calcium 40 mg 11/19/18 22:00 11/22/18 20:44 Lipitor PO 40 mg QHS [facility] Administration Bisacodyl 10 mg 11/19/18 21:05 Dulcolax PO DAILY PRN Constipation Calamine/Phenol 1 applic 11/20/18 06:00 11/23/18 04:25 Calmoseptine Ointment TOPICAL 1 applicatio 0600,2200 [facility] Administration Protocol Carvedilol 3.125 mg 11/20/18 06:00 11/23/18 04:32 Coreg PO 3.125 mg BID [facility] Administration Clopidogrel Bisulfate 75 mg 11/20/18 06:00 11/23/18 04:24 Plavix PO 75 mg DAILY [facility] Administration Ergocalciferol 50,000 unit 11/25/18 08:00 Vitamin D PO WE [facility] Fluconazole 200 mg 11/20/18 06:00 11/23/18 04:23 Diflucan PO 11/28/18 06:01 200 mg DAILY [facility] Administration Fluticasone Propionate 1 spray 11/20/18 06:00 11/23/18 04:25 Flonase Nasal [place] NASAL 1 spray DAILY [facility] Administration Insulin Glargine 30 units 11/22/18 18:00 11/23/18 07:08 Lantus (Bkc) SC 30 units BID [facility] Administration Insulin Human Lispro 20 unit 11/22/18 16:45 04/08/19 12:05 Humalog Kwikpen (Bkc) SC 20 units TIDAC FARNAZ Administration Magnesium Oxide 400 mg 11/20/18 08:00 11/23/18 08:17 Mag-Ox 400 PO 400 mg DAILYCM FARNAZ Administration Multi-Ingredient Cream 1 applic 11/20/18 06:00 11/23/18 04:26 Eucerin TOPICAL 1 applicatio 0600,2200 [facility] Administration Protocol Nutritional Formula (Lactose Free) 120 ml 11/20/18 06:00 11/23/18 12:05 Glucerna Shake PO Not Given 4X/DAY FARNAZ Nystatin 1 applic 11/20/18 06:00 11/23/18 04:25 Mycostatin Powder TOPICAL 1 applicatio 0600,2200 [facility] Administration Protocol Ondansetron HCl 4 mg 11/19/18 18:31 Zofran Odt PO Q8H PRN PRN NAUSEA Pantoprazole Sodium 40 mg 11/20/18 06:00 11/23/18 04:29 Protonix PO 40 mg BID FARNAZ Administration Polyethylene Glycol 17 gm 11/20/18 06:00 11/23/18 03:43 Miralax PO Not Given DAILY FARNAZ Senna/Docusate Sodium 1 tablet 11/20/18 06:00 11/23/18 03:43 Senokot-S, Radha-Colace PO Not Given BID [facility] Sucralfate 1 gm 11/19/18 22:00 11/23/18 11:26 Carafate PO 1 gm 1HR_ACHS FARNAZ Administration Tuberculin PPD 5 tu 11/27/18 10:00 Tubersol, Aplisol, Ppd ID 11/27/18 10:01 X1 ONE Problem List (Last Updated 11/18/18 @ 17:53 by Sharonda Junior) Encephalopathy (Acute) Urinary tract infection (Acute) Diabetes mellitus (Chronic) Coronary artery disease (Chronic) Hyperosmolar (nonketotic) coma (Acute) NSTEMI (non-ST elevated myocardial infarction) (Acute) Aspiration pneumonia (Acute) Candidal vulvovaginitis (Acute) Vital Signs Temp Pulse Resp BP Pulse Ox 98.4 F 69 18 118/69 96 11/22/18 15:13 11/22/18 20:30 11/22/18 20:30 11/22/18 15:13 11/22/18 20:30 Oxygen Delivery Method Room Air Weight: 63.957 kg Body Mass Index (BMI) 26.6 Finger Stick Blood Glucose 249 Sodium 141 mmol/L (136-145) 11/20/18 05:40 Potassium 5.1 mmol/L (3.5-5.1) 11/20/18 05:40 Chloride 113 mmol/L (98-107) H 11/20/18 05:40 Carbon Dioxide 21.0 mmol/L (21.0-32.0) 11/20/18 05:40 Anion Gap 7 (5-15) 11/20/18 05:40 BUN 12 mg/dL (7-18) 11/20/18 05:40 Creatinine 1.36 mg/dL (0.55-1.02) H 11/20/18 05:40 Est GFR (MDRD) Af Amer 49 mL/min (>60) L 11/20/18 05:40 Est GFR (MDRD) Non-Af 41 mL/min (>60) L 11/20/18 05:40 BUN/Creatinine Ratio 8.8 RATIO (10-20) L 11/20/18 05:40 Glucose 192 mg/dL (74-106) H 11/20/18 05:40 Assessment/Plan: 1) Pain APAP for mild pain. Continue to monitor prn medication use, daily pain scores. 2) ID Amox/clav thru 11/26, fluconazole thru 11/28. Continue to monitor s/s infection. 3) CAD/HLD Carvedilol, clopidogrel, ASA, atorvastatin. Continue to monitor BP/HR, lipids, for chest pain. 4) GI Pantoprazole, sucralfate, ondansetron prn. Continue to monitor prn medication use, for s/s GI distress. 5) Nutrition D, Glucerna, Mg. Continue to monitor electrolytes. 6) Osteoporosis Alendronate. Continue to monitor clinically. Psychotropic Medications: None Unnecessary Medications: None Bowel Regimen: 7) Senna/s, PEG, prn bisacodyl. Continue to monitor prn medication use, for constipation/diarrhea. Date of Note:: 11/23/18 - Provider Comments Provider responsibility: Provider responsible to enter orders to implement recommendations <Vinod March Chi - Last Filed: 11/23/18 14:43> Progress Note - Pharmacy Subjective: [] Objective: Allergies metformin Allergy (Verified 11/12/18 01:07) Itching Current Medications Generic Name Dose Route Start Last Admin Trade Name Freq PRN Reason Stop Dose Admin Acetaminophen 1,000 mg 11/19/18 21:05 11/23/18 03:35 Tylenol PO 1,000 mg Q6H PRN PRN Administration MILD PAIN (1-3/10) Alendronate Sodium 70 mg 11/24/18 06:00 Fosamax PO Tu@0600 [facility] Amoxicillin/Clavulanate Potassium 875 mg 11/19/18 20:00 11/23/18 04:23 Augmentin Tablet PO 11/26/18 18:00 875 mg BID FARNAZ Administration Aspirin 81 mg 11/20/18 08:00 11/23/18 08:17 Aspirin, Baby PO 81 mg DAILY@0800 FARNAZ Administration Atorvastatin Calcium 40 mg 11/19/18 22:00 11/22/18 20:44 Lipitor PO 40 mg QHS [facility] Administration Bisacodyl 10 mg 11/19/18 21:05 Dulcolax PO DAILY PRN Constipation Calamine/Phenol 1 applic 11/20/18 06:00 11/23/18 04:25 Calmoseptine Ointment TOPICAL 1 applicatio 0600,2200 [facility] Administration Protocol Carvedilol 3.125 mg 11/20/18 06:00 11/23/18 04:32 Coreg PO 3.125 mg BID FARNAZ Administration Clopidogrel Bisulfate 75 mg 11/20/18 06:00 11/23/18 04:24 Plavix PO 75 mg DAILY [facility] Administration Ergocalciferol 50,000 unit 11/25/18 08:00 Vitamin D PO WE [facility] Fluconazole 200 mg 11/20/18 06:00 11/23/18 04:23 Diflucan PO 11/28/18 06:01 200 mg DAILY [facility] Administration Fluticasone Propionate 1 spray 11/20/18 06:00 11/23/18 04:25 Flonase Nasal [place] NASAL 1 spray DAILY [facility] Administration Insulin Glargine 30 units 11/22/18 18:00 11/23/18 07:08 Lantus (Bkc) SC 30 units BID [facility] Administration Insulin Human Lispro 20 unit 11/22/18 16:45 11/23/18 12:05 Humalog Kwikpen (Bkc) SC 20 units TIDAC FARNAZ Administration Magnesium Oxide 400 mg 11/20/18 08:00 11/23/18 08:17 Mag-Ox 400 PO 400 mg DAILYCM FARNAZ Administration Multi-Ingredient Cream 1 applic 11/20/18 06:00 11/23/18 04:26 Eucerin TOPICAL 1 applicatio 0600,2200 [facility] Administration Protocol Nutritional Formula (Lactose Free) 120 ml 11/20/18 06:00 11/23/18 12:05 Glucerna Shake PO Not Given 4X/DAY FARNAZ Nystatin 1 applic 11/20/18 06:00 11/23/18 04:25 Mycostatin Powder TOPICAL 1 applicatio 0600,2200 [facility] Administration Protocol Ondansetron HCl 4 mg 11/19/18 18:31 Zofran Odt PO Q8H PRN PRN NAUSEA Pantoprazole Sodium 40 mg 11/20/18 06:00 11/23/18 04:29 Protonix PO 40 mg BID [facility] Administration Polyethylene Glycol 17 gm 11/20/18 06:00 11/23/18 03:43 Miralax PO Not Given DAILY [facility] Senna/Docusate Sodium 1 tablet 11/20/18 06:00 11/23/18 03:43 Senokot-S, Radha-Colace PO Not Given BID [facility] Sucralfate 1 gm 11/19/18 22:00 11/23/18 11:26 Carafate PO 1 gm 1HR_ACHS FARNAZ Administration Tuberculin PPD 5 tu 11/27/18 10:00 Tubersol, Aplisol, Ppd ID 11/27/18 10:01 X1 ONE Problem List (Last Updated 11/18/18 @ 17:53 by Sharonda Junior) Encephalopathy (Acute) Urinary tract infection (Acute) Diabetes mellitus (Chronic) Coronary artery disease (Chronic) Hyperosmolar (nonketotic) coma (Acute) NSTEMI (non-ST elevated myocardial infarction) (Acute) Aspiration pneumonia (Acute) Candidal vulvovaginitis (Acute) Vital Signs Temp Pulse Resp BP Pulse Ox 98.4 F 69 18 118/69 96 11/22/18 15:13 11/22/18 20:30 11/22/18 20:30 11/22/18 15:13 11/22/18 20:30 Oxygen Delivery Method Room Air Weight: 63.957 kg Body Mass Index (BMI) 26.6 Finger Stick Blood Glucose 249 Sodium 141 mmol/L (136-145) 11/20/18 05:40 Potassium 5.1 mmol/L (3.5-5.1) 11/20/18 05:40 Chloride 113 mmol/L (98-107) H 11/20/18 05:40 Carbon Dioxide 21.0 mmol/L (21.0-32.0) 11/20/18 05:40 Anion Gap 7 (5-15) 11/20/18 05:40 BUN 12 mg/dL (7-18) 11/20/18 05:40 Creatinine 1.36 mg/dL (0.55-1.02) H 11/20/18 05:40 Est GFR (MDRD) Af Amer 49 mL/min (>60) L 11/20/18 05:40 Est GFR (MDRD) Non-Af 41 mL/min (>60) L 11/20/18 05:40 BUN/Creatinine Ratio 8.8 RATIO (10-20) L 11/20/18 05:40 Glucose 192 mg/dL (74-106) H 11/20/18 05:40 Assessment/Plan: Psychotropic Medications: Unnecessary Medications: Bowel Regimen: - Provider Comments Provider responsibility: Provider responsible to enter orders to implement recommendations Provider Comments to Recommendations by Pharmacy: Agree
--- NOTE | 2018-11-23 14:07 | PHA.CONS_ITS ---
<AnivaldanielechanaJefferson D - Last Filed: 11/23/18 13:44> Progress Note - Pharmacy Subjective: TCU Admission Objective: Allergies metformin Allergy (Verified 11/12/18 01:07) Itching Current Medications Generic Name Dose Route Start Last Admin Trade Name Freq PRN Reason Stop Dose Admin Acetaminophen 1,000 mg 11/19/18 21:05 11/23/18 03:35 Tylenol PO 1,000 mg Q6H PRN PRN Administration MILD PAIN (1-10) Alendronate Sodium 70 mg 11/24/18 06:00 Fosamax PO Tu@0600 [facility] Amoxicillin/Clavulanate Potassium 875 mg 11/19/18 20:00 11/23/18 04:23 Augmentin Tablet PO 11/26/18 18:00 875 mg BID FARNAZ Administration Aspirin 81 mg 11/20/18 08:00 11/23/18 08:17 Aspirin, Baby PO 81 mg DAILY@0800 FARNAZ Administration Atorvastatin Calcium 40 mg 11/19/18 22:00 11/22/18 20:44 Lipitor PO 40 mg QHS [facility] Administration Bisacodyl 10 mg 11/19/18 21:05 Dulcolax PO DAILY PRN Constipation Calamine/Phenol 1 applic 11/20/18 06:00 11/23/18 04:25 Calmoseptine Ointment TOPICAL 1 applicatio 0600,2200 [facility] Administration Protocol Carvedilol 3.125 mg 11/20/18 06:00 11/23/18 04:32 Coreg PO 3.125 mg BID [facility] Administration Clopidogrel Bisulfate 75 mg 11/20/18 06:00 11/23/18 04:24 Plavix PO 75 mg DAILY [facility] Administration Ergocalciferol 50,000 unit 11/25/18 08:00 Vitamin D PO WE [facility] Fluconazole 200 mg 11/20/18 06:00 11/23/18 04:23 Diflucan PO 11/28/18 06:01 200 mg DAILY [facility] Administration Fluticasone Propionate 1 spray 11/20/18 06:00 11/23/18 04:25 Flonase Nasal [place] NASAL 1 spray DAILY [facility] Administration Insulin Glargine 30 units 11/22/18 18:00 11/23/18 07:08 Lantus (Bkc) SC 30 units BID [facility] Administration Insulin Human Lispro 20 unit 11/22/18 16:45 04/08/19 12:05 Humalog Kwikpen (Bkc) SC 20 units TIDAC FARNAZ Administration Magnesium Oxide 400 mg 11/20/18 08:00 11/23/18 08:17 Mag-Ox 400 PO 400 mg DAILYCM FARNAZ Administration Multi-Ingredient Cream 1 applic 11/20/18 06:00 11/23/18 04:26 Eucerin TOPICAL 1 applicatio 0600,2200 [facility] Administration Protocol Nutritional Formula (Lactose Free) 120 ml 11/20/18 06:00 11/23/18 12:05 Glucerna Shake PO Not Given 4X/DAY FARNAZ Nystatin 1 applic 11/20/18 06:00 11/23/18 04:25 Mycostatin Powder TOPICAL 1 applicatio 0600,2200 [facility] Administration Protocol Ondansetron HCl 4 mg 11/19/18 18:31 Zofran Odt PO Q8H PRN PRN NAUSEA Pantoprazole Sodium 40 mg 11/20/18 06:00 11/23/18 04:29 Protonix PO 40 mg BID FARNAZ Administration Polyethylene Glycol 17 gm 11/20/18 06:00 11/23/18 03:43 Miralax PO Not Given DAILY FARNAZ Senna/Docusate Sodium 1 tablet 11/20/18 06:00 11/23/18 03:43 Senokot-S, Radha-Colace PO Not Given BID [facility] Sucralfate 1 gm 11/19/18 22:00 11/23/18 11:26 Carafate PO 1 gm 1HR_ACHS FARNAZ Administration Tuberculin PPD 5 tu 11/27/18 10:00 Tubersol, Aplisol, Ppd ID 11/27/18 10:01 X1 ONE Problem List (Last Updated 11/18/18 @ 17:53 by Sharonda Junior) Encephalopathy (Acute) Urinary tract infection (Acute) Diabetes mellitus (Chronic) Coronary artery disease (Chronic) Hyperosmolar (nonketotic) coma (Acute) NSTEMI (non-ST elevated myocardial infarction) (Acute) Aspiration pneumonia (Acute) Candidal vulvovaginitis (Acute) Vital Signs Temp Pulse Resp BP Pulse Ox 98.4 F 69 18 118/69 96 11/22/18 15:13 11/22/18 20:30 11/22/18 20:30 11/22/18 15:13 11/22/18 20:30 Oxygen Delivery Method Room Air Weight: 63.957 kg Body Mass Index (BMI) 26.6 Finger Stick Blood Glucose 249 Sodium 141 mmol/L (136-145) 11/20/18 05:40 Potassium 5.1 mmol/L (3.5-5.1) 11/20/18 05:40 Chloride 113 mmol/L (98-107) H 11/20/18 05:40 Carbon Dioxide 21.0 mmol/L (21.0-32.0) 11/20/18 05:40 Anion Gap 7 (5-15) 11/20/18 05:40 BUN 12 mg/dL (7-18) 11/20/18 05:40 Creatinine 1.36 mg/dL (0.55-1.02) H 11/20/18 05:40 Est GFR (MDRD) Af Amer 49 mL/min (>60) L 11/20/18 05:40 Est GFR (MDRD) Non-Af 41 mL/min (>60) L 11/20/18 05:40 BUN/Creatinine Ratio 8.8 RATIO (10-20) L 11/20/18 05:40 Glucose 192 mg/dL (74-106) H 11/20/18 05:40 Assessment/Plan: 1) Pain APAP for mild pain. Continue to monitor prn medication use, daily pain scores. 2) ID Amox/clav thru 11/26, fluconazole thru 11/28. Continue to monitor s/s infection. 3) CAD/HLD Carvedilol, clopidogrel, ASA, atorvastatin. Continue to monitor BP/HR, lipids, for chest pain. 4) GI Pantoprazole, sucralfate, ondansetron prn. Continue to monitor prn medication use, for s/s GI distress. 5) Nutrition D, Glucerna, Mg. Continue to monitor electrolytes. 6) Osteoporosis Alendronate. Continue to monitor clinically. Psychotropic Medications: None Unnecessary Medications: None Bowel Regimen: 7) Senna/s, PEG, prn bisacodyl. Continue to monitor prn medication use, for con stipation/diarrhea. Date of Note:: 11/23/18 - Provider Comments Provider responsibility: Provider responsible to enter orders to implement recommendations <Vinod March Chi - Last Filed: 11/23/18 14:43> Progress Note - Pharmacy Subjective: [] Objective: Allergies metformin Allergy (Verified 11/12/18 01:07) Itching Current Medications Generic Name Dose Route Start Last Admin Trade Name Freq PRN Reason Stop Dose Admin Acetaminophen 1,000 mg 11/19/18 21:05 11/23/18 03:35 Tylenol PO 1,000 mg Q6H PRN PRN Administration MILD PAIN (1-3/10) Alendronate Sodium 70 mg 11/24/18 06:00 Fosamax PO Tu@0600 [facility] Amoxicillin/Clavulanate Potassium 875 mg 11/19/18 20:00 11/23/18 04:23 Augmentin Tablet PO 11/26/18 18:00 875 mg BID FARNAZ Administration Aspirin 81 mg 11/20/18 08:00 11/23/18 08:17 Aspirin, Baby PO 81 mg DAILY@0800 FARNAZ Administration Atorvastatin Calcium 40 mg 11/19/18 22:00 11/22/18 20:44 Lipitor PO 40 mg QHS [facility] Administration Bisacodyl 10 mg 11/19/18 21:05 Dulcolax PO DAILY PRN Constipation Calamine/Phenol 1 applic 11/20/18 06:00 11/23/18 04:25 Calmoseptine Ointment TOPICAL 1 applicatio 0600,2200 [facility] Administration Protocol Carvedilol 3.125 mg 11/20/18 06:00 11/23/18 04:32 Coreg PO 3.125 mg BID FARNAZ Administration Clopidogrel Bisulfate 75 mg 11/20/18 06:00 11/23/18 04:24 Plavix PO 75 mg DAILY [facility] Administration Ergocalciferol 50,000 unit 11/25/18 08:00 Vitamin D PO WE [facility] Fluconazole 200 mg 11/20/18 06:00 11/23/18 04:23 Diflucan PO 11/28/18 06:01 200 mg DAILY [facility] Administration Fluticasone Propionate 1 spray 11/20/18 06:00 11/23/18 04:25 Flonase Nasal [place] NASAL 1 spray DAILY [facility] Administration Insulin Glargine 30 units 11/22/18 18:00 11/23/18 07:08 Lantus (Bk) SC 30 units BID FARNAZ Administration Insulin Human Lispro 20 unit 11/22/18 16:45 11/23/18 12:05 Humalog Kwikpen (Bkc) SC 20 units TIDAC FARNAZ Administration Magnesium Oxide 400 mg 11/20/18 08:00 11/23/18 08:17 Mag-Ox 400 PO 400 mg DAILYCM FARNAZ Administration Multi-Ingredient Cream 1 applic 11/20/18 06:00 11/23/18 04:26 Eucerin TOPICAL 1 applicatio 06,2200 [facility] Administration Protocol Nutritional Formula (Lactose Free) 120 ml 11/20/18 06:00 11/23/18 12:05 Glucerna Shake PO Not Given 4X/DAY FARNAZ Nystatin 1 applic 11/20/18 06:00 11/23/18 04:25 Mycostatin Powder TOPICAL 1 applicatio 0600,2200 [facility] Administration Protocol Ondansetron HCl 4 mg 11/19/18 18:31 Zofran Odt PO Q8H PRN PRN NAUSEA Pantoprazole Sodium 40 mg 11/20/18 06:00 11/23/18 04:29 Protonix PO 40 mg BID [facility] Administration Polyethylene Glycol 17 gm 11/20/18 06:00 11/23/18 03:43 Miralax PO Not Given DAILY FARNAZ Senna/Docusate Sodium 1 tablet 11/20/18 06:00 11/23/18 03:43 Senokot-S, Radha-Colace PO Not Given BID [facility] Sucralfate 1 gm 11/19/18 22:00 11/23/18 11:26 Carafate PO 1 gm 1HR_ACHS FARNAZ Administration Tuberculin PPD 5 tu 11/27/18 10:00 Tubersol, Aplisol, Ppd ID 11/27/18 10:01 X1 ONE Problem List (Last Updated 11/18/18 @ 17:53 by Sharonda Junior) Encephalopathy (Acute) Urinary tract infection (Acute) Diabetes mellitus (Chronic) Coronary artery disease (Chronic) Hyperosmolar (nonketotic) coma (Acute) NSTEMI (non-ST elevated myocardial infarction) (Acute) Aspiration pneumonia (Acute) Candidal vulvovaginitis (Acute) Vital Signs Temp Pulse Resp BP Pulse Ox 98.4 F 69 18 118/69 96 11/22/18 15:13 11/22/18 20:30 11/22/18 20:30 11/22/18 15:13 11/22/18 20:30 Oxygen Delivery Method Room Air Weight: 63.957 kg Body Mass Index (BMI) 26.6 Finger Stick Blood Glucose 249 Sodium 141 mmol/L (136-145) 11/20/18 05:40 Potassium 5.1 mmol/L (3.5-5.1) 11/20/18 05:40 Chloride 113 mmol/L (98-107) H 11/20/18 05:40 Carbon Dioxide 21.0 mmol/L (21.0-32.0) 11/20/18 05:40 Anion Gap 7 (5-15) 11/20/18 05:40 BUN 12 mg/dL (7-18) 11/20/18 05:40 Creatinine 1.36 mg/dL (0.55-1.02) H 11/20/18 05:40 Est GFR (MDRD) Af Amer 49 mL/min (>60) L 11/20/18 05:40 Est GFR (MDRD) Non-Af 41 mL/min (>60) L 11/20/18 05:40 BUN/Creatinine Ratio 8.8 RATIO (10-20) L 11/20/18 05:40 Glucose 192 mg/dL (74-106) H 11/20/18 05:40 Assessment/Plan: Psychotropic Medications: Unnecessary Medications: Bowel Regimen: - Provider Comments Provider responsibility: Provider responsible to enter orders to implement recommendations Provider Comments to Recommendations by Pharmacy: Agree
[2018-11-23 15:58] VITALS: BP 151/66; PULSE 61; RESP 18; TEMP 36.4; O2SAT 97
[2018-11-23 17:15] LABS: Bedside Glucose 25 mg/dL (70-110)
[2018-11-23 17:25] LABS: Bedside Glucose 28 mg/dL (70-110)
[2018-11-23] MEDS: Glucose Oral Gel 15 GM Tube PO (17:38)
--- NOTE | 2018-11-23 18:00 | NURSING ---
Addendum entered by Ana Barton 11/23/18 18:52: BLOOD SUGAR RECHECKED AT 100. ARRIVED AT PT SIDE. IV INSERTED TO LT WRIST. Original Note: PT NOTED TO HAVE A LOW BLOOD SUGAR OF 25, VERY LETHARGIC. COUPLE JUICES W/SUGAR GIVEN, GLUCOSE 15GM GEL GIVEN, RECHECKED 35 THEN 47, 64. PT MORE COHERENT AFTER RECEIVING A MEAL AND JUICES.
[2018-11-23 18:06] LABS: Bedside Glucose 64 mg/dL (70-110)
[2018-11-23 18:06] LABS: Bedside Glucose 100 mg/dL (70-110)
[2018-11-23 18:08] LABS: Glucose 51 mg/dL (74-106)
[2018-11-23 20:51] LABS: Bedside Glucose 267 mg/dL (70-110)
[2018-11-23] MEDS: Atorvastatin Calcium 40 MG Tablet PO (20:52)
[2018-11-23 23:43] VITALS: PULSE 72; RESP 18; O2SAT 97
[2018-11-24] MEDS: Clopidogrel Bisulfate 75 MG Tablet PO (05:48)
[2018-11-24] MEDS: Pantoprazole Sodium 40 MG Tablet PO ×2 (05:49→17:31)
[2018-11-24] MEDS: Carvedilol 3.125 MG TABLET PO ×2 (05:49→17:31)
[2018-11-24] MEDS: Alendronate Sodium 70 MG Tablet PO (05:49)
[2018-11-24] MEDS: Amox/Clavulanate 875 MG Tablet PO ×2 (05:49→17:31)
[2018-11-24] MEDS: Fluconazole 100 MG Tablet 200 MG PO (05:51)
[2018-11-24] MEDS: Menthol/Lanolin/Calamine/Znox 113 GM Tube 1 APPLIC TOPICAL ×2 (05:52→19:54)
[2018-11-24] MEDS: Glucerna Shake 120 ML LIQUID PO ×4 (05:52→19:52)
[2018-11-24] MEDS: Nystatin Powder 15gm Bottle 1 APPLIC TOPICAL ×2 (05:55→19:52)
[2018-11-24] MEDS: Fluticasone 0.05% 1 SPRAY NASAL.SRY NASAL (05:55)
[2018-11-24] MEDS: Sucralfate 1 GM Tablet PO ×4 (06:01→19:54)
[2018-11-24 06:46] LABS: Bedside Glucose 226 mg/dL (70-110)
[2018-11-24 07:05] LABS: Bedside Glucose 47 mg/dL (70-110)
[2018-11-24 07:05] LABS: Bedside Glucose 35 mg/dL (70-110)
[2018-11-24] MEDS: Magnesium Oxide 400 MG Tablet PO (08:52)
[2018-11-24] MEDS: Aspirin 81 MG TAB.CHEW PO (08:52)
[2018-11-24] MEDS: Insulin Lispro 100 UNIT/ML INSULN.PEN 10 UNIT SC ×3 (08:53→17:31)
[2018-11-24 11:50] LABS: Bedside Glucose 220 mg/dL (70-110)
[2018-11-24 14:00] VITALS: PULSE 63; RESP 18; O2SAT 99
--- NOTE | 2018-11-24 14:28 | CASEMGMT ---
Addendum entered by Shivani Ackerman 11/24/18 14:29: NOMNOC signed and faxed. RICCO Kaur Original Note: Insurance: Continued stay denied with LCD 11/27 and D/C 11/28. Auth # [id number] RICCO Kaur
--- NOTE | 2018-11-24 14:31 | CASEMGMT ---
Social Work Met with pt and and explained that insurance has issued a statement of non coverage effective 11/27 with d/c 11/28. Pt stating that she feels she is ready to return home. SW inquired about home health therapy and pt denies need for this. She does have a walker and cane and wheelchair and pt is able to assist if needed. Plan: home with on 11/28/18 RICCO Kaur
--- NOTE | 2018-11-24 14:57 | NURSING ---
Addendum entered by Ana Barton 11/24/18 17:39: DR QUINTERO UPDATED, NEW ORDER FOR MEDROL DOSE ANUSHA Original Note: DURING PT ASSESSMENT, EDEMA INCREASED TO FEET NONPITTING. ALSO RED AREA TO RIGHT INNER FOOT BY BIG TOE. PT STATED IT HURT AND MIGHT BE A BUNION. REPORTED TO CARMEN MCADAMS
--- NOTE | 2018-11-24 15:16 | CHAPLAIN ---
Type of Pastoral Visit _x__ Initial Visit ___ Follow-up Visit ___ On-call Visit ___ General Patient Visit ___ Spiritual Assessment ___ Family Conference ___ Bereavement ___ Rapid Response ___ Code Blue ___ Other (describe below) Pastoral Care Referral From _x__ Patient ___ Family ___ Nurse ___ Physician ___ Insights Strategist ___ Skein Bleacher ___ Other (describe below) Sacrament/Intervention _x__ Active listening ___ Anointing ___ Scientologist ___ Bereavement ___ Communion ___ Nancy exploration ___ ___ Life review ___ Prayer ___ Reconciliation ___ Sacrament of Sick ___ Supportive presence ___ Wedding ___ Other (describe below) Pastoral Comments
[2018-11-24 15:58] VITALS: BP 111/60; PULSE 75; RESP 16; TEMP 36.8; O2SAT 97
[2018-11-24 16:55] LABS: Bedside Glucose 225 mg/dL (70-110)
[2018-11-24] MEDS: Acetaminophen 500 MG Tablet 1000 MG PO (19:53)
--- NOTE | 2018-11-24 19:53 | PCM.DC ---
- Discharge Diagnoses Current Active Problems: Current Active and Chronic Problems (Last Updated 11/18/18 @ 17:53 by Sharonda Junior) Encephalopathy (Acute) Urinary tract infection (Acute) Diabetes mellitus (Chronic) Coronary artery disease (Chronic) Hyperosmolar (nonketotic) coma (Acute) NSTEMI (non-ST elevated myocardial infarction) (Acute) Aspiration pneumonia (Acute) Candidal vulvovaginitis (Acute) You will use the following diet at home:: No restrictions, Regular Your food should be the consistency of: Regular Your liquids should be the consistency of: Regular/Thin Discharge Activity: Return to Normal Activity, May Shower, Use Walker Weight Bearing Status: Weight bearing as tolerated Call your doctor if you observe: Fever of 101 or Higher, Inability to urinate, Inability to have a bowel movement, Shortness of breath, Chest pain, Uncontrolled pain Allergies/Adverse Reactions: Allergies metformin Allergy (Verified 11/12/18 01:07) Itching Medications to take at Discharge Alendronate Sodium [Fosamax] 70 mg PO Q7D@0700 11/12/18 Aspirin [Aspirin, Baby] 81 mg PO DAILY@0800 11/12/18 Ergocalciferol [Vitamin D] 50,000 unit PO Q7D 11/12/18 Fluticasone 0.05% [Flonase Nasal [place]] 1 spray NASAL DAILY 11/12/18 Acetaminophen [Tylenol] 1,000 mg PO Q6H PRN PRN tablet 11/24/18 Atorvastatin Calcium [Lipitor] 40 mg PO QHS #30 tablet 11/24/18 Carvedilol [Coreg (Beta Alexander)] 3.125 mg PO BID #60 tablet 11/24/18 Clopidogrel Bisulfate [Plavix] 75 mg PO DAILY #30 tablet 11/24/18 Insulin Glargine [Lantus SoloStar Pen] 15 units SC BID #1 pen 11/24/18 Insulin Lispro [Humalog KwikPen] 6 unit SC TIDAC #1 insuln.pen 11/24/18 Magnesium Oxide [Mag-Ox 400] 400 mg PO DAILYCM #30 tablet 11/24/18 Menthol/Lanolin/Calamine/Znox [Calmoseptine Ointment] 1 applic TOPICAL 0600,2200 tube 11/24/18 Mineral Oil/Petrolatum,White [Eucerin] 1 applic TOPICAL 0600,2200 jar 11/24/18 Nystatin Powder [Mycostatin Powder] 1 applic TOPICAL 0600,2200 bottle 11/24/18 Pantoprazole Sodium [Protonix] 40 mg PO BID #60 tablet 11/24/18 Sucralfate [Carafate] 1 gm PO 1HR_ACHS #120 tablet 11/24/18 The following prescriptions were given: Atorvastatin Calcium [Lipitor] 40 mg PO QHS #30 tablet Clopidogrel Bisulfate [Plavix] 75 mg PO DAILY #30 tablet Insulin Lispro [Humalog KwikPen] 6 unit SC TIDAC #1 insuln.pen Magnesium Oxide [Mag-Ox 400] 400 mg PO DAILYCM #30 tablet Sucralfate [Carafate] 1 gm PO 1HR_ACHS #120 tablet Carvedilol [Coreg (Beta Alexander)] 3.125 mg PO BID #60 tablet Insulin Glargine [Lantus SoloStar Pen] 15 units SC BID #1 pen Pantoprazole Sodium [Protonix] 40 mg PO BID #60 tablet Primary Care Physician: Ben Rahman MD [Primary Care Provider] - Please follow up with your Primary Care Physician in: 1 week. Test Results: Test results from this visit will be discussed in further detail at your follow-up appointment, if applicable. Please Follow Up With: Nigel Montilla MD When: 2 weeks. Proposed Discharge Date: 11/28/18
--- NOTE | 2018-11-24 19:55 | PCM.DC.SUM ---
Discharge Date and Diagnosis - Problem List Patient Problems: Active and Suspected Problems (Last Updated 11/18/18 @ 17:53 by Sharonda Junior) Encephalopathy (Acute) Urinary tract infection (Acute) Hyperosmolar (nonketotic) coma (Acute) NSTEMI (non-ST elevated myocardial infarction) (Acute) Aspiration pneumonia (Acute) Candidal vulvovaginitis (Acute) Date of Admission: 11/19/18 Date of Discharge: 11/28/18 - Primary Discharge Diagnosis Active and Suspected Problems (Last Updated 11/18/18 @ 17:53 by Sharonda Junior) Encephalopathy (Acute) Urinary tract infection (Acute) Hyperosmolar (nonketotic) coma (Acute) NSTEMI (non-ST elevated myocardial infarction) (Acute) Aspiration pneumonia (Acute) Candidal vulvovaginitis (Acute) - Secondary Discharge Diagnosis Chronic Problems (Last Updated 11/18/18 @ 17:53 by Sharonda Junior) Diabetes mellitus (Chronic) Coronary artery disease (Chronic) 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) Hospital Course and Treatment Imaging Results: 11/19/18 18:35 Diet: Cardiac: Calorie-Controlled Food consistency:: Regular Liquid Consistency:: Regular/Thin Is pt able to select menu?: No Diet Comments: carb control per patient request How many daily calories?: 1600 calorie Labs (Last 48 Hours) 11/22/18 11/23/18 11/23/18 21:00 06:03 11:25 Glucose POC Glucose 207 H 201 H 129 H 11/23/18 11/23/18 11/23/18 17:08 17:19 17:25 Glucose POC Glucose 25 L* 28 L* 35 L* 11/23/18 11/23/18 11/23/18 17:32 17:34 17:46 Glucose 51 L POC Glucose 47 L 64 L 11/23/18 11/23/18 11/24/18 18:03 20:33 06:36 Glucose POC Glucose 100 267 H 226 H 11/24/18 11/24/18 11:48 16:46 Glucose POC Glucose 220 H 225 H Operations: None Procedures: None Summary of Care Provided: The patient is a 73 year old Female with below past medical history hospitalized for encephalopathy secondary to hyperosmolar non-ketotic coma, complicated by NSTEMI, aspiration pneumonia, candidal esophagitis/vulvovaginitis, gastrointestinal bleeding, admitted to TCU with debility, here for rehabilitation, strengthening, prior to discharge home with spouse. Colonoscopy showed gastritis, colitis, treated with antibiotics. 11/24/2018 Resident developed gout right great toe, treated with Medrol dose pack. Discharge home with spouse. Patient Problems: Active and Suspected Problems (Last Updated 11/18/18 @ 17:53 by Sharonda Junior) Encephalopathy (Acute) Urinary tract infection (Acute) Hyperosmolar (nonketotic) coma (Acute) NSTEMI (non-ST elevated myocardial infarction) (Acute) Aspiration pneumonia (Acute) Candidal vulvovaginitis (Acute) - Physical Exam Vital Signs Temp Pulse Resp BP Pulse Ox 98.3 F 75 16 111/60 97 11/24/18 15:58 11/24/18 15:58 11/24/18 15:58 11/24/18 15:58 11/24/18 15:58 Oxygen Delivery Method Room Air Weight: 64.127 kg Body Mass Index (BMI) 26.6 Finger Stick Blood Glucose 249 Intake and Output for Last 24 Hours 11/22/18 11/23/18 11/24/18 23:59 23:59 23:59 Intake Total 480 / 480 960 / 960 840 / 840 Balance 480 / 480 960 / 960 840 / 840 POC Glucose 11/24/18 11/24/18 11/24/18 16:46 11:48 06:36 POC Glucose 225 H 220 H 226 H 11/23/18 11/23/18 11/23/18 20:33 17:34 17:25 POC Glucose 267 H 47 L 35 L* Discharge Diet: No Restrictions Discharge Activity: Return to Normal Activity, May Shower, Use Walker Weight Bearing Status: Weight bearing as tolerated Call your doctor if you observe: Fever of 101 or Higher, Inability to urinate, Inability to have a bowel movement, Shortness of breath, Chest pain, Uncontrolled pain Home Medications: Medications to take at Discharge Alendronate Sodium [Fosamax] 70 mg PO Q7D@0711/12/18 Aspirin [Aspirin, Baby] 81 mg PO DAILY@0800 11/12/18 Ergocalciferol [Vitamin D] 50,000 unit PO Q7D 11/12/18 Fluticasone 0.05% [Flonase Nasal [place]] 1 spray NASAL DAILY 11/12/18 Acetaminophen [Tylenol] 1,000 mg PO Q6H PRN PRN tablet 11/24/18 Atorvastatin Calcium [Lipitor] 40 mg PO QHS #30 tablet 11/24/18 Carvedilol [Coreg (Beta Alexander)] 3.125 mg PO BID #60 tablet 11/24/18 Clopidogrel Bisulfate [Plavix] 75 mg PO DAILY #30 tablet 11/24/18 Insulin Glargine [Lantus SoloStar Pen] 15 units SC BID #1 pen 11/24/18 Insulin Lispro [Humalog KwikPen] 6 unit SC TIDAC #1 insuln.pen 11/24/18 Magnesium Oxide [Mag-Ox 400] 400 mg PO DAILYCM #30 tablet 11/24/18 Menthol/Lanolin/Calamine/Znox [Calmoseptine Ointment] 1 applic TOPICAL 0600,2200 tube 11/24/18 Mineral Oil/Petrolatum,White [Eucerin] 1 applic TOPICAL 0600,2200 jar 11/24/18 Nystatin Powder [Mycostatin Powder] 1 applic TOPICAL 0600,2200 bottle 11/24/18 Pantoprazole Sodium [Protonix] 40 mg PO BID #60 tablet 11/24/18 Sucralfate [Carafate] 1 gm PO 1HR_ACHS #120 tablet 11/24/18 Following Prescrptions Were Given to Patient: Atorvastatin Calcium [Lipitor] 40 mg PO QHS #30 tablet Clopidogrel Bisulfate [Plavix] 75 mg PO DAILY #30 tablet Insulin Lispro [Humalog KwikPen] 6 unit SC TIDAC #1 insuln.pen Magnesium Oxide [Mag-Ox 400] 400 mg PO DAILYCM #30 tablet Sucralfate [Carafate] 1 gm PO 1HR_ACHS #120 tablet Carvedilol [Coreg (Beta Alexander)] 3.125 mg PO BID #60 tablet Insulin Glargine [Lantus SoloStar Pen] 15 units SC BID #1 pen Pantoprazole Sodium [Protonix] 40 mg PO BID #60 tablet Primary Care Physician: Ben Rahman MD [Primary Care Provider] - Please follow up with your Primary Care Physician in: 1 week. Please Follow Up With: Nigel Montilla MD When: 2 weeks. Disposition: Home Minutes spent on discharge:: 30 Patient Condition:: Stable Medical Necessity - Tobacco Use Smoking Status: Current every day smoker Tobacco Use: Cigarettes Meaningful Use Info Meaningful Use Diagnoses (Choose all that apply): None applicable
[2018-11-24] MEDS: MethylPREDNISolone DosePak 4 MG BOX PO (19:57)
[2018-11-24] MEDS: Atorvastatin Calcium 40 MG Tablet PO (19:58)
[2018-11-24 21:01] LABS: Bedside Glucose 167 mg/dL (70-110)
[2018-11-25] MEDS: Glucerna Shake 120 ML LIQUID PO ×3 (04:48→21:13)
[2018-11-25] MEDS: Menthol/Lanolin/Calamine/Znox 113 GM Tube 1 APPLIC TOPICAL ×2 (04:48→21:15)
[2018-11-25] MEDS: Fluconazole 100 MG Tablet 200 MG PO (04:49)
[2018-11-25] MEDS: Pantoprazole Sodium 40 MG Tablet PO ×2 (04:49→17:43)
[2018-11-25] MEDS: Clopidogrel Bisulfate 75 MG Tablet PO (04:50)
[2018-11-25] MEDS: Carvedilol 3.125 MG TABLET PO ×2 (04:50→17:43)
[2018-11-25] MEDS: Sucralfate 1 GM Tablet PO ×4 (04:50→21:15)
[2018-11-25] MEDS: Amox/Clavulanate 875 MG Tablet PO ×2 (04:50→17:42)
[2018-11-25] MEDS: Nystatin Powder 15gm Bottle 1 APPLIC TOPICAL ×2 (04:51→21:19)
[2018-11-25] MEDS: Fluticasone 0.05% 1 SPRAY NASAL.SRY NASAL (04:52)
[2018-11-25 06:50] LABS: Bedside Glucose 321 mg/dL (70-110)
[2018-11-25] MEDS: Magnesium Oxide 400 MG Tablet PO (08:17)
[2018-11-25] MEDS: Aspirin 81 MG TAB.CHEW PO (08:17)
[2018-11-25] MEDS: MethylPREDNISolone DosePak 4 MG BOX PO ×4 (08:17→21:17)
[2018-11-25] MEDS: Insulin Lispro 100 UNIT/ML INSULN.PEN 10 UNIT SC ×2 (09:16→22:21)
--- NOTE | 2018-11-25 09:42 | NURSING ---
New order to D/C Brii.
[2018-11-25 10:00] VITALS: PULSE 72; RESP 18; O2SAT 99
--- NOTE | 2018-11-25 10:40 | CASEMGMT ---
Social Work Plan of care meeting held with pt, son and present. Pt is participating PT/OT and progressing well. Insurance denied continued stay with LCD 11/27 and d/c 11/28. PT is agreeable to d/c date. Therapy is recommending home health PT but at this time pt is refusing continued therapy. Pt has needed DME. D/C home with spouse on 11/28/18. RICCO Kaur
[2018-11-25 11:40] LABS: Bedside Glucose 319 mg/dL (70-110)
[2018-11-25] MEDS: Insulin Lispro 100 UNIT/ML INSULN.PEN 13 UNIT SC ×2 (12:08→17:44)
[2018-11-25 15:32] VITALS: BP 127/52; PULSE 72; RESP 18; TEMP 36.4; O2SAT 99
[2018-11-25 16:56] LABS: Bedside Glucose 356 mg/dL (70-110)
[2018-11-25 21:16] LABS: Bedside Glucose 414 mg/dL (70-110)
[2018-11-25] MEDS: Atorvastatin Calcium 40 MG Tablet PO (21:18)
--- NOTE | 2018-11-25 21:40 | NURSING ---
Dr March notified of blood sugar of 414. N.O. for x1 dose of 10 units Humalog.
[2018-11-26] MEDS: Glucerna Shake 120 ML LIQUID PO ×4 (05:48→21:15)
[2018-11-26] MEDS: Amox/Clavulanate 875 MG Tablet PO ×2 (05:49→17:31)
[2018-11-26] MEDS: Pantoprazole Sodium 40 MG Tablet PO ×2 (05:49→17:31)
[2018-11-26] MEDS: Menthol/Lanolin/Calamine/Znox 113 GM Tube 1 APPLIC TOPICAL ×2 (05:49→21:12)
[2018-11-26] MEDS: Carvedilol 3.125 MG TABLET PO ×2 (05:49→17:31)
[2018-11-26] MEDS: Clopidogrel Bisulfate 75 MG Tablet PO (05:49)
[2018-11-26] MEDS: Fluconazole 100 MG Tablet 200 MG PO (05:49)
[2018-11-26] MEDS: Fluticasone 0.05% 1 SPRAY NASAL.SRY NASAL (05:50)
[2018-11-26] MEDS: Nystatin Powder 15gm Bottle 1 APPLIC TOPICAL ×2 (05:51→21:16)
[2018-11-26] MEDS: Sucralfate 1 GM Tablet PO ×4 (05:52→21:14)
[2018-11-26 06:56] LABS: Bedside Glucose 467 mg/dL (70-110)
[2018-11-26] MEDS: MethylPREDNISolone DosePak 4 MG BOX PO ×4 (07:56→21:15)
[2018-11-26] MEDS: Aspirin 81 MG TAB.CHEW PO (07:57)
[2018-11-26] MEDS: Magnesium Oxide 400 MG Tablet PO (07:57)
[2018-11-26] MEDS: Insulin Lispro 100 UNIT/ML INSULN.PEN 17 UNIT SC ×3 (08:58→18:21)
[2018-11-26] MEDS: Insulin Lispro 100 UNIT/ML INSULN.PEN 20 UNIT SC (08:59)
[2018-11-26] MEDS: 0.9% NaCl Peripheral Flush Adult/Peds IV ×2 (10:58→21:18)
--- NOTE | 2018-11-26 11:01 | NURSING ---
IV FLUSHED,NO S/S OF INFECTION. PT TOLERATED WELL.
[2018-11-26 11:16] LABS: Bedside Glucose 362 mg/dL (70-110)
--- NOTE | 2018-11-26 14:21 | CASEMGMT ---
Social Work Met with pt and pt planning to d/c home with her spouse on Friday11/28/18. Therapy recommended home health services but at this time pt does not want to pursue this as she feels comfortable returning home with spouse and no additional assistance. No further SW needs. Plan: home with spouse 11/28/18 RICCO Kaur
[2018-11-26 15:49] VITALS: BP 129/58; PULSE 70; RESP 16; TEMP 36.8; O2SAT 98
[2018-11-26 16:56] LABS: Bedside Glucose 244 mg/dL (70-110)
[2018-11-26] MEDS: Atorvastatin Calcium 40 MG Tablet PO (21:15)
[2018-11-26 21:57] VITALS: PULSE 68; RESP 18
[2018-11-26 22:00] LABS: Bedside Glucose 211 mg/dL (70-110)
[2018-11-27] MEDS: Menthol/Lanolin/Calamine/Znox 113 GM Tube 1 APPLIC TOPICAL ×2 (05:38→21:24)
[2018-11-27] MEDS: Glucerna Shake 120 ML LIQUID PO ×4 (05:39→21:21)
[2018-11-27] MEDS: Fluticasone 0.05% 1 SPRAY NASAL.SRY NASAL (05:39)
[2018-11-27] MEDS: Nystatin Powder 15gm Bottle 1 APPLIC TOPICAL ×2 (05:40→21:26)
[2018-11-27] MEDS: Carvedilol 3.125 MG TABLET PO ×2 (05:41→17:19)
[2018-11-27] MEDS: Fluconazole 100 MG Tablet 200 MG PO (05:41)
[2018-11-27] MEDS: Clopidogrel Bisulfate 75 MG Tablet PO (05:41)
[2018-11-27] MEDS: Pantoprazole Sodium 40 MG Tablet PO ×2 (05:41→17:21)
[2018-11-27] MEDS: Sucralfate 1 GM Tablet PO ×4 (05:42→21:23)
[2018-11-27 06:12] LABS: Absolute Neutrophil Count 8.1 X10^3/uL (2.0-7.7); Basophil# 0.01 X10^3/uL; Basophil% 0.1 % (0-1); Eosinophil# 0.01 X10^3/uL; Eosinophils% 0.1 % (0-5); Hematocrit 29.7 % (37-47); Hemoglobin 9.3 g/dl (12.0-15.0); Mean Corp Hgb Conc 31.3 g/gl (32-36); Mean Corpuscular Hgb 29.1 pg (27.0-32.0); Mean Corpuscular Volume 92.8 fL (81-99); Mean Platelet Vol. 9.5 fl (6.2-12.0); Monocyte# 0.71 X10^3/uL; Monocyte% 6.7 % (0-10); Neutrophil # 8.09 X10^3/uL (2.7-7.7); Neutrophil % 76.1 % (47-70); Platelet Count 285 K/mm3 (150-450); RBC Distribution Width CV 15.7 % (11.6-14.6); White Blood Count 10.6 K/mm3 (4.4-11.0)
[2018-11-27 06:13] LABS: POSITIVE COUNT NO; POSITIVE DIFFERENTIAL NO; POSITIVE MORPHOLOGY NO
[2018-11-27 06:37] LABS: Anion Gap 11 (5-15); BUN 28 mg/dL (7-18); BUN/Creat Ratio 22.2 RATIO (10-20); Calcium,Total 7.9 mg/dL (8.5-10.1); Chloride 105 mmol/L (98-107); Creatinine, Serum 1.26 mg/dL (0.55-1.02); EST Glomerular Filtration Rate 45 mL/min (>60); Est Glom Filt Rate - Afr Amer 54 mL/min (>60); Glucose 266 mg/dL (74-106); Potassium 4.2 mmol/L (3.5-5.1); Sodium Level 138 mmol/L (136-145)
[2018-11-27 06:40] LABS: Bedside Glucose 314 mg/dL (70-110)
[2018-11-27] MEDS: Aspirin 81 MG TAB.CHEW PO (08:58)
[2018-11-27] MEDS: MethylPREDNISolone DosePak 4 MG BOX PO ×3 (08:58→21:25)
[2018-11-27] MEDS: Magnesium Oxide 400 MG Tablet PO (08:58)
[2018-11-27] MEDS: Insulin Lispro 100 UNIT/ML INSULN.PEN 17 UNIT SC ×3 (08:59→17:17)
[2018-11-27 11:41] LABS: Bedside Glucose 250 mg/dL (70-110)
[2018-11-27] MEDS: Tuberculin,Purif.prot.deriv. 50 TU/ML Vial 5 ML ID (11:50)
[2018-11-27 15:20] VITALS: BP 128/66; PULSE 71; RESP 20; TEMP 36.3; O2SAT 97
[2018-11-27 17:06] LABS: Bedside Glucose 218 mg/dL (70-110)
[2018-11-27] MEDS: Senna/Docusate Sodium 1 Tablet PO (17:22)
[2018-11-27 20:55] LABS: Bedside Glucose 230 mg/dL (70-110)
[2018-11-27] MEDS: Acetaminophen 500 MG Tablet 1000 MG PO (21:22)
[2018-11-27] MEDS: Atorvastatin Calcium 40 MG Tablet PO (21:23)
[2018-11-27] MEDS: 0.9% NaCl Peripheral Flush Adult/Peds IV (23:50)
[2018-11-28] MEDS: Glucerna Shake 120 ML LIQUID PO ×2 (06:02→09:56)
[2018-11-28] MEDS: Senna/Docusate Sodium 1 Tablet PO (06:03)
[2018-11-28] MEDS: Carvedilol 3.125 MG TABLET PO (06:03)
[2018-11-28] MEDS: Sucralfate 1 GM Tablet PO ×2 (06:03→09:53)
[2018-11-28] MEDS: Fluconazole 100 MG Tablet 200 MG PO (06:03)
[2018-11-28] MEDS: Pantoprazole Sodium 40 MG Tablet PO (06:03)
[2018-11-28] MEDS: Clopidogrel Bisulfate 75 MG Tablet PO (06:03)
[2018-11-28] MEDS: Fluticasone 0.05% 1 SPRAY NASAL.SRY NASAL (06:03)
[2018-11-28] MEDS: Menthol/Lanolin/Calamine/Znox 113 GM Tube 1 APPLIC TOPICAL (06:05)
[2018-11-28] MEDS: Nystatin Powder 15gm Bottle 1 APPLIC TOPICAL (06:05)
[2018-11-28 06:45] LABS: Bedside Glucose 145 mg/dL (70-110)
[2018-11-28 06:58] VITALS: PULSE 64; RESP 16; O2SAT 97
--- NOTE | 2018-11-28 07:11 | NURSING ---
Saline lock removed from right wrist area catheter intact. Pt tolerated well no s/sx of infection noted.
[2018-11-28] MEDS: Insulin Lispro 100 UNIT/ML INSULN.PEN 17 UNIT SC (09:50)
[2018-11-28] MEDS: MethylPREDNISolone DosePak 4 MG BOX PO (09:52)
[2018-11-28] MEDS: Aspirin 81 MG TAB.CHEW PO (09:53)
[2018-11-28] MEDS: Magnesium Oxide 400 MG Tablet PO (09:53)
[2018-11-28 10:10] VITALS: BP 113/61; PULSE 69; RESP 16; TEMP 36.8
--- NOTE | 2018-11-28 11:17 | NURSING ---
pt discharged with son and and at side
--- NOTE | 2018-11-30 10:59 | CASEMGMT ---
Insurance: Insurance notified via secure email of d/c on 11/28/18 to her home with no followup service. Auth# [id number] RICCO Kaur
--- NOTE | 2018-12-01 14:36 | MDS.RN ---
Information for the mds was obtained from review of the clinical record, interview of resident, staff, and direct observation of resident's care.
== END 2018-11-28 10:30 | disposition home or self-care (01) | DRG 947 ==
PROVIDERS: Admitting Provider Family Medicine Geriatric Medicine; Family Provider Family Medicine; PCP Family Medicine; Visit Provider Family Medicine Geriatric Medicine
DX: R53.81 Other malaise (principal); I21.4 Non-ST elevation (NSTEMI) myocardial infarction; J69.0 Pneumonitis due to inhalation of food and vomit; B37.81 Candidal esophagitis; E78.5 Hyperlipidemia, unspecified; I25.10 Atherosclerotic heart disease of native coronary artery without angina pectoris; E55.9 Vitamin D deficiency, unspecified; M81.0 Age-related osteoporosis without current pathological fracture; E11.9 Type 2 diabetes mellitus without complications; B37.3 Candidiasis of vulva and vagina; F17.210 Nicotine dependence, cigarettes, uncomplicated; Z95.1 Presence of aortocoronary bypass graft; K29.70 Gastritis, unspecified, without bleeding; M10.9 Gout, unspecified
CPT/HCPCS: 36415; 80048; 82947; 82962; 85025; 97110; 97116; 97163; 97166; 97530; 97535; 97802; 99406; A4216

== ENCOUNTER 2018-12-04 08:11 | Outpatient (RCR) | payer MEDICARE, SELFPAY | END 2018-12-15 23:59 | LOC: DC 08:11 | PROVIDERS: Family Provider Family Medicine; PCP Family Medicine; Visit Provider Family Medicine | DX: E11.9 Type 2 diabetes mellitus without complications (principal); Z71.3 Dietary counseling and surveillance | CPT/HCPCS: 97802 ==

== ENCOUNTER → 2018-12-04 15:57 | Outpatient (CLI) | payer MEDICARE, SELFPAY ==
[2018-11-19 22:18] VITALS: BMI 26.6
[2018-12-04 17:21] LABS: Absolute Lymphocyte Count 2.78 X10^3/ul (0.83-4.51); Absolute Neutrophil Count 5.1 X10^3/uL (2.0-7.7); Basophil# 0.04 X10^3/uL; Basophil% 0.4 % (0-1); Eosinophil# 0.12 X10^3/uL; Eosinophils% 1.3 % (0-5); Hematocrit 31.4 % (37-47); Hemoglobin 9.8 g/dl (12.0-15.0); Lymphocyte # 2.78 X10^3/ul (4.0); Lymphocyte % 29.6 % (19-41); Mean Corp Hgb Conc 31.2 g/gl (32-36); Mean Corpuscular Hgb 30.2 pg (27.0-32.0); Mean Corpuscular Volume 96.6 fL (81-99); Mean Platelet Vol. 9.1 fl (6.2-12.0); Monocyte# 1.26 X10^3/uL; Monocyte% 13.4 % (0-10); Neutrophil # 5.06 X10^3/uL (2.7-7.7); Neutrophil % 53.9 % (47-70); Platelet Count 268 K/mm3 (150-450); RBC Distribution Width SD 59.5 fl (35.1-43.9); Red Blood Count 3.25 M/mm3 (4.2-5.4); White Blood Count 9.4 K/mm3 (4.4-11.0)
[2018-12-04 17:27] LABS: POSITIVE COUNT NO; POSITIVE DIFFERENTIAL NO; POSITIVE MORPHOLOGY NO
[2018-12-04 18:21] LABS: ALB/GLOB Ratio 1.1 RATIO (0.9-2.4); AST(SGOT) 43 U/L (15-37); Alanine Aminotransfer ALT/SGPT 51 U/L (13-56); Albumin, Serum 3.1 g/dL (3.2-5.0); Alkaline Phosphatase 248 U/L (45-117); Anion Gap 7 (5-15); BUN 27 mg/dL (7-18); BUN/Creat Ratio 19.9 RATIO (10-20); Calcium,Total 7.7 mg/dL (8.5-10.1); Chloride 103 mmol/L (98-107); Creatinine, Serum 1.36 mg/dL (0.55-1.02); EST Glomerular Filtration Rate 41 mL/min (>60); Est Glom Filt Rate - Afr Amer 49 mL/min (>60); Ferritin 346 ng/mL (8-252); Globulin 2.9 g/dL (2.2-4.2); Glucose 181 mg/dL (74-106); Iron 52 ug/dL (50-170); Iron Binding Capacity,Total 315 ug/dL (250-450); Potassium 4.6 mmol/L (3.5-5.1); Sodium Level 139 mmol/L (136-145)
== END ==
PROVIDERS: Family Provider Family Medicine; PCP Family Medicine; Referring Provider Family Medicine; Visit Provider Family Medicine
DX: N18.3 Chronic kidney disease, stage 3 (moderate) (principal); D63.1 Anemia in chronic kidney disease
CPT/HCPCS: 36415; 80053; 82728; 83540; 83550; 85025

== ENCOUNTER 2018-12-16 13:11 | Outpatient (RCR) | payer MEDICARE, SELFPAY | END 2018-12-16 23:59 | disposition home or self-care (01) | LOC: DC 13:11 | PROVIDERS: Family Provider Family Medicine; PCP Family Medicine; Visit Provider Family Medicine | DX: E11.9 Type 2 diabetes mellitus without complications (principal); Z71.3 Dietary counseling and surveillance | CPT/HCPCS: G0108 ==

== ENCOUNTER → 2018-12-18 16:05 | Outpatient (CLI) | payer MEDICARE, SELFPAY ==
[2018-11-19 22:18] VITALS: BMI 26.6
[2018-12-18 17:43] LABS: Uric Acid 8.2 mg/dL (2.6-6.0)
== END ==
PROVIDERS: Family Provider Family Medicine; PCP Family Medicine; Referring Provider Family Medicine; Visit Provider Family Medicine
DX: M10.9 Gout, unspecified (principal)
CPT/HCPCS: 36415; 84550

== ENCOUNTER → 2019-01-18 | Outpatient (CLI) | payer MEDICARE, SELFPAY | END | disposition home or self-care (01) | LOC: LABSPEC 14:16 | PROVIDERS: Family Provider Family Medicine; PCP Family Medicine; Referring Provider Family Medicine; Visit Provider Family Medicine | DX: N39.0 Urinary tract infection, site not specified (principal) | CPT/HCPCS: 87086; 87088; 87186 ==

== ENCOUNTER → 2019-03-18 12:25 | Outpatient (CLI) | payer MEDICARE, SELFPAY | PROVIDERS: Family Provider Family Medicine; PCP Family Medicine; Referring Provider Family Medicine; Visit Provider Family Medicine | DX: R30.0 Dysuria (principal) | CPT/HCPCS: 87086; 87088; 87186 ==

== ENCOUNTER → 2019-06-08 10:33 | Outpatient (CLI) | payer MEDICARE, SELFPAY ==
[2019-06-08 10:38] LABS: Bacteria 0 SEEN /hpf (None Seen); Mucous, Urine 0 SEEN /hpf (<or=2+); Red Blood Cells-Urine 0 SEEN /hpf (0-5); Squamous Epithelial Cells - UA 0 SEEN /hpf (5-10); White Blood Cells 0 SEEN /hpf (0-5)
[2019-06-08 12:52] LABS: Color, Urine Yellow (Yellow); Glucose, Dipstick Normal (Normal); Ketone-Dipstick Negative (Negative); Leukocyte Esterase-Dipstick Negative /ul (Negative); Nitrite-Dipstick Negative (Negative); Occult Blood-Urine Negative /ul (Negative); Protein-Dipstick Negative (Negative); Urine Bilirubin Dipstick Negative (Negative); Urine Clarity Sl. Cloudy (Clear); Urine Urobilinogen Normal (Normal)
[2019-06-08 12:57] LABS: Absolute Lymphocyte Count 2.96 X10^3/uL (0.83-4.51); Absolute Neutrophil Count 5.6 X10^3/uL (2.0-7.7); Basophil# 0.06 X10^3/uL; Basophil% 0.6 % (0-1); Eosinophil# 0.24 X10^3/uL; Eosinophils% 2.5 % (0-5); Hematocrit 38.6 % (37-47); Hemoglobin 12.5 g/dL (12.0-15.0); Lymphocyte # 2.96 X10^3/ul (4.0); Lymphocyte % 30.2 % (19-41); Mean Corp Hgb Conc 32.4 g/dL (32-36); Mean Corpuscular Hgb 30.5 pg (27.0-32.0); Mean Corpuscular Volume 94.1 fL (81-99); Mean Platelet Vol. 9.5 fl (6.2-12.0); Monocyte# 0.84 X10^3/uL; Monocyte% 8.6 % (0-10); NRBC Flagged by Analyzer 0 % (0-5); Neutrophil # 5.61 X10^3/uL (2.7-7.7); Neutrophil % 57.3 % (47-70); Platelet Count 284 K/mm3 (150-450); RBC Distribution Width CV 13.5 % (11.6-14.6); White Blood Count 9.8 K/mm3 (4.4-11.0)
[2019-06-08 13:00] LABS: ALB/GLOB Ratio 0.9 RATIO (0.9-2.4); AST(SGOT) 14 U/L (15-37); Alanine Aminotransfer ALT/SGPT 29 U/L (13-56); Albumin, Serum 3.6 g/dL (3.2-5.0); Alkaline Phosphatase 85 U/L (45-117); Anion Gap 10 (5-15); BUN 42 mg/dL (7-18); BUN/Creat Ratio 25.9 RATIO (10-20); Calcium,Total 9.2 mg/dL (8.5-10.1); Chloride 101 mmol/L (98-107); Cholesterol 164 mg/dL (200); Creatinine, Serum 1.62 mg/dL (0.55-1.02); EST Glomerular Filtration Rate 33 mL/min (>60); Est Glom Filt Rate - Afr Amer 40 mL/min (>60); Glucose 280 mg/dL (74-106); High Density Lipoprotein 37 mg/dL; Phosphorus 4.3 mg/dL (2.5-4.9); Potassium 4.3 mmol/L (3.5-5.1); Protein, Total 7.6 g/dL (6.4-8.2); Sodium Level 135 mmol/L (136-145); Triglycerides 326 mg/dL; Very Low Density Lipoprotein 65 mg/dL (5-40)
[2019-06-08 13:09] LABS: Vitamin D,25 Hydroxy 62.8 ng/mL (29.95-100.01)
[2019-06-08 13:15] LABS: Hemoglobin A1c 8.9 % (4.2-6.3)
[2019-06-08 13:27] LABS: Microalbumin,Random Urine 5.8 mg/L (NO RANGE EST.); Microalbumin:Creatinine Ratio 25.7 mg/g CRE (<30 mg/g CRE); Protein, Urine (Random) < 6.0 mg/dL (<11.9)
== END ==
PROVIDERS: Family Provider Family Medicine; PCP Family Medicine; Referring Provider Family Medicine; Visit Provider Family Medicine
DX: N18.3 Chronic kidney disease, stage 3 (moderate) (principal); M81.0 Age-related osteoporosis without current pathological fracture; E11.9 Type 2 diabetes mellitus without complications; E78.5 Hyperlipidemia, unspecified; R80.9 Proteinuria, unspecified
CPT/HCPCS: 36415; 80053; 80061; 81001; 82043; 82306; 82570; 83036; 84100; 84156; 85025

== ENCOUNTER → 2019-06-21 11:58 | Outpatient (CLI) | payer MEDICARE, SELFPAY ==
--- NOTE | 2019-06-21 12:01 | BI_ITS ---
MAMMOGRAPHY - BILATERAL SCREENING REASON FOR EXAM: Female, 73 years old. Routine annual screening examination. PERTINENT HISTORY: Non-contributory. TECHNIQUE: Digital bilateral breast caro (3D mammographic acquisition) in the CC and MLO projections. 2-D mediolateral oblique (MLO) and craniocaudad (CC) views of both breasts were obtained. CAD: Full Field Digital Mammography with Computer Added Detection was performed. COMPARISON: Comparison is made with prior outside examination of December 21, 2014. FINDINGS: Breast Composition: There are scattered areas of fibroglandular density. There are no dominant masses or suspicious calcifications. No other significant abnormalities are identified. There has been no significant change since the prior study. BI/SCREEN MAMM (CAD) W/CARO BILAT IMPRESSION: Stable bilateral screening mammogram. Yearly follow-up mammogram recommended. (A) ASSESSMENT CATEGORY: BIRADS Category 1: Negative. A letter regarding these results will be sent to the patient by the facility within 30 days. Approximately 10% of breast cancers are not detected by mammography. A normal mammogram should not delay biopsy of a clinically suspicious abnormality. [id number] Electronically Signed: Ugo Shearer, at 13:11 EST , Service support ,
[2019-06-21 14:10] LABS: Absolute Lymphocyte Count 3.57 X10^3/uL (0.83-4.51); Absolute Neutrophil Count 7.5 X10^3/uL (2.0-7.7); Basophil% 0.8 % (0-1); Eosinophil# 0.18 X10^3/uL; Eosinophils% 1.4 % (0-5); Hematocrit 37.8 % (37-47); Hemoglobin 12.6 g/dL (12.0-15.0); Lymphocyte # 3.57 X10^3/ul (4.0); Lymphocyte % 28.6 % (19-41); Mean Corp Hgb Conc 33.3 g/dL (32-36); Mean Corpuscular Volume 92.9 fL (81-99); Mean Platelet Vol. 9.5 fl (6.2-12.0); Monocyte# 0.95 X10^3/uL; Monocyte% 7.6 % (0-10); NRBC Flagged by Analyzer 0 % (0-5); Neutrophil # 7.45 X10^3/uL (2.7-7.7); Neutrophil % 59.8 % (47-70); Platelet Count 298 K/mm3 (150-450); RBC Distribution Width CV 13.7 % (11.6-14.6); RBC Distribution Width SD 46.6 fl (35.1-43.9); Red Blood Count 4.07 M/mm3 (4.2-5.4); White Blood Count 12.5 K/mm3 (4.4-11.0)
[2019-06-21 14:29] LABS: Microalbumin,Random Urine 8.4 mg/L (NO RANGE EST.); Microalbumin:Creatinine Ratio 24.6 mg/g CRE (<30 mg/g CRE)
[2019-06-21 14:31] LABS: Hemoglobin A1c 8.7 % (4.2-6.3)
[2019-06-21 14:33] LABS: Vitamin D,25 Hydroxy 70.5 ng/mL (29.95-100.01)
[2019-06-21 14:46] LABS: AST(SGOT) 30 U/L (15-37); Alanine Aminotransfer ALT/SGPT 51 U/L (13-56); Albumin, Serum 3.6 g/dL (3.2-5.0); Alkaline Phosphatase 74 U/L (45-117); Anion Gap 11 (5-15); BUN 47 mg/dL (7-18); Calcium,Total 8.2 mg/dL (8.5-10.1); Chloride 102 mmol/L (98-107); Cholesterol 164 mg/dL (200); Creatinine, Serum 1.68 mg/dL (0.55-1.02); EST Glomerular Filtration Rate 32 mL/min (>60); Est Glom Filt Rate - Afr Amer 39 mL/min (>60); Globulin 3.7 g/dL (2.2-4.2); Glucose 232 mg/dL (74-106); High Density Lipoprotein 34 mg/dL; Phosphorus 3.8 mg/dL (2.5-4.9); Protein, Total 7.3 g/dL (6.4-8.2); Sodium Level 136 mmol/L (136-145); Triglycerides 472 mg/dL
== END ==
PROVIDERS: Family Provider Family Medicine; PCP Family Medicine; Referring Provider Family Medicine; Visit Provider Family Medicine
DX: Z12.31 Encounter for screening mammogram for malignant neoplasm of breast (principal); N39.0 Urinary tract infection, site not specified; I12.9 Hypertensive chronic kidney disease with stage 1 through stage 4 chronic kidney disease, or unspecified chronic kidney disease; N18.3 Chronic kidney disease, stage 3 (moderate); R19.7 Diarrhea, unspecified; E11.22 Type 2 diabetes mellitus with diabetic chronic kidney disease; M81.0 Age-related osteoporosis without current pathological fracture
CPT/HCPCS: 36415; 77063; 77067; 80053; 80061; 82043; 82306; 82570; 83036; 84100; 85025

== ENCOUNTER → 2019-07-19 08:07 | Outpatient (CLI) | payer MEDICARE, SELFPAY ==
--- NOTE | 2019-07-19 08:10 | US_ITS ---
PROCEDURES: ULTRASOUND AORTA REASON FOR EXAM: Female, 73 years old. Screening for abdominal aortic aneurysm. TECHNIQUE: Ultrasound evaluation of the aorta was performed with real-time and static bennett-scale imaging. COMPARISON: None. FINDINGS: There is atherosclerotic plaque formation of the abdominal aorta. Aorta measures: Proximal 1.7 cm. Middle 3.5 cm. Distal 2.3 cm. Aorta measure transversely: Proximal 2.4 cm. Middle 3.7 cm. Distal 2.7 cm. Right iliac artery measure transversely: 0.9 cm. Left iliac artery measure transversely: 0.8 cm. There is a demonstrated aneurysm.. This measures 3.7 cm in transverse dimension by 3.8 cm in AP dimension by US/Aorta IMPRESSION: Infrarenal abdominal aortic aneurysm. Electronically Signed: Ugo Shearer, at 14:29 EST , Service support ,
== END ==
PROVIDERS: Family Provider Family Medicine; PCP Family Medicine; Referring Provider Family Medicine; Visit Provider Family Medicine
DX: I71.4 Abdominal aortic aneurysm, without rupture (principal)
CPT/HCPCS: 76775

== ENCOUNTER → 2019-10-07 13:56 | Outpatient (CLI) | payer MEDICARE, SELFPAY | LOC: POLAB3 13:59 → LABSPEC 13:59 | PROVIDERS: PCP Family Medicine; Visit Provider Family Medicine Geriatric Medicine | DX: N39.0 Urinary tract infection, site not specified (principal) | CPT/HCPCS: 87086; 87088; 87186 ==

== ENCOUNTER → 2019-10-12 11:04 | Outpatient (CLI) | payer MEDICARE, SELFPAY ==
--- NOTE | 2019-10-12 11:13 | US_ITS ---
STUDY: RENAL ULTRASOUND - COMPLETE REASON FOR EXAM: Female, 74 years old. Chronic renal failure 3 TECHNIQUE: Ultrasound evaluation of the kidneys was performed with real-time and static soares-scale imaging. COMPARISON: None. FINDINGS: Exam limited by obesity and bowel gas. RIGHT KIDNEY: Normal location of the right kidney, which is normal in size. The right kidney measures 9.9 x 3.5 x 4.3 cm. There is a normal cortex of the right kidney. The renal cortex measures 1.1 cm. There is a 2.5 cm cyst. Multiple probable small nonobstructing stones. There is an extra-renal pelvis of the right kidney. There is no distention of the renal calyces. DISTAL RIGHT URETER: There is non-visualization of the distal right ureter. There is no demonstrated right ureterovesical junction calculus. There is no demonstrated right ureteral jet. LEFT KIDNEY: Normal location of the left kidney, which is normal in size. The left kidney measures 10.6 x 4.8 x 4.8 cm. There is a normal cortex of the left kidney. The renal cortex measures 1.0 cm. 4.4 cm cyst. There are no left renal calculi. There is no left hydronephrosis. DISTAL LEFT URETER: There is non-visualization of the distal left ureter. There is no demonstrated left ureterovesical junction calculus. There is no demonstrated left ureteral jet. BLADDER: The distended urinary bladder has a volume of 385 ml. The empty urinary bladder has a volume of 138 ml. There is a diffusely thickened wall of the distended bladder. There is no demonstrated mass within the urinary bladder. There are no demonstrated bladder calculi. US/Kidney and Bladder IMPRESSION: No evidence for hydronephrosis on either side. Bilateral renal cysts. Probable nonobstructing right renal stones. Prominent postvoid residual. Electronically Signed: Adama Nicholson MD at 17:24 EST , Service support ,
[2019-10-12 13:38] LABS: ALB/GLOB Ratio 0.9 RATIO (0.9-2.4); AST(SGOT) 16 U/L (15-37); Alanine Aminotransfer ALT/SGPT 29 U/L (13-56); Albumin, Serum 3.5 g/dL (3.2-5.0); Alkaline Phosphatase 71 U/L (45-117); Anion Gap 9 (5-15); BUN 60 mg/dL (7-18); BUN/Creat Ratio 33.9 RATIO (10-20); Chloride 106 mmol/L (98-107); Cholesterol 182 mg/dL (200); Creatinine, Serum 1.77 mg/dL (0.55-1.02); EST Glomerular Filtration Rate 30 mL/min (>60); Est Glom Filt Rate - Afr Amer 36 mL/min (>60); Globulin 3.8 g/dL (2.2-4.2); Glucose 149 mg/dL (74-106); High Density Lipoprotein 31 mg/dL; Potassium 4.1 mmol/L (3.5-5.1); Protein, Total 7.3 g/dL (6.4-8.2); Sodium Level 138 mmol/L (136-145); Triglycerides 658 mg/dL
[2019-10-12 13:42] LABS: Hemoglobin A1c 8.2 % (4.2-6.3)
[2019-10-12 13:51] LABS: 24HR. UA Prot. Total Volume 1325 mL; 24HR. Urine Creatinine 0.59 g/24 HR (0.70-1.90); Urine Protein (24 Hour) 7.4 mg/dL (<11.9)
== END ==
PROVIDERS: PCP Family Medicine; Referring Provider Internal Medicine Nephrology; Visit Provider Internal Medicine Nephrology
DX: I12.9 Hypertensive chronic kidney disease with stage 1 through stage 4 chronic kidney disease, or unspecified chronic kidney disease (principal); E11.22 Type 2 diabetes mellitus with diabetic chronic kidney disease; N18.3 Chronic kidney disease, stage 3 (moderate); E78.5 Hyperlipidemia, unspecified
CPT/HCPCS: 36415; 76770; 80053; 80061; 81050; 82570; 83036; 84156

== ENCOUNTER → 2019-12-29 14:40 | Outpatient (CLI) | payer MEDICARE, SELFPAY ==
[2019-12-29 15:32] LABS: Mucous, Urine 0 SEEN /hpf (<or=2+); Red Blood Cells-Urine 0 SEEN /hpf (0-5); White Blood Cells 0 SEEN /hpf (0-5)
[2019-12-29 17:38] LABS: Color, Urine Straw (Yellow); Glucose, Dipstick Normal (Normal); Ketone-Dipstick Negative (Negative); Leukocyte Esterase-Dipstick Negative /ul (Negative); Nitrite-Dipstick Negative (Negative); Occult Blood-Urine Negative /ul (Negative); Protein-Dipstick Negative (Negative); Specific Gravity, Urine 1.015 (1.002-1.030); Urine Bilirubin Dipstick Negative (Negative); Urine Clarity Clear (Clear); Urine Urobilinogen Normal (Normal)
[2019-12-29 17:43] LABS: Absolute Lymphocyte Count 3.98 X10^3/uL (0.83-4.51); Absolute Neutrophil Count 5.6 X10^3/uL (2.0-7.7); Basophil# 0.09 X10^3/uL; Basophil% 0.8 % (0-1); Eosinophil# 0.31 X10^3/uL; Eosinophils% 2.8 % (0-5); Hematocrit 36.4 % (37-47); Hemoglobin 11.9 g/dL (12.0-15.0); Lymphocyte # 3.98 X10^3/ul (4.0); Lymphocyte % 36.2 % (19-41); Mean Corp Hgb Conc 32.7 g/dL (32-36); Mean Corpuscular Hgb 30.7 pg (27.0-32.0); Mean Corpuscular Volume 94.1 fL (81-99); Monocyte# 0.97 X10^3/uL; Monocyte% 8.8 % (0-10); NRBC Flagged by Analyzer 0 % (0-5); Neutrophil # 5.58 X10^3/uL (2.7-7.7); Neutrophil % 50.9 % (47-70); Platelet Count 217 K/mm3 (150-450); RBC Distribution Width CV 14.4 % (11.6-14.6); RBC Distribution Width SD 49.5 fl (35.1-43.9); Red Blood Count 3.87 M/mm3 (4.2-5.4)
[2019-12-29 17:48] LABS: Bacteria RARE /hpf (None Seen); Squamous Epithelial Cells - UA 5-10 SEEN /hpf (5-10)
[2019-12-29 17:50] LABS: Vitamin D,25 Hydroxy 37.1 ng/mL
[2019-12-29 18:03] LABS: AST(SGOT) 20 U/L (15-37); Alanine Aminotransfer ALT/SGPT 31 U/L (13-56); Albumin, Serum 3.8 g/dL (3.2-5.0); Alkaline Phosphatase 68 U/L (45-117); Anion Gap 11 (5-15); BUN 42 mg/dL (7-18); BUN/Creat Ratio 29.8 RATIO (10-20); Calcium,Total 8.6 mg/dL (8.5-10.1); Chloride 106 mmol/L (98-107); Cholesterol 178 mg/dL (200); Creatinine, Serum 1.41 mg/dL (0.55-1.02); EST Glomerular Filtration Rate 39 mL/min (>60); Est Glom Filt Rate - Afr Amer 47 mL/min (>60); Globulin 3.7 g/dL (2.2-4.2); Glucose 168 mg/dL (74-106); High Density Lipoprotein 32 mg/dL; Phosphorus 3.3 mg/dL (2.5-4.9); Potassium 4.3 mmol/L (3.5-5.1); Protein, Total 7.5 g/dL (6.4-8.2); Sodium Level 140 mmol/L (136-145); Triglycerides 624 mg/dL
[2019-12-29 18:04] LABS: Hemoglobin A1c 7.5 % (4.2-6.3)
[2019-12-29 18:27] LABS: Microalbumin,Random Urine 8.5 mg/L (NO RANGE EST.); Microalbumin:Creatinine Ratio 21.2 mg/g CRE (<30 mg/g CRE)
== END ==
PROVIDERS: PCP Family Medicine; Visit Provider Family Medicine
DX: I10 Essential (primary) hypertension (principal); E11.9 Type 2 diabetes mellitus without complications; E78.5 Hyperlipidemia, unspecified; M81.0 Age-related osteoporosis without current pathological fracture; E55.9 Vitamin D deficiency, unspecified
CPT/HCPCS: 36415; 80053; 80061; 81001; 82043; 82306; 82570; 83036; 83735; 84100; 85025

== ENCOUNTER → 2020-02-17 10:57 | Outpatient (CLI) | payer MEDICARE, SELFPAY ==
[2020-02-17 12:40] LABS: Absolute Neutrophil Count 6.1 X10^3/uL (2.0-7.7); Basophil# 0.06 X10^3/uL; Basophil% 0.6 % (0-1); Eosinophil# 0.28 X10^3/uL; Eosinophils% 2.7 % (0-5); Hematocrit 38.6 % (37-47); Hemoglobin 12.6 g/dL (12.0-15.0); Lymphocyte % 29.8 % (19-41); Mean Corp Hgb Conc 32.6 g/dL (32-36); Mean Corpuscular Volume 94.8 fL (81-99); Mean Platelet Vol. 9.9 fl (6.2-12.0); Monocyte% 7.7 % (0-10); NRBC Flagged by Analyzer 0 % (0-5); Neutrophil # 6.09 X10^3/uL (2.7-7.7); Neutrophil % 58.4 % (47-70); Platelet Count 251 K/mm3 (150-450); RBC Distribution Width CV 13.7 % (11.6-14.6); RBC Distribution Width SD 47.8 fl (35.1-43.9); Red Blood Count 4.07 M/mm3 (4.2-5.4); White Blood Count 10.4 K/mm3 (4.4-11.0)
[2020-02-17 13:28] LABS: ALB/GLOB Ratio 1.1 RATIO (0.9-2.4); AST(SGOT) 24 U/L (15-37); Alanine Aminotransfer ALT/SGPT 34 U/L (13-56); Albumin, Serum 3.7 g/dL (3.2-5.0); Alkaline Phosphatase 70 U/L (45-117); Anion Gap 7 (5-15); BUN 37 mg/dL (7-18); BUN/Creat Ratio 26.1 RATIO (10-20); Calcium,Total 8.3 mg/dL (8.5-10.1); Chloride 108 mmol/L (98-107); Cholesterol 201 mg/dL (200); Creatinine, Serum 1.42 mg/dL (0.55-1.02); EST Glomerular Filtration Rate 39 mL/min (>60); Est Glom Filt Rate - Afr Amer 47 mL/min (>60); Globulin 3.4 g/dL (2.2-4.2); Glucose 218 mg/dL (74-106); High Density Lipoprotein 29 mg/dL; Phosphorus 3.4 mg/dL (2.5-4.9); Protein, Total 7.1 g/dL (6.4-8.2); Sodium Level 138 mmol/L (136-145); Triglycerides 834 mg/dL
[2020-02-17 13:36] LABS: Vitamin D,25 Hydroxy 39.5 ng/mL
[2020-02-17 13:56] LABS: Hemoglobin A1c 7.2 % (3.8-5.6)
[2020-02-17 15:26] LABS: PTHIN 121.3 pg/mL (18.4-80.1)
== END ==
PROVIDERS: PCP Family Medicine; Visit Provider Internal Medicine Nephrology
DX: I12.9 Hypertensive chronic kidney disease with stage 1 through stage 4 chronic kidney disease, or unspecified chronic kidney disease (principal); N18.3 Chronic kidney disease, stage 3 (moderate); E11.9 Type 2 diabetes mellitus without complications; E78.5 Hyperlipidemia, unspecified; M81.0 Age-related osteoporosis without current pathological fracture
CPT/HCPCS: 36415; 80053; 80061; 82306; 83036; 83970; 84100; 85025

== ENCOUNTER → 2020-02-21 09:39 | Outpatient (CLI) | payer MEDICARE, SELFPAY ==
[2020-02-21 14:01] LABS: Creat.Clear Total Volume 1325 mL; Creatinine Clearance 57 ml/min (100-200); Creatinine Serum Creat 1.4 mg/dL (0.6-1.0); Creatinine Urine 87.5 mg/dL (NO RANGE EST.); EST Glomerular Filtration Rate 39 mL/min (>60); Est Glom Filt Rate - Afr Amer 47 mL/min (>60)
== END ==
PROVIDERS: PCP Family Medicine; Visit Provider Family Medicine
DX: N18.3 Chronic kidney disease, stage 3 (moderate) (principal)
CPT/HCPCS: 82575

== ENCOUNTER → 2020-04-13 16:35 | Outpatient (CLI) | payer MEDICARE, SELFPAY ==
[2020-04-13 17:55] LABS: Anion Gap 7 (5-15); BUN 33 mg/dL (7-18); BUN/Creat Ratio 21.7 RATIO (10-20); Calcium,Total 9.6 mg/dL (8.5-10.1); Chloride 106 mmol/L (98-107); Creatinine, Serum 1.52 mg/dL (0.55-1.02); EST Glomerular Filtration Rate 36 mL/min (>60); Est Glom Filt Rate - Afr Amer 43 mL/min (>60); Glucose 268 mg/dL (74-106); Potassium 4.3 mmol/L (3.5-5.1); Sodium Level 140 mmol/L (136-145)
== END ==
PROVIDERS: PCP Family Medicine; Referring Provider Family Medicine; Visit Provider Family Medicine
DX: N18.4 Chronic kidney disease, stage 4 (severe) (principal)
CPT/HCPCS: 36415; 80048

== ENCOUNTER → 2020-07-10 10:22 | Outpatient (CLI) | payer MEDICARE, SELFPAY ==
[2020-07-10 13:00] LABS: Absolute Lymphocyte Count 3.04 X10^3/uL (0.83-4.51); Absolute Neutrophil Count 7.7 X10^3/uL (2.0-7.7); Basophil# 0.06 X10^3/uL; Basophil% 0.5 % (0-1); Eosinophil# 0.26 X10^3/uL; Eosinophils% 2.1 % (0-5); Hematocrit 36.5 % (37-47); Hemoglobin 11.7 g/dL (12.0-15.0); Lymphocyte # 3.04 X10^3/ul (4.0); Lymphocyte % 24.8 % (19-41); Mean Corp Hgb Conc 32.1 g/dL (32-36); Mean Corpuscular Hgb 30.6 pg (27.0-32.0); Mean Corpuscular Volume 95.5 fL (81-99); Mean Platelet Vol. 9.8 fl (6.2-12.0); Monocyte# 1.05 X10^3/uL; Monocyte% 8.6 % (0-10); NRBC Flagged by Analyzer 0 % (0-5); Neutrophil # 7.69 X10^3/uL (2.7-7.7); Neutrophil % 62.8 % (47-70); Platelet Count 257 K/mm3 (150-450); RBC Distribution Width CV 14.4 % (11.6-14.6); Red Blood Count 3.82 M/mm3 (4.2-5.4); White Blood Count 12.3 K/mm3 (4.4-11.0)
[2020-07-10 13:21] LABS: AST(SGOT) 22 U/L (15-37); Alanine Aminotransfer ALT/SGPT 44 U/L (13-56); Albumin, Serum 3.6 g/dL (3.2-5.0); Alkaline Phosphatase 101 U/L (45-117); Anion Gap 6 (5-15); BUN 44 mg/dL (7-18); BUN/Creat Ratio 30.6 RATIO (10-20); Calcium,Total 9.1 mg/dL (8.5-10.1); Chloride 107 mmol/L (98-107); Cholesterol 164 mg/dL (200); Creatinine, Serum 1.44 mg/dL (0.55-1.02); EST Glomerular Filtration Rate 38 mL/min (>60); Est Glom Filt Rate - Afr Amer 46 mL/min (>60); Globulin 3.7 g/dL (2.2-4.2); Glucose 147 mg/dL (74-106); High Density Lipoprotein 42 mg/dL; Phosphorus 3.2 mg/dL (2.5-4.9); Potassium 4.7 mmol/L (3.5-5.1); Protein, Total 7.3 g/dL (6.4-8.2); Sodium Level 136 mmol/L (136-145); Triglycerides 278 mg/dL; Very Low Density Lipoprotein 56 mg/dL (5-40)
[2020-07-10 13:24] LABS: Hemoglobin A1c 8.2 % (3.8-5.6); Vitamin D,25 Hydroxy 41.2 ng/mL
[2020-07-10 13:53] LABS: Microalbumin,Random Urine 9.6 mg/L (NO RANGE EST.); Microalbumin:Creatinine Ratio 58.5 mg/g CRE (<30 mg/g CRE)
== END ==
PROVIDERS: PCP Family Medicine; Visit Provider Family Medicine
DX: I10 Essential (primary) hypertension (principal); E55.9 Vitamin D deficiency, unspecified; E11.9 Type 2 diabetes mellitus without complications; M81.0 Age-related osteoporosis without current pathological fracture; E78.5 Hyperlipidemia, unspecified
CPT/HCPCS: 36415; 80053; 80061; 82043; 82306; 82570; 83036; 83735; 84100; 85025

== ENCOUNTER → 2020-07-12 09:57 | Outpatient (CLI) | payer MEDICARE, SELFPAY ==
--- NOTE | 2020-07-12 09:59 | BI_ITS ---
MAMMOGRAPHY - BILATERAL SCREENING REASON FOR EXAM: Female, 74 years old. Routine annual screening examination. PERTINENT HISTORY: No pertinent history TECHNIQUE: Digital bilateral breast caro (3D mammographic acquisition) in the CC and MLO projections. 2-D mediolateral oblique (MLO) and craniocaudad (CC) views of both breasts were obtained. CAD: Full Field Digital Mammography with Computer Added Detection was performed. COMPARISON: Previous mammogram obtained on 06/21/2019 FINDINGS: Breast Composition: Fatty There are no dominant masses or suspicious calcifications. No other significant abnormalities are identified. BI/SCREEN MAMM (CAD) W/CARO BILAT IMPRESSION: Stable bilateral screening mammogram. Yearly follow-up mammogram recommended. (A) ASSESSMENT CATEGORY: BIRADS Category 1: Negative. A letter regarding these results will be sent to the patient by the facility within 30 days. Approximately 10% of breast cancers are not detected by mammography. A normal mammogram should not delay biopsy of a clinically suspicious abnormality. [id number] Electronically Signed: Ben Shahid, at 11:08 EST Tel , Service support ,
== END ==
PROVIDERS: PCP Family Medicine; Referring Provider Family Medicine; Visit Provider Family Medicine
DX: Z12.31 Encounter for screening mammogram for malignant neoplasm of breast (principal)
CPT/HCPCS: 77063; 77067

== ENCOUNTER → 2020-07-21 08:50 | Outpatient (CLI) | payer MEDICARE, SELFPAY ==
--- NOTE | 2020-07-21 09:07 | AAAS_ITS ---
Reason For Study: AAA Aorta Measurements Aorta Doppler Measurements Proximal aorta measures2.15 X 2.24cm. in cross- Peak systolic flow velocities within the proximal sectional axis. aorta measure 45.0 cm/sec. Proximal aorta measures2.18cm. in longitudinal Peak systolic flow velocities within the mid aorta axis. measure 18.5 cm/sec. Mid aorta measures3.79 X 3.96cm. in cross- Peak systolic flow velocities within the distal sectional axis. aorta measure 17.0 cm/sec. Mid aorta measures3.76cm. in longitudinal axis. Distal aorta measures2.76 X 2.72cm. in cross- sectional axis. Distal aorta measures2.7cm. in longitudinal axis. Left Iliac Artery Left iliac artery measures 1.15 X 1.14 cm. in the cross-sectional axis. Left iliac artery measures 0.99 cm. in the longitudinal axis. Peak systolic velocity in the left iliac artery measures 118.2 cm/sec. Right Iliac Artery Right iliac artery measures 0.83 X 0.91 cm. in the cross-sectional axis. Right iliac artery measures 1.08 cm. in the longitudinal axis. Peak systolic velocity in the right iliac artery measures 144.0 cm/sec. Procedure Aorta IVC Iliac vasculature or bypass grafts [id number]. Technically difficult due to bowel gas. Exam performed in department. Interpretation Summary The intra-abdominal aorta is aneurysmal, with a maximal diameter of 3.96 centimeters. Aortic diameter appears to have increased since a prior study on 09/04/2017. The iliac arteries are normal in size bilaterally. The intra-abdominal aorta and iliac arteries are patent, demonstrating normal, pulsatile arterial flow. Ordering Physician: Ben Rahman Referring Physician: Ben Rahman Performed By: Anthony KING RDCS, Oly and Student
== END ==
PROVIDERS: PCP Family Medicine; Referring Provider Family Medicine; Visit Provider Family Medicine
DX: I71.4 Abdominal aortic aneurysm, without rupture (principal)
CPT/HCPCS: 76706

== ENCOUNTER → 2020-09-12 12:21 | Outpatient (CLI) | payer MEDICARE, SELFPAY ==
--- NOTE | 2020-09-12 13:00 | MRI_ITS ---
STUDY: MRI LUMBAR SPINE WITHOUT CONTRAST REASON FOR EXAM: Female, 75 years old. lbp x 3years TECHNIQUE: Standardized fat and water weighted pulse sequences were obtained in the sagittal and axial planes. COMPARISON: X-ray 10/07/2017 FINDINGS: T12-L1: Normal endplates. Normal disc height, hydration and morphology. Normal bilateral facet joints. Normal central canal and bilateral lateral recesses. Normal bilateral intervertebral neural foramina. Normal lumbar lordosis. Mild levoscoliosis centered at L2/L3. Normal conus medullaris that terminates at the L1. L1-2: Normal endplates. Normal disc height, hydration and morphology. Normal bilateral facet joints. Normal central canal and bilateral lateral recesses. Normal bilateral intervertebral neural foramina. L2-3: Normal endplates. Normal disc height, hydration and morphology. Normal bilateral facet joints. Normal central canal and bilateral lateral recesses. Normal bilateral intervertebral neural foramina. L3-4: Normal endplates. Normal disc height, hydration and morphology. Normal bilateral facet joints. Normal central canal and bilateral lateral recesses. Normal bilateral intervertebral neural foramina. L4-5: Severe bilateral facet hypertrophy with fluid in the facet joints consistent with instability and severe ligament flavum hypertrophy. Moderate broad disc protrusion produces severe spinal stenosis with severe bilateral lateral recess stenosis with effacement of the L5 nerve roots bilaterally and moderate bilateral neural foraminal stenosis with abutment of the exiting L4 nerve roots bilaterally. L5-S1: Moderate bilateral facet hypertrophy with fluid in the facet joints consistent with instability and moderate ligament flavum hypertrophy. Mild broad disc protrusion produces moderate spinal stenosis with moderate bilateral lateral recess stenosis with abutment of the S1 nerve roots bilaterally and moderate bilateral neural foraminal stenosis with abutment of the exiting L5 nerve roots bilaterally. Normal visualized sacral ala. 4 cm aneurysm of the infrarenal abdominal aorta. Bilateral renal cysts. MRI/Spine Lumbar (Routine) IMPRESSION: 1. Multilevel degenerative changes, as described above. 2. 4 cm abdominal aortic aneurysm. Electronically Signed: Will Souza MD at 14:00 EST Tel , Service support ,
== END ==
PROVIDERS: PCP Family Medicine; Referring Provider Anesthesiology Pain Medicine; Visit Provider Anesthesiology Pain Medicine
DX: M54.9 Dorsalgia, unspecified (principal); M79.606 Pain in leg, unspecified
CPT/HCPCS: 72148

== ENCOUNTER → 2020-10-11 14:14 | Outpatient (CLI) | payer MEDICARE, SELFPAY ==
[2020-10-11 17:48] LABS: Absolute Lymphocyte Count 3.85 X10^3/uL (0.83-4.51); Absolute Neutrophil Count 6.9 X10^3/uL (2.0-7.7); Basophil# 0.07 X10^3/uL; Basophil% 0.6 % (0-1); Eosinophil# 0.23 X10^3/uL; Eosinophils% 1.9 % (0-5); Hematocrit 37.2 % (37-47); Hemoglobin 11.6 g/dL (12.0-15.0); Lymphocyte # 3.85 X10^3/ul (4.0); Lymphocyte % 31.5 % (19-41); Mean Corp Hgb Conc 31.2 g/dL (32-36); Mean Corpuscular Hgb 30.4 pg (27.0-32.0); Mean Corpuscular Volume 97.4 fL (81-99); Mean Platelet Vol. 9.8 fl (6.2-12.0); Monocyte# 1.14 X10^3/uL; Monocyte% 9.3 % (0-10); NRBC Flagged by Analyzer 0 % (0-5); Neutrophil # 6.85 X10^3/uL (2.7-7.7); Neutrophil % 56.1 % (47-70); Platelet Count 279 K/mm3 (150-450); RBC Distribution Width SD 50.3 fl (35.1-43.9); Red Blood Count 3.82 M/mm3 (4.2-5.4); White Blood Count 12.2 K/mm3 (4.4-11.0)
[2020-10-11 18:28] LABS: Microalbumin,Random Urine 14.5 mg/L (NO RANGE EST.); Microalbumin:Creatinine Ratio 21.4 mg/g CRE (<30 mg/g CRE)
[2020-10-11 18:29] LABS: Vitamin D,25 Hydroxy 28.6 ng/mL
[2020-10-11 18:45] LABS: Hemoglobin A1c 8.4 % (3.8-5.6)
[2020-10-11 18:52] LABS: ALB/GLOB Ratio 1.3 RATIO (0.9-2.4); AST(SGOT) 15 U/L (15-37); Alanine Aminotransfer ALT/SGPT 37 U/L (13-56); Albumin, Serum 4.1 g/dL (3.2-5.0); Alkaline Phosphatase 58 U/L (45-117); Anion Gap 8 (5-15); BUN 58 mg/dL (7-18); BUN/Creat Ratio 27.5 RATIO (10-20); Calcium,Total 8.5 mg/dL (8.5-10.1); Chloride 104 mmol/L (98-107); Cholesterol 179 mg/dL (200); Creatinine, Serum 2.11 mg/dL (0.55-1.02); EST Glomerular Filtration Rate 24 mL/min (>60); Est Glom Filt Rate - Afr Amer 30 mL/min (>60); Globulin 3.2 g/dL (2.2-4.2); Glucose 171 mg/dL (74-106); High Density Lipoprotein 43 mg/dL; Magnesium 1.8 mg/dL (1.6-2.6); Phosphorus 5.1 mg/dL (2.5-4.9); Potassium 4.5 mmol/L (3.5-5.1); Protein, Total 7.3 g/dL (6.4-8.2); Sodium Level 137 mmol/L (136-145); Triglycerides 407 mg/dL
[2020-10-12 08:13] LABS: PTHIN 160.1 pg/mL (18.4-80.1)
== END ==
PROVIDERS: PCP Family Medicine; Referring Provider Family Medicine; Visit Provider Family Medicine
DX: E11.22 Type 2 diabetes mellitus with diabetic chronic kidney disease (principal); N18.30 Chronic kidney disease, stage 3 unspecified; E55.9 Vitamin D deficiency, unspecified; E78.5 Hyperlipidemia, unspecified
CPT/HCPCS: 36415; 80053; 80061; 82043; 82306; 82570; 83036; 83735; 83970; 84100; 85025

== ENCOUNTER → 2020-10-20 10:11 | Outpatient (CLI) | payer MEDICARE, SELFPAY ==
--- NOTE | 2020-10-20 10:15 | NM_ITS ---
CLINICAL: 75-year-old diabetic female with reported previous history of early satiety. SEMI-SOLID PHASE 99m Tc SULFUR COLLOID GASTRIC EMPTYING STUDY COMPARISON: Semisolid phase gastric emptying study 09/16/2017 FINDINGS: The patient was administered 1.1 mCi of 99m Tc sulfur colloid mixed with oatmeal and consumed per os. Image acquisitions in the anterior-posterior projections for a total of 60 minutes. There is prompt visualization of the stomach. There is no gastroesophageal reflux identified. The T ? linear fit was calculated to be 36.88 minutes, (Normal: 12-56 minutes) compared to 43.71 minutes defined on the examination dated 09/16/2017. NM/Gastric Emptying Study IMPRESSION: 1. NORMAL 99m Tc sulfur colloid semi-solid phase (oatmeal) gastric emptying imaging examination. A. There is normal and preserved semi-solid phase gastric emptying compared to normal controls. (Oscar et al, J Nucl Med Tech 38: 186, 2010). B. Overall compared to the previous semisolid phase gastric emptying study dated 09/16/2017, there is no significant interval change. Electronically Signed: Will Patel DO at 7:37 EST Tel , Service support ,
== END ==
LOC: NM 10:14
PROVIDERS: PCP Family Medicine; Referring Provider Family Medicine; Visit Provider Family Medicine
DX: E11.9 Type 2 diabetes mellitus without complications (principal)
CPT/HCPCS: 78264; A9541

== ENCOUNTER → 2021-01-11 11:25 | Outpatient (CLI) | payer MEDICARE, SELFPAY ==
[2021-01-11 15:20] LABS: Absolute Lymphocyte Count 3.25 X10^3/uL (0.83-4.51); Absolute Neutrophil Count 6.7 X10^3/uL (2.0-7.7); Basophil% 0.9 % (0-1); Eosinophil# 0.24 X10^3/uL; Eosinophils% 2.1 % (0-5); Hematocrit 37.9 % (37-47); Hemoglobin 12.1 g/dL (12.0-15.0); Lymphocyte # 3.25 X10^3/ul (0.83-4.51); Lymphocyte % 28.8 % (19-41); Mean Corp Hgb Conc 31.9 g/dL (32-36); Mean Corpuscular Hgb 29.8 pg (27.0-32.0); Mean Corpuscular Volume 93.3 fL (81-99); Mean Platelet Vol. 10.4 fl (6.2-12.0); Monocyte# 0.93 X10^3/uL; Monocyte% 8.2 % (0-10); NRBC Flagged by Analyzer 0 % (0-5); Neutrophil # 6.72 X10^3/uL (2.7-7.7); Neutrophil % 59.5 % (47-70); Platelet Count 302 K/mm3 (150-450); RBC Distribution Width CV 14.2 % (11.6-14.6); RBC Distribution Width SD 47.5 fl (35.1-43.9); Red Blood Count 4.06 M/mm3 (4.2-5.4); White Blood Count 11.3 K/mm3 (4.4-11.0)
[2021-01-11 15:40] LABS: Vitamin D,25 Hydroxy 26.8 ng/mL
[2021-01-11 15:50] LABS: ALB/GLOB Ratio 1.1 RATIO (0.9-2.4); AST(SGOT) 17 U/L (15-37); Alanine Aminotransfer ALT/SGPT 24 U/L (13-56); Albumin, Serum 3.9 g/dL (3.2-5.0); Alkaline Phosphatase 75 U/L (45-117); Anion Gap 9 (5-15); BUN 33 mg/dL (7-18); BUN/Creat Ratio 21.3 RATIO (10-20); Calcium,Total 8.5 mg/dL (8.5-10.1); Chloride 104 mmol/L (98-107); Cholesterol 224 mg/dL (200); Creatinine, Serum 1.55 mg/dL (0.55-1.02); EST Glomerular Filtration Rate 35 mL/min (>60); Est Glom Filt Rate - Afr Amer 42 mL/min (>60); Globulin 3.6 g/dL (2.2-4.2); Glucose 228 mg/dL (74-106); High Density Lipoprotein 38 mg/dL; Magnesium 1.3 mg/dL (1.6-2.6); Potassium 4.4 mmol/L (3.5-5.1); Protein, Total 7.5 g/dL (6.4-8.2); Sodium Level 137 mmol/L (136-145); Triglycerides 738 mg/dL
[2021-01-11 16:00] LABS: Hemoglobin A1c 7.4 % (3.8-5.6)
== END ==
PROVIDERS: PCP Family Medicine; Referring Provider Family Medicine; Visit Provider Family Medicine
DX: E11.9 Type 2 diabetes mellitus without complications (principal); E78.1 Pure hyperglyceridemia; E55.9 Vitamin D deficiency, unspecified
CPT/HCPCS: 36415; 80053; 80061; 82306; 83036; 83735; 85025

== ENCOUNTER → 2021-04-04 09:04 | Outpatient (CLI) | payer MEDICARE, SELFPAY ==
--- NOTE | 2021-04-04 09:15 | RAD_ITS ---
STUDY: X-RAY - UNILATERAL RIBS ( LEFT ) WITH CHEST REASON FOR EXAM: Female, 75 years old. Pain. TECHNIQUE - RIBS: 3 view(s) of the ribs 4 images. TECHNIQUE - CHEST: Frontal and lateral views of the chest. COMPARISON: 11/15/2018. FINDINGS - RIBS: Osteopenia. No displaced rib fracture. FINDINGS - CHEST: Support devices removed. Hyperexpansion unchanged. There is no demonstrated pleural abnormality. Stable sternotomy wires. Normal mediastinum and anita. Normal visualized pulmonary arteries. Normal visualized aortic arch and descending thoracic aorta. Normal visualized thoracic spine. Normal visualized ribs, clavicles, and shoulders. There is no demonstrated abnormality of the visualized soft tissue structures of the upper abdomen. RAD/Ribs Uni Min 3V w/PA Chest IMPRESSION: RIBS: Osteopenia with no displaced rib fracture. CHEST: No active or acute cardiopulmonary disease. Electronically Signed: Jonas Chau MD at 12:27 EDT , Service support ,
== END ==
LOC: MTRAD 09:05
PROVIDERS: PCP Family Medicine; Referring Provider Family Medicine; Visit Provider Family Medicine
DX: R07.81 Pleurodynia (principal)
CPT/HCPCS: 71101

== ENCOUNTER → 2021-04-25 14:25 | Outpatient (CLI) | payer MEDICARE, SELFPAY ==
[2021-04-25 14:28] LABS: Bacteria 0 SEEN /hpf (None Seen); Mucous, Urine 0 SEEN /hpf (<or=2+); Red Blood Cells-Urine 0 SEEN /hpf (0-5)
[2021-04-25 17:41] LABS: Color, Urine Yellow (Yellow); Glucose, Dipstick Normal (Normal); Ketone-Dipstick Negative (Negative); Leukocyte Esterase-Dipstick Negative /ul (Negative); Nitrite-Dipstick Negative (Negative); Occult Blood-Urine Negative /ul (Negative); Protein-Dipstick 15 mg/dl (Negative); Specific Gravity, Urine 1.015 (1.002-1.030); Urine Bilirubin Dipstick Negative (Negative); Urine Clarity Clear (Clear); Urine Urobilinogen Normal (Normal)
[2021-04-25 17:42] LABS: Absolute Lymphocyte Count 3.23 X10^3/uL (0.83-4.51); Absolute Neutrophil Count 7.3 X10^3/uL (2.0-7.7); Basophil# 0.09 X10^3/uL; Basophil% 0.8 % (0-1); Eosinophil# 0.39 X10^3/uL; Eosinophils% 3.3 % (0-5); Hematocrit 39.4 % (37-47); Hemoglobin 12.7 g/dL (12.0-15.0); Lymphocyte # 3.23 X10^3/ul (0.83-4.51); Mean Corp Hgb Conc 32.2 g/dL (32-36); Mean Corpuscular Hgb 29.3 pg (27.0-32.0); Mean Platelet Vol. 9.7 fl (6.2-12.0); Monocyte% 7.5 % (0-10); NRBC Flagged by Analyzer 0 % (0-5); Neutrophil # 7.27 X10^3/uL (2.7-7.7); Neutrophil % 60.6 % (47-70); Platelet Count 250 K/mm3 (150-450); RBC Distribution Width CV 15.5 % (11.6-14.6); RBC Distribution Width SD 51.1 fl (35.1-43.9); Red Blood Count 4.33 M/mm3 (4.2-5.4)
[2021-04-25 17:54] LABS: Vitamin D,25 Hydroxy 30.7 ng/mL
[2021-04-25 18:00] LABS: Hemoglobin A1c 8.1 % (3.8-5.6)
[2021-04-25 18:07] LABS: ALB/GLOB Ratio 0.9 RATIO (0.9-2.4); AST(SGOT) 16 U/L (15-37); Alanine Aminotransfer ALT/SGPT 30 U/L (13-56); Albumin, Serum 3.7 g/dL (3.2-5.0); Alkaline Phosphatase 94 U/L (45-117); Anion Gap 7 (5-15); BUN 54 mg/dL (7-18); BUN/Creat Ratio 29.7 RATIO (10-20); Calcium,Total 8.9 mg/dL (8.5-10.1); Chloride 104 mmol/L (98-107); Cholesterol 246 mg/dL (200); Creatinine, Serum 1.82 mg/dL (0.55-1.02); EST Glomerular Filtration Rate 29 mL/min (>60); Est Glom Filt Rate - Afr Amer 35 mL/min (>60); Globulin 4.1 g/dL (2.2-4.2); Glucose 160 mg/dL (74-106); High Density Lipoprotein 32 mg/dL; Magnesium 1.8 mg/dL (1.6-2.6); Phosphorus 3.6 mg/dL (2.5-4.9); Potassium 4.1 mmol/L (3.5-5.1); Protein, Total 7.8 g/dL (6.4-8.2); Sodium Level 136 mmol/L (136-145); Triglycerides 885 mg/dL
[2021-04-25 18:21] LABS: Squamous Epithelial Cells - UA 0-5 SEEN /hpf (5-10); White Blood Cells 0-5 SEEN /hpf (0-5)
[2021-04-25 18:30] LABS: Protein, Urine (Random) 14.8 mg/dL (<11.9); Protein:Creat Ratio 152 mg/g CRE (0-200)
== END ==
PROVIDERS: PCP Family Medicine; Referring Provider Family Medicine; Visit Provider Family Medicine
DX: E11.22 Type 2 diabetes mellitus with diabetic chronic kidney disease (principal); E55.9 Vitamin D deficiency, unspecified; N18.9 Chronic kidney disease, unspecified
CPT/HCPCS: 36415; 80053; 80061; 81001; 82306; 82570; 83036; 83735; 84100; 84156; 85025

== ENCOUNTER → 2021-07-16 09:36 | Outpatient (CLI) | payer MEDICARE, SELFPAY ==
--- NOTE | 2021-07-16 09:40 | US_ITS ---
PROCEDURES: ULTRASOUND AORTA REASON FOR EXAM: Female, 75 years old. AAA TECHNIQUE: Ultrasound evaluation of the aorta was performed with real-time and static bennett-scale imaging. COMPARISON: Comparison is made with prior study dated 07/19/2019. FINDINGS: There is tortuous elongation of the abdominal aorta. Aorta measures: Proximal 2.6 cm. Middle 4.1 cm. Distal 2.9 cm. Aorta measure transversely: Proximal 2.8 cm. Middle 3 cm. Distal 4.1 cm. Right iliac artery measures: 1.1 cm. Right iliac artery measure transversely: 1.3 cm. Left iliac artery measures: 1.0 cm. Left iliac artery measure transversely: 1.1 cm. There is evidence of a infrarenal abdominal aortic aneurysm with a transverse dimension of 4.1 cm and AP dimension of 4.3 cm.. US/Aorta IMPRESSION: Infrarenal abdominal aortic aneurysm with a transverse dimension of 4.1 cm and longitudinal dimension of 4.3 cm. Electronically Signed: Ugo Shearer MD at 15:01 EST , Service support ,
== END ==
PROVIDERS: PCP Family Medicine; Referring Provider Family Medicine; Visit Provider Family Medicine
DX: I71.4 Abdominal aortic aneurysm, without rupture (principal)
CPT/HCPCS: 76775

== ENCOUNTER → 2021-08-08 08:38 | Outpatient (CLI) | payer MEDICARE, SELFPAY ==
[2021-08-08 10:38] LABS: Albumin, Serum 3.7 g/dL (3.2-5.0); BUN 49 mg/dL (7-18); BUN/Creat Ratio 23.6 RATIO (10-20); Calcium,Total 7.4 mg/dL (8.5-10.1); Chloride 106 mmol/L (98-107); Creatinine, Serum 2.08 mg/dL (0.55-1.02); EST Glomerular Filtration Rate 25 mL/min (>60); Est Glom Filt Rate - Afr Amer 30 mL/min (>60); Glucose 141 mg/dL (74-106); Phosphorus 3.3 mg/dL (2.5-4.9); Potassium 3.6 mmol/L (3.5-5.1); Sodium Level 138 mmol/L (136-145)
== END ==
PROVIDERS: PCP Family Medicine; Referring Provider Family Medicine; Visit Provider Internal Medicine Nephrology
DX: N18.4 Chronic kidney disease, stage 4 (severe) (principal)
CPT/HCPCS: 36415; 80069

== ENCOUNTER → 2021-08-14 12:06 | Outpatient (CLI) | payer MEDICARE, SELFPAY ==
[2021-08-14 12:29] LABS: Mucous, Urine 0 SEEN /hpf (<or=2+); Red Blood Cells-Urine 0 SEEN /hpf (0-5)
[2021-08-14 15:00] LABS: Absolute Lymphocyte Count 3.17 X10^3/uL (0.83-4.51); Absolute Neutrophil Count 7.2 X10^3/uL (2.0-7.7); Basophil% 0.8 % (0-1); Eosinophil# 0.43 X10^3/uL; Eosinophils% 3.6 % (0-5); Hematocrit 38.4 % (37-47); Hemoglobin 12.4 g/dL (12.0-15.0); Lymphocyte # 3.17 X10^3/ul (0.83-4.51); Lymphocyte % 26.3 % (19-41); Mean Corp Hgb Conc 32.3 g/dL (32-36); Mean Corpuscular Hgb 29.6 pg (27.0-32.0); Mean Corpuscular Volume 91.6 fL (81-99); Mean Platelet Vol. 9.9 fl (6.2-12.0); Monocyte% 7.5 % (0-10); NRBC Flagged by Analyzer 0 % (0-5); Neutrophil # 7.23 X10^3/uL (2.7-7.7); Neutrophil % 60.1 % (47-70); Platelet Count 260 K/mm3 (150-450); RBC Distribution Width CV 14.5 % (11.6-14.6); RBC Distribution Width SD 48.5 fl (35.1-43.9); Red Blood Count 4.19 M/mm3 (4.2-5.4)
[2021-08-14 15:04] LABS: Color, Urine Yellow (Yellow); Glucose, Dipstick Normal (Normal); Ketone-Dipstick 5 mg/dl (Negative); Leukocyte Esterase-Dipstick 500 /ul (Negative); Nitrite-Dipstick Positive (Negative); Occult Blood-Urine Negative /ul (Negative); Protein-Dipstick Negative (Negative); Urine Bilirubin Dipstick Negative (Negative); Urine Clarity Sl. Cloudy (Clear); Urine Urobilinogen Normal (Normal)
[2021-08-14 15:15] LABS: Bacteria 2+ /hpf (None Seen); Squamous Epithelial Cells - UA 0-5 SEEN /hpf (5-10); White Blood Cells 25-50 SEEN /hpf (0-5)
[2021-08-14 15:21] LABS: Vitamin B12 253 pg/mL (211-911)
[2021-08-14 15:28] LABS: Protein, Urine (Random) 9.8 mg/dL (<11.9); Protein:Creat Ratio 219 mg/g CRE (0-200)
[2021-08-14 15:31] LABS: AST(SGOT) 20 U/L (15-37); Alanine Aminotransfer ALT/SGPT 22 U/L (13-56); Alkaline Phosphatase 76 U/L (45-117); Anion Gap 12 (5-15); BUN 58 mg/dL (7-18); BUN/Creat Ratio 27.9 RATIO (10-20); Calcium,Total 8.3 mg/dL (8.5-10.1); Chloride 105 mmol/L (98-107); Cholesterol 235 mg/dL (200); Creatinine, Serum 2.08 mg/dL (0.55-1.02); EST Glomerular Filtration Rate 25 mL/min (>60); Est Glom Filt Rate - Afr Amer 30 mL/min (>60); Glucose 169 mg/dL (74-106); High Density Lipoprotein 33 mg/dL; Magnesium 1.3 mg/dL (1.6-2.6); Potassium 4.7 mmol/L (3.5-5.1); Sodium Level 139 mmol/L (136-145); Thyroid Stim Hormone (TSH) 2.69 uIU/mL (0.358-3.74); Triglycerides 827 mg/dL
== END ==
PROVIDERS: PCP Family Medicine; Visit Provider Family Medicine
DX: E11.22 Type 2 diabetes mellitus with diabetic chronic kidney disease (principal); E83.42 Hypomagnesemia; E11.69 Type 2 diabetes mellitus with other specified complication; R41.3 Other amnesia
CPT/HCPCS: 36415; 80053; 80061; 81001; 82570; 82607; 83036; 83735; 84156; 84443; 85025

== ENCOUNTER 2021-11-07 12:36 | Outpatient (CLI) | payer MEDICARE, SELFPAY ==
[2021-11-07 15:23] LABS: Albumin, Serum 3.1 g/dL (3.2-5.0); BUN 33 mg/dL (7-18); BUN/Creat Ratio 19.4 RATIO (10-20); Calcium,Total 8.1 mg/dL (8.5-10.1); Chloride 100 mmol/L (98-107); EST Glomerular Filtration Rate 31 mL/min (>60); Est Glom Filt Rate - Afr Amer 38 mL/min (>60); Glucose 130 mg/dL (74-106); Potassium 3.5 mmol/L (3.5-5.1); Sodium Level 134 mmol/L (136-145)
[2021-11-07 15:25] LABS: Protein, Urine (Random) 25.6 mg/dL (<11.9); Protein:Creat Ratio 350 mg/g CRE (0-200)
== END 2021-11-07 23:59 | disposition home or self-care (01) ==
PROVIDERS: PCP Family Medicine; Referring Provider Internal Medicine Nephrology; Visit Provider Internal Medicine Nephrology
DX: E11.22 Type 2 diabetes mellitus with diabetic chronic kidney disease (principal); E11.00 Type 2 diabetes mellitus with hyperosmolarity without nonketotic hyperglycemic-hyperosmolar coma (NKHHC); N18.4 Chronic kidney disease, stage 4 (severe)
CPT/HCPCS: 36415; 80069; 82570; 84156

== ENCOUNTER 2021-11-08 12:03 | Emergency (ER) | payer MEDICARE, SELFPAY ==
[2021-11-08 12:04] VITALS: BP 97/58; PULSE 80; RESP 18; TEMP 36.3; O2SAT 100; BMI 25.4
--- NOTE | 2021-11-08 13:07 | EKG12_ITS ---
Test Reason : LOWER EXTREMETY Blood Pressure : / mmHG Vent. Rate : 074 BPM Atrial Rate : 074 BPM P-R Int : 116 ms QRS Dur : 096 ms QT Int : 396 ms P-R-T Axes : 039 036 049 degrees QTc Int : 439 ms Normal sinus rhythm ST & T wave abnormality, consider anterior ischemia Abnormal ECG Confirmed by DONATO CLEMENTS, ONEAL ([id number]), food editor NASIR WILD ([id number]) on 11/12/2021 10:39:34 AM Referred By: AMOR Confirmed By:ONEAL SEWELL MD
[2021-11-08 13:30] VITALS: BP 106/62; PULSE 75; RESP 16; O2SAT 96; O2SAT 99
[2021-11-08 13:31] LABS: Absolute Lymphocyte Count 1.93 X10^3/uL (0.83-4.51); Absolute Neutrophil Count 15.4 X10^3/uL (2.0-7.7); Basophil# 0.07 X10^3/uL; Basophil% 0.4 % (0-1); Eosinophil# 0.04 X10^3/uL; Eosinophils% 0.2 % (0-5); Hematocrit 33.6 % (37-47); Hemoglobin 11.1 g/dL (12.0-15.0); Lymphocyte # 1.93 X10^3/ul (0.83-4.51); Lymphocyte % 10.1 % (19-41); Mean Corpuscular Hgb 30.4 pg (27.0-32.0); Mean Corpuscular Volume 92.1 fL (81-99); Mean Platelet Vol. 9.5 fl (6.2-12.0); Monocyte# 1.31 X10^3/uL; Monocyte% 6.8 % (0-10); NRBC Flagged by Analyzer 0 % (0-5); Neutrophil % 80.2 % (47-70); Platelet Count 363 K/mm3 (150-450); RBC Distribution Width CV 13.5 % (11.6-14.6); Red Blood Count 3.65 M/mm3 (4.2-5.4); White Blood Count 19.2 K/mm3 (4.4-11.0)
--- NOTE | 2021-11-08 13:33 | ED.VIS.LOWEX ---
HPI History of Present Illness Chief Complaint: Edema Narrative Narrative: 76-year-old female presenting with bilateral lower extremity edema. She states is mostly in the feet. She is having trouble walking secondary to pain. She states he is on Lasix currently for history of CHF. She does not have shortness of breath. She states he was recently seen at [facility] last week and was concerned for pneumonia and they told her she did not have pneumonia however she was sent home with albuterol nebulizers and Levaquin. When she followed up with her primary care doctor she switched her to Augmentin. I do not know what the antibiotics are for. Patient is not had any fever, chills, rash, urinary complaints, diarrhea or constipation. 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 Candidal vulvovaginitis Encephalopathy GI bleed Hyperosmolar (nonketotic) coma Ischemic cardiomyopathy Nicotine dependence NSTEMI (non-ST elevated myocardial infarction) Type 2 diabetes mellitus Home Medications alendronate 70 mg PO Q7D@0700 11/12/18 [History Last Taken Unknown] aspirin 81 mg PO DAILY@0800 11/12/18 [History Last Taken Unknown] ergocalciferol (vitamin D2) [Vitamin D2] 50,000 unit PO Q7D 11/12/18 [History Last Taken Unknown] fluticasone propionate 1 spray NASAL DAILY 11/12/18 [History Last Taken Unknown] Mineral Oil/Petrolatum,White [Eucerin] 1 applic TOPICAL 0600,2200 jar 11/24/18 [Rx Last Taken Unknown] acetaminophen 1,000 mg PO Q6H PRN PRN tablet 11/24/18 [Rx Last Taken Unknown] atorvastatin 40 mg PO QHS #30 tab 11/24/18 [Rx Last Taken Unknown] carvedilol 3.125 mg PO BID #60 tab 11/24/18 [Rx Last Taken Unknown] clopidogrel 75 mg PO DAILY #30 tab 11/24/18 [Rx Last Taken Unknown] insulin glargine [Lantus Solostar U-100 Insulin] 15 units SUBCUT BID #1 pen 11/24/18 [Rx Last Taken Unknown] insulin lispro [Humalog KwikPen Insulin] 6 unit SUBCUT TIDAC #1 insuln.pen 11/24/18 [Rx Last Taken Unknown] magnesium oxide 400 mg PO DAILYCM #30 tab 11/24/18 [Rx Last Taken Unknown] menthol-zinc oxide [Calmoseptine] 1 applic TOPICAL 0600,2200 tube 11/24/18 [Rx Last Taken Unknown] nystatin [Nyamyc] 1 applic TOPICAL 0600,2200 bottle 11/24/18 [Rx Last Taken Unknown] pantoprazole 40 mg PO BID #60 tab 11/24/18 [Rx Last Taken Unknown] sucralfate 1 g PO 1HR_ACHS #120 tablet 11/24/18 [Rx Last Taken Unknown] doxycycline hyclate 100 mg PO BID 10 Days #20 cap 11/08/21 [Rx Last Taken Unknown] hydrocodone-acetaminophen 1 tab PO Q6H PRN 3 Days #10 tab 11/08/21 [Rx Last Taken Unknown] Allergy/AdvReac Type Severity Reaction Status Date / Time metformin Allergy Itching Verified 11/08/21 12:04 Surgical History H/O coronary artery bypass surgery History of hysterectomy History of left heart catheterization (11/16/18) Hx of cholecystectomy Social History Smoking Status: Current every day smoker tobacco type: cigarettes ROS ROS ED Constitutional Constitutional ED: Denies fever(s) or sweats Eyes Eyes: Denies blurry vision or diplopia ENT ENT ED: Denies rhinorrhea or sore throat Cardiovascular Cardiovascular: Denies chest pain or palpitations Respiratory/Chest Respiratory/Chest: Denies cough or dyspnea Gastrointestinal Gastrointestinal: Denies abdominal pain, nausea or vomiting Genitourinary Genitourinary ED: Denies dysuria, hematuria or urinary frequency Musculoskeletal Musculoskeletal: Reports other Details: Bilateral foot pain and swelling Integumentary Denies rash Neurologic Neurologic: Denies headache(s) or paresthesias Psychiatric Psychiatric: Denies anxiety or depression EXAM Physical Exam Const Vital Signs: 11/08/21 12:04 11/08/21 13:30 11/08/21 14:03 Temperature 97.3 F L Temperature Source Temporal Pulse Rate 80 75 79 Respiratory Rate 18 16 14 Respiratory Effort Respiratory Pattern Blood Pressure 97/58 L 106/62 131/70 H Blood Pressure Mean 71 76 90 Pulse Ox 100 99 95 Oxygen Delivery Method Room Air Room Air Room Air 11/08/21 14:08 Temperature Temperature Source Pulse Rate Respiratory Rate Respiratory Effort Normal Non-Labored Respiratory Pattern Normal Blood Pressure Blood Pressure Mean Pulse Ox Oxygen Delivery Method Positive well nourished General Appearance ED: NAD HEENT Reports moist mucous membranes normocephalic Eyes PERRL Resp normal respiratory effort and clear to auscultation bilaterally Cardio regular rate and regular rhythm GI non-tender Palpation: soft Extremity Extremity Narrative: Slight edema to bilateral feet. No erythematous changes to suggest cellulitis. No increased warmth Neuro oriented x3 Sensorium / Orientation: alert Psych mental status grossly normal Skin Skin Narrative: Bilateral erythema to the feet. There is edema here as well. The calves are soft and nontender. Bilateral feet Norvasc intact prescription for all 10 toes. No crepitance palpated. MDM MDM MDM Narrative Medical decision making narrative: Patient presented with bilateral foot pain patient's lab work shows that her white blood cell count is 19.2. Hemoglobin hematocrit are stable. Creatinine is at baseline. Electrolytes fairly normal. BNP slightly elevated at 302. High-sensitivity troponin is negative. Chest x-ray on my interpretation shows no acute cardiopulmonary process and the radiologist does agree. EKG on my interpretation shows a sinus rhythm with a ventricular rate of 74 bpm without sign of ischemic change. Patient was given [place] for her foot pain. Given her white count I do think maybe she. Has cellulitis on her feet. She is on Augmentin currently. I spoke with her primary care provider Dr. Rahman who stated that he did not see her on her last office visit and he was unsure why she is on Augmentin but with the cellulitis he wants to switch her to doxycycline and have her follow-up with him. Patient was given the first dose of this in the ER. She is given pain medication for home and strict return precautions. Impression: 1. Cellulitis Lab Data Attestation: I reviewed the patient's lab results. Labs: Laboratory Results - last 24 hr 11/08/21 11/08/21 11/08/21 13:07 13:20 13:20 WBC 19.2 H RBC 3.65 L Hgb 11.1 L Hct 33.6 L MCV 92.1 MCH 30.4 MCHC 33.0 RDW Std Deviation 46.0 H RDW Coeff of Joanna 13.5 Plt Count 363 MPV 9.5 Immature Gran % (Auto) 2.300 H Neut % (Auto) 80.2 H Lymph % (Auto) 10.1 L Vernon % (Auto) 6.8 Eos % (Auto) 0.2 Baso % (Auto) 0.4 Absolute Neuts (auto) 15.4 H Absolute Lymphs (auto) 1.93 Nucleated RBC % 0 Sodium 133 L Potassium 3.7 Chloride 100 Carbon Dioxide 24.0 Anion Gap 9 BUN 35 H Creatinine 1.79 H Estim Creat Clear Calc 20.81 Est GFR (MDRD) Af Amer 36 L Est GFR (MDRD) Non-Af 29 L BUN/Creatinine Ratio 19.6 Glucose 208 H Calcium 8.1 L Troponin I High Sens 41 B-Natriuretic Peptide 302.5 H 11/08/21 15:16 WBC RBC Hgb Hct MCV MCH MCHC RDW Std Deviation RDW Coeff of Joanna Plt Count MPV Immature Gran % (Auto) Neut % (Auto) Lymph % (Auto) Vernon % (Auto) Eos % (Auto) Baso % (Auto) Absolute Neuts (auto) Absolute Lymphs (auto) Nucleated RBC % Sodium Potassium Chloride Carbon Dioxide Anion Gap BUN Creatinine Estim Creat Clear Calc Est GFR (MDRD) Af Amer Est GFR (MDRD) Non-Af BUN/Creatinine Ratio Glucose Calcium Troponin I High Sens 47 B-Natriuretic Peptide Radiography Diagnostic Testing: Clinical Impression(s) from Imaging Studies Chest X-Ray 11/08/21 13:45 IMPRESSION: No acute abnormality is seen. Electronically Signed: Ugo Shearer MD at 13:59 EDT , Discharge Plan Triage Chief Complaint: Edema ED Provider: Wily Hernández Dx/Rx/DC Orders Instructions: ED Cellulitis, ED Peripheral Edema, Bilateral Prescriptions: New doxycycline hyclate 100 mg capsule 100 mg PO BID 10 Days Qty: 20 RF: 0 hydrocodone-acetaminophen 5-325 mg tablet 1 tab PO Q6H PRN (Reason: pain) 3 Days Qty: 10 RF: 0 No Action alendronate 70 MG tablet 70 mg PO Q7D@0700 RF: 0 aspirin 81 MG tablet,chewable 81 mg PO DAILY@0800 RF: 0 ergocalciferol (vitamin D2) [Vitamin D2] 50,000 UNIT capsule 50,000 unit PO Q7D RF: 0 fluticasone propionate 1 SPRAY spray,suspension 1 spray NASAL DAILY RF: 0 sucralfate 1 GM tablet 1 g PO 1HR_ACHS Qty: 120 RF: 0 acetaminophen 500 MG tablet 1,000 mg PO Q6H PRN PRN (Reason: Mild Pain (-10/25)) RF: 0 nystatin [Nyamyc] 1 APPLIC bottle 1 applic topical 0600,2200 RF: 0 insulin glargine [Lantus Solostar U-100 Insulin] 100 UNITS/ML insulin pen 15 units subcut BID Qty: 1 RF: 0 menthol-zinc oxide [Calmoseptine] 1 APPLIC ointment 1 applic topical 0600,2200 RF: 0 Mineral Oil/Petrolatum,White [Eucerin] 1 APPLIC Jar 1 applic topical 0600,2200 RF: 0 atorvastatin 40 MG tablet 40 mg PO QHS Qty: 30 RF: 0 clopidogrel 75 MG tablet 75 mg PO DAILY Qty: 30 RF: 0 carvedilol 3.125 MG tablet 3.125 mg PO BID Qty: 60 RF: 0 magnesium oxide 400 MG tablet 400 mg PO DAILYCM Qty: 30 RF: 0 pantoprazole 40 MG tablet 40 mg PO BID Qty: 60 RF: 0 insulin lispro [Humalog KwikPen Insulin] 100 UNIT/ML insulin pen 6 unit subcut TIDAC Qty: 1 RF: 0 Primary Care Provider: Ben Rahman Referrals: Ben Rahman MD [Primary Care Provider] - Disposition Disposition: Home, Self Care
[2021-11-08] MEDS: HYDROcodone Bitartrate/Apap 5/325 Tablet PO (13:39)
--- NOTE | 2021-11-08 13:45 | RAD_ITS ---
STUDY: X-RAY CHEST REASON FOR EXAM: Female, 76 years old. Chest pain TECHNIQUE: Single AP portable view of the chest. COMPARISON: Comparison is made with prior study dated 04/04/2021. FINDINGS: EKG electrodes are seen. Hyperinflation. The lungs are clear. There is no demonstrated pleural abnormality. Sternal cerclage wires and vascular clips are present from a prior sternotomy and coronary artery bypass graft procedure (CABG). Normal mediastinum and anita. Normal visualized pulmonary arteries. There is atherosclerotic calcification of the aortic arch with tortuosity. Normal visualized thoracic spine. Healed left rib fractures. There is no demonstrated abnormality of the visualized soft tissue structures of the upper abdomen. RAD/Chest 1 View (Portable) IMPRESSION: No acute abnormality is seen. Electronically Signed: Ugo Shearer MD at 13:59 EDT ,
[2021-11-08 13:53] LABS: Anion Gap 9 (5-15); BUN 35 mg/dL (7-18); BUN/Creat Ratio 19.6 RATIO (10-20); Calcium,Total 8.1 mg/dL (8.5-10.1); Chloride 100 mmol/L (98-107); Creatinine, Serum 1.79 mg/dL (0.55-1.02); EST Glomerular Filtration Rate 29 mL/min (>60); Est Glom Filt Rate - Afr Amer 36 mL/min (>60); Estimated Creatinine Clearance 20.81 ml/min; Glucose 208 mg/dL (74-106); Potassium 3.7 mmol/L (3.5-5.1); Sodium Level 133 mmol/L (136-145); Troponin-I HS 41 pg/mL (3.0-54.0)
[2021-11-08 13:59] LABS: BNP,B-Type NATRIURETIC PEPTIDE 302.5 pg/mL (0-100)
[2021-11-08 14:03] VITALS: BP 131/70; PULSE 79; RESP 14; O2SAT 95
[2021-11-08 15:49] LABS: Troponin-I HS 47 pg/mL (3.0-54.0)
[2021-11-08] MEDS: Doxycycline 100 MG CAPSULE PO (16:22)
[2021-11-08 16:23] VITALS: BP 115/51; PULSE 69; RESP 16; O2SAT 95
--- NOTE | 2021-11-14 16:37 | CM.ED ---
ER RNCM DC F/u Call: Seen in ER 11.08.21 for BLE Edema, H/o CHF. Dc'd with Vicodin and Doxycycline Called patient listed cell phone number, patient answered and this insurance underwriter introduced self and role. Patient states not feeling much better and still having pain to feet, has not f/u with PCP. Does not have echart to message pcp but states will call him. This insurance underwriter encourage to call PCP Dr Rahman as may need diuretics adjusted. This insurance underwriter offered patient assistance with calling and scheduling appointment but declined and states she will call and f/u. [facility] [facility]
== END 2021-11-08 16:41 | disposition home or self-care (01) ==
PROVIDERS: Emergency Provider Student in an Organized Health Care Education/Training Program; PCP Family Medicine; Visit Provider Student in an Organized Health Care Education/Training Program
DX: L03.116 Cellulitis of left lower limb (principal); L03.115 Cellulitis of right lower limb; I25.10 Atherosclerotic heart disease of native coronary artery without angina pectoris; F17.210 Nicotine dependence, cigarettes, uncomplicated; I25.2 Old myocardial infarction; Z95.5 Presence of coronary angioplasty implant and graft
CPT/HCPCS: 71045; 80048; 83880; 84484; 85025; 93005; 99285; A4216

== ENCOUNTER 2021-11-30 12:44 | Emergency (ER) | payer MEDICARE, SELFPAY ==
[2021-11-30 12:45] VITALS: BP 126/112; PULSE 85; RESP 16; TEMP 36.6; O2SAT 100; BMI 24.5
--- NOTE | 2021-11-30 12:57 | EDS_ITS ---
HPI History of Present Illness Chief Complaint: General Illness Informant: patient Onset/Context/Timing Onset: Weeks (2) Context: Gradual Onset Timing: Continuous Quality: Weakness Location: Generalized Worsened by: Nothing Relieved by: Nothing Narrative Narrative: Patient presents with generalized weakness that has been getting worse over the past 2 weeks. Patient states she fell about 1 week ago. Patient states her weakness is gradually gotten worse. Patient states it is constant. Patient states nothing seems to make it better nothing seems to make it worse. Patient does admit to some pain in her neck and back from the fall. Patient denies any headaches. Patient denies any chest pain or shortness of breath. Patient denies any nausea or vomiting. Patient denies any melena or hematochezia. [facility] Medical History Aspiration pneumonia Atherosclerosis of coronary artery bypass graft of [place] heart with angina pectoris Candidal vulvovaginitis Encephalopathy GI bleed Hyperosmolar (nonketotic) coma Ischemic cardiomyopathy Nicotine dependence NSTEMI (non-ST elevated myocardial infarction) Type 2 diabetes mellitus Home Medications alendronate 70 mg PO Q7D@0700 11/12/18 [History Last Taken Unknown] aspirin 81 mg PO DAILY@0800 11/12/18 [History Last Taken Unknown] ergocalciferol (vitamin D2) [Vitamin D2] 50,000 unit PO Q7D 11/12/18 [History Last Taken Unknown] fluticasone propionate 1 spray NASAL DAILY 11/12/18 [History Last Taken Unknown] Mineral Oil/Petrolatum,White [Eucerin] 1 applic TOPICAL 0600,2200 jar 11/24/18 [Rx Last Taken Unknown] acetaminophen 1,000 mg PO Q6H PRN PRN tablet 11/24/18 [Rx Last Taken Unknown] atorvastatin 40 mg PO QHS #30 tab 11/24/18 [Rx Last Taken Unknown] carvedilol 3.125 mg PO BID #60 tab 11/24/18 [Rx Last Taken Unknown] clopidogrel 75 mg PO DAILY #30 tab 11/24/18 [Rx Last Taken Unknown] insulin glargine [Lantus Solostar U-100 Insulin] 15 units SUBCUT BID #1 pen 11/24/18 [Rx Last Taken Unknown] insulin lispro [Humalog KwikPen Insulin] 6 unit SUBCUT TIDAC #1 insuln.pen 11/24/18 [Rx Last Taken Unknown] magnesium oxide 400 mg PO DAILYCM #30 tab 11/24/18 [Rx Last Taken Unknown] menthol-zinc oxide [Calmoseptine] 1 applic TOPICAL 0600,2200 tube 11/24/18 [Rx Last Taken Unknown] nystatin [Nyamyc] 1 applic TOPICAL 0600,2200 bottle 11/24/18 [Rx Last Taken Unknown] pantoprazole 40 mg PO BID #60 tab 11/24/18 [Rx Last Taken Unknown] sucralfate 1 g PO 1HR_ACHS #120 tablet 11/24/18 [Rx Last Taken Unknown] doxycycline hyclate 100 mg PO BID 10 Days #20 cap 11/08/21 [Rx Last Taken Unknown] hydrocodone-acetaminophen 1 tab PO Q6H PRN 3 Days #10 tab 11/08/21 [Rx Last Taken Unknown] Allergy/AdvReac Type Severity Reaction Status Date / Time metformin Allergy Itching Verified 11/30/21 12:48 Surgical History H/O coronary artery bypass surgery History of hysterectomy History of left heart catheterization (11/16/18) Hx of cholecystectomy Social History Smoking Status: Current every day smoker tobacco type: cigarettes ROS ROS ED Constitutional Constitutional ED: Denies chills or fever(s) Eyes Eyes: Denies blurry vision or change in vision ENT ENT ED: Denies rhinorrhea or sore throat Cardiovascular Cardiovascular: Denies chest pain or palpitations Respiratory/Chest Respiratory/Chest: Denies cough or dyspnea Gastrointestinal Gastrointestinal: Denies nausea or vomiting Genitourinary Genitourinary ED: Denies dysuria or hematuria Musculoskeletal Musculoskeletal: Reports back pain and neck pain Integumentary Denies abscess or rash Neurologic Neurologic: Reports weakness; Denies headache(s) Allergic/Immunologic Allergic/Immunologic ED: Denies mouth swelling or urticaria EXAM Physical Exam Const Vital Signs: 11/30/21 12:45 11/30/21 15:05 11/30/21 15:15 Temperature 97.8 F Temperature Source Temporal Pulse Rate 85 70 Respiratory Rate 16 16 Respiratory Effort Normal Non-Labored Respiratory Pattern Normal Blood Pressure 126/112 H 109/78 Blood Pressure Mean 116 88 Pulse Ox 100 96 Oxygen Delivery Method Room Air Room Air 11/30/21 17:16 Temperature Temperature Source Pulse Rate 89 Respiratory Rate 18 Respiratory Effort Respiratory Pattern Blood Pressure Blood Pressure Mean Pulse Ox Oxygen Delivery Method Nasal Cannula Positive well nourished and well developed General Appearance ED: well developed and NAD HEENT Reports moist mucous membranes Eyes EOMs intact bilaterally Eyes Narrative: There is ecchymosis of the right periorbital area. There is no bony crepitance or step-off. Neck supple and no JVD Resp normal respiratory effort and clear to auscultation bilaterally Cardio regular rate and regular rhythm GI normal to inspection, nondistended, normoactive bowel sounds and non-tender Palpation: soft Neuro oriented x3, CN's II-XII intact bilaterally and no sensory deficits noted Sensorium / Orientation: alert Motor Exam: strength 5/5 throughout Psych mental status grossly normal MDM MDM MDM Narrative Medical decision making narrative: EKG was obtained. On my interpretation, it showed a normal sinus rhythm with a rate of 77. PA interval, QRS interval, and QTc intervals were all normal. [place] was normal. There are nonspecific ST-T wave changes. CT scan of the brain was obtained. There is no acute intracranial abnormality noted. There are chronic changes noted. This was interpreted by the radiologist and reviewed by myself. CT scan of the cervical spine was obtained. There is no acute fracture. There are degenerative changes noted. This was interpreted by the radiologist and reviewed by myself. CBC shows a leukocytosis of 15.9. Patient has a history of chronic leukocytosis. Comprehensive metabolic profile was obtained and was essentially within normal limits. High-sensitivity troponin was normal. Urinalysis does not show any evidence of urinary tract infection. PT was INR and PTT were obtained were within normal limits. I discussed the results with the patient and her . They do not wish to be admitted at this time. They want to go home. Patient was instructed to follow-up with her primary care physician in 5 to 7 days. Patient was instructed return if worse in any way. Patient understood and was agreeable with the plan. All questions were answered. Lab Data Attestation: I reviewed the patient's lab results. Labs: Laboratory Results - last 24 hr 11/30/21 11/30/21 11/30/21 13:14 13:14 13:14 WBC 15.9 H RBC 3.65 L Hgb 10.8 L Hct 33.2 L MCV 91.0 MCH 29.6 MCHC 32.5 RDW Std Deviation 47.8 H RDW Coeff of Joanna 14.5 Plt Count 278 MPV 9.5 Immature Gran % (Auto) 1.200 H Neut % (Auto) 76.8 H Lymph % (Auto) 11.0 L [place] % (Auto) 10.3 H Eos % (Auto) 0.3 Baso % (Auto) 0.4 Absolute Neuts (auto) 12.2 H Absolute Lymphs (auto) 1.74 Nucleated RBC % 0 Diff Path Review May foll PT Cancelled INR Cancelled APTT Cancelled Sodium 136 Potassium 4.2 Chloride 101 Carbon Dioxide 27.0 Anion Gap 8 BUN 29 H Creatinine 1.38 H Estim Creat Clear Calc 26.99 Est GFR (MDRD) Af Amer 48 L Est GFR (MDRD) Non-Af 40 L BUN/Creatinine Ratio 21.0 H Glucose 187 H Calcium 8.1 L Total Bilirubin 1.10 H AST 26 ALT 34 Alkaline Phosphatase 161 H Troponin I High Sens 11 Total Protein 7.0 Albumin 2.8 L Globulin 4.2 Albumin/Globulin Ratio 0.7 L Urine Color Urine Clarity Urine pH Ur Specific [place] Urine Protein Urine Glucose (UA) Urine Ketones Urine Occult Blood Urine Nitrite Urine Bilirubin Urine Urobilinogen Ur Leukocyte Esterase Urine RBC Urine WBC Ur Squamous Epith Cells Urine Bacteria Urine Mucus 11/30/21 11/30/21 13:30 14:59 WBC RBC Hgb Hct MCV MCH MCHC RDW Std Deviation RDW Coeff of Joanna Plt Count MPV Immature Gran % (Auto) Neut % (Auto) Lymph % (Auto) [place] % (Auto) Eos % (Auto) Baso % (Auto) Absolute Neuts (auto) Absolute Lymphs (auto) Nucleated RBC % Diff Path Review PT 14.6 INR 1.2 APTT 27.1 Sodium Potassium Chloride Carbon Dioxide Anion Gap BUN Creatinine Estim Creat Clear Calc Est GFR (MDRD) Af Amer Est GFR (MDRD) Non-Af BUN/Creatinine Ratio Glucose Calcium Total Bilirubin AST ALT Alkaline Phosphatase Troponin I High Sens Total Protein Albumin Globulin Albumin/Globulin Ratio Urine Color Yellow Urine Clarity Sl. Cloudy Urine pH 6.0 Ur Specific [place] 1.015 Urine Protein 30 H Urine Glucose (UA) Normal Urine Ketones Negative Urine Occult Blood Negative Urine Nitrite Negative Urine Bilirubin Negative Urine Urobilinogen Normal Ur Leukocyte Esterase Negative Urine RBC 0 SEEN Urine WBC 0 SEEN Ur Squamous Epith Cells 0-5 SEEN Urine Bacteria 0 SEEN Urine Mucus 0 SEEN Radiography Diagnostic Testing: Clinical Impression(s) from Imaging Studies Brain CT 11/30/21 13:40 IMPRESSION: Chronic involutional changes of the brain. Electronically Signed: Ugo Shearer MD at 14:19 EDT , Cervical Spine CT 11/30/21 13:40 IMPRESSION: Multilevel degenerative changes, as described above. Electronically Signed: Ugo Shearer MD at 14:21 EDT , EKG Initial EKG: Attestation: I personally reviewed and interpreted this EKG as follows: Interpretation: Sinus Rhythm (77) and Non-Specific ST Changes Prior EKG tracings: available for review Prior: Unchanged (11/08/2021) Discharge Plan Triage Chief Complaint: General Illness ED Provider: Ej Russo Dx/Rx/DC Orders Clinical Impression: Weakness, Fall Instructions: ED Fall with Uncertain Cause, ED Weakness (Uncertain Cause) Prescriptions: No Action alendronate 70 MG tablet 70 mg PO Q7D@0700 RF: 0 aspirin 81 MG tablet,chewable 81 mg PO DAILY@0800 RF: 0 ergocalciferol (vitamin D2) [Vitamin D2] 50,000 UNIT capsule 50,000 unit PO Q7D RF: 0 fluticasone propionate 1 SPRAY spray,suspension 1 spray NASAL DAILY RF: 0 sucralfate 1 GM tablet 1 g PO 1HR_ACHS Qty: 120 RF: 0 acetaminophen 500 MG tablet 1,000 mg PO Q6H PRN PRN (Reason: Mild Pain (1-3/10)) RF: 0 nystatin [Nyamyc] 1 APPLIC bottle 1 applic topical 0600,2200 RF: 0 insulin glargine [Lantus Solostar U-100 Insulin] 100 UNITS/ML insulin pen 15 units subcut BID Qty: 1 RF: 0 menthol-zinc oxide [Calmoseptine] 1 APPLIC ointment 1 applic topical 599,2199 RF: 0 Mineral Oil/Petrolatum,White [Eucerin] 1 APPLIC Jar 1 applic topical 599,2199 RF: 0 atorvastatin 40 MG tablet 40 mg PO QHS Qty: 30 RF: 0 clopidogrel 75 MG tablet 75 mg PO DAILY Qty: 30 RF: 0 carvedilol 3.125 MG tablet 3.125 mg PO BID Qty: 60 RF: 0 magnesium oxide 400 MG tablet 400 mg PO DAILYCM Qty: 30 RF: 0 pantoprazole 40 MG tablet 40 mg PO BID Qty: 60 RF: 0 insulin lispro [Humalog KwikPen Insulin] 100 UNIT/ML insulin pen 6 unit subcut TIDAC Qty: 1 RF: 0 doxycycline hyclate 100 mg capsule 100 mg PO BID 10 Days Qty: 20 RF: 0 hydrocodone-acetaminophen 5-325 mg tablet 1 tab PO Q6H PRN (Reason: pain) 3 Days Qty: 10 RF: 0 Primary Care Provider: Ben Rahman Referrals: Ben Rahman MD [Primary Care Provider] - 5-7 Days Disposition Disposition: Home, Self Care
--- NOTE | 2021-11-30 13:01 | EKG12_ITS ---
Test Reason : PAIN IN EXTREMETIES Blood Pressure : / mmHG Vent. Rate : 077 BPM Atrial Rate : 077 BPM P-R Int : 112 ms QRS Dur : 094 ms QT Int : 376 ms P-R-T Axes : 032 020 057 degrees QTc Int : 425 ms Normal sinus rhythm ST & T wave abnormality, consider anterior ischemia Abnormal ECG Confirmed by ALFIE CLEMENTS, GEORGE ([id number]), legal editor NASIR WILD ([id number]) on 12/03/2021 1:56:41 PM Referred By: DT Confirmed By:LUDY JUDGE MD
[2021-11-30 13:28] LABS: Absolute Lymphocyte Count 1.74 X10^3/uL (0.83-4.51); Absolute Neutrophil Count 12.2 X10^3/uL (2.0-7.7); Basophil# 0.06 X10^3/uL; Basophil% 0.4 % (0-1); Eosinophil# 0.05 X10^3/uL; Eosinophils% 0.3 % (0-5); Hematocrit 33.2 % (37-47); Hemoglobin 10.8 g/dL (12.0-15.0); Lymphocyte # 1.74 X10^3/ul (0.83-4.51); Mean Corp Hgb Conc 32.5 g/dL (32-36); Mean Corpuscular Hgb 29.6 pg (27.0-32.0); Mean Platelet Vol. 9.5 fl (6.2-12.0); Monocyte# 1.64 X10^3/uL; Monocyte% 10.3 % (0-10); NRBC Flagged by Analyzer 0 % (0-5); Neutrophil # 12.18 X10^3/uL (2.7-7.7); Neutrophil % 76.8 % (47-70); POSITIVE DIFFERENTIAL YES; Platelet Count 278 K/mm3 (150-450); RBC Distribution Width CV 14.5 % (11.6-14.6); RBC Distribution Width SD 47.8 fl (35.1-43.9); Red Blood Count 3.65 M/mm3 (4.2-5.4); White Blood Count 15.9 K/mm3 (4.4-11.0)
[2021-11-30 13:29] LABS: Differential Indicated SCAN CRITERIA MET
--- NOTE | 2021-11-30 13:40 | CT_ITS ---
STUDY: CT BRAIN WITHOUT CONTRAST REASON FOR EXAM: Female, 76 years old. Trauma RADIATION DOSAGE (If Supplied By Facility): CTDIvol = ( 44.99 ) mGy, DLP = ( 796.11 ) mGycm TECHNIQUE: Transaxial CT imaging of the brain was performed without administration of intravenous contrast material. Individualized dose optimization techniques were used for this CT. COMPARISON: No relevant priors. FINDINGS: Normal soft tissue structures. Normal calvarium. There is mild cerebral atrophy with widening of the extra-axial spaces and ventricular dilatation. There are areas of decreased attenuation within the white matter tracts of the supratentorial brain, consistent with microvascular disease changes. Normal basal ganglia and thalami. Normal brainstem. Normal cerebellum. There is no intracranial hemorrhage. There are no findings of an acute ischemic infarction. Atherosclerotic plaque formation of the cavernous portions of the internal carotid arteries bilaterally. Normal visualized paranasal sinuses. CT/Brain/Head without Contrast IMPRESSION: Chronic involutional changes of the brain. Electronically Signed: Ugo Shearer MD at 14:19 EDT ,
--- NOTE | 2021-11-30 13:40 | CT_ITS ---
STUDY: CT CERVICAL SPINE WITHOUT CONTRAST REASON FOR EXAM: Female, 76 years old. Injury/Pain RADIATION DOSAGE (If Supplied By Facility): CTDIvol = ( 14.80 ) mGy, DLP = ( 307.60 ) mGycm TECHNIQUE: High resolution transaxial imaging was performed without contrast material. Sagittal and coronal images were reconstructed. Individualized dose optimization techniques were used for this CT. COMPARISON: None FINDINGS: Normal craniovertebral junction. There are degenerative changes of the anterior atlantoaxial articulation. Normal odontoid process. There is straightening of the normal cervical lordosis. Normal vertebral bodies and posterior osseous elements. C2-3: Normal endplates. Normal disc height and morphology. Normal central canal and intervertebral neuroforamina. C3-4: Facet joint osteoarthritis and hypertrophy worse on the left side. No significant neural foraminal stenosis is seen. C4-5: Normal endplates. Normal disc height and morphology. Normal central canal and intervertebral neuroforamina. C5-6: Mild degree of disc space narrowing. Spondylosis. No evidence of spinal stenosis. C6-7: Moderate degree of disc space narrowing with spondylosis and subchondral sclerosis. Mild degree of the central canal stenosis due to posterior osteophyte formation. No significant neural foraminal stenosis is seen. C7-T1: Normal endplates. Normal disc height and morphology. Normal central canal and intervertebral neuroforamina. Calcification of the carotid bifurcations bilaterally. CT/Spine Cervical without Contras IMPRESSION: Multilevel degenerative changes, as described above. Electronically Signed: Ugo Shearer MD at 14:21 EDT ,
[2021-11-30 13:46] LABS: ALB/GLOB Ratio 0.7 RATIO (0.9-2.4); AST(SGOT) 26 U/L (15-37); Alanine Aminotransfer ALT/SGPT 34 U/L (13-56); Albumin, Serum 2.8 g/dL (3.2-5.0); Alkaline Phosphatase 161 U/L (45-117); Anion Gap 8 (5-15); BUN 29 mg/dL (7-18); Calcium,Total 8.1 mg/dL (8.5-10.1); Chloride 101 mmol/L (98-107); Creatinine, Serum 1.38 mg/dL (0.55-1.02); EST Glomerular Filtration Rate 40 mL/min (>60); Est Glom Filt Rate - Afr Amer 48 mL/min (>60); Estimated Creatinine Clearance 26.99 ml/min; Globulin 4.2 g/dL (2.2-4.2); Glucose 187 mg/dL (74-106); Potassium 4.2 mmol/L (3.5-5.1); Sodium Level 136 mmol/L (136-145); Troponin-I HS 11 pg/mL (3.0-54.0)
[2021-11-30 13:51] LABS: International Normalized Ratio 1.2; Prothrombin Time (Protime)PT. 14.6 SECONDS (11.7-14.9)
[2021-11-30 13:52] LABS: Partial Thromboplast Time 27.1 Seconds (24.1-36.2)
[2021-11-30 15:05] VITALS: BP 109/78; PULSE 70; RESP 16; O2SAT 96
[2021-11-30 15:05] LABS: Bacteria 0 SEEN /hpf (None Seen); Mucous, Urine 0 SEEN /hpf (<or=2+); Red Blood Cells-Urine 0 SEEN /hpf (0-5); White Blood Cells 0 SEEN /hpf (0-5)
[2021-11-30 15:13] LABS: Color, Urine Yellow (Yellow); Glucose, Dipstick Normal (Normal); Ketone-Dipstick Negative (Negative); Leukocyte Esterase-Dipstick Negative /ul (Negative); Nitrite-Dipstick Negative (Negative); Occult Blood-Urine Negative /ul (Negative); Protein-Dipstick 30 mg/dl (Negative); Specific Gravity, Urine 1.015 (1.002-1.030); Urine Bilirubin Dipstick Negative (Negative); Urine Clarity Sl. Cloudy (Clear); Urine Urobilinogen Normal (Normal)
[2021-11-30 15:19] LABS: Squamous Epithelial Cells - UA 0-5 SEEN /hpf (5-10)
--- NOTE | 2021-11-30 17:08 | CM.ED ---
CM Assessment Information Source: Patient and patient's . Patient said that her takes care of me. No other family present Living Will: No HCPOA: Patient reports she has a HCPOA Name of PCP: [facility] Specialist: [facility] (name unknown) in [place] and kidney doctor, Dr. Barlow. Insurance: [employer] Patient uses [facility] Lives with: Patient's . Son and daughter in law live next door Living Arrangement: Mobile Home. Patient said that she feels safe at home Steps: Patient reports ramp into the house ADL's: Patient is not bathing, cooking and her walking is not good. Patient said that she hasn't been driving as I wouldn't be able Patient is retired Patient smokes 1/2 pack of cigarettes a day Patient denied ETOH use Transportation: Patient said that both she and her drove but she hasn't been driving as I wouldn't be able. Patient reports that she ordered a tub bench. Patient has a cane, walker, rollator and wheel chair. Patient has a c pap. Patient reports no previous SNF SW discussed home health and patient said it will only make it worse. Patient said that she wants to go home. SW offered information on [employer] and patient declined information regarding [employer]port or referral. updated. KAYY met with patient again and voiced that PCP was concerned about patient. SW discussed rehab at SNF. Patient and her were going to think about it. Patient said my boys and my will take care of me. updated Plan: To be determined Kati BERUMEN
[2021-11-30 17:16] VITALS: PULSE 89; RESP 18
--- NOTE | 2021-11-30 17:35 | CM.ED ---
Addendum entered by Kati Toscano 11/30/21 17:42: SW also provided [employer] as a resource. Kati KELLER Original Note: KAYY Note SW met with patient's and he said that patient did not want long-term for rehab as we heard too many stories of it not turning out well. (Patient was using the restroom when this clinical writer spoke to patient's ). Sw provided patient's with list of home health and SNF in [facility]. SW also provided information about the [facility] and contact number. Patient again voiced she did not want to go to a SNF. SW asked about Home Health PT and patient said not right now.. maybe in a couple of weeks. SW then advised that if patient wants home health to speak to the PCP for an home health order and then can call agencies. Patient and her verbalized understanding. SW also said that if patient wants rehab at SNF then patient can also call the SNF regarding bed availability. Plan: SW provided resources and support. Patient and declined interest in SNF (multiple times). Kati BERUMEN
[2021-11-30 17:51] VITALS: BP 110/80
[2021-12-03 12:39] LABS: Pathologist Review Reviewed
== END 2021-11-30 17:53 | disposition home or self-care (01) ==
PROVIDERS: Emergency Provider Emergency Medicine; PCP Family Medicine; Visit Provider Emergency Medicine
DX: R53.1 Weakness (principal); I25.10 Atherosclerotic heart disease of native coronary artery without angina pectoris; F17.210 Nicotine dependence, cigarettes, uncomplicated; I25.2 Old myocardial infarction; W19.XXXA Unspecified fall, initial encounter
CPT/HCPCS: 70450; 72125; 80053; 81001; 84484; 85025; 85610; 85730; 93005; 99284; A4216

== ENCOUNTER 2021-12-03 14:23 | Outpatient (CLI) | payer MEDICARE, SELFPAY ==
--- NOTE | 2021-12-03 14:30 | CT_ITS ---
INDICATION: PULMONARY NODULE EXAMINATION: CT CHEST WITHOUT CONTRAST - CT Chest W/O Contrast Injection TECHNIQUE: Helically acquired images were obtained of the chest. A radiation dose optimization technique was used for this scan. IV Contrast dosage and agent: None. COMPARISON: Chest x-ray 11/08/2021. FINDINGS: LUNGS: Emphysematous changes. Reticulonodular opacities mainly in the upper lobes, with several tiny nodular opacities on the order of 1 to 2 mm. Coarse reticular nodular opacities right lower lobe, and minimal in the left lower lobe, likely scarring. No consolidation. LARGE AIRWAYS: Unremarkable. PLEURA: No pleural effusion. No pneumothorax. MEDIASTINUM: Unremarkable. HEART: Not enlarged. AORTA/VESSELS: No aortic aneurysm. ESOPHAGUS: Unremarkable. with UPPER ABDOMEN: No acute findings. BONES/SOFT TISSUES: Nonacute fractures anterior aspect of left fourth through eighth ribs. Sternal wires. No acute abnormality. OTHER/LINES: None. CT/Chest without Contrast IMPRESSION: Reticulonodular infiltrates mainly in the upper lobes may be chronic related to scarring or interstitial disease. CT follow-up recommended in 4-6 months to confirm stability. Likely scarring in the lower lobes. Emphysematous changes. Electronically Signed: Marianne Irizarry MD at 2:50 EDT ,
--- NOTE | 2021-12-03 14:48 | BI_ITS ---
MAMMOGRAPHY - BILATERAL SCREENING 3-D TOMOSYNTHESIS REASON FOR EXAM: Female, 76 years old. SCREENING PERTINENT HISTORY: No significant family history. TECHNIQUE: 2-D mammograms and 3-D Tomosynthesis of the breast (s) were performed. CAD was performed. COMPARISON: 07/12/2020 FINDINGS: The breast composition is composed of scattered fibroglandular density. Scattered benign calcifications are seen. No dense spiculated masses or suspicious microcalcifications are identified. No architectural distortion is identified. There is no skin thickening or retraction. There has been no significant change since the prior study. BI/SCRN MAMM (CAD)W/CARO BILAT IMPRESSION: No mammographic signs of malignancy. Routine yearly mammograms recommended. ASSESSMENT CATEGORY: BIRADS Category 1: Negative. A letter regarding these results will be sent to the patient by the facility within 30 days. FOLLOW UP RECOMMENDATION: Yearly follow up mammogram recommended. (A) Approximately 10% of breast cancers are not detected by mammography. A normal mammogram should not delay biopsy of a clinically suspicious abnormality. Electronically Signed: Will Souza MD at 15:54 EDT ,
== END 2021-12-03 23:59 | disposition home or self-care (01) ==
PROVIDERS: PCP Family Medicine; Referring Provider Nurse Practitioner Family; Visit Provider Nurse Practitioner Family
DX: Z12.31 Encounter for screening mammogram for malignant neoplasm of breast (principal); R91.1 Solitary pulmonary nodule
CPT/HCPCS: 71250; 77063; 77067

== ENCOUNTER → 2021-12-13 | Outpatient (CLI) | payer MEDICARE, SELFPAY ==
--- NOTE | 2021-12-13 12:35 | RAD_ITS ---
STUDY: XR Ankle Min 3 Views REASON FOR EXAM: Female, 76 years old. ANKLE PAIN TECHNIQUE: XR Ankle Min 3 Views RIGHT COMPARISON: None. FINDINGS: Normal visualized distal tibia and fibula. Normal medial and lateral malleoli. Normal tibiotalar articulation and ankle mortise. The visualized subtalar, talonavicular, calcaneocuboid and tarsal articulations are normal. There is a plantar calcaneal spur. There is soft tissue swelling around the ankle. RAD/Ankle min 3 Views IMPRESSION: There is soft tissue swelling. Electronically Signed: Adam Gomez MD at 15:34 EDT ,
[2021-12-13 15:57] LABS: Uric Acid 10.1 mg/dL (2.6-6.0)
== END | disposition home or self-care (01) ==
LOC: MTLAB 12:34
PROVIDERS: PCP Family Medicine; Referring Provider Family Medicine; Visit Provider Family Medicine
DX: M25.471 Effusion, right ankle (principal); M10.9 Gout, unspecified; M79.89 Other specified soft tissue disorders
CPT/HCPCS: 36415; 73610; 84550

== ENCOUNTER → 2021-12-28 | Outpatient (CLI) | payer MEDICARE, SELFPAY ==
[2021-12-28 15:24] LABS: Absolute Lymphocyte Count 4.22 X10^3/uL (0.83-4.51); Absolute Neutrophil Count 7.3 X10^3/uL (2.0-7.7); Basophil# 0.12 X10^3/uL; Basophil% 0.9 % (0-1); Eosinophil# 0.27 X10^3/uL; Hematocrit 40.3 % (37-47); Hemoglobin 12.4 g/dL (12.0-15.0); Lymphocyte # 4.22 X10^3/ul (0.83-4.51); Lymphocyte % 31.7 % (19-41); Mean Corp Hgb Conc 30.8 g/dL (32-36); Mean Corpuscular Hgb 28.6 pg (27.0-32.0); Mean Corpuscular Volume 93.1 fL (81-99); Mean Platelet Vol. 9.8 fl (6.2-12.0); Monocyte# 1.29 X10^3/uL; Monocyte% 9.7 % (0-10); NRBC Flagged by Analyzer 0 % (0-5); Neutrophil % 54.8 % (47-70); Platelet Count 410 K/mm3 (150-450); RBC Distribution Width CV 15.5 % (11.6-14.6); Red Blood Count 4.33 M/mm3 (4.2-5.4); White Blood Count 13.3 K/mm3 (4.4-11.0)
[2021-12-28 15:30] LABS: Color, Urine Yellow (Yellow); Glucose, Dipstick Normal (Normal); Ketone-Dipstick Negative (Negative); Leukocyte Esterase-Dipstick 100 /ul (Negative); Nitrite-Dipstick Positive (Negative); Occult Blood-Urine Negative /ul (Negative); Protein-Dipstick Negative (Negative); Urine Bilirubin Dipstick Negative (Negative); Urine Clarity Clear (Clear); Urine Urobilinogen Normal (Normal)
[2021-12-28 15:41] LABS: Vitamin D,25 Hydroxy 63.6 ng/mL
[2021-12-28 16:19] LABS: Microalbumin,Random Urine 33.9 mg/L (NO RANGE EST.); Microalbumin:Creatinine Ratio 192.6 mg/g CRE (<30 mg/g CRE); Protein, Urine (Random) 7.6 mg/dL (<11.9); Protein:Creat Ratio 432 mg/g CRE (0-200)
[2021-12-28 16:39] LABS: Mucous, Urine 0 SEEN /hpf (<or=2+); Red Blood Cells-Urine 0 SEEN /hpf (0-5)
[2021-12-28 16:41] LABS: Bacteria 2+ /hpf (None Seen); Squamous Epithelial Cells - UA 0-5 SEEN /hpf (5-10); White Blood Cells 25-50 SEEN /hpf (0-5)
[2021-12-28 18:00] LABS: BUN 42 mg/dL (7-18); Creatinine, Serum 1.59 mg/dL (0.55-1.02); EST Glomerular Filtration Rate 34 mL/min (>60); Glucose 58 mg/dL (74-106)
[2021-12-28 18:01] LABS: ALB/GLOB Ratio 0.9 RATIO (0.9-2.4); AST(SGOT) 27 U/L (15-37); Alanine Aminotransfer ALT/SGPT 33 U/L (13-56); Albumin, Serum 3.8 g/dL (3.2-5.0); Alkaline Phosphatase 102 U/L (45-117); Anion Gap 9 (5-15); BUN/Creat Ratio 26.4 RATIO (10-20); Calcium,Total 6.7 mg/dL (8.5-10.1); Chloride 107 mmol/L (98-107); Cholesterol 145 mg/dL (200); Est Glom Filt Rate - Afr Amer 41 mL/min (>60); Globulin 4.1 g/dL (2.2-4.2); High Density Lipoprotein 31 mg/dL; Magnesium 0.9 mg/dL (1.6-2.6); Phosphorus 3.6 mg/dL (2.5-4.9); Protein, Total 7.9 g/dL (6.4-8.2); Sodium Level 141 mmol/L (136-145); Thyroid Stim Hormone (TSH) 2.48 uIU/mL (0.358-3.74); Triglycerides 511 mg/dL
== END | disposition home or self-care (01) ==
LOC: MFPLAB 12:13
PROVIDERS: PCP Family Medicine; Visit Provider Family Medicine
DX: E11.22 Type 2 diabetes mellitus with diabetic chronic kidney disease (principal); E55.9 Vitamin D deficiency, unspecified; N18.9 Chronic kidney disease, unspecified
CPT/HCPCS: 36415; 80053; 80061; 81001; 82043; 82306; 82570; 83036; 83735; 84100; 84156; 84443; 85025

== ENCOUNTER → 2022-05-02 | Outpatient (CLI) | payer MEDICARE, SELFPAY ==
[2022-05-02 17:42] LABS: Absolute Lymphocyte Count 2.26 X10^3/uL (0.83-4.51); Absolute Neutrophil Count 14.7 X10^3/uL (2.0-7.7); Basophil% 0.5 % (0-1); Eosinophil# 0.15 X10^3/uL; Eosinophils% 0.8 % (0-5); Hematocrit 37.7 % (37-47); Hemoglobin 11.8 g/dL (12.0-15.0); Lymphocyte # 2.26 X10^3/ul (0.83-4.51); Lymphocyte % 11.8 % (19-41); Mean Corp Hgb Conc 31.3 g/dL (32-36); Mean Corpuscular Hgb 26.7 pg (27.0-32.0); Mean Corpuscular Volume 85.3 fL (81-99); Mean Platelet Vol. 9.2 fl (6.2-12.0); Monocyte% 8.4 % (0-10); NRBC Flagged by Analyzer 0 % (0-5); Neutrophil # 14.65 X10^3/uL (2.7-7.7); Neutrophil % 76.7 % (47-70); POSITIVE DIFFERENTIAL YES; Platelet Count 476 K/mm3 (150-450); RBC Distribution Width CV 18.6 % (11.6-14.6); RBC Distribution Width SD 58.5 fl (35.1-43.9); Red Blood Count 4.42 M/mm3 (4.2-5.4); White Blood Count 19.1 K/mm3 (4.4-11.0)
[2022-05-02 17:43] LABS: Differential Indicated SCAN CRITERIA MET
[2022-05-02 18:03] LABS: Differential Comment SCANNED
[2022-05-02 18:04] LABS: ALB/GLOB Ratio 0.7 RATIO (0.9-2.4); AST(SGOT) 19 U/L (15-37); Alanine Aminotransfer ALT/SGPT 20 U/L (13-56); Albumin, Serum 3.1 g/dL (3.2-5.0); Alkaline Phosphatase 153 U/L (45-117); Anion Gap 12 (5-15); BUN 30 mg/dL (7-18); BUN/Creat Ratio 20.8 RATIO (10-20); Chloride 105 mmol/L (98-107); Cholesterol 121 mg/dL (200); Creatinine, Serum 1.44 mg/dL (0.55-1.02); EST Glomerular Filtration Rate 38 mL/min (>60); Est Glom Filt Rate - Afr Amer 46 mL/min (>60); Globulin 4.6 g/dL (2.2-4.2); Glucose 86 mg/dL (74-106); High Density Lipoprotein 37 mg/dL; Magnesium 1.3 mg/dL (1.6-2.6); Phosphorus 3.5 mg/dL (2.5-4.9); Potassium 3.2 mmol/L (3.5-5.1); Protein, Total 7.7 g/dL (6.4-8.2); Sodium Level 136 mmol/L (136-145); Triglycerides 199 mg/dL; Uric Acid 11.8 mg/dL (2.6-6.0); Very Low Density Lipoprotein 40 mg/dL (5-40)
[2022-05-02 18:09] LABS: Hemoglobin A1c 5.9 % (3.8-5.6)
[2022-05-06 08:59] LABS: Pathologist Review Reviewed
== END | disposition home or self-care (01) ==
LOC: MTLAB 14:34
PROVIDERS: PCP Family Medicine; Referring Provider Family Medicine; Visit Provider Family Medicine
DX: E11.22 Type 2 diabetes mellitus with diabetic chronic kidney disease (principal); M10.9 Gout, unspecified; N18.9 Chronic kidney disease, unspecified
CPT/HCPCS: 36415; 80053; 80061; 83036; 83735; 84100; 84550; 85025

== ENCOUNTER → 2022-05-06 | Outpatient (CLI) | payer MEDICARE, SELFPAY | END | disposition home or self-care (01) | LOC: MFPLAB 14:21 | PROVIDERS: PCP Family Medicine; Visit Provider Family Medicine | DX: E11.9 Type 2 diabetes mellitus without complications (principal); R19.7 Diarrhea, unspecified; E83.42 Hypomagnesemia; M10.9 Gout, unspecified ==

== ENCOUNTER → 2022-05-08 | Outpatient (CLI) | payer MEDICARE, SELFPAY ==
[2022-05-16 15:47] LABS: Fats, Neutral Normal (.); Fats, Total Normal (.)
== END | disposition home or self-care (01) ==
LOC: LABSPEC 14:57
PROVIDERS: PCP Family Medicine; Visit Provider Family Medicine
DX: E11.22 Type 2 diabetes mellitus with diabetic chronic kidney disease (principal); E83.42 Hypomagnesemia; M10.9 Gout, unspecified; R19.7 Diarrhea, unspecified; N18.9 Chronic kidney disease, unspecified
CPT/HCPCS: 82705; 83630; 87177; 87209; 87493; 87506

== ENCOUNTER 2022-05-19 18:01 | Inpatient (IN) | payer MEDICARE, SELFPAY ==
[2022-05-19 18:03] VITALS: BP 106/63; PULSE 56; RESP 20; TEMP 35.6; O2SAT 98; BMI 21.6
--- NOTE | 2022-05-19 18:25 | ED.VIS.GI ---
HPI HPI - GI History of Present Illness Chief Complaint: GI Bleed Detail of Chief Complaint: No bleeding yesterday. Informant: patient, spouse/S.O. and family Abdominal Pain/Flank Pain Onset: Yesterday Context: Gradual Onset Timing: Intermittent Current Severity: Mild Maximum Severity: Mild Nausea/Vomiting/Emesis GI Symptom: Positive for Nausea and Vomiting Onset: Yesterday Severity: Mild Diarrhea/Melena/Hematochezia GI Symptom: Positive for Diarrhea and Hematochezia; Negative for Melena Onset: Today and Yesterday Severity: Mild Associated Symptoms Associated Symptoms: Negative for Dysuria, Frequency, Hematuria or Urgency Narrative Narrative: 76-year-old female history of diabetes, CAD, CABG with a stent. She is on both Plavix and aspirin. Also history of COPD. She also has chronic kidney disease stage IV. She had diarrhea for a month 5-10 episodes a day. Had stool cultures taken and through her primary care physician's office and they are waiting for the results. Yesterday she noticed some bright red blood per rectum. She is also had some mild nausea and vomiting. No hematemesis. No history of GI bleeds. She has had colonoscopy but was around 8 years ago. Denies any abdominal pain. Prior similar symptoms: No Recent Illness/Hospitalization: No PFSH PFSH Medical History Aspiration pneumonia Atherosclerosis of coronary artery bypass graft of [place] heart with angina pectoris Candidal vulvovaginitis Encephalopathy GI bleed Hyperosmolar (nonketotic) coma Ischemic cardiomyopathy Nicotine dependence NSTEMI (non-ST elevated myocardial infarction) Type 2 diabetes mellitus Home Medications alendronate 70 mg tablet 70 mg PO Q7D@0700 Supplement 11/12/18 [History Last Taken Unknown] aspirin 81 mg chewable tablet 81 mg PO DAILY@0800 [facility] 11/12/18 [History Last Taken Unknown] ergocalciferol (vitamin D2) 1,250 mcg (50,000 unit) capsule (Vitamin D2) 50,000 unit PO Q7D Supplement 11/12/18 [History Last Taken Unknown] atorvastatin 40 mg tablet 40 mg PO QHS BP #30 tabs 11/24/18 [Rx Last Taken Unknown] clopidogrel 75 mg tablet 75 mg PO DAILY HEART #30 tabs 11/24/18 [Rx Last Taken Unknown] magnesium oxide 400 mg (241.3 mg magnesium) tablet 400 mg PO DAILYCM SUPPLEMENT #30 tabs 11/24/18 [Rx Last Taken Unknown] doxycycline hyclate 100 mg capsule 100 mg PO BID 10 days #20 caps 11/08/21 [Rx Last Taken Unknown] insulin glargine 100 unit/mL (3 mL) subcutaneous pen (Lantus Solostar U-100 Insulin) 30 units subcut DAILY 05/19/22 [History Last Taken Unknown] insulin lispro 100 unit/mL subcutaneous pen (Humalog KwikPen (U-100) Insulin) 16 unit subcut TIDAC DIABETES 05/19/22 [History Last Taken Unknown] Allergy/AdvReac Type Severity Reaction Status Date / Time metformin Allergy Itching Verified 05/19/22 18:02 Surgical History H/O coronary artery bypass surgery History of hysterectomy History of left heart catheterization (11/16/18) Hx of cholecystectomy Social History Smoking Status: Current every day smoker tobacco type: cigarettes ROS ROS ED ROS Narrative Diarrhea. Prior red blood per rectum. Review of Systems ROS Unobtainable: Denies due to encephalopathy Constitutional Constitutional ED: Denies chills or fever(s) ENT ENT ED: Denies ear pain Cardiovascular Cardiovascular: Denies chest pain Respiratory/Chest Respiratory/Chest: Denies cough Gastrointestinal Gastrointestinal: Reports diarrhea, nausea and vomiting; Denies abdominal pain, constipation or melena Genitourinary Genitourinary ED: Denies dysuria or hematuria Musculoskeletal Musculoskeletal: Denies arthralgias Integumentary Denies abscess Neurologic Neurologic: Denies headache(s) Psychiatric Psychiatric: Denies anxiety Endocrine Endocrinology: Denies polydipsia Hematologic/Lymphatic Hematologic/Lymphatic: Denies easy bleeding Allergic/Immunologic Allergic/Immunologic ED: Denies mouth swelling EXAM Physical Exam Narrative Exam Narrative: Well-appearing 76-year-old female. Vital signs are stable afebrile. She does not look septic or toxic. She is in no distress. Son and at bedside. H EENT exam unremarkable. Moist Riis members. Neck nontender. Lungs are clear. Heart regular rhythm rate about 60 no murmur. Abdomen soft nontender normal bowel sounds no peritoneal signs. Moving all 4 extremities. Calves are nontender without edema. Neurologically she is awake and alert. Rectal exam done female nurse present in the room. No external hemorrhoids. Brown stool. No melena. No masses appreciated. Const Vital Signs: 05/19/22 18:03 Temperature 96.1 F L Temperature Source Oral Pulse Rate 56 L Respiratory Rate 20 H Blood Pressure 106/63 Blood Pressure Mean 77 Pulse Ox 98 Oxygen Delivery Method Room Air Positive well nourished and well developed; Negative for obese, cachectic, contractures or unkempt General Appearance ED: well developed and NAD; Negative for unkempt, cachectic, contractures or pallor Nutritional Appearance: Negative for cachectic or obese HEENT Reports moist mucous membranes; Denies dry mucous membranes normocephalic and atraumatic; Negative for trauma or tenderness Mouth ED: No dry mucous membranes Mouth: No dry mucous membranes Eyes PERRL and EOMs intact bilaterally General Eye ED: Negative for pale conjunctiva or scleral icterus Neck no lymphadenopathy, supple and no JVD General: Negative for tenderness Carotids: Negative for other Resp normal respiratory effort and clear to auscultation bilaterally Effort and Inspection: Negative for respiratory distress or retractions Auscultation: Negative for rales, rhonchi or wheezes Cardio regular rate, regular rhythm, S1 normal heart sound, S2 normal heart sound and no murmurs Rate: Negative for bradycardia or tachycardic Rhythm: Negative for abnormal rhythm GI non-tender, non-distended and no masses Inspection: Negative for abdominal distention Auscultation: normoactive bowel sounds Palpation: soft; Negative for tender, guarding or rigid Back/Spine no CVA tenderness General Back: Negative for CVA tenderness Cervical Spine: Negative for cervical spine tenderness Thoracic Spine / Upper Back: Negative for thoracic spinal tenderness Lumbar Spine / Lower Back: Negative for lumbar spinal tenderness Coccyx: Negative for other Extremity General Extremety ED: Negative for edema or tenderness General Extremity: Negative for edema Neuro CN's II-XII intact bilaterally and moves all extremities Neuro Narrative: Patient is awake alert. Answering questions following commands. She is hard of hearing. Sensorium / Orientation: alert, oriented to person, oriented to place and oriented to time; Negative for orientation impaired, confused, lethargic or stuporous Motor Exam: strength 5/5 throughout Psych mental status grossly normal and thought process normal Appearance: Negative for unkempt Attitude: No agitated Mood & Affect: Negative for depressed or anxious Skin no wounds General Skin Exam: Negative for jaundice or pallor Lesions: no lesions Rashes: no rashes Trauma: Negative for abrasion Nails: Negative for discolored MDM MDM MDM Narrative Medical decision making narrative: 76-year-old with chronic diarrhea for a month. Currently being worked up by her primary care physician's office. Yesterday and today had a small amount of blood per rectum. CBC and chemistries being obtained. Type and screen.. She is very stable at this time. She will be treated with IV fluids. Patient treated with a liter of normal saline. She went to the bathroom she had a small bowel movement just a small amount of blood. But she got orthostatic when she was walking back to her room. Saline. I will speak to the hospitalist about admission for diarrhea, acute dehydration, acute kidney injury and acute kidney failure. I did review her latest stool cultures and they were unremarkable. Lab Data Attestation: I reviewed the patient's lab results. Lab results narrative: CBC has an elevated white count 23,000. Looking back in her own white count she is managing her elevated. H&H 11.3 and 35.4 again this is her baseline chronic anemia. Electrolytes show an elevated anion gap of 17. BUN of 119 and creatinine at 3.93. Consistent with severe dehydration. Acute kidney injury. Liver enzymes unremarkable. Patient's BUN and creatinine 2 weeks ago with 31.4. Labs: Laboratory Results - last 24 hr 05/19/22 05/19/22 05/19/22 18:30 18:30 18:30 WBC Cancelled Corrected WBC Cancelled RBC Cancelled Hgb Cancelled Hct Cancelled MCV Cancelled MCH Cancelled MCHC Cancelled RDW Std Deviation Cancelled RDW Coeff of Joanna Cancelled Plt Count Cancelled MPV Cancelled Immature Gran % (Auto) Cancelled Neut % (Auto) Cancelled Lymph % (Auto) Cancelled [place] % (Auto) Cancelled Eos % (Auto) Cancelled Baso % (Auto) Cancelled Absolute Neuts (auto) Cancelled Absolute Lymphs (auto) Cancelled Total Counted Cancelled Neutrophils % (Manual) Cancelled Band Neutrophils % Cancelled Lymphocytes % (Manual) Cancelled Monocytes % (Manual) Cancelled Eosinophils % (Manual) Cancelled Basophils % (Manual) Cancelled Metamyelocytes % Cancelled Myelocytes % Cancelled Promyelocytes % Cancelled Blast Cells % Cancelled Plasma Cell % (Manual) Cancelled Other Cells % Cancelled Nucleated RBC % Cancelled Nucleated RBCs/100 WBC Cancelled Differential Comment Cancelled Diff Path Review Cancelled Hypersegmented Neuts Cancelled Atypical Lymphocytes Cancelled Reactive Lymphocytes Cancelled Smudge Cells Cancelled Toxic Granulation Cancelled Toxic Vacuolation Cancelled Dohle Bodies Cancelled Ihsan Rods Cancelled Platelet Estimate Cancelled Plt Morphology Comment Cancelled RBC Morphology Cancelled Polychromasia Cancelled Hypochromasia Cancelled Poikilocytosis Cancelled Basophilic Stippling Cancelled Anisocytosis Cancelled Microcytosis Cancelled Macrocytosis Cancelled Spherocytes Cancelled Sickle Cells Cancelled Target Cells Cancelled Tear Drop Cells Cancelled Ovalocytes Cancelled Stomatocytes Cancelled [place] Bodies Cancelled [place] Cells Cancelled Bite Cells Cancelled Crenated Cell Cancelled Acanthocytes (Spur) Cancelled Rouleaux Cancelled Schistocytes Cancelled Sodium Cancelled Potassium Cancelled Chloride Cancelled Carbon Dioxide Cancelled Anion Gap Cancelled BUN Cancelled Creatinine Cancelled Estim Creat Clear Calc Cancelled Est GFR (MDRD) Af Amer Cancelled Est GFR (MDRD) Non-Af Cancelled BUN/Creatinine Ratio Cancelled Glucose Cancelled Calcium Cancelled Total Bilirubin Cancelled AST Cancelled ALT Cancelled Alkaline Phosphatase Cancelled Total Protein Cancelled Albumin Cancelled Globulin Cancelled Albumin/Globulin Ratio Cancelled Blood Type O POSITIVE Antibody Screen NEGATIVE 05/19/22 05/19/22 19:37 19:37 WBC 23.0 H Corrected WBC RBC 4.14 L Hgb 11.3 L Hct 35.4 L MCV 85.5 MCH 27.3 MCHC 31.9 L RDW Std Deviation 57.5 H RDW Coeff of Joanna 18.3 H Plt Count 322 MPV 9.4 Immature Gran % (Auto) 0.900 Neut % (Auto) 79.3 H Lymph % (Auto) 11.8 L [place] % (Auto) 5.9 Eos % (Auto) 1.4 Baso % (Auto) 0.7 Absolute Neuts (auto) 18.3 H Absolute Lymphs (auto) 2.71 Total Counted Neutrophils % (Manual) Band Neutrophils % Lymphocytes % (Manual) Monocytes % (Manual) Eosinophils % (Manual) Basophils % (Manual) Metamyelocytes % Myelocytes % Promyelocytes % Blast Cells % Plasma Cell % (Manual) Other Cells % Nucleated RBC % 0 Nucleated RBCs/100 WBC Differential Comment Diff Path Review Hypersegmented Neuts Atypical Lymphocytes Reactive Lymphocytes Smudge Cells Toxic Granulation Toxic Vacuolation Dohle Bodies Ihsan Rods Platelet Estimate Plt Morphology Comment RBC Morphology Polychromasia Hypochromasia Poikilocytosis Basophilic Stippling Anisocytosis Microcytosis Macrocytosis Spherocytes Sickle Cells Target Cells Tear Drop Cells Ovalocytes Stomatocytes [place] Bodies [place]ita Cells Bite Cells Crenated Cell Acanthocytes (Spur) Rouleaux Schistocytes Sodium 140 Potassium 4.5 Chloride 110 H Carbon Dioxide 13.0 L Anion Gap 17 H BUN 119 H* Creatinine 3.93 H Estim Creat Clear Calc 10.84 Est GFR (MDRD) Af Amer 14 L Est GFR (MDRD) Non-Af 12 L BUN/Creatinine Ratio 30.3 H Glucose 67 L Calcium 5.4 L* Total Bilirubin 0.40 AST 16 ALT 19 Alkaline Phosphatase 166 H Total Protein 6.2 L Albumin 2.5 L Globulin 3.7 Albumin/Globulin Ratio 0.7 L Blood Type Antibody Screen Discharge Plan Triage Chief Complaint: GI Bleed ED Provider: Dawood Henson Dx/Rx/DC Orders Clinical Impression: Diarrhea, Acute dehydration, Acute kidney injury, Leukocytosis, Hypocalcemia, History of diabetes mellitus, Hx of CABG Prescriptions: No Action alendronate 70 MG tablet 70 mg PO Q7D@0700 aspirin 81 MG tablet,chewable 81 mg PO DAILY@0800 ergocalciferol (vitamin D2) [Vitamin D2] 50,000 UNIT capsule 50,000 unit PO Q7D atorvastatin 40 MG tablet 40 mg PO QHS Qty: 30 0RF clopidogrel 75 MG tablet 75 mg PO DAILY Qty: 30 0RF magnesium oxide 400 MG tablet 400 mg PO DAILYCM Qty: 30 0RF doxycycline hyclate 100 mg capsule 100 mg PO BID 10 Days Qty: 20 0RF insulin lispro [Humalog KwikPen Insulin] 100 UNIT/ML insulin pen 16 unit subcut TIDAC insulin glargine [Lantus Solostar U-100 Insulin] 100 UNITS/ML insulin pen 30 units subcut DAILY Primary Care Provider: Ben Rahman Referrals: Ben Rahman MD [Primary Care Provider] - Disposition Disposition: Acute Care [facility]
[2022-05-19] MEDS: 0.9% Normal Saline 1,000 ML 999 ML IV ×2 (19:01→20:32)
[2022-05-19 19:47] LABS: Absolute Lymphocyte Count 2.71 X10^3/uL (0.83-4.51); Absolute Neutrophil Count 18.3 X10^3/uL (2.0-7.7); Basophil# 0.17 X10^3/uL; Basophil% 0.7 % (0-1); Eosinophil# 0.33 X10^3/uL; Eosinophils% 1.4 % (0-5); Hematocrit 35.4 % (37-47); Hemoglobin 11.3 g/dL (12.0-15.0); Lymphocyte # 2.71 X10^3/ul (0.83-4.51); Lymphocyte % 11.8 % (19-41); Mean Corp Hgb Conc 31.9 g/dL (32-36); Mean Corpuscular Hgb 27.3 pg (27.0-32.0); Mean Corpuscular Volume 85.5 fL (81-99); Mean Platelet Vol. 9.4 fl (6.2-12.0); Monocyte# 1.37 X10^3/uL; Monocyte% 5.9 % (0-10); NRBC Flagged by Analyzer 0 % (0-5); Neutrophil # 18.26 X10^3/uL (2.7-7.7); Neutrophil % 79.3 % (47-70); Platelet Count 322 K/mm3 (150-450); RBC Distribution Width CV 18.3 % (11.6-14.6); RBC Distribution Width SD 57.5 fl (35.1-43.9); Red Blood Count 4.14 M/mm3 (4.2-5.4)
[2022-05-19 20:05] LABS: ALB/GLOB Ratio 0.7 RATIO (0.9-2.4); AST(SGOT) 16 U/L (15-37); Alanine Aminotransfer ALT/SGPT 19 U/L (13-56); Albumin, Serum 2.5 g/dL (3.2-5.0); Alkaline Phosphatase 166 U/L (45-117); Anion Gap 17 (5-15); BUN 119 mg/dL (7-18); BUN/Creat Ratio 30.3 RATIO (10-20); Calcium,Total 5.4 mg/dL (8.5-10.1); Chloride 110 mmol/L (98-107); Creatinine, Serum 3.93 mg/dL (0.55-1.02); EST Glomerular Filtration Rate 12 mL/min (>60); Est Glom Filt Rate - Afr Amer 14 mL/min (>60); Estimated Creatinine Clearance 10.84 ml/min; Globulin 3.7 g/dL (2.2-4.2); Glucose 67 mg/dL (74-106); Potassium 4.5 mmol/L (3.5-5.1); Protein, Total 6.2 g/dL (6.4-8.2); Sodium Level 140 mmol/L (136-145)
[2022-05-19 20:34] VITALS: BP 110/74; PULSE 55; RESP 14; TEMP 36.4; O2SAT 99
--- NOTE | 2022-05-19 20:35 | HP.PCM.HOS_ITS ---
HPI - General General Date of Admission: 05/19/22 Date of Service: 05/19/22 Chief Complaint: Hematochezia HPI Narrative JEWEL KAM, is a 76 F with a significant history of ischemic cardiomyopathy; CAD status post CABG and multiple stents who presents to the emergency department with 2-day history of progressively worsening hematochezia. Associated with her symptoms is light headedness. Of note after patient used the bathroom at the emergency department and akshat up to walk she became lightheaded. Also patient admitted that home she has been lightheaded. On the day before presentation and the day prior to that patient vomited. Patient reports anorexia. For the past 1 month patient has had diarrhea. She reports loose and black stools previously but now she has bright red blood per rectum. She report that on a particular day she had about 8 stools in 1 hour. She reports fatigue. Emergent department doctor reports that her stools at emergency department was brown and but was some blood around the patient's rectum. Also reportedly at emergency department patient was noted to have blood in the toilet bowl after defecation. Reportedly stool studies including stool culture and C. difficile done by PCP was negative. [facility] Medical History Aspiration pneumonia Atherosclerosis of coronary artery bypass graft of [place] heart with angina pectoris Candidal vulvovaginitis Encephalopathy GI bleed Hyperosmolar (nonketotic) coma Ischemic cardiomyopathy Nicotine dependence NSTEMI (non-ST elevated myocardial infarction) Type 2 diabetes mellitus Home Medications alendronate 70 mg tablet 70 mg PO Q7D@0700 Supplement 11/12/18 [History Last Taken Unknown] aspirin 81 mg chewable tablet 81 mg PO DAILY@0800 [facility] 11/12/18 [History Last Taken Unknown] ergocalciferol (vitamin D2) 1,250 mcg (50,000 unit) capsule (Vitamin D2) 50,000 unit PO Q7D Supplement 11/12/18 [History Last Taken Unknown] atorvastatin 40 mg tablet 40 mg PO QHS BP #30 tabs 11/24/18 [Rx Last Taken Unknown] clopidogrel 75 mg tablet 75 mg PO DAILY HEART #30 tabs 11/24/18 [Rx Last Taken Unknown] magnesium oxide 400 mg (241.3 mg magnesium) tablet 400 mg PO DAILYCM SUPPLEMENT #30 tabs 11/24/18 [Rx Last Taken Unknown] doxycycline hyclate 100 mg capsule 100 mg PO BID 10 days #20 caps 11/08/21 [Rx Last Taken Unknown] insulin glargine 100 unit/mL (3 mL) subcutaneous pen (Lantus Solostar U-100 Insulin) 30 units subcut DAILY 05/19/22 [History Last Taken Unknown] insulin lispro 100 unit/mL subcutaneous pen (Humalog KwikPen (U-100) Insulin) 16 unit subcut TIDAC DIABETES 05/19/22 [History Last Taken Unknown] potassium chloride 20 mEq oral packet 20 meq PO DAILY SUPPLEMENT 05/19/22 [History Last Taken Unknown] Allergy/AdvReac Type Severity Reaction Status Date / Time metformin Allergy Itching Verified 05/19/22 18:02 Family History Other Heart disease Surgical History H/O coronary artery bypass surgery History of hysterectomy History of left heart catheterization (11/16/18) Hx of cholecystectomy Social History Smoking Status: Current every day smoker tobacco type: cigarettes ROS ROS Narrative Pertinent positives and pertinent negatives as noted in HPI. All other systems were reviewed and are negative Vital Signs Vital Signs Vital Signs: 05/19/22 18:03 Temperature 96.1 F L Temperature Source Oral Pulse Rate 56 L Respiratory Rate 20 H Blood Pressure 106/63 Blood Pressure Mean 77 Pulse Ox 98 Oxygen Delivery Method Room Air Weight Weight: 57.153 kg Body Mass Index (BMI) 21.6 Physical Exam Narrative Physical exam: General: Well-nourished, well-developed. Head: Normocephalic, atraumatic, no tenderness Eyes: Vision is grossly intact. EOMI ENT, no trauma, moist mucous membranes, no rhinorrhea Neck: Nontender, full range of motion. CVS: Regular rate and rhythm. S1-S2 present. No murmur, gallop or rub. Respiratory : clear to auscultation bilaterally, chest wall nontender, no wheezing Abdomen: Soft, nontender, nondistended, normal bowel sounds, no masses : Deferred Back: Nontender, no CVA tenderness. Extremities: Nontender full range of motion, no trauma Skin: Pallor, no trauma, abrasions Neuro: Alert, oriented, cranial nerves II through XII grossly intact. Psychiatry: Normal mood. Normal affect. Not depressed. Not anxious. Results Lab / Micro Data Result Diagrams: 05/19/22 19:37 05/19/22 19:37 Labs: Laboratory Results - last 24 hr 05/19/22 18:30: WBC Cancelled, Corrected WBC Cancelled, RBC Cancelled, Hgb Cancelled, Hct Cancelled, MCV Cancelled, MCH Cancelled, MCHC Cancelled, RDW Std Deviation Cancelled, RDW Coeff of Joanna Cancelled, Plt Count Cancelled, MPV Cancelled, Immature Gran % (Auto) Cancelled, Neut % (Auto) Cancelled, Lymph % (Auto) Cancelled, [place] % (Auto) Cancelled, Eos % (Auto) Cancelled, Baso % (Auto) Cancelled, Absolute Neuts (auto) Cancelled, Absolute Lymphs (auto) Cancelled, Total Counted Cancelled, Neutrophils % (Manual) Cancelled, Band Neutrophils % Cancelled, Lymphocytes % (Manual) Cancelled, Monocytes % (Manual) Cancelled, Eosinophils % (Manual) Cancelled, Basophils % (Manual) Cancelled, Metamyelocytes % Cancelled, Myelocytes % Cancelled, Promyelocytes % Cancelled, Blast Cells % Cancelled, Plasma Cell % (Manual) Cancelled, Other Cells % Cancelled, Nucleated RBC % Cancelled, Nucleated RBCs/100 WBC Cancelled, Differential Comment Cancelled, Diff Path Review Cancelled, Hypersegmented Neuts Cancelled, Atypical Lymphocytes Cancelled, Reactive Lymphocytes Cancelled, Smudge Cells Cancelled, Toxic Granulation Cancelled, Toxic Vacuolation Cancelled, Dohle Bodies Cancelled, Ihsan Rods Cancelled, Platelet Estimate Cancelled, Plt Morphology Comment Cancelled, RBC Morphology Cancelled, Polychromasia Cancelled, Hypochromasia Cancelled, Poikilocytosis Cancelled, Basophilic Stippling Can celled, Anisocytosis Cancelled, Microcytosis Cancelled, Macrocytosis Cancelled, Spherocytes Cancelled, Sickle Cells Cancelled, Target Cells Cancelled, Tear Drop Cells Cancelled, Ovalocytes Cancelled, Stomatocytes Cancelled, [place] Bodies Cancelled, [place] Cells Cancelled, Bite Cells Cancelled, Crenated Cell Cancelled, Acanthocytes (Spur) Cancelled, Rouleaux Cancelled, Schistocytes Cancelled 05/19/22 18:30: Sodium Cancelled, Potassium Cancelled, Chloride Cancelled, Carb on Dioxide Cancelled, Anion Gap Cancelled, BUN Cancelled, Creatinine Cancelled, Estim Creat Clear Calc Cancelled, Est GFR (MDRD) Af Amer Cancelled, Est GFR (MDRD) Non-Af Cancelled, BUN/Creatinine Ratio Cancelled, Glucose Cancelled, Calcium Cancelled, Total Bilirubin Cancelled, AST Cancelled, ALT Cancelled, Alkaline Phosphatase Cancelled, Total Protein Cancelled, Albumin Cancelled, Globulin Cancelled, Albumin/Globulin Ratio Cancelled 05/19/22 18:30: Blood Type O POSITIVE, Antibody Screen NEGATIVE 05/19/22 19:37: WBC 23.0 H, RBC 4.14 L, Hgb 11.3 L, Hct 35.4 L, MCV 85.5, MCH 27.3, MCHC 31.9 L, RDW Std Deviation 57.5 H, RDW Coeff of Joanna 18.3 H, Plt Count 322, MPV 9.4, Immature Gran % (Auto) 0.900, Neut % (Auto) 79.3 H, Lymph % (Auto) 11.8 L, [place] % (Auto) 5.9, Eos % (Auto) 1.4, Baso % (Auto) 0.7, Absolute Neuts (auto) 18.3 H, Absolute Lymphs (auto) 2.71, Nucleated RBC % 0 05/19/22 19:37: Sodium 140, Potassium 4.5, Chloride 110 H, Carbon Dioxide 13.0 L , Anion Gap 17 H, BUN 119 H*, Creatinine 3.93 H, Estim Creat Clear Calc 10.84, Est GFR (MDRD) Af Amer 14 L, Est GFR (MDRD) Non-Af 12 L, BUN/Creatinine Ratio 30.3 H, Glucose 67 L, Calcium 5.4 L*, Total Bilirubin 0.40, AST 16, ALT 19, Alkaline Phosphatase 166 H, Total Protein 6.2 L, Albumin 2.5 L, Globulin 3.7, Albumin/Globulin Ratio 0.7 L Assessment & Plan Assessment/Plan (1) Diarrhea: (2) Acute dehydration: (3) Acute kidney injury: PLAN: Plan CHAD on CKD stage IIIb His creatinine on presentation (05/19/2022) was 3.93. His creatinine on 05/02/2022 was 1.44. Baseline creatinine is 1.42. CKD likely secondary to diabetic nephropathy. Urinary studies ordered. Ultrasound of kidney and bladder ordered. Avoid nephrotoxics. Gentle IV hydration with dextrose in normal saline. Received IV boluses of the emergency department. Reportedly patient sees Dr. Barlow nephrology and has missed 2 appointments because she forgot. Per family request will consult Dr. Barlow. Hemorrhagic diarrhea Stool studies on 05/08/2022. Positive for fecal WBC. Ova and parasites results are pending. Enteropathogenic panel negative. C. difficile PCR negative. Hemoglobin of 11.3 on presentation which is stable. With hyperglycemia. Will admit patient n.p.o. at this time especially as patient is not grossly anemic. With elevated BUN can not rule out upper GI bleed. However elevated BUN could be from dehydration secondary from diarrhea. Protonix IV ordered. Also patient's family wants patient to see Dr. Norwood, gastroenterology. GI consult. Trend H&H. Hold home magnesium. Magnesium level ordered Hypoglycemia Blood glucose of 67 on BMP. Hold home hypoglycemics. Dextrose with normal saline infusion ordered. Placed on hypoglycemic protocol. Cardiac diet ordered. Hypocalcemia Calcium presentation was 5.4. Albumin is 2.5. Corrected calcium level 6.6 mg per DL. Calcium gluconate ordered. Trend BMP. Ionized calcium ordered. Ischemic cardiomyopathy Patient's family report that CABG might have been more than 10 years ago likewise coronary stents. Echocardiogram on 11/12/2018 showed estimated ejection fraction of 30% and stage II diastolic dysfunction. Also patient had a cardiac catheterization on 11/16/2018. At that time recommendations were: Medical therapy to see whether patient will tolerate long-term Plavix and aspirin in view of recent GI bleeding.? If the above is tolerated would consider elective angioplasty to the first obtuse marginal branch. We will hold off Plavix at this time. Aspirin continued. Stable DVT prophylaxis: SCDs ordered Miscellaneous: Patient is on doxycycline with 2 dose left. Doxycycline reportedly was ordered prophylactically for infection after drainage from right thumb secondary to gout. Doxycycline p.o. continued for 2 doses left. Charges/Coding Visit Charges Inpatient E&M: 00616 Init Hosp L3
[2022-05-19 20:43] VITALS: BP 114/29; PULSE 56; RESP 16; O2SAT 99
[2022-05-19 20:49] VITALS: BP 117/47; PULSE 64; RESP 16; O2SAT 98
[2022-05-19 21:14] VITALS: BP 112/75; PULSE 64; RESP 16; TEMP 36.4; O2SAT 98
--- NOTE | 2022-05-19 21:42 | US_ITS ---
STUDY: RENAL ULTRASOUND - COMPLETE REASON FOR EXAM: Female, 76 years old. Acute kidney injury. TECHNIQUE: Ultrasound evaluation of the kidneys was performed with real-time and static soares-scale imaging. COMPARISON: 10/12/2019. FINDINGS: RIGHT KIDNEY: Normal location of the right kidney, which is normal in size. The right kidney measures 9.4 cm. There is a normal cortex of the right kidney. The renal cortex measures 1.1 cm. There is a 2.8 x 3.5 x 2.4 cm simple cyst as well as a smaller 1.2 x 1.2 x 0.9 cm simple cyst. Additionally in the upper pole cortex there is a 7 mm echogenic focus with minimal shadowing suggesting calcification. There is no right hydronephrosis. DISTAL RIGHT URETER: There is non-visualization of the distal right ureter. There is no demonstrated right ureterovesical junction calculus. There is a visualized right ureteral jet. LEFT KIDNEY: Normal location of the left kidney, which is normal in size. The left kidney measures 9.9 cm. There is a normal cortex of the left kidney. The renal cortex measures 1.3 cm. There is no left renal mass or cyst. There are no left renal calculi. There is no left hydronephrosis. DISTAL LEFT URETER: There is non-visualization of the distal left ureter. There is no demonstrated left ureterovesical junction calculus. There is a visualized left ureteral jet. BLADDER: The distended urinary bladder has a volume of 73 ml. There is a normal wall thickness of the distended urinary bladder. There is no demonstrated mass within the urinary bladder. There are no demonstrated bladder calculi. US/Kidney and Bladder IMPRESSION: 1. Slight decrease in renal size when compared to prior study. There is no other major interval change. Electronically Signed: Santana Lambert DO at 16:58 EDT ,
[2022-05-19 21:43] VITALS: BMI 21.5
[2022-05-19 21:45] VITALS: BP 114/49; PULSE 58; RESP 18; TEMP 36.4; O2SAT 99
[2022-05-19] MEDS: Dextrose 5%/0.9% NaCl 1,000 ML 75 ML IV (21:58)
[2022-05-19] MEDS: Atorvastatin Calcium 40 MG Tablet PO (22:51)
[2022-05-19] MEDS: Doxycycline 100 MG CAPSULE PO (22:51)
[2022-05-19 23:53] LABS: Magnesium 0.8 mg/dL (1.6-2.6)
[2022-05-20] MEDS: Magnesium Sulfate 4gm/100mL 4 GM/100 ML IV.SOLN. IV (01:04)
[2022-05-20 01:43] LABS: Hematocrit 33.6 % (37-47); Hemoglobin 10.5 g/dL (12.0-15.0)
[2022-05-20 04:45] VITALS: BP 116/56; PULSE 61; RESP 18; TEMP 36.3; O2SAT 98
[2022-05-20 05:29] LABS: Absolute Lymphocyte Count 2.16 X10^3/uL (0.83-4.51); Absolute Neutrophil Count 18.5 X10^3/uL (2.0-7.7); Basophil# 0.12 X10^3/uL; Basophil% 0.5 % (0-1); Eosinophil# 0.31 X10^3/uL; Eosinophils% 1.4 % (0-5); Hematocrit 33.5 % (37-47); Hemoglobin 10.4 g/dL (12.0-15.0); Lymphocyte # 2.16 X10^3/ul (0.83-4.51); Lymphocyte % 9.6 % (19-41); Mean Corpuscular Hgb 27.1 pg (27.0-32.0); Mean Corpuscular Volume 87.2 fL (81-99); Mean Platelet Vol. 9.7 fl (6.2-12.0); Monocyte# 1.25 X10^3/uL; Monocyte% 5.6 % (0-10); NRBC Flagged by Analyzer 0 % (0-5); Neutrophil # 18.46 X10^3/uL (2.7-7.7); Neutrophil % 81.9 % (47-70); Platelet Count 298 K/mm3 (150-450); RBC Distribution Width CV 18.2 % (11.6-14.6); RBC Distribution Width SD 58.4 fl (35.1-43.9); Red Blood Count 3.84 M/mm3 (4.2-5.4); White Blood Count 22.5 K/mm3 (4.4-11.0)
[2022-05-20 06:38] LABS: Anion Gap 18 (5-15); BUN 102 mg/dL (7-18); BUN/Creat Ratio 29.1 RATIO (10-20); Chloride 113 mmol/L (98-107); Glucose 111 mg/dL (74-106); Potassium 3.8 mmol/L (3.5-5.1); Sodium Level 141 mmol/L (136-145)
[2022-05-20] MEDS: Doxycycline 100 MG CAPSULE PO (08:49)
[2022-05-20 10:45] VITALS: BP 115/51; PULSE 63; RESP 16; TEMP 36.3; O2SAT 100
--- NOTE | 2022-05-20 10:48 | CON.PCM.RE_ITS ---
Assessment & Plan Assessment/Plan (1) Acute kidney injury: PLAN: Creatinine 3.9 at 3.5 today. Baseline creatinine 1.4. Likely due to de hydration. Await spot urine sodium and creatinine. Strict I/O's (2) Acute dehydration: PLAN: Continue IV fluids (3) Diarrhea: PLAN: GI consulted. Stool cultures ordered (4) Hypocalcemia: PLAN: Ionized calcium ordered. Check vitamin D level (5) Hx of CABG: PLAN: On Plavix and aspirin (6) CKD stage 3 due to type 2 diabetes mellitus: PLAN: Baseline creatinine 1.4 EGFR 38 cc/min (7) Melena: PLAN: Serial H&H (8) Bright red blood per rectum: PLAN: GI consulted (9) Hypomagnesemia: PLAN: Likely due to GI loss. Received IV magnesium HPI Consult Data Date of Consult: 05/20/22 HPI Narrative Reason for Consultation: acute on CKD HPI Narrative: JEWEL KAM, is a 76 F with CKD stage 3b with hypertension and diabetes presents to [facility] ER with complaints of bright red blood per rectum for the past couple of days. She has had frequent diarrhea for the past couple of months. She complained of weakness and lightheadedness and falls status post left hip fracture few weeks back. She denied any syncope. She did not seek medical attention hoping that her diarrhea would resolve on its own. Creatinine on admission was 3.93-3.5 today. Her baseline creatinine is 1.4 EGFR 38 cc/min. She states her urine output was the same but on second thought she did say her urine output was not as much as usual. Hemoglobin was 11.3 g on admission to 10.4 g today. She has coronary artery disease on aspirin therapy and clopidogrel. She denied any nausea but had emesis x1. Denied abdominal pain or cramps. Denied chest pain or shortness of breath. Magnesium was low at 0.8 with calcium 5.4. FOR[facility]LY [facility] Medical History Aspiration pneumonia Atherosclerosis of coronary artery bypass graft of [place] heart with angina pectoris Candidal vulvovaginitis Encephalopathy GI bleed Hyperosmolar (nonketotic) coma Ischemic cardiomyopathy Nicotine dependence NSTEMI (non-ST elevated myocardial infarction) Type 2 diabetes mellitus Home Medications alendronate 70 mg tablet 70 mg PO WE Supplement 11/12/18 [History Last Taken 05/15/22] aspirin 81 mg chewable tablet 81 mg PO DAILY@0800 [facility] 11/12/18 [History Last Taken 05/19/22] ergocalciferol (vitamin D2) 1,250 mcg (50,000 unit) capsule (Vitamin D2) 50,000 unit PO WE Supplement 11/12/18 [History Last Taken 05/15/22] atorvastatin 40 mg tablet 40 mg PO QHS BP #30 tabs 11/24/18 [Rx Last Taken 05/18/22] clopidogrel 75 mg tablet 75 mg PO DAILY HEART #30 tabs 11/24/18 [Rx Last Taken 05/19/22] doxycycline hyclate 100 mg capsule 100 mg PO BID 10 days #20 caps 11/08/21 [Rx Last Taken 05/19/22] insulin glargine 100 unit/mL (3 mL) subcutaneous pen (Lantus Solostar U-100 Insulin) 30 units subcut DAILY diabetes 05/19/22 [History Last Taken 05/18/22] insulin lispro 100 unit/mL subcutaneous pen (Humalog KwikPen (U-100) Insulin) 16 unit subcut TIDAC DIABETES 05/19/22 [History Last Taken 05/19/22] potassium chloride 20 mEq oral packet 20 meq PO DAILY SUPPLEMENT 05/19/22 [History Last Taken 05/19/22] Allergy/AdvReac Type Severity Reaction Status Date / Time metformin Allergy Itching Verified 05/19/22 18:02 tramadol Allergy Itching Verified 05/19/22 21:51 Family History Other Heart disease Surgical History H/O coronary artery bypass surgery History of hysterectomy History of left heart catheterization (11/16/18) Hx of cholecystectomy Social History Smoking Status: Current every day smoker tobacco type: cigarettes ROS Constitutional Constitutional: Reports weakness; Denies chills or fever(s) Eyes Eyes: Denies change in vision ENT HEENT: Reports dry mouth Cardiovascular Cardiovascular: Denies chest pain or leg edema Respiratory/Chest Respiratory/Chest: Denies dry cough Gastrointestinal Gastrointestinal: Reports anorexia, diarrhea, melena and rectal bleeding; Denies abdominal pain, hematemesis or nausea Genitourinary Genitourinary: Denies change in urinary stream, difficulty urinating or dysuria Musculoskeletal Musculoskeletal: Reports other Details: Generalized weakness history of falls Integumentary Integumentary: Denies rash Psychiatric Psychiatric: Denies anxiety or confusion Hematologic/Lymphatic Hematologic/Lymphatic: Denies anemia Physical Exam Const alert, oriented x3 and no apparent distress HEENT normocephalic Head and Scalp: atraumatic Eyes PERRL Resp clear to auscultation bilaterally Cardio regular rate and no rub GI non-tender and non-distended Auscultation: normoactive bowel sounds Palpation: soft Narrative: Urine volumes inaccurate Skin no wounds Neuro CN's II-XII intact bilaterally Sensorium / Orientation: awake and alert Motor Exam: Negative for tremor Psych cooperative Lab / Micro Data Result Diagrams: 05/20/22 04:29 05/20/22 04:29 Labs: Laboratory Results - last 24 hr 05/19/22 18:30: WBC Cancelled, Corrected WBC Cancelled, RBC Cancelled, Hgb Cancelled, Hct Cancelled, MCV Cancelled, MCH Cancelled, MCHC Cancelled, RDW Std Deviation Cancelled, RDW Coeff of Joanna Cancelled, Plt Count Cancelled, MPV Cancelled, Immature Gran % (Auto) Cancelled, Neut % (Auto) Cancelled, Lymph % (Auto) Cancelled, [place] % (Auto) Cancelled, Eos % (Auto) Cancelled, Baso % (Auto) Cancelled, Absolute Neuts (auto) Cancelled, Absolute Lymphs (auto) Cancelled, Total Counted Cancelled, Neutrophils % (Manual) Cancelled, Band Neutrophils % Cancelled, Lymphocytes % (Manual) Cancelled, Monocytes % (Manual) Cancelled, Eosinophils % (Manual) Cancelled, Basophils % (Manual) Cancelled, Metamyelocytes % Cancelled, Myelocytes % Cancelled, Promyelocytes % Cancelled, Blast Cells % Cancelled, Plasma Cell % (Manual) Cancelled, Other Cells % Cancelled, Nucleated RBC % Cancelled, Nucleated RBCs/100 WBC Cancelled, Differential Comment Cancelled, Diff Path Review Cancelled, Hypersegmented Neuts Cancelled, Atypical Lymphocytes Cancelled, Reactive Lymphocytes Cancelled, Smudge Cells Cancelled, Toxic Granulation Cancelled, Toxic Vacuolation Cancelled, Dohle Bodies Cancelled, Ihsan Rods Cancelled, Platelet Estimate Cancelled, Plt Morphology Comment Cancelled, RBC Morphology Cancelled, Polychromasia Cancelled, Hypochromasia Cancelled, Poikilocytosis Cancelled, Basophilic Stippling Cancelled, Anisocytosis Cancelled, Microcytosis Cancelled, Macrocytosis Cancelled, Spherocytes Cancelled, Sickle Cells Cancelled, Target Cells Can celled, Tear Drop Cells Cancelled, Ovalocytes Cancelled, Stomatocytes Cancelled, [place] Bodies Cancelled, Angelita Cells Cancelled, Bite Cells Cancelled, Crenated Cell Cancelled, Acanthocytes (Spur) Cancelled, Rouleaux Cancelled, Schistocytes Cancelled 05/19/22 18:30: Sodium Cancelled, Potassium Cancelled, Chloride Cancelled, Carbon Dioxide Cancelled, Anion Gap Cancelled, BUN Cancelled, Creatinine Cancelled, Estim Creat Clear Calc Cancelled, Est GFR (MDRD) Af Amer Cancelled, Est GFR (MDRD) Non-Af Cancelled, BUN/Creatinine Ratio Cancelled, Glucose Cancelled, Calcium Cancelled, Total Bilirubin Cancelled, AST Cancelled, ALT Cancelled, Alkaline Phosphatase Cancelled, Total Protein Cancelled, Albumin Cancelled, Globulin Cancelled, Albumin/Globulin Ratio Cancelled 05/19/22 18:30: Blood Type O POSITIVE, Antibody Screen NEGATIVE 05/19/22 19:37: WBC 23.0 H, RBC 4.14 L, Hgb 11.3 L, Hct 35.4 L, MCV 85.5, MCH 27.3, MCHC 31.9 L, RDW Std Deviation 57.5 H, RDW Coeff of Joanna 18.3 H, Plt Count 322, MPV 9.4, Immature Gran % (Auto) 0.900, Neut % (Auto) 79.3 H, Lymph % (Auto) 11.8 L, [place] % (Auto) 5.9, Eos % (Auto) 1.4, Baso % (Auto) 0.7, Absolute Neuts (auto) 18.3 H, Absolute Lymphs (auto) 2.71, Nucleated RBC % 0 05/19/22 19:37: Sodium 140, Potassium 4.5, Chloride 110 H, Carbon Dioxide 13.0 L , Anion Gap 17 H, BUN 119 H*, Creatinine 3.93 H, Estim Creat Clear Calc 10.84, Est GFR (MDRD) Af Amer 14 L, Est GFR (MDRD) Non-Af 12 L, BUN/Creatinine Ratio 30.3 H, Glucose 67 L, Calcium 5.4 L*, Total Bilirubin 0.40, AST 16, ALT 19, Alkaline Phosphatase 166 H, Total Protein 6.2 L, Albumin 2.5 L, Globulin 3.7, Albumin/Globulin Ratio 0.7 L 05/19/22 19:37: Magnesium 0.8 L* 05/20/22 01:10: Hgb 10.5 L, Hct 33.6 L 05/20/22 04:29: Sodium 141, Potassium 3.8, Chloride 113 H, Carbon Dioxide 10.0 L , Anion Gap 18 H, BUN 102 H*, Creatinine 3.50 H, BUN/Creatinine Ratio 29.1 H, Glucose 111 H 05/20/22 04:29: WBC 22.5 H, RBC 3.84 L, Hgb 10.4 L, Hct 33.5 L, MCV 87.2, MCH 27.1, MCHC 31.0 L, RDW Std Deviation 58.4 H, RDW Coeff of Joanna 18.2 H, Plt Count 298, MPV 9.7, Immature Gran % (Auto) 1.000 H, Neut % (Auto) 81.9 H, Lymph % (A uto) 9.6 L, [place] % (Auto) 5.6, Eos % (Auto) 1.4, Baso % (Auto) 0.5, Absolute Neuts (auto) 18.5 H, Absolute Lymphs (auto) 2.16, Nucleated RBC % 0
[2022-05-20] MEDS: Dextrose 5%/0.9% NaCl 1,000 ML 75 ML IV (12:21)
--- NOTE | 2022-05-20 12:48 | CASEMGMT ---
CARMEN STRAUSS Assessment: Face to Face with pt for initial transition planning/care coordination assessment. RN RICA introduced self and role at [facility], pt voices understanding and consents to assessment. Pt is A/O x4 and answers all questions appropriately at this time. Pt lying in bed in no distress. Care providers, pharmacy, and demographics verified/updated. Admitting Dx: CHAD on CKD stage IIIB, GIB PCP:Lacey Specialists:ashley Barlow Pharmacy: [facility] Insurance: [facility] Prescription Benefit: yes LW/HPOA: Pt has a DPOA on file at [facility]. Her DPOA is her son Petr Weston. LNOK: Petr Weston, son; Raj Weston, Living Arrangements: Pt lives with and a son in a mobile home with a ramp to enter. Pt reports she is I in ADL's and denies concerns at home. Transportation: Pt drives self and denies concerns with transportation. DME/HHC/SNF: Pt has a cane and FWW that she uses, also has a shower chair and grab bars in the bathroom. Pt has had HHC in the past but is unsure of the name of the agency. Pt denies SNF stays. Pt states no concerns with going home at time of dc. Pt denies any homegoing needs. CM to follow. Advised pt to ask CM if any further question/concerns/needs arise, voices understanding. Pt Goal: Home Plan: Home
[2022-05-20 14:04] LABS: Hematocrit 36.1 % (37-47); Hemoglobin 11.5 g/dL (12.0-15.0)
--- NOTE | 2022-05-20 14:34 | CON.PCM_ITS ---
Assessment & Plan Assessment/Plan (1) GI bleed: PLAN: The differential diagnosis for her need would be hemorrhoidal bleeding, diverticular bleeding, neoplasia, arteriovenous malformation, upper GI bleed with rapid transit. She is going upper and lower. Evaluate upper lower GI tract due to the fact that she is on dual antiplatelet therapy. She was explained alternatives, risk, benefits include not withstanding bleeding, infection, sepsis, perforation, need for emergent surgery . #ASA of 3. HPI Consult Data Date of Consult: 05/20/22 HPI Narrative HPI Narrative: JEWEL KAM, is a 76 F who presented to the ED with lower GI bleeding. She has a significant history of ischemic cardiomyopathy; CAD status post CABG and multiple stents who presents to the emergency department with 2-day history of progressively worsening hematochezia.? She also complains of light headedness.? Of note after patient used the bathroom at the emergency department and akshat up to walk she became lightheaded.? On the day before presentation and the day prior to that patient vomited.? Patient reports anorexia.? For the past 1 month patient has had diarrhea.? She reports loose and black stools previously but now she has bright red blood per rectum.? She report that on a? particular day she had about 8 stools in 1 hour.? She reports fatigue.? Emergent department doctor reports that her stools at emergency department was brown and but was some blood around the patient's rectum. ?Also reportedly at emergency department patient was noted to have blood in the toilet bowl after defecation. Reportedly stool studies including stool culture and C. difficile done by PCP was negative. She also has CKD secondary to DM. Currently being seen by nephrology for acute kidney injury chronic kidney disease. FORMERLY [facility] Medical History (Updated 05/20/22 @ 14:[address] Domingo Friend, DO) Aspiration pneumonia Atherosclerosis of coronary artery bypass graft of [place] heart with angina pectoris Candidal vulvovaginitis Encephalopathy GI bleed Hyperosmolar (nonketotic) coma Ischemic cardiomyopathy Nicotine dependence NSTEMI (non-ST elevated myocardial infarction) Type 2 diabetes mellitus Home Medications alendronate 70 mg tablet 70 mg PO WE Supplement 11/12/18 [History Last Taken 05/15/22] aspirin 81 mg chewable tablet 81 mg PO DAILY@0800 [facility] 11/12/18 [History Last Taken 05/19/22] ergocalciferol (vitamin D2) 1,250 mcg (50,000 unit) capsule (Vitamin D2) 50,000 unit PO WE Supplement 11/12/18 [History Last Taken 05/15/22] atorvastatin 40 mg tablet 40 mg PO QHS BP #30 tabs 11/24/18 [Rx Last Taken 05/18/22] clopidogrel 75 mg tablet 75 mg PO DAILY HEART #30 tabs 11/24/18 [Rx Last Taken 05/19/22] doxycycline hyclate 100 mg capsule 100 mg PO BID 10 days #20 caps 11/08/21 [Rx Last Taken 05/19/22] insulin glargine 100 unit/mL (3 mL) subcutaneous pen (Lantus Solostar U-100 Insulin) 30 units subcut DAILY diabetes 05/19/22 [History Last Taken 05/18/22] insulin lispro 100 unit/mL subcutaneous pen (Humalog KwikPen (U-100) Insulin) 16 unit subcut TIDAC DIABETES 05/19/22 [History Last Taken 05/19/22] potassium chloride 20 mEq oral packet 20 meq PO DAILY SUPPLEMENT 05/19/22 [History Last Taken 05/19/22] Allergy/AdvReac Type Severity Reaction Status Date / Time metformin Allergy Itching Verified 05/19/22 18:02 tramadol Allergy Itching Verified 05/19/22 21:51 Family History Other Heart disease Surgical History H/O coronary artery bypass surgery History of hysterectomy History of left heart catheterization (11/16/18) Hx of cholecystectomy Social History Smoking Status: Current every day smoker tobacco type: cigarettes ROS Constitutional Constitutional: Reports weakness; Denies chills or fever(s) Eyes Eyes: Denies change in vision ENT HEENT: Reports dry mouth Cardiovascular Cardiovascular: Denies chest pain or leg edema Respiratory/Chest Respiratory/Chest: Denies dry cough Gastrointestinal Gastrointestinal: Reports anorexia, diarrhea, melena and rectal bleeding; Denies abdominal pain, hematemesis or nausea Genitourinary Genitourinary: Denies change in urinary stream, difficulty urinating or dysuria Musculoskeletal Musculoskeletal: Reports other Details: Generalized weakness history of falls Integumentary Integumentary: Denies rash Psychiatric Psychiatric: Denies anxiety or confusion Hematologic/Lymphatic Hematologic/Lymphatic: Denies anemia Physical Exam Const alert, oriented x3 and no apparent distress HEENT normocephalic Head and Scalp: atraumatic Eyes PERRL Resp clear to auscultation bilaterally Cardio regular rate and no rub GI non-tender and non-distended Auscultation: normoactive bowel sounds Palpation: soft Narrative: Urine volumes inaccurate Skin no wounds Neuro CN's II-XII intact bilaterally Sensorium / Orientation: awake and alert Motor Exam: Negative for tremor Psych cooperative Lab / Micro Data Result Diagrams: 05/20/22 13:50 05/20/22 04:29 Labs: Laboratory Results - last 24 hr 05/19/22 18:30: WBC Cancelled, Corrected WBC Cancelled, RBC Cancelled, Hgb Cancelled, Hct Cancelled, MCV Cancelled, MCH Cancelled, MCHC Cancelled, RDW Std Deviation Cancelled, RDW Coeff of Joanna Cancelled, Plt Count Cancelled, MPV Cancelled, Immature Gran % (Auto) Cancelled, Neut % (Auto) Cancelled, Lymph % (Auto) Cancelled, [place] % (Auto) Cancelled, Eos % (Auto) Cancelled, Baso % (Auto) Cancelled, Absolute Neuts (auto) Cancelled, Absolute Lymphs (auto) Cancelled, Total Counted Cancelled, Neutrophils % (Manual) Cancelled, Band Neutrophils % Cancelled, Lymphocytes % (Manual) Cancelled, Monocytes % (Manual) Cancelled, Eosinophils % (Manual) Cancelled, Basophils % (Manual) Cancelled, Metamyelocytes % Cancelled, Myelocytes % Cancelled, Promyelocytes % Cancelled, Blast Cells % Cancelled, Plasma Cell % (Manual) Cancelled, Other Cells % Cancelled, Nucleated RBC % Cancelled, Nucleated RBCs/100 WBC Cancelled, Differential Comment Cancelled, Diff Path Review Cancelled, Hypersegmented Neuts Cancelled, Atypical Lymphocytes Cancelled, Reactive Lymphocytes Cancelled, Smudge Cells Cancelled, Toxic Granulation Cancelled, Toxic Vacuolation Cancelled, Dohle Bodies Cancelled, Ihsan Rods Cancelled, Platelet Estimate Cancelled, Plt Morphology Comment Cancelled, RBC Morphology Cancelled, Polychromasia Cancelled, Hy pochromasia Cancelled, Poikilocytosis Cancelled, Basophilic Stippling Cancelled, Anisocytosis Cancelled, Microcytosis Cancelled, Macrocytosis Cancelled, Spherocytes Cancelled, Sickle Cells Cancelled, Target Cells Cancelled, Tear Drop Cells Cancelled, Ovalocytes Cancelled, Stomatocytes Cancelled, [place] Bodies Cancelled, Angelita Cells Cancelled, Bite Cells Cancelled, Crenated Cell Cancelled, Acanthocytes (Spur) Cancelled, Rouleaux Cancelled, Schistocytes Cancelled 05/19/22 18:30: Sodium Cancelled, Potassium Cancelled, Chloride Cancelled, Carbon Dioxide Cancelled, Anion Gap Cancelled, BUN Cancelled, Creatinine Cancelled, Estim Creat Clear Calc Cancelled, Est GFR (MDRD) Af Amer Cancelled, Est GFR (MDRD) Non-Af Cancelled, BUN/Creatinine Ratio Cancelled, Glucose Cancel led, Calcium Cancelled, Total Bilirubin Cancelled, AST Cancelled, ALT Cancelled, Alkaline Phosphatase Cancelled, Total Protein Cancelled, Albumin Cancelled, Globulin Cancelled, Albumin/Globulin Ratio Cancelled 05/19/22 18:30: Blood Type O POSITIVE, Antibody Screen NEGATIVE 05/19/22 19:37: WBC 23.0 H, RBC 4.14 L, Hgb 11.3 L, Hct 35.4 L, MCV 85.5, MCH 27.3, MCHC 31.9 L, RDW Std Deviation 57.5 H, RDW Coeff of Joanna 18.3 H, Plt Count 322, MPV 9.4, Immature Gran % (Auto) 0.900, Neut % (Auto) 79.3 H, Lymph % (Auto) 11.8 L, [place] % (Auto) 5.9, Eos % (Auto) 1.4, Baso % (Auto) 0.7, Absolute Neuts (auto) 18.3 H, Absolute Lymphs (auto) 2.71, Nucleated RBC % 0 05/19/22 19:37: Sodium 140, Potassium 4.5, Chloride 110 H, Carbon Dioxide 13.0 L , Anion Gap 17 H, BUN 119 H*, Creatinine 3.93 H, Estim Creat Clear Calc 10.84, Est GFR (MDRD) Af Amer 14 L, Est GFR (MDRD) Non-Af 12 L, BUN/Creatinine Ratio 30.3 H, Glucose 67 L, Calcium 5.4 L*, Total Bilirubin 0.40, AST 16, ALT 19, Alkaline Phosphatase 166 H, Total Protein 6.2 L, Albumin 2.5 L, Globulin 3.7, Albumin/Globulin Ratio 0.7 L 05/19/22 19:37: Magnesium 0.8 L* 05/20/22 01:10: Hgb 10.5 L, Hct 33.6 L 05/20/22 04:29: Sodium 141, Potassium 3.8, Chloride 113 H, Carbon Dioxide 10.0 L , Anion Gap 18 H, BUN 102 H*, Creatinine 3.50 H, BUN/Creatinine Ratio 29.1 H, Glucose 111 H 05/20/22 04:29: WBC 22.5 H, RBC 3.84 L, Hgb 10.4 L, Hct 33.5 L, MCV 87.2, MCH 27.1, MCHC 31.0 L, RDW Std Deviation 58.4 H, RDW Coeff of Joanna 18.2 H, Plt Count 298, MPV 9.7, Immature Gran % (Auto) 1.000 H, Neut % (Auto) 81.9 H, Lymph % (Auto) 9.6 L, [place] % (Auto) 5.6, Eos % (Auto) 1.4, Baso % (Auto) 0.5, Absolute Neuts (auto) 18.5 H, Absolute Lymphs (auto) 2.16, Nucleated RBC % 0 05/20/22 13:50: Hgb 11.5 L, Hct 36.1 L Charges/Coding Visit Charges Inpatient E&M: 79514 Init Hosp L3
--- NOTE | 2022-05-20 15:12 | PCM.PN.HOSP ---
Subjective Subjective DOS 05/20/22 Ms. Weston is a 76y/o female who presented 05/19/22 with hematochezia. She reports continued red blood intermittently that has improved but has continued. She denies CP, SOB, abdominal pain, no n/v, no swelling in legs, no change in vision or headaches reported. Appetite fair. No other complaints today. Objective Data Objective Data Vital Signs: Vital Signs Temp Pulse Resp BP Pulse Ox O2 Del Method 97.4 F L 63 16 115/51 L 100 Room Air 05/20/22 10:45 05/20/22 10:45 05/20/22 10:45 05/20/22 10:45 05/20/22 10:45 05/20/22 10:45 Oxygen Delivery Method Room Air Weight: 57 kg Body Mass Index (BMI) 21.5 Intake & Output: Intake and Output for Last 24 Hours 05/18/22 05/19/22 05/20/22 23:59 23:59 23:59 Intake Total 2109 1630 / 1630 Output Total 0 / 0 Balance 2109 1630 / 1630 Lab / Micro Data Result Diagrams: 05/20/22 13:50 05/20/22 04:29 Labs: Laboratory Results - last 24 hr 05/19/22 18:30: WBC Cancelled, Corrected WBC Cancelled, RBC Cancelled, Hgb Cancelled, Hct Cancelled, MCV Cancelled, MCH Cancelled, MCHC Cancelled, RDW Std Deviation Cancelled, RDW Coeff of Joanna Cancelled, Plt Count Cancelled, MPV Cancelled, Immature Gran % (Auto) Cancelled, Neut % (Auto) Cancelled, Lymph % (Auto) Cancelled, Cloud % (Auto) Cancelled, Eos % (Auto) Cancelled, Baso % (Auto) Cancelled, Absolute Neuts (auto) Cancelled, Absolute Lymphs (auto) Cancelled, Total Counted Cancelled, Neutrophils % (Manual) Cancelled, Band Neutrophils % Cancelled, Lymphocytes % (Manual) Cancelled, Monocytes % (Manual) Cancelled, Eosinophils % (Manual) Cancelled, Basophils % (Manual) Cancelled, Metamyelocytes % Cancelled, Myelocytes % Cancelled, Promyelocytes % Cancelled, Blast Cells % Cancelled, Plasma Cell % (Manual) Cancelled, Other Cells % Cancelled, Nucleated RBC % Cancelled, Nucleated RBCs/100 WBC Cancelled, Differential Comment Cancelled, Diff Path Review Cancelled, Hypersegmented Neuts Cancelled, Atypical Lymphocytes Cancelled, Reactive Lymphocytes Cancelled, Smudge Cells Cancelled, Toxic Granulation Cancelled, Toxic Vacuolation Cancelled, Dohle Bodies Cancelled, Ihsan Rods Cancelled, Platelet Estimate Cancelled, Plt Morphology Comment Cancelled, RBC Morphology Cancelled, Polychromasia Cancelled, Hypochromasia Cancelled, Poikilocytosis Cancelled, Basophilic Stippling Cancelled, Anisocytosis Cancelled, Microcytosis Cancelled, Macrocytosis Cancelled, Spherocytes Cancelled, Sickle Cells Cancelled, Target Cells Cancelled, Tear Drop Cells Cancelled, Ovalocytes Cancelled, Stomatocytes Cancelled, A[place]-Ben[place] Bodies Cancelled, Angelita Cells Cancelled, Bite Cells Cancelled, Crenated Cell Cancelled, Acanthocytes (Spur) Cancelled, Rouleaux Cancelled, Schistocytes Cancelled 05/19/22 18:30: Sodium Cancelled, Potassium Cancelled, Chloride Cancelled, Carbon Dioxide Cancelled, Anion Gap Cancelled, BUN Cancelled, Creatinine Cancelled, Estim Creat Clear Calc Cancelled, Est GFR (MDRD) Af Amer Cancelled, Est GFR (MDRD) Non-Af Cancelled, BUN/Creatinine Ratio Cancelled, Glucose Cancelled, Calcium Cancelled, Total Bilirubin Cancelled, AST Cancelled, ALT Cancelled, Alkaline Phosphatase Cancelled, Total Protein Cancelled, Albumin Cancelled, Globulin Cancelled, Albumin/Globulin Ratio Cancelled 05/19/22 18:30: Blood Type O POSITIVE, Antibody Screen NEGATIVE 05/19/22 19:37: WBC 23.0 H, RBC 4.14 L, Hgb 11.3 L, Hct 35.4 L, MCV 85.5, MCH 27.3, MCHC 31.9 L, RDW Std Deviation 57.5 H, RDW Coeff of Joanna 18.3 H, Plt Count 322, MPV 9.4, Immature Gran % (Auto) 0.900, Neut % (Auto) 79.3 H, Lymph % (Auto) 11.8 L, Cloud % (Auto) 5.9, Eos % (Auto) 1.4, Baso % (Auto) 0.7, Absolute Neuts (auto) 18.3 H, Absolute Lymphs (auto) 2.71, Nucleated RBC % 0 05/19/22 19:37: Sodium 140, Potassium 4.5, Chloride 110 H, Carbon Dioxide 13.0 L, Anion Gap 17 H, BUN 119 H*, Creatinine 3.93 H, Estim Creat Clear Calc 10.84, Est GFR (MDRD) Af Amer 14 L, Est GFR (MDRD) Non-Af 12 L, BUN/Creatinine Ratio 30.3 H, Glucose 67 L, Calcium 5.4 L*, Total Bilirubin 0.40, AST 16, ALT 19, Alkaline Phosphatase 166 H, Total Protein 6.2 L, Albumin 2.5 L, Globulin 3.7, Albumin/Globulin Ratio 0.7 L 05/19/22 19:37: Magnesium 0.8 L* 05/20/22 01:10: Hgb 10.5 L, Hct 33.6 L 05/20/22 04:29: Sodium 141, Potassium 3.8, Chloride 113 H, Carbon Dioxide 10.0 L, Anion Gap 18 H, BUN 102 H*, Creatinine 3.50 H, BUN/Creatinine Ratio 29.1 H, Glucose 111 H 05/20/22 04:29: WBC 22.5 H, RBC 3.84 L, Hgb 10.4 L, Hct 33.5 L, MCV 87.2, MCH 27.1, MCHC 31.0 L, RDW Std Deviation 58.4 H, RDW Coeff of Joanna 18.2 H, Plt Count 298, MPV 9.7, Immature Gran % (Auto) 1.000 H, Neut % (Auto) 81.9 H, Lymph % (Auto) 9.6 L, Cloud % (Auto) 5.6, Eos % (Auto) 1.4, Baso % (Auto) 0.5, Absolute Neuts (auto) 18.5 H, Absolute Lymphs (auto) 2.16, Nucleated RBC % 0 05/20/22 13:50: Hgb 11.5 L, Hct 36.1 L Physical Exam Const alert, oriented x3 and no apparent distress HEENT Head and Scalp: normocephalic Eyes EOMs intact bilaterally Neck supple Resp normal respiratory effort and clear to auscultation bilaterally Cardio regular rate and regular rhythm GI soft to palpation, non-tender and non-distended Extremity Extremity Narrative: No edema appreciated Neuro Neuro Narrative: Alert and oriented, moving all extremities without difficulty Psych affect normal Assessment & Plan Assessment/Plan (1) Diarrhea: (2) Acute dehydration: (3) Acute kidney injury: PLAN: Plan CHAD on CKD stage IIIb His creatinine on presentation (05/19/2022) was 3.93. Creatinine on 05/02/2022 was 1.44. Baseline creatinine is 1.42. Cr today 3.5 CKD likely secondary to diabetic nephropathy, chad 2/2 ?dehydration Urinary studies ordered. Ultrasound of kidney and bladder ordered and pending. Avoid nephrotoxic agents Gentle IV hydration with dextrose in normal saline given on admission, will transition to LR given DMII on home insulin and hyperchloremia Received IV boluses of the emergency department. Pt follows with Dr. Cain sarabia/ nephrology, consult placed, appreciate recs Hemorrhagic diarrhea Stool studies on 05/08/2022. Positive for fecal WBC. Ova and parasites results are pending. Enteropathogenic panel negative. C. difficile PCR negative. GI c/s Hemoglobin of 11.3 on presentation which has been trended and is stable but given persistent bleeding pt will be NPO at midnight for EGD and colonoscopy On IV PPI q12 hrs Pt has not required PRBC Pt reports CABG and PCI at least 5-10 years ago Echocardiogram on 11/12/2018 showed estimated ejection fraction of 30% and stage II diastolic dysfunction. Also patient had a cardiac catheterization on 11/16/2018. At that time recommendations were: Medical therapy to see whether patient will tolerate long-term Plavix and aspirin in view of recent GI bleeding.? If the above is tolerated would consider elective angioplasty to the first obtuse marginal branch. We will hold off Plavix at this time. ASA held on admission Will restart nuris if no bleeding seen on scopes tomorrow 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 Hypoglycemic on admission Pt was given D5NS Will start SSI and accuchecks was on 30u long acting insulin qam and 16u humalin w/ meals Rechecking BMP and will adjust insulin accordingly NPO at midnight, will adjust accordingly High anion gap metabolic acidosis Gap 18 this AM Likely 2/2 uremia Pt without changes in mentation No tachycardia or low BP No evidence of hypoperfusion seen Will recheck BMP Hypocalcemia Calcium presentation was 5.4. Albumin is 2.5. Corrected calcium level 6.6 mg per DL. Calcium gluconate ordered. Trend BMP. HFrEF likely ischemic with stage II diastolic dysfunction Patient's family report that CABG might have been more than 10 years ago likewise coronary stents. Echocardiogram on 11/12/2018 showed estimated ejection fraction of 30% and stage II diastolic dysfunction. Also patient had a cardiac catheterization on 11/16/2018. At that time recommendations were: Medical therapy to see whether patient will tolerate long-term Plavix and aspirin in view of recent GI bleeding.? If the above is tolerated would consider elective angioplasty to the first obtuse marginal branch. DVT prophylaxis: SCDs ordered Miscellaneous: Patient is on doxycycline with 1 dose left. Doxycycline reportedly was ordered prophylactically for infection after drainage from right thumb secondary to gout. Doxycycline p.o. continued for 2 doses left. Roma Parker MD Time spent 40 minutes. Charges/Coding Visit Charges Inpatient E&M: 89279 [facility] L3
[2022-05-20 15:24] VITALS: BP 148/52; PULSE 64; RESP 18; TEMP 36.6; O2SAT 98
[2022-05-20 15:39] LABS: Urine Sodium 50 mmol/L (Not Establ.)
[2022-05-20] MEDS: Polyethylene Glycol 3350 BOWEL PREP PO (16:28)
[2022-05-20] MEDS: Insulin Lispro 100 UNIT/ML INSULN.PEN SC ×2 (16:29→21:38)
[2022-05-20] MEDS: Lactated Ringers 1,000 ML 75 ML IV (16:32)
[2022-05-20 16:36] LABS: Anion Gap 16 (5-15); BUN 98 mg/dL (7-18); BUN/Creat Ratio 30.1 RATIO (10-20); Calcium,Total 6.1 mg/dL (8.5-10.1); Chloride 111 mmol/L (98-107); Creatinine, Serum 3.26 mg/dL (0.55-1.02); EST Glomerular Filtration Rate 15 mL/min (>60); Est Glom Filt Rate - Afr Amer 18 mL/min (>60); Estimated Creatinine Clearance 13.07 ml/min; Glucose 330 mg/dL (74-106); Potassium 4.1 mmol/L (3.5-5.1); Sodium Level 139 mmol/L (136-145)
[2022-05-20 16:45] LABS: Bedside Glucose 280 mg/dL (74-106)
[2022-05-20 21:00] VITALS: BP 140/78; PULSE 63; RESP 16; TEMP 36.5; O2SAT 100
[2022-05-20 21:22] LABS: Hematocrit 33.5 % (37-47); Hemoglobin 10.9 g/dL (12.0-15.0)
[2022-05-20] MEDS: Acetaminophen 325 MG Tablet 650 MG PO (21:37)
[2022-05-20] MEDS: Insulin Glargine-YFGN 100 UNIT/ML Pen 10 UNIT SC (21:40)
[2022-05-20 21:41] LABS: Anion Gap 15 (5-15); BUN 92 mg/dL (7-18); BUN/Creat Ratio 30.6 RATIO (10-20); Calcium,Total 6.2 mg/dL (8.5-10.1); Chloride 112 mmol/L (98-107); Creatinine, Serum 3.01 mg/dL (0.55-1.02); EST Glomerular Filtration Rate 16 mL/min (>60); Est Glom Filt Rate - Afr Amer 20 mL/min (>60); Estimated Creatinine Clearance 14.16 ml/min; Glucose 218 mg/dL (74-106); Sodium Level 140 mmol/L (136-145)
[2022-05-20] MEDS: Atorvastatin Calcium 40 MG Tablet PO (21:41)
[2022-05-20 22:05] LABS: Bedside Glucose 218 mg/dL (74-106)
[2022-05-21] VITALS (10 sets, daily range): BP systolic 91–126; BP diastolic 39–71; PULSE 65–94; RESP 16–18; TEMP 35.9–36.9; O2SAT 93–100; BMI 21.4
[2022-05-21] MEDS: Lactated Ringers 1,000 ML 75 ML IV (05:28)
--- NOTE | 2022-05-21 05:55 | EKG12_ITS ---
Test Reason : AM EKG Blood Pressure : / mmHG Vent. Rate : 061 BPM Atrial Rate : 061 BPM P-R Int : 130 ms QRS Dur : 098 ms QT Int : 464 ms P-R-T Axes : 046 048 092 degrees QTc Int : 467 ms Normal sinus rhythm T wave abnormality, consider anterior ischemia Abnormal ECG Confirmed by NOBLE CLEMENTS, SERA ([id number]), subeditor NASIR WILD ([id number]) on 05/22/2022 9:34:35 AM Referred By: EMETERIO Confirmed By:SERA DICKEY MD
[2022-05-21 06:34] LABS: Absolute Lymphocyte Count 2.19 X10^3/uL (0.83-4.51); Absolute Neutrophil Count 10.9 X10^3/uL (2.0-7.7); Basophil# 0.08 X10^3/uL; Basophil% 0.6 % (0-1); Eosinophil# 0.29 X10^3/uL; Hematocrit 33.7 % (37-47); Hemoglobin 10.7 g/dL (12.0-15.0); Lymphocyte # 2.19 X10^3/ul (0.83-4.51); Lymphocyte % 15.2 % (19-41); Mean Corp Hgb Conc 31.8 g/dL (32-36); Mean Corpuscular Hgb 27.6 pg (27.0-32.0); Mean Corpuscular Volume 87.1 fL (81-99); Mean Platelet Vol. 9.6 fl (6.2-12.0); Monocyte# 0.83 X10^3/uL; Monocyte% 5.7 % (0-10); NRBC Flagged by Analyzer 0 % (0-5); Neutrophil # 10.93 X10^3/uL (2.7-7.7); Neutrophil % 75.7 % (47-70); Platelet Count 237 K/mm3 (150-450); RBC Distribution Width CV 17.9 % (11.6-14.6); RBC Distribution Width SD 56.8 fl (35.1-43.9); Red Blood Count 3.87 M/mm3 (4.2-5.4); White Blood Count 14.4 K/mm3 (4.4-11.0)
[2022-05-21 06:56] LABS: Bedside Glucose 85 mg/dL (74-106)
[2022-05-21 07:22] LABS: ALB/GLOB Ratio 0.7 RATIO (0.9-2.4); AST(SGOT) 31 U/L (15-37); Alanine Aminotransfer ALT/SGPT 24 U/L (13-56); Albumin, Serum 2.3 g/dL (3.2-5.0); Alkaline Phosphatase 189 U/L (45-117); Anion Gap 13 (5-15); BUN 79 mg/dL (7-18); BUN/Creat Ratio 29.7 RATIO (10-20); Calcium,Total 6.2 mg/dL (8.5-10.1); Chloride 114 mmol/L (98-107); Creatinine, Serum 2.66 mg/dL (0.55-1.02); EST Glomerular Filtration Rate 19 mL/min (>60); Est Glom Filt Rate - Afr Amer 23 mL/min (>60); Estimated Creatinine Clearance 16.02 ml/min; Globulin 3.5 g/dL (2.2-4.2); Glucose 99 mg/dL (74-106); Magnesium 1.8 mg/dL (1.6-2.6); Phosphorus 5.2 mg/dL (2.5-4.9); Potassium 3.9 mmol/L (3.5-5.1); Protein, Total 5.8 g/dL (6.4-8.2); Sodium Level 141 mmol/L (136-145)
[2022-05-21 07:53] LABS: Vitamin D,25 Hydroxy 54.1 ng/mL
[2022-05-21] MEDS: Magnesium Sulfate 4gm/100mL 4 GM/100 ML IV.SOLN. IV (08:19)
--- NOTE | 2022-05-21 09:56 | PCM.PN.HOSP ---
Subjective Subjective DOS 05/21/22 CC: I'm hungry Ms. Weston is a 76y/o female who presented 05/19/22 with hematochezia. She endorses continued occasional blood in stool and is scheduled for EGD and colonoscopy today with Dr. Norwood. She endorses being hungry and feeling somewhat sleepy but denies any abdominal pain at this time. She denies any CP or SOB, no changes in vision, headaches, swelling in extremities, or other concerns voiced today. Objective Data Objective Data Vital Signs: Vital Signs Temp Pulse Resp BP Pulse Ox O2 Del Method 97.5 F L 65 18 113/46 L 95 Room Air 05/21/22 08:25 05/21/22 08:25 05/21/22 08:25 05/21/22 08:25 05/21/22 09:47 05/21/22 09:47 Oxygen Delivery Method Room Air Weight: 56.699 kg Body Mass Index (BMI) 21.5 Intake & Output: Intake and Output for Last 24 Hours 05/19/22 05/20/22 05/21/22 23:59 23:59 23:59 Intake Total 2109 2438.75 / 2438.75 1207.5 / 1207.5 Output Total 250 / 250 Balance 2109 2188.75 / 2188.75 1207.5 / 1207.5 Lab / Micro Data Result Diagrams: 05/21/22 06:00 05/21/22 06:00 Labs: Laboratory Results - last 24 hr 05/20/22 13:50: Hgb 11.5 L, Hct 36.1 L 05/20/22 15:10: Ur Random Sodium 50, Urine Creatinine 50.60 05/20/22 16:11: Sodium 139, Potassium 4.1, Chloride 111 H, Carbon Dioxide 12.0 L, Anion Gap 16 H, BUN 98 H, Creatinine 3.26 H, Estim Creat Clear Calc 13.07, Est GFR (MDRD) Af Amer 18 L, Est GFR (MDRD) Non-Af 15 L, BUN/Creatinine Ratio 30.1 H, Glucose 330 H, Calcium 6.1 L* 05/20/22 16:23: POC Glucose 280 H 05/20/22 21:10: Hgb 10.9 L, Hct 33.5 L 05/20/22 21:10: Sodium 140, Potassium 4.0, Chloride 112 H, Carbon Dioxide 13.0 L, Anion Gap 15, BUN 92 H, Creatinine 3.01 H, Estim Creat Clear Calc 14.16, Est GFR (MDRD) Af Amer 20 L, Est GFR (MDRD) Non-Af 16 L, BUN/Creatinine Ratio 30.6 H, Glucose 218 H, Calcium 6.2 L* 05/20/22 21:36: POC Glucose 218 H 05/21/22 06:00: Vitamin D 25-Hydroxy 54.1 05/21/22 06:00: Sodium 141, Potassium 3.9, Chloride 114 H, Carbon Dioxide 14.0 L, Anion Gap 13, BUN 79 H, Creatinine 2.66 H, Estim Creat Clear Calc 16.02, Est GFR (MDRD) Af Amer 23 L, Est GFR (MDRD) Non-Af 19 L, BUN/Creatinine Ratio 29.7 H, Glucose 99, Calcium 6.2 L*, Phosphorus 5.2 H, Magnesium 1.8, Total Bilirubin 0.40, AST 31, ALT 24, Alkaline Phosphatase 189 H, Total Protein 5.8 L, Albumin 2.3 L, Globulin 3.5, Albumin/Globulin Ratio 0.7 L 05/21/22 06:00: WBC 14.4 H, RBC 3.87 L, Hgb 10.7 L, Hct 33.7 L, MCV 87.1, MCH 27.6, MCHC 31.8 L, RDW Std Deviation 56.8 H, RDW Coeff of Joanna 17.9 H, Plt Count 237, MPV 9.6, Immature Gran % (Auto) 0.800, Neut % (Auto) 75.7 H, Lymph % (Auto) 15.2 L, [place] % (Auto) 5.7, Eos % (Auto) 2.0, Baso % (Auto) 0.6, Absolute Neuts (auto) 10.9 H, Absolute Lymphs (auto) 2.19, Nucleated RBC % 0 05/21/22 06:00: Hemoglobin A1c 6.0 H 05/21/22 06:28: POC Glucose 85 Radiography Diagnostic Testing: Radiology Impression Renal Ultrasound 05/19/22 21:42 IMPRESSION: 1. Slight decrease in renal size when compared to prior study. There is no other major interval change. Electronically Signed: Santana Lambert DO at 16:58 EDT Reading Location ID and State: [address] [place] [address] Tel [phone], Service support , Physical Exam Const alert, oriented x3 and no apparent distress HEENT Head and Scalp: normocephalic Eyes EOMs intact bilaterally Neck supple Resp normal respiratory effort and clear to auscultation bilaterally Cardio regular rate and regular rhythm GI soft to palpation, non-tender and non-distended Extremity Extremity Narrative: No edema appreciated Neuro Neuro Narrative: Alert and oriented, moving all extremities without difficulty Psych affect normal Assessment & Plan Assessment/Plan (1) Diarrhea: (2) Acute dehydration: (3) Acute kidney injury: PLAN: Plan Hemorrhagic diarrhea Stool studies on 05/08/2022 positive for fecal WBC. Ova and parasites results are still pending. Enteropathogenic panel negative. C. difficile PCR negative. GI c/s- will have upper and lower endoscopies today. Pt was NPO at midnight. Hgb 10.7 this AM, yesterday evening it was 10.9 and afternoon was 11.5 but has remained in this range On IV PPI q12 hrs Pt has not required PRBC Pt reports CABG and PCI at least 5-10 years ago Echocardiogram on 11/12/2018 showed estimated ejection fraction of 30% and stage II diastolic dysfunction. Also patient had a cardiac catheterization on 11/16/2018. At that time recommendations were: Medical therapy to see whether patient will tolerate long-term Plavix and aspirin in view of recent GI bleeding.? If the above is tolerated would consider elective angioplasty to the first obtuse marginal branch. We will hold off Plavix at this time. ASA held on admission Will restart nuris after scopes if no contraindications noted CHAD on CKD stage IIIb His creatinine on presentation (05/19/2022) was 3.93. Creatinine on 05/02/2022 was 1.44 which appeared roughly baseline Cr continues to downtrend and is 2.66 this AM CKD likely secondary to diabetic nephropathy, chad 2/2 ?dehydration, she has been receiving hydration- does not appear overloaded US kidney/bladder showed slight decrease in renal size when compared to prior study without any major interval changes Urinary studies ordered and fena 05/20 calculated to be 2.45% which would indicate intrinsic insult, though she has been improving with hydration and avoidance of nephrotoxic agents Received IV boluses of the emergency department. Pt follows with Dr. Barlow w/ nephrology, consult placed, appreciate recs 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 Hypoglycemic on admission Pt was given D5NS Will start SSI and accuchecks was on 30u long acting insulin qam and 16u humalin w/ meals, 10u of long acting given last night- reduced does given NPO status Glc 85 this am, no symptoms Will recheck, if glc drops further/pt is hypoglycemic will give D5 Will eat lunch so want to carefully monitor to avoid over correction High anion gap metabolic acidosis- improved Gap 18 yesterday AM and has trended down to 13 Likely 2/2 uremia which is improving Pt without changes in mentation, no asterixis/tremors apprecited No tachycardia or low BP No evidence of hypoperfusion seen Hypocalcemia Calcium presentation was 5.4. Albumin is 2.5. Corrected calcium level 6.6 mg, continue replacement. Hypomagnesemia Replaced, this AM 1.8, replacement initially ordered but pt to only receive half given good response previously HFrEF likely ischemic with stage II diastolic dysfunction, chronic No signs of overload Patient's family report that CABG might have been more than 10 years ago likewise coronary stents. Echocardiogram on 11/12/2018 showed estimated ejection fraction of 30% and stage II diastolic dysfunction. Also patient had a cardiac catheterization on 11/16/2018. At that time recommendations were: Medical therapy to see whether patient will tolerate long-term Plavix and aspirin in view of recent GI bleeding.? If the above is tolerated would consider elective angioplasty to the first obtuse marginal branch Do not see any BB or katlyn on home medication list, will look into this further. DVT prophylaxis: SCDs ordered Miscellaneous: Patient is s/p her two last doses of doxy. Doxycycline reportedly was ordered prophylactically for infection after drainage from right thumb secondary to gout. Roma Parker MD Time spent 20 minutes. Charges/Coding Visit Charges Inpatient E&M: 40346 [facility]s Hosp L1
--- NOTE | 2022-05-21 10:19 | CASEMGMT ---
Social Work Pt has HCPOA on file with [facility]. Pt's agent is son, Petr Weston. Pt does not have LW and declined information on this document. RICCO Manning
[2022-05-21 10:51] LABS: Bedside Glucose 72 mg/dL (74-106)
[2022-05-21] MEDS: Lactated Ringers 1,000 ML 15 ML IV (10:57)
[2022-05-21 11:11] LABS: Bedside Glucose 67 mg/dL (74-106)
--- NOTE | 2022-05-21 11:30 | EGD_PTH ---
PATIENT: JEWEL KAM LOC: MS3 U#:[id number] AGE/SX: 76/F ROOM: MS308 RE05/19/[address]: Dr. Roma Parker MD : [id number] BED: 1 DIS: 05/22/2022 SPEC #: [id number] RECD: 05/21/22 13:16 STATUS: SALMA RETen #: [id number] TALIA: 05/21/22 11:[address]: Jose L Norwood DEPT: SURGICAL PATHOLOGY RECD BY: Syl Flynn ENTERED: 05/21/22 13:36 SP TYPE: EGD BIOPSY OTHR DR: DO Dr. Jason Giraldo MD Dr. John E Schinner, MD Dr. Kathryn Lee, DO Dr. Paige Pierce, MD Dr. Rahsaan Friend, DO Tissues: A - Esophagus, NOS B - COLON BIOPSY C - Sigmoid colon biopsy Procedures: Special Stain Group II Surgery Specimen Level IV Alcian Blue/PAS (control) Comments: @ Ordering doctor for SUIV edited from to @ by RGOOD at 05/21/22 1506 @ Submitting doctor edited from to @ by AMIEOD at 05/21/22 1506 HEADER OPERATION: Colonoscopy, EGD (MAC), biopsy PRE-OP DIAGNOSIS: GI bleed TISSUE SUBMITTED: A - Distal esophagus biopsy, B - Hepatic flexure polyp biopsy, C - Sigmoid biopsy MICROSCOPIC DIAGNOSIS A. Distal esophagus, biopsy: Fragments of gastric mucosa with focal ulceration and acute and chronic inflammation. Intestinal metaplasia (goblet cell metaplasia) not identified. See comment. B. Hepatic flexure polyp, biopsy: Consistent with inflammatory polyp. C. Sigmoid colon, biopsy: Fragments of colonic mucosa with changes suggestive of ischemic colitis. Focal minimal acute colitis. SJ:rg 05/22/2022 COMMENT A. Alcian blue/PAS stain with matched control is used in the evaluation of the specimen. This case has been reviewed in consultation with Dr. Tabor who concurs with the above diagnosis. MICROSCOPIC DESCRIPTION Slides are reviewed. GROSS DESCRIPTION A - Received in fixative is one container labeled with the patient's name and designated distal esophagus biopsy. The specimen consists of two irregular fragments of light olea soft tissue that in aggregate measure 0.6 x 0.3 x 0.1 cm. The specimen is totally submitted in one cassette. B - Received in fixative is one container labeled with the patient's name and designated hepatic flexure polyp. The specimen consists of one irregular fragment of light olea soft tissue that measures 0.3 x 0.2 x 0.1 cm. The specimen is totally submitted in one cassette. C - Received in fixative is one container labeled with the patient's name and designated sigmoid biopsy. The specimen consists of two irregular fragments of light olea soft tissue that in aggregate measure 0.5 x 0.5 x 0.1 cm. The specimen is totally submitted in one cassette. / SJ:rg 05/21/2022 TC:2 CPT: 43772 x3, 25852
--- NOTE | 2022-05-21 12:15 | PN.RENAL_ITS ---
Subjective Subjective seen in recovery after endoscopy, sedate from anesthesia Objective Data Objective Data Vital Signs: Vital Signs Temp Pulse Resp BP Pulse Ox O2 Del Method 97.5 F L 65 18 113/46 L 96 Room Air 05/21/22 10:26 05/21/22 10:26 05/21/22 10:26 05/21/22 10:26 05/21/22 10:26 05/21/22 10:26 Oxygen Delivery Method Room Air Weight: 56.699 kg Body Mass Index (BMI) 21.4 Intake & Output: Intake and Output for Last 24 Hours 05/19/22 05/20/22 05/21/22 23:59 23:59 23:59 Intake Total 2109 2438.75 / 2438.75 1375.83 / 1375.83 Output Total 250 / 250 Balance 2109 2188.75 / 2188.75 1375.83 / 1375.83 Lab / Micro Data Result Diagrams: 05/21/22 06:00 05/21/22 06:00 Labs: Laboratory Results - last 24 hr 05/20/22 13:50: Hgb 11.5 L, Hct 36.1 L 05/20/22 15:10: Ur Random Sodium 50, Urine Creatinine 50.60 05/20/22 16:11: Sodium 139, Potassium 4.1, Chloride 111 H, Carbon Dioxide 12.0 L , Anion Gap 16 H, BUN 98 H, Creatinine 3.26 H, Estim Creat Clear Calc 13.07, Est GFR (MDRD) Af Amer 18 L, Est GFR (MDRD) Non-Af 15 L, BUN/Creatinine Ratio 30.1 H , Glucose 330 H, Calcium 6.1 L* 05/20/22 16:23: POC Glucose 280 H 05/20/22 21:10: Hgb 10.9 L, Hct 33.5 L 05/20/22 21:10: Sodium 140, Potassium 4.0, Chloride 112 H, Carbon Dioxide 13.0 L , Anion Gap 15, BUN 92 H, Creatinine 3.01 H, Estim Creat Clear Calc 14.16, Est GFR (MDRD) Af Amer 20 L, Est GFR (MDRD) Non-Af 16 L, BUN/Creatinine Ratio 30.6 H , Glucose 218 H, Calcium 6.2 L* 05/20/22 21:36: POC Glucose 218 H 05/21/22 06:00: Vitamin D 25-Hydroxy 54.1 05/21/22 06:00: Sodium 141, Potassium 3.9, Chloride 114 H, Carbon Dioxide 14.0 L , Anion Gap 13, BUN 79 H, Creatinine 2.66 H, Estim Creat Clear Calc 16.02, Est G FR (MDRD) Af Amer 23 L, Est GFR (MDRD) Non-Af 19 L, BUN/Creatinine Ratio 29.7 H, Glucose 99, Calcium 6.2 L*, Phosphorus 5.2 H, Magnesium 1.8, Total Bilirubin 0.40, AST 31, ALT 24, Alkaline Phosphatase 189 H, Total Protein 5.8 L, Albumin 2.3 L, Globulin 3.5, Albumin/Globulin Ratio 0.7 L 05/21/22 06:00: WBC 14.4 H, RBC 3.87 L, Hgb 10.7 L, Hct 33.7 L, MCV 87.1, MCH 27.6, MCHC 31.8 L, RDW Std Deviation 56.8 H, RDW Coeff of Joanna 17.9 H, Plt Count 237, MPV 9.6, Immature Gran % (Auto) 0.800, Neut % (Auto) 75.7 H, Lymph % (Auto) 15.2 L, [place] % (Auto) 5.7, Eos % (Auto) 2.0, Baso % (Auto) 0.6, Absolute Neuts (auto) 10.9 H, Absolute Lymphs (auto) 2.19, Nucleated RBC % 0 05/21/22 06:00: Hemoglobin A1c 6.0 H 05/21/22 06:28: POC Glucose 85 05/21/22 10:24: POC Glucose 72 L 05/21/22 10:49: POC Glucose 67 L Radiography Diagnostic Testing: Radiology Impression Renal Ultrasound 05/19/22 21:42 IMPRESSION: 1. Slight decrease in renal size when compared to prior study. There is no other major interval change. Electronically Signed: Santana Lambert DO at 16:58 EDT Reading Location ID and State: [address] [place] [address] Tel [phone], Service support , Physical Exam Const Constitutional Narrative: sedate Resp Auscultation: rhonchi and wheezes Cardio regular rate GI non-tender and non-distended Auscultation: normoactive bowel sounds Palpation: soft Extremity no clubbing, cyanosis or edema Assessment & Plan Assessment/Plan (1) Acute kidney injury: PLAN: Creatinine improving with iv fluids. Baseline creatinine 1.4. CHAD Likely due to dehydration from diarrhea. (2) Acute dehydration: PLAN: Continue IV fluids (3) Diarrhea: PLAN: GI consulted. Stool cultures ordered (4) Hypocalcemia: PLAN: Ionized calcium ordered. vitamin D level adequate. Change vit D to monthly (5) Hx of CABG: PLAN: On Plavix and aspirin (6) CKD stage 3 due to type 2 diabetes mellitus: PLAN: Baseline creatinine 1.4 EGFR 38 cc/min (7) Melena: PLAN: Serial H&H (8) Bright red blood per rectum: PLAN: GI consulted. Hgb stable (9) Hypomagnesemia: PLAN: Likely due to GI loss. Received IV magnesium (10) Metabolic acidosis: PLAN: likely due to GI loss
--- NOTE | 2022-05-21 12:31 | OP.CCLET_ITS ---
05/21/2022 Ben Rahman [address] [place] [address] Re : Upper GI endoscopy procedure for Danya Weston Dear Dr. Rahman This procedure was performed on Saturday, May 21, 2022. My impressions and recommendations are as follows: Impressions : - Z-line irregular, 37 cm from the incisors. Biopsied. - Medium-sized hiatal hernia. - Gastritis. Biopsied. - Normal second portion of the duodenum. Biopsied. Recommendations : - Await pathology results. - Repeat upper endoscopy for surveillance based on pathology results. - Use Protonix (pantoprazole) 40 mg PO BID for 8 weeks. - Continue present medications. My findings are described in the full procedure note, which is enclosed. If I can be of further assistance, please feel free to contact me at . Sincerely, Jos eL Norwood, 05/21/2022 12:30:44 PM This report has been signed electronically.
--- NOTE | 2022-05-21 12:31 | OP.EGD_ITS ---
Patient Name: Danya Weston Procedure Date: 05/21/2022 11:56 AM Date of : 1945 Age: 76 Procedure: Upper GI endoscopy Indications: Epigastric abdominal pain, Hematochezia Providers: Jose L Norwood DO Medicines: Monitored Anesthesia Care Patient Profile: This is a 76 year old female. Refer to note in patient chart for documentation of history and physical. Patient has symptoms of acute global abdominal pain. Complications: No immediate complications. Procedure: Pre-Anesthesia Assessment: - Prior to the procedure, a History and Physical was performed, and patient medications and allergies were reviewed. The patient is competent. The risks and benefits of the procedure and the sedation options and risks were discussed with the patient. All questions were answered and informed consent was obtained. Patient identification and proposed procedure were verified by the physician in the pre-procedure area. Mental Status Examination: alert and oriented. Airway Examination: normal oropharyngeal airway and neck mobility. Respiratory Examination: clear to auscultation. CV Examination: normal. Prophylactic Antibiotics: The patient does not require prophylactic antibiotics. Prior Anticoagulants: The patient has taken no previous anticoagulant or antiplatelet agents. ASA Grade Assessment: II - A patient with mild systemic disease. After reviewing the risks and benefits, the patient was deemed in satisfactory condition to undergo the procedure. The anesthesia plan was to use monitored anesthesia care (MAC). Immediately prior to administration of medications, the patient was re-assessed for adequacy to receive sedatives. The heart rate, respiratory rate, oxygen saturations, blood pressure, adequacy of pulmonary ventilation, and response to care were monitored throughout the procedure. The physical status of the patient was re-assessed after the procedure. After obtaining informed consent, the endoscope was passed under direct vision. Throughout the procedure, the patient's blood pressure, pulse, and oxygen saturations were monitored continuously. The Colonoscope was introduced through the mouth, and advanced to the second part of duodenum. The patient tolerated the procedure well. Scope In: 12:00:31 PM Scope Out: 12:03:45 PM Total Procedure Duration Time 0 hours 3 minutes 14 seconds Findings: The Z-line was irregular and was found 37 cm from the incisors. Biopsies were taken with a cold forceps for histology. Verification of patient identification for the specimen was done. Estimated blood loss was minimal. A medium-sized hiatal hernia was present. Diffuse moderate inflammation characterized by erosions, erythema and friability was found in the gastric body. Biopsies were taken with a cold forceps for histology. Verification of patient identification for the specimen was done. Estimated blood loss was minimal. The second portion of the duodenum was normal. Biopsies were taken with a cold forceps for histology. Impression: - Z-line irregular, 37 cm from the incisors. Biopsied. - Medium-sized hiatal hernia. - Gastritis. Biopsied. - Normal second portion of the duodenum. Biopsied. Recommendation: - Await pathology results. - Repeat upper endoscopy for surveillance based on pathology results. - Use Protonix (pantoprazole) 40 mg PO BID for 8 weeks. - Continue present medications. Procedure Code(s): --- Professional --- 95220, Esophagogastroduodenoscopy, flexible, transoral; with biopsy, single or multiple CPT copyright 2017 [employer]. All rights reserved. The codes documented in this report are preliminary and upon associate editor review may be revised to meet current compliance requirements. Jose L Norwood DO 05/21/2022 12:30:44 PM This report has been signed electronically. Number of Addenda: 0 Note Initiated On: 05/21/2022 11:56 AM
--- NOTE | 2022-05-21 12:38 | OP.COLON_ITS ---
Patient Name: Danya Weston Procedure Date: 05/21/2022 12:05 PM Date of : 1945 Age: 76 Procedure: Colonoscopy Indications: Hematochezia Providers: Jose L Norwood DO Medicines: Monitored Anesthesia Care Patient Profile: This is a 76 year old female. Refer to note in patient chart for documentation of history and physical. Patient has symptoms of acute global abdominal pain. This is a 76 year old female. Refer to note in patient chart for documentation of history and physical. Last Colonoscopy: 3 years ago. Complications: No immediate complications. Procedure: Pre-Anesthesia Assessment: - Prior to the procedure, a History and Physical was performed, and patient medications and allergies were reviewed. The patient is competent. The risks and benefits of the procedure and the sedation options and risks were discussed with the patient. All questions were answered and informed consent was obtained. Patient identification and proposed procedure were verified by the physician in the pre-procedure area. Mental Status Examination: alert and oriented. Airway Examination: normal oropharyngeal airway and neck mobility. Respiratory Examination: clear to auscultation. CV Examination: normal. Prophylactic Antibiotics: The patient does not require prophylactic antibiotics. Prior Anticoagulants: The patient has taken no previous anticoagulant or antiplatelet agents. ASA Grade Assessment: II - A patient with mild systemic disease. After reviewing the risks and benefits, the patient was deemed in satisfactory condition to undergo the procedure. The anesthesia plan was to use monitored anesthesia care (MAC). Immediately prior to administration of medications, the patient was re-assessed for adequacy to receive sedatives. The heart rate, respiratory rate, oxygen saturations, blood pressure, adequacy of pulmonary ventilation, and response to care were monitored throughout the procedure. The physical status of the patient was re-assessed after the procedure. After I obtained informed consent, the scope was passed under direct vision. Throughout the procedure, the patient's blood pressure, pulse, and oxygen saturations were monitored continuously. The was introduced through the anus and advanced to the cecum, identified by appendiceal orifice and ileocecal valve. The colonoscopy was performed without difficulty. The patient tolerated the procedure well. The quality of the bowel preparation was inadequate. Scope In: 12:07:07 PM Scope Withdrawal Time 0 hours 5 minutes 50 seconds Scope Out: 12:20:39 PM Total Procedure Duration Time 0 hours 13 minutes 32 seconds Findings: The perianal and digital rectal examinations were normal. Non-bleeding internal hemorrhoids were found during retroflexion. The hemorrhoids were Grade II (internal hemorrhoids that prolapse but reduce spontaneously). A few small and large-mouthed diverticula were found in the recto-sigmoid colon, sigmoid colon and descending colon. Segmental moderate inflammation characterized by congestion (edema), erosions, erythema, friability, granularity, confluent ulcerations and shallow ulcerations was found in the recto-sigmoid colon, in the sigmoid colon and in the descending colon. Biopsies were taken with a cold forceps for histology. Verification of patient identification for the specimen was done. Estimated blood loss was minimal. A 5 mm polyp was found in the hepatic flexure. The polyp was sessile. The polyp was removed with a cold snare. Resection and retrieval were complete. Verification of patient identification for the specimen was done. Estimated blood loss was minimal. Impression: - Preparation of the colon was inadequate. - Non-bleeding internal hemorrhoids. - Diverticulosis in the recto-sigmoid colon, in the sigmoid colon and in the descending colon. - Segmental moderate inflammation was found in the recto-sigmoid colon, in the sigmoid colon and in the descending colon secondary to left-sided colitis. Biopsied. - One 5 mm polyp at the hepatic flexure, removed with a cold snare. Resected and retrieved. Recommendation: - Repeat colonoscopy for surveillance based on pathology results. - Continue present medications. Procedure Code(s): --- Professional --- 22080, Colonoscopy, flexible; with removal of tumor(s), polyp(s), or other lesion(s) by snare technique 71765, 59, Colonoscopy, flexible; with biopsy, single or multiple CPT copyright 2017 [employer]. All rights reserved. The codes documented in this report are preliminary and upon records specialist review may be revised to meet current compliance requirements. Jose L Norwood DO 05/21/2022 12:37:44 PM This report has been signed electronically. Number of Addenda: 0 Note Initiated On: 05/21/2022 12:05 PM
--- NOTE | 2022-05-21 12:39 | OP.CCLET_ITS ---
05/21/2022 Ben Rahman [address] [place] [address] Re : Colonoscopy procedure for Danya Weston Dear Dr. Rahman This procedure was performed on Saturday, May 21, 2022. My impressions and recommendations are as follows: Impressions : - Preparation of the colon was inadequate. - Non-bleeding internal hemorrhoids. - Diverticulosis in the recto-sigmoid colon, in the sigmoid colon and in the descending colon. - Segmental moderate inflammation was found in the recto-sigmoid colon, in the sigmoid colon and in the descending colon secondary to left-sided colitis. Biopsied. - One 5 mm polyp at the hepatic flexure, removed with a cold snare. Resected and retrieved. Recommendations : - Repeat colonoscopy for surveillance based on pathology results. - Continue present medications. My findings are described in the full procedure note, which is enclosed. If I can be of further assistance, please feel free to contact me at . Sincerely, Jose L Norwood, 05/21/2022 12:37:44 PM This report has been signed electronically.
[2022-05-21] MEDS: Dext 5%-0.45% NS 1,000 ML 50 ML IV (13:33)
[2022-05-21 16:41] LABS: Bedside Glucose 132 mg/dL (74-106)
[2022-05-21 17:21] LABS: ALB/GLOB Ratio 0.6 RATIO (0.9-2.4); AST(SGOT) 24 U/L (15-37); Alanine Aminotransfer ALT/SGPT 26 U/L (13-56); Albumin, Serum 2.1 g/dL (3.2-5.0); Alkaline Phosphatase 183 U/L (45-117); Anion Gap 10 (5-15); BUN 71 mg/dL (7-18); BUN/Creat Ratio 32.3 RATIO (10-20); Calcium,Total 6.9 mg/dL (8.5-10.1); Chloride 117 mmol/L (98-107); EST Glomerular Filtration Rate 23 mL/min (>60); Est Glom Filt Rate - Afr Amer 28 mL/min (>60); Estimated Creatinine Clearance 19.37 ml/min; Globulin 3.5 g/dL (2.2-4.2); Glucose 144 mg/dL (74-106); Magnesium 2.1 mg/dL (1.6-2.6); Potassium 4.4 mmol/L (3.5-5.1); Protein, Total 5.6 g/dL (6.4-8.2); Sodium Level 139 mmol/L (136-145)
[2022-05-21] MEDS: 0.9% Saline Lock 10 ML Syringe IV (18:18)
--- NOTE | 2022-05-21 18:42 | NURSING ---
in to room to attempt IV restart, pt informed. pt states i am done being poked. No more pokes updated on medication route with medication per md order/education and pt states i know but i am done being poked. No more. Primary RN notified, Charge Nurse Alina soliz as well.
[2022-05-21] MEDS: Pantoprazole Sodium 40 MG Tablet PO (21:56)
[2022-05-21] MEDS: Atorvastatin Calcium 40 MG Tablet PO (21:56)
[2022-05-21] MEDS: Insulin Glargine-YFGN 100 UNIT/ML Pen 10 UNIT SC (21:59)
[2022-05-21 22:46] LABS: Bedside Glucose 143 mg/dL (74-106)
[2022-05-22 01:45] VITALS: BP 121/62; PULSE 80; RESP 16; TEMP 36.6; O2SAT 100
[2022-05-22 07:30] LABS: Absolute Lymphocyte Count 1.72 X10^3/uL (0.83-4.51); Absolute Neutrophil Count 8.6 X10^3/uL (2.0-7.7); Basophil# 0.05 X10^3/uL; Basophil% 0.4 % (0-1); Eosinophil# 0.19 X10^3/uL; Eosinophils% 1.7 % (0-5); Hematocrit 32.8 % (37-47); Hemoglobin 10.1 g/dL (12.0-15.0); Lymphocyte # 1.72 X10^3/ul (0.83-4.51); Mean Corp Hgb Conc 30.8 g/dL (32-36); Mean Corpuscular Hgb 26.8 pg (27.0-32.0); Mean Platelet Vol. 10.1 fl (6.2-12.0); Monocyte# 0.78 X10^3/uL; Monocyte% 6.8 % (0-10); NRBC Flagged by Analyzer 0 % (0-5); Neutrophil # 8.62 X10^3/uL (2.7-7.7); Neutrophil % 75.2 % (47-70); Platelet Count 199 K/mm3 (150-450); RBC Distribution Width SD 57.2 fl (35.1-43.9); Red Blood Count 3.77 M/mm3 (4.2-5.4); White Blood Count 11.5 K/mm3 (4.4-11.0)
[2022-05-22 07:30] LABS: Bedside Glucose 107 mg/dL (74-106)
[2022-05-22 07:56] LABS: ALB/GLOB Ratio 0.6 RATIO (0.9-2.4); AST(SGOT) 46 U/L (15-37); Alanine Aminotransfer ALT/SGPT 27 U/L (13-56); Albumin, Serum 2.2 g/dL (3.2-5.0); Alkaline Phosphatase 181 U/L (45-117); Anion Gap 8 (5-15); BUN 66 mg/dL (7-18); BUN/Creat Ratio 31.7 RATIO (10-20); Calcium,Total 7.1 mg/dL (8.5-10.1); Chloride 117 mmol/L (98-107); Creatinine, Serum 2.08 mg/dL (0.55-1.02); EST Glomerular Filtration Rate 25 mL/min (>60); Est Glom Filt Rate - Afr Amer 30 mL/min (>60); Estimated Creatinine Clearance 20.49 ml/min; Globulin 3.4 g/dL (2.2-4.2); Glucose 94 mg/dL (74-106); Potassium 4.6 mmol/L (3.5-5.1); Protein, Total 5.6 g/dL (6.4-8.2); Sodium Level 141 mmol/L (136-145)
[2022-05-22 08:00] VITALS: BP 152/60; PULSE 76; RESP 18; TEMP 36.8; O2SAT 94; O2SAT 96
[2022-05-22 08:02] VITALS: O2SAT 93
[2022-05-22] MEDS: Aspirin 81 MG TAB.CHEW PO (08:08)
[2022-05-22] MEDS: Pantoprazole Sodium 40 MG Tablet PO (08:08)
--- NOTE | 2022-05-22 11:00 | DS.PCM_ITS ---
Providers Date of Admission: 05/19/22 Date of Discharge: 05/22/22 Primary Care Physician: Dr. Ben Rahman MD Consultations 05/19/22 21:42 Consult: Gastroenterology Routine Consulting Provider: EnmaJose L Reason for Consult: GI bleed EMERGENT Consult: No Notified: Yes Date Notified: 05/20/22 Time Notified: 06:40 Method of Notification: Text Consult: Nephrology Routine Consulting Provider: Cecilia Barlow Reason for Consult: CHAD on CKD Stage 3b EMERGENT Consult: No Notified: Yes Date Notified: 05/20/22 Time Notified: 06:55 Method of Notification: Text Reason For Visit: CHAD ON CKD STAGE IIIB, GI BLEED Diagnosis Discharge Diagnosis (1) Hemorrhagic diarrhea: Status: Acute Code(s): R19.7 - Diarrhea, unspecified (2) Acute kidney injury: Status: Acute Code(s): N17.9 - Acute kidney failure, unspecified Plan -Hemorrhagic diarrhea Stool studies on 05/08/2022 positive for fecal WBC. Ova and parasites results are still pending. Enteropathogenic panel negative. C. difficile PCR negative. GI c/s- upper and lower endoscopy demonstrated moderate segmental inflammation in the sigmoid colon 2/2 left sided colitis, a 5mmg polyp in the hepatic f lexure, and gastritis as well as irregular z line and biopsies were taken. Hgb stabilized and pt did not require prbc. PPI 40mg BID prescribed Pt reports CABG and PCI at least 5-10 years ago Echocardiogram on 11/12/2018 showed estimated ejection fraction of 30% and stage II diastolic dysfunction. Also patient had a cardiac catheterization on 11/16/2018. At that time recommendations were: Medical therapy to see whether patient will tolerate long-term Plavix and aspirin in view of recent GI bleeding.? If the above is tolerated would consider elective angioplasty to the first obtuse marginal branch. ASA restarted, unclear if she was taking plavix as she did not believe she was b ut she filled a 90 day supply in February. Strongly advised to check and discuss with PCP> CHAD on CKD stage IIIb His creatinine on presentation (05/19/2022) was 3.93. Creatinine on 05/02/2022 was 1.44 which appeared roughly baseline CKD likely secondary to diabetic nephropathy, chad 2/2 ?dehydration, she has been receiving hydration- does not appear overloaded US kidney/bladder showed slight decrease in renal size when compared to prior study without any major interval changes Cr continues to downtrend Will follow with nephrology on discharge with BMP in two weeks. 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 Hypoglycemic on admission Pt was given D5NS Was on 30u long acting insulin qam and 16u humalin w/ meals, 10u of long acting given last night- reduced does of 10 u with glucose still in a target range Home dose adjusted temporarily with need for close outpt follow up to avoid hypo or hyper glycemia Roma Parker MD Time spent >35 minutes Medications at Discharge Home Medications alendronate 70 mg tablet 70 mg PO WE Supplement 11/12/18 aspirin 81 mg chewable tablet 81 mg PO DAILY@0800 Heart health 11/12/18 atorvastatin 40 mg tablet 40 mg PO QHS BP #30 tabs 11/24/18 clopidogrel 75 mg tablet 75 mg PO DAILY HEART #30 tabs 11/24/18 insulin lispro 100 unit/mL subcutaneous pen (Humalog KwikPen (U-100) Insulin) 16 unit subcut TIDAC DIABETES 05/19/22 potassium chloride 20 mEq oral packet 20 meq PO DAILY SUPPLEMENT 05/19/22 ergocalciferol (vitamin D2) 1,250 mcg (50,000 unit) capsule (Vitamin D2) 50,000 unit PO QMONTH Supplement #7 caps 05/22/22 insulin glargine 100 unit/mL (3 mL) subcutaneous pen (Lantus Solostar U-100 Insulin) 10 unit (0.1 mL) subcut DAILY diabetes #15 mL 05/22/22 pantoprazole 40 mg tablet,delayed release 40 mg PO BID 60 days #120 tabs Hospital Course Summary of Care Provided Hospital Course: Ms. Weston is a 76y/o female who presented 05/19/22 with hematochezia and diarrhea. She didn't require PRBC but had EGD with gastritis and abnormal Z line as well as a colonic 5mm polyp at the hepatic flexure and left sided colitis. Pt on 40mg BID PPI with plans to f/u with GI on discharge. Additionally pt had CHAD on CKD which appeared to be 2/2 dehydration 2/2 diarrhea and improved with fluids. Additionally her glucose was 65 on presentation and she was placed on D5. When this was stopped she was put on a fraction of her home insulin (10u long acting, 30 u at home with 16u humalin with meals) and her glucose was within a reasonable range. Discharged with the lower dose of insulin with detailed instructions as to avoid hypo or hyperglycemia, will need close follow up. Roma Parker MD Spent >35 minutes on discharge planning and coordination. Physical Exam Const alert, oriented x3 and no apparent distress Eyes EOMs intact bilaterally Neck supple Resp normal respiratory effort and clear to auscultation bilaterally Cardio regular rate and regular rhythm GI soft to palpation, non-tender and non-distended Extremity Extremity Narrative: No edema appreciated Neuro Neuro Narrative: Alert and oriented, moving all extremities without difficulty Psych affect normal Weight / BMI Weight Weight: 56.699 kg Body Mass Index (BMI) 21.4 ABG / Lab / Microbiology Data Result Diagrams: 05/22/22 06:25 05/22/22 06:25 Laboratory: Laboratory Results - last 24 hr 05/21/22 10:49: POC Glucose 67 L 05/21/22 16:08: POC Glucose 132 H 05/21/22 16:30: Sodium 139, Potassium 4.4, Chloride 117 H, Carbon Dioxide 12.0 L , Anion Gap 10, BUN 71 H, Creatinine 2.20 H, Estim Creat Clear Calc 19.37, Est GFR (MDRD) Af Amer 28 L, Est GFR (MDRD) Non-Af 23 L, BUN/Creatinine Ratio 32.3 H , Glucose 144 H, Calcium 6.9 L, Magnesium 2.1, Total Bilirubin 0.40, AST 24, ALT 26, Alkaline Phosphatase 183 H, Total Protein 5.6 L, Albumin 2.1 L, Globulin 3.5, Albumin/Globulin Ratio 0.6 L 05/21/22 21:58: POC Glucose 143 H 05/22/22 06:25: WBC 11.5 H, RBC 3.77 L, Hgb 10.1 L, Hct 32.8 L, MCV 87.0, MCH 26.8 L, MCHC 30.8 L, RDW Std Deviation 57.2 H, RDW Coeff of Joanna 18.0 H, Plt Count 199, MPV 10.1, Immature Gran % (Auto) 0.900, Neut % (Auto) 75.2 H, Lymph % (Auto) 15.0 L, [place] % (Auto) 6.8, Eos % (Auto) 1.7, Baso % (Auto) 0.4, Absolute Neuts (auto) 8.6 H, Absolute Lymphs (auto) 1.72, Nucleated RBC % 0 05/22/22 06:25: Sodium 141, Potassium 4.6, Chloride 117 H, Carbon Dioxide 16.0 L , Anion Gap 8, BUN 66 H, Creatinine 2.08 H, Estim Creat Clear Calc 20.49, Est GFR (MDRD) Af Amer 30 L, Est GFR (MDRD) Non-Af 25 L, BUN/Creatinine Ratio 31.7 H , Glucose 94, Calcium 7.1 L, Total Bilirubin 0.70, AST 46 H, ALT 27, Alkaline Phosphatase 181 H, Total Protein 5.6 L, Albumin 2.2 L, Globulin 3.4, Albumin/Globulin Ratio 0.6 L 05/22/22 07:01: POC Glucose 107 H Microbiology: Microbiology 05/21/22 12:12 Stool Enteric Bacteriology - Final 05/21/22 12:10 Stool C. difficile DNA Amplification - Final D/C Instructions Discharge Diet: Carb Control Diet Discharge Activity: Return to Normal Activity Meaningful Use Info Meaningful Use Diagnoses (Choose all that apply): CHF CHF NIKO/ARB ordered at discharge?: No Reason NIKO/ARB not ordered?: Worsening renal function (CHAD, resolving but not back to baseline. Additionally did not appear to be a home medication) Documented LVEF (%): 30 Discharge Plan Admission Admit Date/Time: 05/19/22 20:22 Primary Reason for Your Visit: Blood in stool Attending Provider: Roma Parker Primary Care Provider: Ben Rahman Consulting Providers: Jason Landis ; Jose L Norwood ; Cecilia Barlow ; Erlinda Barlow Instructions Patient Instructions: Kidney Problems, ED Gastritis (Adult), ED Lower GI Bleeding (Stable) Additional Instructions / Restrictions: 1. During your admission you were found to have inflammation in your stomach and colon. You were seen by a stomach doctor, Dr. Norwood, who recommended protonix 40mg twice daily for 8 weeks. This will be sent electronically to your pharmacy on file 2. You had biopsies taken during your procedure and will need to follow with Dr. Norwood in the office in 1-2 weeks to discuss results and establish care. If you do not here from the office in 24-48 hours please call [phone] to inquire about scheduling. 3. Your insulin was decreased during this admission due to low sugar numbers. You will be discharged on 10 units of long acting insulin to avoid your sugar going to low. Continue to check your glucose every morning and with meals. If your morning glucose is >130 for 2-3 consecutive days, increase your long acting insulin by 2 units and repeat this process until morning glucose is 80-130. 4. It will be very important that you follow up with your primary care physician within 1 week given your hospital stay and your insulin adjustment 5. You were continued on your home aspirin. You indicated you are unsure if you are actively taking plavix. Please verify if you are taking this and discuss this with your primary care physician for further recommendations regarding resuming or stopping this medication. 6. Please continue to follow with your kidney doctor, Dr. Barlow in two weeks. If you have not heard from the office in 1-2 business days please call to inquire about your appointment. -Additionally, you will need blood work in 2 weeks. This will be ordered by your kidney doctor. If there are any questions or concerns please contact the office [phone] 7. If you have any concerning signs or symptoms, please call 911 or proceed to your nearest ED 8. Your vitamin D was changed to monthly dosing at the recommendations of your powertrain calibration engineer 9. Your potassium has been held given your normal levels on discharge, please discuss with your primary care physician. Discharge Orders/Prescriptions Prescriptions: New pantoprazole 40 mg Tablet,Delayed Release (Dr/Ec) 40 mg PO BID 60 Days Qty: 120 0RF Continued alendronate 70 MG tablet 70 mg PO WE aspirin 81 MG tablet,chewable 81 mg PO DAILY@0800 atorvastatin 40 MG tablet 40 mg PO QHS Qty: 30 0RF Changed ergocalciferol (vitamin D2) [Vitamin D2] 50,000 UNIT capsule 50,000 unit PO QMONTH Qty: 7 0RF insulin glargine [Lantus Solostar U-100 Insulin] 100 UNITS/ML insulin pen 10 unit subcut DAILY Qty: 15 0RF Held clopidogrel 75 MG tablet 75 mg PO DAILY Qty: 30 0RF Hold Instructions: Resume on 05/29/22. You indicated you were unsure if you were still taking this medication. Please verify and discuss with your primary care physician before resuming. You remain on aspirin at this time. insulin lispro [Humalog KwikPen Insulin] 100 UNIT/ML insulin pen 16 unit subcut TIDAC Hold Instructions: Resume on 05/29/22. Hold until discussing with your primary care physician d/t low blood sugars in the hospital potassium chloride 20 mEq Packet 20 meq PO DAILY Hold Instructions: Resume on 05/29/22. Hold prior to discussing with your primary care physician as your potassium levels were normal on discharge Discontinued doxycycline hyclate 100 mg capsule 100 mg PO BID 10 Days Qty: 20 0RF Referrals / Follow Up: Cecilia Barlow DO [Med Staff - Consulting] - 06/12/22 9:00 am (Follow up with Dr. Barlow in two weeks) Ben Rahman MD [Primary Care Provider] - Jose L Norwood DO [Med Staff - Active Staff] - Within 2 Weeks (Please follow up with Dr. Norwood's office in 2 weeks. ) Disposition Disposition (needs filled in before D/C Order can be placed): Home, Self Care Charges/Coding Visit Charges Inpatient E&M: 82732 Disch Hosp
[2022-05-22 12:00] VITALS: BP 151/59; PULSE 78; RESP 18; TEMP 36.7; O2SAT 94
[2022-05-22 12:10] LABS: Bedside Glucose 141 mg/dL (74-106)
--- NOTE | 2022-05-22 12:10 | CASEMGMT ---
RN CM in to pt room, pt denies any need for homegoing services. Pt is anxious to dc.
--- NOTE | 2022-05-22 14:17 | PCM.DC ---
Discharge Instructions Diet Discharge Diet: Carb Control Diet Activity Discharge Activity: Return to Normal Activity Dressing / Incision Call your doctor if you observe: Fever of 101 or Higher, Inability to urinate, Shortness of breath and Fainting spells Follow Up Care Test Results: Test results from this visit will be discussed in further detail at your follow-up appointment, if applicable. Discharge Plan Admission Admit Date/Time: 05/19/22 20:22 Primary Reason for Your Visit: Blood in stool Attending Provider: Roma Parker Primary Care Provider: Ben Rahman Consulting Providers: Jason Landis ; Jose L Norwood ; Cecilia Barlow ; Erlinda Barlow Instructions Patient Instructions: Kidney Problems, ED Gastritis (Adult), ED Lower GI Bleeding (Stable) Additional Instructions / Restrictions: 1. During your admission you were found to have inflammation in your stomach and colon. You were seen by a stomach doctor, Dr. Norwood, who recommended protonix 40mg twice daily for 8 weeks. This will be sent electronically to your pharmacy on file 2. You had biopsies taken during your procedure and will need to follow with Dr. Norwood in the office in 1-2 weeks to discuss results and establish care. If you do not here from the office in 24-48 hours please call [phone] to inquire about scheduling. 3. Your insulin was decreased during this admission due to low sugar numbers. You will be discharged on 10 units of long acting insulin to avoid your sugar going to low. Continue to check your glucose every morning and with meals. If your morning glucose is >130 for 2-3 consecutive days, increase your long acting insulin by 2 units and repeat this process until morning glucose is 80-130. 4. It will be very important that you follow up with your primary care physician within 1 week given your hospital stay and your insulin adjustment 5. You were continued on your home aspirin. You indicated you are unsure if you are actively taking plavix. Please verify if you are taking this and discuss this with your primary care physician for further recommendations regarding resuming or stopping this medication. 6. Please continue to follow with your kidney doctor, Dr. Barlow in two weeks. If you have not heard from the office in 1-2 business days please call to inquire about your appointment. -Additionally, you will need blood work in 2 weeks. This will be ordered by your kidney doctor. If there are any questions or concerns please contact the office [phone] 7. If you have any concerning signs or symptoms, please call 911 or proceed to your nearest ED 8. Your vitamin D was changed to monthly dosing at the recommendations of your dye jig operator 9. Your potassium has been held given your normal levels on discharge, please discuss with your primary care physician. Discharge Orders/Prescriptions Prescriptions: New pantoprazole 40 mg Tablet,Delayed Release (Dr/Ec) 40 mg PO BID 60 Days Qty: 120 0RF Continued alendronate 70 MG tablet 70 mg PO WE aspirin 81 MG tablet,chewable 81 mg PO DAILY@0800 atorvastatin 40 MG tablet 40 mg PO QHS Qty: 30 0RF Changed ergocalciferol (vitamin D2) [Vitamin D2] 50,000 UNIT capsule 50,000 unit PO QMONTH Qty: 7 0RF insulin glargine [Lantus Solostar U-100 Insulin] 100 UNITS/ML insulin pen 10 unit subcut DAILY Qty: 15 0RF Held clopidogrel 75 MG tablet 75 mg PO DAILY Qty: 30 0RF Hold Instructions: Resume on 05/29/22. You indicated you were unsure if you were still taking this medication. Please verify and discuss with your primary care physician before resuming. You remain on aspirin at this time. insulin lispro [Humalog KwikPen Insulin] 100 UNIT/ML insulin pen 16 unit subcut TIDAC Hold Instructions: Resume on 05/29/22. Hold until discussing with your primary care physician d/t low blood sugars in the hospital potassium chloride 20 mEq Packet 20 meq PO DAILY Hold Instructions: Resume on 05/29/22. Hold prior to discussing with your primary care physician as your potassium levels were normal on discharge Discontinued doxycycline hyclate 100 mg capsule 100 mg PO BID 10 Days Qty: 20 0RF Referrals / Follow Up: Cecilia Barlow DO [Med Staff - Consulting] - 06/12/22 9:00 am (Follow up with Dr. Barlow in two weeks) Ben Rahman MD [Primary Care Provider] - Jose L Norwood DO [Med Staff - Active Staff] - Within 2 Weeks (Please follow up with Dr. Norwood's office in 2 weeks. ) Disposition Disposition (needs filled in before D/C Order can be placed): Home, Self Care
== END 2022-05-22 14:24 | disposition home or self-care (01) | DRG 683 ==
LOC: ED 20:26 → MS3 20:37
PROVIDERS: Anesthesiology; Internal Medicine Gastroenterology; Internal Medicine Nephrology; Admitting Provider Hospitalist; Emergency Provider Emergency Medicine; PCP Family Medicine; Visit Provider Internal Medicine
PROC: 0DJD8ZZ Inspection of Lower Intestinal Tract, Via Natural or Artificial Opening Endoscopic (ICD-10-PCS; CPT 45378; principal; 2022-05-21 11:25)
DX: N17.9 Acute kidney failure, unspecified (principal); E87.20 Acidosis, unspecified; I50.22 Chronic systolic (congestive) heart failure; E11.649 Type 2 diabetes mellitus with hypoglycemia without coma; J44.9 Chronic obstructive pulmonary disease, unspecified; N18.32 Chronic kidney disease, stage 3b; E11.21 Type 2 diabetes mellitus with diabetic nephropathy; Z79.4 Long term (current) use of insulin; E11.22 Type 2 diabetes mellitus with diabetic chronic kidney disease; E83.51 Hypocalcemia; I25.10 Atherosclerotic heart disease of native coronary artery without angina pectoris; M10.9 Gout, unspecified; I25.5 Ischemic cardiomyopathy; F17.210 Nicotine dependence, cigarettes, uncomplicated; E86.0 Dehydration; E87.8 Other disorders of electrolyte and fluid balance, not elsewhere classified; K64.1 Second degree hemorrhoids; K57.30 Diverticulosis of large intestine without perforation or abscess without bleeding; K63.5 Polyp of colon; K44.9 Diaphragmatic hernia without obstruction or gangrene; K29.70 Gastritis, unspecified, without bleeding; Z79.83 Long term (current) use of bisphosphonates; Z79.82 Long term (current) use of aspirin; Z79.02 Long term (current) use of antithrombotics/antiplatelets; Z95.1 Presence of aortocoronary bypass graft
CPT/HCPCS: 36415; 76770; 80047; 80048; 80053; 82306; 82570; 82962; 83036; 83735; 84100; 84300; 85014; 85018; 85025; 86850; 86900; 86901; 87493; 87506; 88305; 88313; 93005; 99284; J7030; J7050; J7120; A4216; J0610; J2405; J7799

== ENCOUNTER → 2022-05-30 | Outpatient (CLI) | payer MEDICARE, SELFPAY ==
[2022-05-30 17:47] LABS: Absolute Lymphocyte Count 5.28 X10^3/uL (0.83-4.51); Absolute Neutrophil Count 14.2 X10^3/uL (2.0-7.7); Basophil# 0.09 X10^3/uL; Basophil% 0.4 % (0-1); Eosinophil# 0.29 X10^3/uL; Eosinophils% 1.3 % (0-5); Hematocrit 36.5 % (37-47); Hemoglobin 11.2 g/dL (12.0-15.0); Lymphocyte # 5.28 X10^3/ul (0.83-4.51); Lymphocyte % 24.2 % (19-41); Mean Corp Hgb Conc 30.7 g/dL (32-36); Mean Corpuscular Hgb 27.7 pg (27.0-32.0); Mean Corpuscular Volume 90.3 fL (81-99); Mean Platelet Vol. 10.8 fl (6.2-12.0); Monocyte# 1.49 X10^3/uL; Monocyte% 6.8 % (0-10); NRBC Flagged by Analyzer 0 % (0-5); POSITIVE DIFFERENTIAL YES; Platelet Count 331 K/mm3 (150-450); RBC Distribution Width CV 18.5 % (11.6-14.6); RBC Distribution Width SD 59.7 fl (35.1-43.9); Red Blood Count 4.04 M/mm3 (4.2-5.4); White Blood Count 21.9 K/mm3 (4.4-11.0)
[2022-05-30 17:56] LABS: Differential Indicated SCAN CRITERIA MET
[2022-05-30 18:14] LABS: Differential Comment SCANNED
[2022-05-30 19:54] LABS: Albumin, Serum 2.7 g/dL (3.2-5.0); BUN 64 mg/dL (7-18); BUN/Creat Ratio 30.6 RATIO (10-20); Calcium,Total 6.7 mg/dL (8.5-10.1); Chloride 109 mmol/L (98-107); Creatinine, Serum 2.09 mg/dL (0.55-1.02); EST Glomerular Filtration Rate 25 mL/min (>60); Est Glom Filt Rate - Afr Amer 30 mL/min (>60); Glucose 32 mg/dL (74-106); Potassium 4.1 mmol/L (3.5-5.1); Sodium Level 142 mmol/L (136-145)
== END | disposition home or self-care (01) ==
LOC: MFPLAB 15:08
PROVIDERS: Nurse Practitioner Family; PCP Family Medicine; Referring Provider Family Medicine; Visit Provider Internal Medicine Nephrology
DX: K92.2 Gastrointestinal hemorrhage, unspecified (principal); N17.9 Acute kidney failure, unspecified; N18.4 Chronic kidney disease, stage 4 (severe)
CPT/HCPCS: 36415; 80069; 85025

== ENCOUNTER 2022-06-12 09:46 | Outpatient (CLI) | payer MEDICARE, SELFPAY ==
[2022-06-12 12:56] LABS: Protein, Urine (Random) 18.1 mg/dL (<11.9); Protein:Creat Ratio 470 mg/g CRE (0-200)
[2022-06-12 13:02] LABS: Albumin, Serum 2.3 g/dL (3.2-5.0); BUN 30 mg/dL (7-18); BUN/Creat Ratio 19.5 RATIO (10-20); Chloride 108 mmol/L (98-107); Creatinine, Serum 1.54 mg/dL (0.55-1.02); EST Glomerular Filtration Rate 35 mL/min (>60); Est Glom Filt Rate - Afr Amer 42 mL/min (>60); Glucose 209 mg/dL (74-106); Phosphorus 3.4 mg/dL (2.5-4.9); Potassium 4.2 mmol/L (3.5-5.1); Sodium Level 139 mmol/L (136-145)
[2022-06-12 13:16] LABS: Vitamin D,25 Hydroxy 62.2 ng/mL
[2022-06-12 13:37] LABS: PTHIN 94.7 pg/mL (18.4-80.1)
== END 2022-06-12 23:59 | disposition home or self-care (01) ==
LOC: POLAB3 09:56
PROVIDERS: PCP Family Medicine; Visit Provider Internal Medicine Nephrology
DX: N17.9 Acute kidney failure, unspecified (principal); E11.00 Type 2 diabetes mellitus with hyperosmolarity without nonketotic hyperglycemic-hyperosmolar coma (NKHHC); E55.9 Vitamin D deficiency, unspecified; E83.51 Hypocalcemia
CPT/HCPCS: 36415; 80069; 82306; 82570; 83970; 84156

== ENCOUNTER → 2022-07-24 | Outpatient (CLI) | payer MEDICARE, SELFPAY ==
[2022-07-24 09:44] LABS: Mucous, Urine 0 SEEN /hpf (<or=2+)
[2022-07-24 12:11] LABS: Absolute Lymphocyte Count 1.27 X10^3/uL (0.83-4.51); Absolute Neutrophil Count 10.5 X10^3/uL (2.0-7.7); Basophil# 0.02 X10^3/uL; Basophil% 0.2 % (0-1); Eosinophil# 0.02 X10^3/uL; Eosinophils% 0.2 % (0-5); Hematocrit 34.4 % (37-47); Hemoglobin 10.7 g/dL (12.0-15.0); Lymphocyte # 1.27 X10^3/ul (0.83-4.51); Mean Corp Hgb Conc 31.1 g/dL (32-36); Mean Corpuscular Hgb 27.8 pg (27.0-32.0); Mean Corpuscular Volume 89.4 fL (81-99); Mean Platelet Vol. 9.7 fl (6.2-12.0); Monocyte# 0.81 X10^3/uL; Monocyte% 6.4 % (0-10); NRBC Flagged by Analyzer 0 % (0-5); Neutrophil # 10.49 X10^3/uL (2.7-7.7); Neutrophil % 82.4 % (47-70); Platelet Count 301 K/mm3 (150-450); RBC Distribution Width CV 17.2 % (11.6-14.6); RBC Distribution Width SD 55.5 fl (35.1-43.9); Red Blood Count 3.85 M/mm3 (4.2-5.4); White Blood Count 12.7 K/mm3 (4.4-11.0)
[2022-07-24 12:19] LABS: Color, Urine Yellow (Yellow); Glucose, Dipstick Normal (Normal); Ketone-Dipstick Negative (Negative); Leukocyte Esterase-Dipstick 500 /ul (Negative); Nitrite-Dipstick Positive (Negative); Occult Blood-Urine 10 /ul (Negative); Protein-Dipstick 15 mg/dl (Negative); Specific Gravity, Urine 1.015 (1.002-1.030); Urine Bilirubin Dipstick Negative (Negative); Urine Clarity Sl. Cloudy (Clear); Urine Urobilinogen Normal (Normal)
[2022-07-24 12:32] LABS: Bacteria 2+ /hpf (None Seen); Red Blood Cells-Urine 0-5 SEEN /hpf (0-5); Squamous Epithelial Cells - UA 0-5 SEEN /hpf (5-10); White Blood Cells 25-50 SEEN /hpf (0-5)
[2022-07-24 12:33] LABS: Other Crystals-Urine 1+ /hpf (None Seen)
[2022-07-24 12:36] LABS: ALB/GLOB Ratio 0.9 RATIO (0.9-2.4); AST(SGOT) 13 U/L (15-37); Alanine Aminotransfer ALT/SGPT 22 U/L (13-56); Albumin, Serum 3.4 g/dL (3.2-5.0); Alkaline Phosphatase 109 U/L (45-117); Anion Gap 10 (5-15); BUN 45 mg/dL (7-18); Calcium,Total 8.7 mg/dL (8.5-10.1); Chloride 108 mmol/L (98-107); Cholesterol 175 mg/dL (200); Creatinine, Serum 1.61 mg/dL (0.55-1.02); EST Glomerular Filtration Rate 33 mL/min (>60); Est Glom Filt Rate - Afr Amer 40 mL/min (>60); Globulin 3.6 g/dL (2.2-4.2); Glucose 161 mg/dL (74-106); High Density Lipoprotein 37 mg/dL; Magnesium 1.6 mg/dL (1.6-2.6); Potassium 4.4 mmol/L (3.5-5.1); Sodium Level 141 mmol/L (136-145); Triglycerides 473 mg/dL
[2022-07-24 12:38] LABS: Vitamin D,25 Hydroxy 68.4 ng/mL
[2022-07-24 13:00] LABS: Microalbumin,Random Urine 91.7 mg/L (NO RANGE EST.); Microalbumin:Creatinine Ratio 104.6 mg/g CRE (<30 mg/g CRE); Protein, Urine (Random) 22.3 mg/dL (<11.9); Protein:Creat Ratio 254 mg/g CRE (0-200)
[2022-07-25 09:39] LABS: Hemoglobin A1c 6.5 % (3.8-5.6)
== END | disposition home or self-care (01) ==
LOC: MFPLAB 09:43
PROVIDERS: PCP Family Medicine; Referring Provider Family Medicine; Visit Provider Family Medicine
DX: E55.9 Vitamin D deficiency, unspecified (principal); E11.9 Type 2 diabetes mellitus without complications
CPT/HCPCS: 36415; 80053; 80061; 81001; 82043; 82306; 82570; 83036; 83735; 84100; 84156; 85025

== ENCOUNTER 2022-08-06 17:02 | Emergency (ER) | payer MEDICARE, SELFPAY ==
[2022-08-06 17:04] VITALS: BP 102/54; PULSE 70; RESP 18; TEMP 35.7; O2SAT 97; BMI 25.7
--- NOTE | 2022-08-06 18:26 | RAD_ITS ---
EXAM: XR LEFT WRIST COMPLETE, 3 OR MORE VIEWS CLINICAL INDICATION: Trauma TECHNIQUE: Frontal, lateral and oblique views of the left wrist. This report was created using [employer] report generation technology. COMPARISON: None. FINDINGS: BONES/JOINTS: Unremarkable. No acute fracture. No subluxation. Normal alignment. Preservation of the joint space. No sclerotic or destructive changes observed. SOFT TISSUES: Unremarkable. No soft tissue swelling or gas. No radiopaque foreign body. RAD/Wrist min 3 Views IMPRESSION: Negative left wrist x-rays. Electronically Signed: Jimmie Owens MD at 19:24 EST ,
--- NOTE | 2022-08-06 18:28 | EDS_ITS ---
HPI History of Present Illness Chief Complaint: Confusion Narrative Narrative: 76-year-old female past medical history of chronic kidney disease, smoker, coronary artery disease presents with reported confusion this morning. Her eldest son who is staying with her states that this morning it seemed as if she was hallucinating, talking about people that never existed and that she was very confused. He states he had never experienced anything like that previously with her. Additionally, he states that she has fallen a few times, and injured her left wrist at least a week ago. Pain is worse with movement. She is right-hand dominant. She denies hitting her head or loss of consciousness. Additionally, he states that she coughs on occasion and last week had a fever and thinks she may have pneumonia. She denies any dysuria or hematuria, no other symptoms except for mainly her left wrist pain. [facility] Medical History Aspiration pneumonia Atherosclerosis of coronary artery bypass graft of [place] heart with angina pectoris Candidal vulvovaginitis Encephalopathy GI bleed Hyperosmolar (nonketotic) coma Ischemic cardiomyopathy Nicotine dependence NSTEMI (non-ST elevated myocardial infarction) Type 2 diabetes mellitus Home Medications alendronate 70 mg tablet 70 mg PO WE Supplement 11/12/18 [History Last Taken 05/15/22] aspirin 81 mg chewable tablet 81 mg PO DAILY@0800 [facility] 11/12/18 [History Last Taken 05/19/22] atorvastatin 40 mg tablet 40 mg PO QHS BP #30 tabs 11/24/18 [Rx Last Taken 05/18/22] clopidogrel 75 mg tablet 75 mg PO DAILY HEART #30 tabs 11/24/18 [Rx Last Taken 05/19/22] insulin lispro 100 unit/mL subcutaneous pen (Humalog KwikPen (U-100) Insulin) 16 unit subcut TIDAC DIABETES 05/19/22 [History Last Taken 05/19/22] potassium chloride 20 mEq oral packet 20 meq PO DAILY SUPPLEMENT 05/19/22 [History Last Taken 05/19/22] ergocalciferol (vitamin D2) 1,250 mcg (50,000 unit) capsule (Vitamin D2) 50,000 unit PO QMONTH Supplement #7 caps 05/22/22 [Rx Last Taken 05/15/22] insulin glargine 100 unit/mL (3 mL) subcutaneous pen (Lantus Solostar U-100 Insulin) 10 unit (0.1 mL) subcut DAILY diabetes #15 mL 05/22/22 [Rx Last Taken 05/18/22] pantoprazole 40 mg tablet,delayed release 40 mg PO BID 60 days #120 tabs 05/22/22 [Rx Last Taken Unknown] cephalexin 500 mg capsule 500 mg PO BID #14 caps 08/06/22 [Rx Last Taken Unknown] Allergy/AdvReac Type Severity Reaction Status Date / Time metformin Allergy Itching Verified 08/06/22 17:04 tramadol Allergy Itching Verified 08/06/22 17:04 Family History Other Heart disease Surgical History H/O coronary artery bypass surgery History of hysterectomy History of left heart catheterization (11/16/18) Hx of cholecystectomy Social History Smoking Status: Current every day smoker tobacco type: cigarettes ROS ROS ED ROS Narrative Constitutional: No fever currently, may have had 1 last week, no chills. HEENT: No sore throat. No neck pain. No loss of vision. No rhinorrhea. Cardiovascular: No chest pain. No palpitations. No pedal edema. Respiratory: Occasional cough cough, no shortness of breath. Abdominal: No abdominal pain. No nausea. No vomiting. Genitourinary: No dysuria. No hematuria. Musculoskeletal: No myalgias. Left wrist pain worse with movement and touching. Neurologic: No headaches. No dizziness. No lightheadedness. Reported confusion this morning by eldest son. Skin: No rash. No change in color. Psychiatric: No depression. No anxiety. EXAM Physical Exam Narrative Exam Narrative: Afebrile. Vital signs noted. HEENT: Normocephalic. Atraumatic. PERRL, EOMI. Neck soft and supple. No point tenderness or step off. Cardiovascular: Regular rate and rhythm. No murmurs, rubs, or gallops appreciated. Respiratory: No tachypnea. Lungs clear to auscultation bilaterally. Gastrointestinal: Abdomen soft, nontender, with normoactive bowel sounds. No rebound or guarding. Neurological: Awake. Alert. Oriented x3. Nonfocal, nonlateralizing. Skin: No rash. Normal color. No pallor. Musculoskeletal: No pedal edema. Full range of motion extremities. Tenderness to palpation diffusely left distal radius, no obvious deformity. Palpable radial pulse. Full range of motion of fingers. Able to oppose thumb. Good capillary refill. Const Vital Signs: 08/06/22 17:04 08/06/22 19:00 Temperature 96.3 F L Temperature Source Temporal Pulse Rate 70 Respiratory Rate 18 Respiratory Effort Normal Respiratory Depth Normal Respiratory Pattern Normal Blood Pressure 102/54 L Blood Pressure Mean 70 Pulse Ox 97 Oxygen Delivery Method Room Air Room Air MDM MDM MDM Narrative Medical decision making narrative: Comprehensive work-up was pursued. I do not feel CT imaging of the brain is indicated. We will obtain CBC, CMP, urinalysis, and chest x-ray along with COVID and influenza swab. She is currently alert and oriented to person, place, time, and current events. CBC shows slightly elevated white count of 13.2, hemoglobin stable at 10.4, hematocrit 34.7. Normal platelet count of 331. Electrolyte panel shows sodium slightly low at 135 with a BUN of 60 and a creatinine of 2.66. She was bolused normal saline 1 L intravenously. AST slightly low at 13 and ALT 20. Urinalysis is consistent with UTI with 50-100 WBCs and 4+ bacteria. Given that I think this is a more complicated UTI because is causing confusion in an elderly female, this was sent for culture. She was given her first dose of Keflex here in the emergency department and a prescription written to take twice a day for the next week. Chest x-ray interpreted by myself shows no evidence of pneumonia. Given her left wrist injury I obtained x-rays of the left wrist and 3 views. My interpretation of her wrist x-ray shows no acute fracture. She was placed in a Velcro cock-up splint will continue ice and elevation at home. At this point in time, I feel she can be discharged safely home with follow-up. I feel that her confusion that was reported is most likely secondary to her urinary tract infection. Return instructions to the emergency department were reviewed. Disposition is discharged home in stable condition. Lab Data Attestation: I reviewed the patient's lab results. Labs: Laboratory Results - last 24 hr 08/06/22 08/06/22 08/06/22 18:52 18:52 19:00 WBC 13.2 H RBC 3.82 L Hgb 10.4 L Hct 34.7 L MCV 90.8 MCH 27.2 MCHC 30.0 L RDW Std Deviation 58.7 H RDW Coeff of Joanna 17.6 H Plt Count 331 MPV 9.2 Immature Gran % (Auto) 2.200 H Neut % (Auto) 70.1 H Lymph % (Auto) 18.8 L [place] % (Auto) 7.4 Eos % (Auto) 1.0 Baso % (Auto) 0.5 Absolute Neuts (auto) 9.2 H Absolute Lymphs (auto) 2.48 Nucleated RBC % 0 Sodium 135 L Potassium 5.1 Chloride 102 Carbon Dioxide 23.0 Anion Gap 10 BUN 60 H Creatinine 2.66 H Estim Creat Clear Calc 13.33 Est GFR (MDRD) Af Amer 23 L Est GFR (MDRD) Non-Af 19 L BUN/Creatinine Ratio 22.6 H Glucose 168 H Calcium 7.8 L Total Bilirubin 0.30 AST 13 L ALT 20 Alkaline Phosphatase 135 H Total Protein 7.3 Albumin 3.0 L Globulin 4.3 H Albumin/Globulin Ratio 0.7 L Urine Color Straw Urine Clarity Cloudy Urine pH 6.0 Ur Specific [place] 1.015 Urine Protein 15 H Urine Glucose (UA) Normal Urine Ketones Negative Urine Occult Blood 10 H Urine Nitrite Negative Urine Bilirubin Negative Urine Urobilinogen Normal Ur Leukocyte Esterase 500 H Urine RBC 0 SEEN Urine WBC 50-100 SEEN Ur Squamous Epith Cells 0-5 SEEN Urine Bacteria 4+ Urine Mucus 0 SEEN Radiography Diagnostic Testing: Clinical Impression(s) from Imaging Studies Wrist X-Ray 08/06/22 18:26 IMPRESSION: Negative left wrist x-rays. Electronically Signed: Jimmie Owens MD at 19:24 EST , Chest X-Ray 08/06/22 19:05 IMPRESSION: No radiographic evidence of acute cardiopulmonary disease. Electronically Signed: Jimmie Owens MD at 19:29 EST Reading Location ID and State: [facility] / [place] Tel , Service support , Discharge Plan Triage Chief Complaint: Confusion Other Complaint: Fall Upper Extremity Injury ED Provider: Ubaldo Jose Dx/Rx/DC Orders Clinical Impression: Left wrist sprain, Confusion, UTI (urinary tract infection) Instructions: ED Confusion, ED Cystitis Female Adult, ED Wrist Sprain Prescriptions: New cephalexin 500 mg capsule 500 mg PO BID Qty: 14 0RF No Action alendronate 70 MG tablet 70 mg PO WE aspirin 81 MG tablet,chewable 81 mg PO DAILY@0800 atorvastatin 40 MG tablet 40 mg PO QHS Qty: 30 0RF clopidogrel 75 MG tablet 75 mg PO DAILY Qty: 30 0RF Hold Instructions: Resume on 05/29/22. You indicated you were unsure if you were still taking this medication. Please verify and discuss with your primary care physician before resuming. You remain on aspirin at this time. insulin lispro [Humalog KwikPen Insulin] 100 UNIT/ML insulin pen 16 unit subcut TIDAC Hold Instructions: Resume on 05/29/22. Hold until discussing with your primary care physician d/t low blood sugars in the hospital potassium chloride 20 mEq Packet 20 meq PO DAILY Hold Instructions: Resume on 05/29/22. Hold prior to discussing with your primary care physician as your potassium levels were normal on discharge pantoprazole 40 mg Tablet,Delayed Release (Dr/Ec) 40 mg PO BID 60 Days Qty: 120 0RF ergocalciferol (vitamin D2) [Vitamin D2] 50,000 UNIT capsule 50,000 unit PO QMONTH Qty: 7 0RF insulin glargine [Lantus Solostar U-100 Insulin] 100 UNITS/ML insulin pen 10 unit subcut DAILY Qty: 15 0RF Primary Care Provider: Ben Rahman Referrals: Ben Rahman MD [Primary Care Provider] - 5-7 Days Disposition Disposition: Home, Self Care
[2022-08-06 19:04] LABS: Absolute Lymphocyte Count 2.48 X10^3/uL (0.83-4.51); Absolute Neutrophil Count 9.2 X10^3/uL (2.0-7.7); Basophil# 0.06 X10^3/uL; Basophil% 0.5 % (0-1); Eosinophil# 0.13 X10^3/uL; Hematocrit 34.7 % (37-47); Hemoglobin 10.4 g/dL (12.0-15.0); Lymphocyte # 2.48 X10^3/ul (0.83-4.51); Lymphocyte % 18.8 % (19-41); Mean Corpuscular Hgb 27.2 pg (27.0-32.0); Mean Corpuscular Volume 90.8 fL (81-99); Mean Platelet Vol. 9.2 fl (6.2-12.0); Monocyte# 0.97 X10^3/uL; Monocyte% 7.4 % (0-10); NRBC Flagged by Analyzer 0 % (0-5); Neutrophil # 9.24 X10^3/uL (2.7-7.7); Neutrophil % 70.1 % (47-70); Platelet Count 331 K/mm3 (150-450); RBC Distribution Width CV 17.6 % (11.6-14.6); RBC Distribution Width SD 58.7 fl (35.1-43.9); Red Blood Count 3.82 M/mm3 (4.2-5.4); White Blood Count 13.2 K/mm3 (4.4-11.0)
[2022-08-06] MEDS: 0.9% Normal Saline 1,000 ML 999 ML IV (19:05)
--- NOTE | 2022-08-06 19:05 | RAD_ITS ---
EXAM: XR CHEST, 1 VIEW CLINICAL INDICATION: Cough TECHNIQUE: Frontal view of the chest. This report was created using [employer] report generation technology. COMPARISON: 11/08/2021 FINDINGS: LUNGS AND PLEURAL SPACES: Unremarkable. No consolidation or edema. No pneumothorax. No effusion. HEART: Unremarkable. Cardiac silhouette not enlarged. MEDIASTINUM: Central airways and mediastinal contour are unremarkable. BONES/JOINTS: Unremarkable. SOFT TISSUES: Unremarkable. RAD/Chest 1 View (Portable) IMPRESSION: No radiographic evidence of acute cardiopulmonary disease. Electronically Signed: Jimmie Owens MD at 19:29 EST ,
[2022-08-06 19:15] LABS: Mucous, Urine 0 SEEN /hpf (<or=2+); Red Blood Cells-Urine 0 SEEN /hpf (0-5)
[2022-08-06 19:17] LABS: Color, Urine Straw (Yellow); Glucose, Dipstick Normal (Normal); Ketone-Dipstick Negative (Negative); Leukocyte Esterase-Dipstick 500 /ul (Negative); Nitrite-Dipstick Negative (Negative); Occult Blood-Urine 10 /ul (Negative); Protein-Dipstick 15 mg/dl (Negative); Specific Gravity, Urine 1.015 (1.002-1.030); Urine Bilirubin Dipstick Negative (Negative); Urine Clarity Cloudy (Clear); Urine Urobilinogen Normal (Normal)
[2022-08-06 19:24] LABS: ALB/GLOB Ratio 0.7 RATIO (0.9-2.4); AST(SGOT) 13 U/L (15-37); Alanine Aminotransfer ALT/SGPT 20 U/L (13-56); Alkaline Phosphatase 135 U/L (45-117); Anion Gap 10 (5-15); BUN 60 mg/dL (7-18); BUN/Creat Ratio 22.6 RATIO (10-20); Calcium,Total 7.8 mg/dL (8.5-10.1); Chloride 102 mmol/L (98-107); Creatinine, Serum 2.66 mg/dL (0.55-1.02); EST Glomerular Filtration Rate 19 mL/min (>60); Est Glom Filt Rate - Afr Amer 23 mL/min (>60); Estimated Creatinine Clearance 13.33 ml/min; Globulin 4.3 g/dL (2.2-4.2); Glucose 168 mg/dL (74-106); Potassium 5.1 mmol/L (3.5-5.1); Protein, Total 7.3 g/dL (6.4-8.2); Sodium Level 135 mmol/L (136-145)
[2022-08-06 19:43] LABS: Bacteria 4+ /hpf (None Seen); Squamous Epithelial Cells - UA 0-5 SEEN /hpf (5-10); White Blood Cells 50-100 SEEN /hpf (0-5)
[2022-08-06] MEDS: Cephalexin 250 MG Capsule 500 MG PO (20:01)
[2022-08-06 20:03] VITALS: BP 124/78; PULSE 70; RESP 19; O2SAT 99
== END 2022-08-06 20:14 | disposition home or self-care (01) ==
PROVIDERS: Emergency Provider Emergency Medicine; PCP Family Medicine; Visit Provider Emergency Medicine
DX: S63.92XA Sprain of unspecified part of left wrist and hand, initial encounter (principal); R41.0 Disorientation, unspecified; N39.0 Urinary tract infection, site not specified; F17.210 Nicotine dependence, cigarettes, uncomplicated; N18.9 Chronic kidney disease, unspecified; I25.10 Atherosclerotic heart disease of native coronary artery without angina pectoris; I25.2 Old myocardial infarction; Z95.1 Presence of aortocoronary bypass graft; W19.XXXA Unspecified fall, initial encounter
CPT/HCPCS: 71045; 73110; 80053; 81001; 85025; 87077; 87086; 87088; 87186; 87428; 99285; J7030

== ENCOUNTER → 2022-10-17 | Outpatient (CLI) | payer MEDICARE, SELFPAY ==
[2022-10-17 15:54] LABS: Color, Urine Yellow (Yellow); Glucose, Dipstick Normal (Normal); Ketone-Dipstick Negative (Negative); Leukocyte Esterase-Dipstick 500 /ul (Negative); Nitrite-Dipstick Positive (Negative); Occult Blood-Urine Negative /ul (Negative); Protein-Dipstick Negative (Negative); Specific Gravity, Urine 1.015 (1.002-1.030); Urine Bilirubin Dipstick Negative (Negative); Urine Clarity Clear (Clear); Urine Urobilinogen Normal (Normal)
== END | disposition home or self-care (01) ==
LOC: LABSPEC 14:08
PROVIDERS: PCP Family Medicine; Referring Provider Family Medicine; Visit Provider Family Medicine
DX: N39.0 Urinary tract infection, site not specified (principal)
CPT/HCPCS: 81002; 87077; 87086; 87088; 87186

== ENCOUNTER → 2022-10-31 | Outpatient (CLI) | payer MEDICARE, SELFPAY ==
[2022-10-31 15:26] LABS: Hematocrit 34.2 % (37-47); Hemoglobin 10.4 g/dL (12.0-15.0); Mean Corp Hgb Conc 30.4 g/dL (32-36); Mean Corpuscular Hgb 28.8 pg (27.0-32.0); Mean Corpuscular Volume 94.7 fL (81-99); Mean Platelet Vol. 9.3 fl (6.2-12.0); POSITIVE COUNT YES; POSITIVE MORPHOLOGY YES; Platelet Count 424 K/mm3 (150-450); RBC Distribution Width CV 16.4 % (11.6-14.6); RBC Distribution Width SD 57.2 fl (35.1-43.9); Red Blood Count 3.61 M/mm3 (4.2-5.4)
[2022-10-31 15:38] LABS: Differential Indicated MANUAL DIFF
[2022-10-31 15:45] LABS: Hemoglobin A1c 5.7 % (3.8-5.6)
[2022-10-31 15:55] LABS: Vitamin D,25 Hydroxy 86.2 ng/mL
[2022-10-31 16:17] LABS: ALB/GLOB Ratio 0.8 RATIO (0.9-2.4); AST(SGOT) 24 U/L (15-37); Alanine Aminotransfer ALT/SGPT 23 U/L (13-56); Albumin, Serum 3.1 g/dL (3.2-5.0); Alkaline Phosphatase 213 U/L (45-117); Anion Gap 10 (5-15); BUN 18 mg/dL (7-18); BUN/Creat Ratio 13.3 RATIO (10-20); Calcium,Total 8.1 mg/dL (8.5-10.1); Chloride 106 mmol/L (98-107); Cholesterol 135 mg/dL (200); Creatinine, Serum 1.35 mg/dL (0.55-1.02); EST Glomerular Filtration Rate 41 mL/min (>60); Est Glom Filt Rate - Afr Amer 49 mL/min (>60); Globulin 4.1 g/dL (2.2-4.2); Glucose 102 mg/dL (74-106); High Density Lipoprotein 36 mg/dL; Phosphorus 3.5 mg/dL (2.5-4.9); Potassium 3.8 mmol/L (3.5-5.1); Protein, Total 7.2 g/dL (6.4-8.2); Sodium Level 139 mmol/L (136-145); Thyroid Stim Hormone (TSH) 3.63 uIU/mL (0.358-3.74); Triglycerides 392 mg/dL; Very Low Density Lipoprotein 78 mg/dL (5-40)
[2022-10-31 16:41] LABS: Lymphocyte 18 % (19-41); Metamyelocyte 1 % (0-1); Monocyte 5 % (0-10); Myelocyte 3 % (0-0); Neutrophil-Band 2 % (0-5); Neutrophil-Segmented 71 % (47-70); Total Cells Counted 100 (MANUAL DIFF)
[2022-10-31 16:43] LABS: Platelet Estimate ADEQUATE (ADEQ); Red Cell Morphology NORM C+C NORMAL (NORM C&C)
[2022-11-01 07:55] LABS: PTHIN 47.9 pg/mL (18.4-80.1)
[2022-11-01 12:42] LABS: Pathologist Review Reviewed
== END | disposition home or self-care (01) ==
LOC: MFPLAB 14:07
PROVIDERS: PCP Family Medicine; Referring Provider Family Medicine; Visit Provider Family Medicine
DX: E11.9 Type 2 diabetes mellitus without complications (principal); M81.0 Age-related osteoporosis without current pathological fracture
CPT/HCPCS: 36415; 80053; 80061; 82306; 83036; 83970; 84100; 84443; 85025

== ENCOUNTER → 2022-11-22 | Outpatient (CLI) | payer MEDICARE, SELFPAY ==
--- NOTE | 2022-11-22 10:38 | RAD_ITS ---
STUDY: X-RAY - UNILATERAL RIBS ( LEFT ) REASON FOR EXAM: Female, 77 years old. Rib pain pulmonary flow. TECHNIQUE: 2 view(s) of the ribs. COMPARISON: None. FINDINGS: Nondisplaced fractures involving the anterolateral aspect 6, 7 8 and ninth ribs. Prior CABG. RAD/Ribs Unil 2V No CXR IMPRESSION: Nondisplaced fractures involving anterolateral aspect of the left sixth, seventh and eighth and ninth ribs. Electronically Signed: Ugo Shearer MD at 11:51 EDT ,
== END | disposition home or self-care (01) ==
PROVIDERS: PCP Family Medicine; Referring Provider Family Medicine; Visit Provider Family Medicine
DX: R07.81 Pleurodynia (principal)
CPT/HCPCS: 71100